=== PATIENT | male | born 1940 ===

== ENCOUNTER 2022-02-13 11:23 | Emergency (ER) | payer OTHER ==
--- OUTSIDE RECORDS SUMMARY | 2022-02-13 11:27 | XMS REPORT | Continuity of Care Document ---
:1940 Author Organization [facility] t Address [address] [place] [address] Care Team Providers Name Role Phone Irasema Yoder DO Primary Care Physician Shane Alvarez Attending Clinician Unavailable Suraj Attending Clinician Unavailable HAJA ORTIZ Attending Clinician Unavailable Negro Easley Attending Clinician Unavailable Kathy Ojeda Attending Clinician Unavailable Mark Lucero Attending Clinician Unavailable Provider, Unknown Attending Clinician Unavailable Adolph Arnold Attending Clinician Unavailable Shane Alvarez Admitting Clinician Unavailable Suraj Admitting Clinician Unavailable HAJA ORTIZ Admitting Clinician Unavailable Irasema Yoder Admitting Clinician Unavailable Physician, No Primary or Family Admitting Clinician UnavailMark Doe Admitting Clinician Unavailable Adolph Arnold Admitting Clinician Unavailable KNOW, DOES_NOT Admitting Clinician Unavailable Payers Payer Name Policy Type Policy Number Effective Date Expiration Date S shawn MEDICARE [place]: [id number] 2006 [employer] 00:00:00 [place] [place] ALONDRA DU[place] [id number] 2013 (PPO) 00:00:00 Problems This patient has no known problems. Allergies, Adverse Reactions, Alerts Allergy Allergy Status Severity Reaction(s) Onset Inactive Treating Comm ents Source Name Type Date Date Clinician No Known DA Active U 2021-0 [facility] 2[facility]14 [place] [facility] 00:00: d 00 [facility] No Known DA Active U 2020- [facility] Allergie 0-15 [place] [facility] 00:00: [place] 00 [facility] No Known DA Active U 2020-1 [facility] Allergie 0-15 [place] s 00:00: [place] 00 [facility] No Known DA Active U 2020-0 [facility] Drug 9-21 [place] Allergie 00:00: d s 00 [facility] milk FA Active MO 2020-0 [facility] 9-21 [place] 00:00: d 00 [facility] No Known DA Active U 2020-0 [facility] Drug 9-21 [place] Allergie 00:00: d s 00 [facility] milk FA Active MO NASAL 2020-0 [facility] CONGESTION 9-21 [place] 00:00: d 00 [facility] No Known DA Active U 2020-0 [facility] 8[facility]17 [place] [facility] No Known DA Active U 2020-0 [facility]ie 8-17 [place] [facility] Social History Social Habit Start Date Stop Date Quantity Comments Source Exposure to Not sure [facility] SARS-CoV-2 (event) Sex Ass[birth year] At [birth year] [facility] 00:00:00 00:00:00 Smoking Status Start Date Stop Date Source Unknown if ever smoked [facility] Medications Ordered Filled Start Stop Current Ordering Indication Dosage Frequency Signature Comments Components Source Medication Medication Date Date Medication? Clinician (SIG) Name Name ezetimibe 2020-07 Yes 10mg QD Take 10 mg Me thodi (ZETIA) 10 0-[address] mg tablet 20:24: daily. Hospit a 06 l metoprolol 2020-07 Yes 25mg Q.5D Take 25 mg M ethodi tartrate 0-[address] (LOPRESSOR) 20:24: (two) Hospi ta 25 mg 06 times a l tablet day. aspirin 2020-07 Yes 81mg QD Take 81 mg Meth nikita (ECOTRIN) 0-[address] 81 MG 20:24: daily. Hospita enteric 06 l coated tablet nitroglycer 2020-[address] 0.4 M ethodi in 0-[address] (NITROSTAT) 20:24: the tongue Hospita 0.4 MG SL 06 every 5 l tablet (five) minutes as needed for chest pain. Vital Signs Vital Name Observation Time Observation Value Comments Source Body height 2021-04-10 20:23:00 175.3 cm [facility] Body weight 2021-04-10 20:23:00 97.523 kg [facility] BMI 2021-04-10 20:23:00 31.75 kg/m2 [facility] Procedures Procedure Date / Time Performed Performing Clinician [facility] roger [id number] 2021-04-18 00:00:00 [facility] [id number] 2021-04-18 00:00:00 [facility] [id number] 2021-04-18 00:00:00 [facility] COVID-19 QUALITATIVE 2021-04-12 17:57:00 Haja Ortiz [facility] RT-PCR TYPE AND SCREEN 2021-04-10 19:46:00 [facility] HEMOGLOBIN A1C 2021-04-10 19:46:00 [facility] URINE CULTURE 2021-04-10 19:26:00 [facility] URINALYSIS SCREEN AND 2021-04-10 19:26:00 [facility] MICROSCOPY, WITH REFLEX TO CULTURE Plan of Care Planned Activity Planned Date Details Comments Source Future Scheduled Test COVID-19 VACCINE (1) [facility] [code = COVID-19 VACCINE (1)] Future Scheduled Test SHINGLES VACCINES (#1) [facility] [code = SHINGLES VACCINES (#1)] Future Scheduled Test 65+ PNEUMOCOCCAL [facility] VACCINE (1 of 1 - PPSV23) [code = 65+ PNEUMOCOCCAL VACCINE (1 of 1 - PPSV23)] Future Scheduled Test INFLUENZA VACCINE [code [facility] = INFLUENZA VACCINE] Encounters Start End Encounter Admission Attending Care Care Encounter Source Date/Time Date/Time Type Type Clinicians Facility Department ID 2021-04-18 Inpatient [facility] XOCHITL [id number] [facility] 17:44:00 [id number] [facility] 2021-04-10 Inpatient BOAZ Villalobos [id number] [facility] 15:30:00 Shane 41 [facility] 2021-04-10 Inpatient BOAZ Villalobos [id number] [facility] 15:30:00 Shane [id number] [facility] 2022-02-10 2022-02-10 Outpatient FOG_Patel_A AOSM AOSM [id number] [place] 00:00:00 00:00:00 Deshaun [id number] [facility] 2022-02-09 2022-02-09 Outpatient FOG_Patel_A AOSM AOSM [id number] [place] 00:00:00 00:00:00 Deshaun [id number] [facility] 2022-02-05 2022-02-06 Outpatient M[place]ISSA [place] [id number] [place] 00:00:00 00:00:[address] 2022-02-02 2022-02-02 Outpatient FOG_Patel_A AOSM AOSM [id number] [place] 00:00:00 00:00:00 Desahun [id number] [facility] 2022-02-02 2022-02-02 Outpatient HAJA ORTIZ [facility] [id number] [place] 00:00:00 00:00:[address] 2022-01-23 2022-01-23 Outpatient FOG_Patel_A AOSM AOSM 545 [id number] [place] 09:06:00 09:06:00 Deshaun [id number] [facility] 2022-01-15 2022-01-15 Outpatient ORTIZJOANNA TIANY [facility] [id number] [place] 00:00:00 00:00:[address] 2022-01-06 2022-01-06 Outpatient FOG_Patel_A AOSM AOSM 545 [id number] [place] 08:36:00 08:36:00 Deshaun [id number] [facility] 2021-08-19 2021-08-19 Outpatient EL Burkland, HCAPM CATH [id number] [facility] 05:43:00 05:43:00 Negro [id number] [facility] 2021-08-19 2021-08-19 Outpatient JAYLAN Easley, HCAPM HCAPM [id number] [facility] 05:43:00 05:43:00 Negro 32 [facility] 2021-07-28 2021-07-28 Outpatient EL Mendozapou HCAPM HCAPM Y11 [id number] [facility] 14:19:00 14:19:00 r, Amir [id number] [facility] 2021-07-28 2021-07-28 Outpatient EL [place] HCAPM HCAPM LA0 [id number] [facility] 14:19:00 14:19:00 r, Amir 96 [facility] 2021-04-18 2021-04-23 Inpatient EM Jazmine, HCAPM INTE [id number] [facility] 17:57:00 14:36:00 Mark 92 [facility] 2021-04-18 2021-04-18 Outpatient Jazmine HCACL LABO [id number] [facility] 23:19:00 23:19:00 Mark [id number] [facility] 2021-04-18 2021-04-18 Outpatient Jazmine HCACL LABO [id number] [facility] 23:19:00 23:19:00 Mark 39 [facility] 2021-04-17 2021-04-17 Documentat Provider, 1.2.840.1 [id number] [facility] 00:00:00 00:00:00 ion Unknown [address]5299.1.[address] 3.430.2.7 Hospit a .3.691932 l .8 2021-04-17 2021-04-17 Haja Henry 1.2.840.1 [id number] [facility] 00:00:00 00:00:[address] [place] 3.430.2.7 Hospit a .3.278847 l .8 2021-04-12 2021-04-12 Haja Jordan 1.2.840.1 [id number] [facility] 12:56:32 13:01:[address] 3.430.2.7 Hospit a .3.764337 l .8 2021-04-10 2021-04-10 Pre-Admiss Haja Ortiz 1.2.840.1 [id number] [facility] 11:56:34 12:56:34 [place] R. 89002.1.[address] Testing 3.430.2.7 Hospit a .3.931890 l .8 2021-04-10 2021-04-10 Documentat Provider, 1.2.840.1 [id number] [facility] 00:00:00 00:00:00 ion Unknown 20468.1.[address] 3.430.2.7 Hospit a .3.008241 l .8 2021-04-10 2021-04-10 Travel 1.2.840.1 1.2.775.274 [id number] [facility] 00:00:00 00:00:[address] 3.430.2.7 0.2.7.3.698 Ho spita .3.483590 084.8 l .8 2021-03-25 2021-03-25 Outpatient BOAZ Villalobos MEDI [id number] - [facility] 00:00:00 23:59:00 Shane [id number] [facility] 2021-03-25 2021-03-25 Outpatient Antonio SALENA LABO [id number] [facility] 17:10:00 17:10:00 Shane 67 [facility] 2021-03-25 2021-03-25 Outpatient ISIDRO AlvarezEWELINA LABO [id number] [facility] 17:10:00 17:10:00 Shane [id number] [facility] 2021-02-20 2021-02-20 Outpatient BOAZ Lui PAIN [id number] [facility] 13:09:00 13:09:00 Adolph [facility] [place] [facility] 2021-02-20 2021-02-20 Outpatient BOAZ Lui PAIN [id number] [facility] 13:09:00 13:09:00 Adolph [id number] [facility] Results Test Description Test Time Test Comments Results Result Comments Source SARS-CoV-2 (COVID-19) RNA [Presence] in Respiratory sp ecimen by 2022-02-02 22:14:37 CYNTHIA with probe detection Test Item Value Reference Range Interpretation Comme nts SARS-CoV-2 (COVID-19) RNA [Presence] in Respiratory specimen by Not detected CYNTHIA with probe detection (test code = 06227-5) Whether patient is employed in a healthcare setting (test code = Un known 28171-8) Whether the patient has symptoms related to condition of interest U nknown (test code = 48435-8) Whether the patient was hospitalized for condition of interest Unkn own (test code = 84836-7) Whether the patient was admitted to intensive care unit (ICU) for U nknown condition of interest (test code = 26458-5) Whether patient resides in a congregate care setting (test code = U nknown 48022-2) status (test code = 59203-4) Unknown Date and time of symptom onset (test code = 05415-6) Unknown COMPREHENSIVE METABOLIC [id number] 14:40:00 Test Item Value Reference Range Interpretation Comments SODIUM (test code = NA) 136 mmol/L 134-147 N POTASSIUM (test code = 4.0 mmol/L 3.4-5.0 N K) CHLORIDE (test code = 103 mmol/L 100-108 N CL) CARBON DIOXIDE (test 28 mmol/L 21-32 N code = CO2) ANION GAP (test code = 5.0 GAP calc 4.0-15.0 N GAP) GLUCOSE (test code = 172 MG/DL 70-110 H GLU) BLOOD UREA NITROGEN 13 MG/DL 7-18 N (test code = BUN) GLOMERULAR FILTRATION >=60 max estimate >60 RATE (test code = GFR) estGFR CREATININE (test code = 0.7 MG/DL 0.8-1.3 L CREAT) TOTAL PROTEIN (test code 7.6 G/DL 6.4-8.2 N = PROT) ALBUMIN (test code = 3.7 G/DL 3.4-5.0 N ALB) GLOBULIN (test code = 3.9 GM/dL GLOB) ALBUMIN/GLOBULIN RATIO 1.0 RATIO 1.2-2.2 L (test code = A/G) CALCIUM (test code = CA) 9.5 MG/DL 8.5-10.1 N BILIRUBIN TOTAL (test 0.90 MG/DL 0.2-1.2 N code = BILT) SGOT/AST (test code = 24 Unit/L 15-37 N AST) SGPT/ALT (test code = 49 Unit/L 12-78 N ALT) ALKALINE PHOSPHATASE 66 Unit/L 50-136 N TOTAL (test code = ALKP) COVID 19 INHOUSE [id number] 14:36:00 Test Item Value Reference Range Interpretation Comments COVID 19 INHOUSE AG NEGATIVE Negative Per manu facturer, (test code = negative result s should [id number]) be treated aspr esumptive and, if inconsi stent with clinical signs andsymptoms or necessary for patient man agement, should betested with an alternative mol ecular assay. Negative resultsdo not preclude SA RS-CoV-2 infection and s hould not be usedas the s ole basis for patient man agement decisions. Nega tive results should be considered in t he context of apatient's r ecent exposures, hist ory, presence of cli nicalsigns and symptoms co nsistent with COVID-19. PROTHROMBIN [id number] 14:29:00 Test Item Value Reference Range Interpretation Comments PT PATIENT (test 12.9 SECONDS 9.3-12.9 N code = PTP) INTERNATIONAL NORMAL 1.13 INR Unit 0.8-1.2 N TARGE T INR BY RATIO (test code = INDICATIO N Indication INR) INR1. Prophylax is of venous thrombos is 2.0 - 3.0 (orthoped ic surgery), Proph ylaxis of venous throm bosis (other than hig h-risk surgery), Treat ment of Deep Vein Thrombosis/Pulm onary Embolism, Preve ntion of systemic emb olism - Tissue heart va lves, Acute Myocardia l Infarction (to prevent systemic emboli sm), Valvular heart disease, Acute Myocardial Infa rction (to prevent sys temic embolism), Valv ular heart disease, Atrial Fibrillation, Bileaflet mecha nical valve in aortic position.2. [facility] hanical prosthetic valv es (high risk), 2. 5 - 3.5 Presence of Lup us Anticoagulant o r Antiphospholipi d Antibodies, Pre vention of systemic emb olism - Acute Myocardia l Infarction (to prevent recurrent infar ct). CBC W/AUTO [id number] 14:18:00 Test Item Value Reference Range Interpretation Comments WHITE BLOOD CELL (test code = 6.6 K/mm3 3.5-11.0 N WBC) RED BLOOD CELL (test code = 5.09 M/mm3 4.70-6.10 N RBC) HEMOGLOBIN (test code = HGB) 15.6 G/DL 12.3-15.9 N HEMATOCRIT (test code = HCT) 46.8 % 35.8-46.7 H MEAN CELL VOLUME (test code = 91.9 Fl 86.3-98.9 N MCV) MEAN CELL HGB (test code = MCH) 30.6 pg 28.9-34.4 N MEAN CELL HGB CONCETRATION 33.3 G/DL 32.1-34.5 N (test code = MCHC) RED CELL DISTRIBUTION WIDTH 13.2 SD 11.5-14.5 N (test code = RDW) PLATELET COUNT (test code = 210 K/mm3 150-450 N PLT) MEAN PLATELET VOLUME (test code 9.90 fL 7.0-9.6 H = MPV) NEUTROPHIL % (test code = NT%) 60.7 % 40-76 N IMMATURE GRANULOCYTE % (test 0.5 % 0.0-5.0 N code = IG%) LYMPHOCYTE % (test code = LY%) 20.7 % 20.5-51.1 N MONOCYTE % (test code = MO%) 10.8 % 1.7-9.3 H EOSINOPHIL % (test code = EO%) 6.4 % 0.0-6.0 H BASOPHIL % (test code = BA%) 0.9 % 0.0-2.0 N NUCLEATED RBC % (test code = 0.0 /100WBC% 0.0-1.0 N NRBC%) NEUTROPHIL # (test code = NT#) 4.0 K/mm3 1.8-7.6 N IMMATURE GRANULOCYTE # (test 0.03 x10 3/uL 0.00-0.03 N code = IG#) LYMPHOCYTE # (test code = LY#) 1.4 K/mm3 0.6-3.0 N MONOCYTE # (test code = MO#) 0.7 K/mm3 0.2-1.5 N EOSINOPHIL # (test code = EO#) 0.4 K/mm3 0.0-0.4 N BASOPHIL # (test code = BA#) 0.1 K/mm3 0.0-0.2 N NUCLEATED RBC # (test code = 0.0 K/mm3 0.00-0.01 N NRBC#) MANUAL DIFF REQUIRED (test code NO DIFF/SCN CRITERIA = MDIFF) CBC W/AUTO [id number] 07:45:00 Test Item Value Reference Range Interpretation Comments WHITE BLOOD CELL 9.9 K/mm3 3.5-11.0 N (test code = WBC) RED BLOOD CELL (test 4.96 M/mm3 4.70-6.10 N code = RBC) HEMOGLOBIN (test code 15.6 G/DL 12.3-15.9 N = HGB) HEMATOCRIT (test code 47.2 % 35.8-46.7 H = HCT) MEAN CELL VOLUME 95.2 Fl 86.3-98.9 N (test code = MCV) MEAN CELL HGB (test 31.5 pg 28.9-34.4 N code = MCH) MEAN CELL HGB 33.1 G/DL 32.1-34.5 N CONCETRATION (test code = MCHC) RED CELL DISTRIBUTION 13.1 SD 11.5-14.5 N WIDTH (test code = RDW) PLATELET COUNT (test 187 K/mm3 150-450 N code = PLT) MEAN PLATELET VOLUME 9.80 fL 7.0-9.6 H (test code = MPV) NEUTROPHIL % (test 81.8 % 40-76 H code = NT%) IMMATURE GRANULOCYTE 0.4 % 0.0-5.0 N % (test code = IG%) LYMPHOCYTE % (test 5.6 % 20.5-51.1 L code = LY%) MONOCYTE % (test code 8.4 % 1.7-9.3 N = MO%) EOSINOPHIL % (test 3.2 % 0.0-6.0 N code = EO%) BASOPHIL % (test code 0.6 % 0.0-2.0 N = BA%) NUCLEATED RBC % (test 0.0 /100WBC% 0.0-1.0 N code = NRBC%) NEUTROPHIL # (test 8.1 K/mm3 1.8-7.6 H code = NT#) IMMATURE GRANULOCYTE 0.04 x10 3/uL 0.00-0.03 H # (test code = IG#) LYMPHOCYTE # (test 0.6 K/mm3 0.6-3.0 N code = LY#) MONOCYTE # (test code 0.8 K/mm3 0.2-1.5 N = MO#) EOSINOPHIL # (test 0.3 K/mm3 0.0-0.4 N code = EO#) BASOPHIL # (test code 0.1 K/mm3 0.0-0.2 N = BA#) NUCLEATED RBC # (test 0.0 K/mm3 0.00-0.01 N code = NRBC#) MANUAL DIFF REQUIRED NO DIFF/SCN CRITERIA SLIDE R ALANIEW (test code = MDIFF) CONSISTA NT WITH AUTO DIFFERENTI AL. BASIC METABOLIC [id number] 06:26:00 Test Item Value Reference Range Interpretation Comments SODIUM (test code = NA) 133 mmol/L 134-147 L POTASSIUM (test code = 3.7 mmol/L 3.4-5.0 N K) CHLORIDE (test code = 100 mmol/L 100-108 N CL) CARBON DIOXIDE (test 27 mmol/L 21-32 N code = CO2) ANION GAP (test code = 6.0 GAP calc 4.0-15.0 N GAP) GLUCOSE (test code = 158 MG/DL 70-110 H GLU) BLOOD UREA NITROGEN 11 MG/DL 7-18 N (test code = BUN) GLOMERULAR FILTRATION >=60 max estimate >60 RATE (test code = GFR) estGFR CREATININE (test code = 0.7 MG/DL 0.8-1.3 L CREAT) CALCIUM (test code = CA) 8.8 MG/DL 8.5-10.1 N BASIC METABOLIC [id number] 06:03:00 Test Item Value Reference Range Interpretation Comments SODIUM (test code = NA) 137 mmol/L 134-147 N POTASSIUM (test code = 3.5 mmol/L 3.4-5.0 N K) CHLORIDE (test code = 101 mmol/L 100-108 N CL) CARBON DIOXIDE (test 28 mmol/L 21-32 N code = CO2) ANION GAP (test code = 8.0 GAP calc 4.0-15.0 N GAP) GLUCOSE (test code = 138 MG/DL 70-110 H GLU) BLOOD UREA NITROGEN 12 MG/DL 7-18 N (test code = BUN) GLOMERULAR FILTRATION >=60 max estimate >60 RATE (test code = GFR) estGFR CREATININE (test code = 0.8 MG/DL 0.8-1.3 N CREAT) CALCIUM (test code = CA) 9.1 MG/DL 8.5-10.1 N CBC W/AUTO [id number] 05:48:00 Test Item Value Reference Range Interpretation Comments WHITE BLOOD CELL (test code = 7.0 K/mm3 3.5-11.0 N WBC) RED BLOOD CELL (test code = 4.70 M/mm3 4.70-6.10 N RBC) HEMOGLOBIN (test code = HGB) 14.8 G/DL 12.3-15.9 N HEMATOCRIT (test code = HCT) 44.8 % 35.8-46.7 N MEAN CELL VOLUME (test code = 95.3 Fl 86.3-98.9 N MCV) MEAN CELL HGB (test code = MCH) 31.5 pg 28.9-34.4 N MEAN CELL HGB CONCETRATION 33.0 G/DL 32.1-34.5 N (test code = MCHC) RED CELL DISTRIBUTION WIDTH 13.2 SD 11.5-14.5 N (test code = RDW) PLATELET COUNT (test code = 201 K/mm3 150-450 N PLT) MEAN PLATELET VOLUME (test code 10.00 fL 7.0-9.6 H = MPV) NEUTROPHIL % (test code = NT%) 57.4 % 40-76 IMMATURE GRANULOCYTE % (test 0.4 % 0.0-5.0 N code = IG%) LYMPHOCYTE % (test code = LY%) 23.4 % 20.5-51.1 N MONOCYTE % (test code = MO%) 12.6 % 1.7-9.3 H EOSINOPHIL % (test code = EO%) 5.5 % 0.0-6.0 N BASOPHIL % (test code = BA%) 0.7 % 0.0-2.0 N NUCLEATED RBC % (test code = 0.0 /100WBC% 0.0-1.0 N NRBC%) NEUTROPHIL # (test code = NT#) 4.0 K/mm3 1.8-7.6 N IMMATURE GRANULOCYTE # (test 0.03 x10 3/uL 0.00-0.03 N code = IG#) LYMPHOCYTE # (test code = LY#) 1.6 K/mm3 0.6-3.0 N MONOCYTE # (test code = MO#) 0.9 K/mm3 0.2-1.5 N EOSINOPHIL # (test code = EO#) 0.4 K/mm3 0.0-0.4 N BASOPHIL # (test code = BA#) 0.1 K/mm3 0.0-0.2 N NUCLEATED RBC # (test code = 0.0 K/mm3 0.00-0.01 N NRBC#) MANUAL DIFF REQUIRED (test code NO DIFF/SCN CRITERIA = MDIFF) BASIC METABOLIC [id number] 04:52:00 Test Item Value Reference Range Interpretation Comments SODIUM (test code = NA) 135 mmol/L 134-147 N POTASSIUM (test code = 3.6 mmol/L 3.4-5.0 N K) CHLORIDE (test code = 102 mmol/L 100-108 N CL) CARBON DIOXIDE (test 31 mmol/L 21-32 N code = CO2) ANION GAP (test code = 2.0 GAP calc 4.0-15.0 L GAP) GLUCOSE (test code = 145 MG/DL 70-110 H GLU) BLOOD UREA NITROGEN 10 MG/DL 7-18 N (test code = BUN) GLOMERULAR FILTRATION >=60 max estimate >60 RATE (test code = GFR) estGFR CREATININE (test code = 0.6 MG/DL 0.8-1.3 L CREAT) CALCIUM (test code = CA) 8.8 MG/DL 8.5-10.1 N CBC W/AUTO [id number] 04:34:00 Test Item Value Reference Range Interpretation Comments WHITE BLOOD CELL (test code = 6.4 K/mm3 3.5-11.0 N WBC) RED BLOOD CELL (test code = 4.97 M/mm3 4.70-6.10 N RBC) HEMOGLOBIN (test code = HGB) 15.6 G/DL 12.3-15.9 N HEMATOCRIT (test code = HCT) 46.8 % 35.8-46.7 H MEAN CELL VOLUME (test code = 94.2 Fl 86.3-98.9 N MCV) MEAN CELL HGB (test code = MCH) 31.4 pg 28.9-34.4 N MEAN CELL HGB CONCETRATION 33.3 G/DL 32.1-34.5 N (test code = MCHC) RED CELL DISTRIBUTION WIDTH 13.0 SD 11.5-14.5 N (test code = RDW) PLATELET COUNT (test code = 184 K/mm3 150-450 N PLT) MEAN PLATELET VOLUME (test code 9.50 fL 7.0-9.6 N = MPV) NEUTROPHIL % (test code = NT%) 64.6 % 40-76 N IMMATURE GRANULOCYTE % (test 0.2 % 0.0-5.0 N code = IG%) LYMPHOCYTE % (test code = LY%) 18.0 % 20.5-51.1 L MONOCYTE % (test code = MO%) 11.9 % 1.7-9.3 H EOSINOPHIL % (test code = EO%) 4.4 % 0.0-6.0 N BASOPHIL % (test code = BA%) 0.9 % 0.0-2.0 N NUCLEATED RBC % (test code = 0.0 /100WBC% 0.0-1.0 N NRBC%) NEUTROPHIL # (test code = NT#) 4.1 K/mm3 1.8-7.6 N IMMATURE GRANULOCYTE # (test 0.01 x10 3/uL 0.00-0.03 N code = IG#) LYMPHOCYTE # (test code = LY#) 1.2 K/mm3 0.6-3.0 N MONOCYTE # (test code = MO#) 0.8 K/mm3 0.2-1.5 N EOSINOPHIL # (test code = EO#) 0.3 K/mm3 0.0-0.4 N BASOPHIL # (test code = BA#) 0.1 K/mm3 0.0-0.2 N NUCLEATED RBC # (test code = 0.0 K/mm3 0.00-0.01 N NRBC#) MANUAL DIFF REQUIRED (test code NO DIFF/SCN CRITERIA = MDIFF) BASIC METABOLIC [id number] 05:02:00 Test Item Value Reference Range Interpretation Comments SODIUM (test code = NA) 137 mmol/L 134-147 N POTASSIUM (test code = 3.9 mmol/L 3.4-5.0 N K) CHLORIDE (test code = 104 mmol/L 100-108 N CL) CARBON DIOXIDE (test 27 mmol/L 21-32 N code = CO2) ANION GAP (test code = 6.0 GAP calc 4.0-15.0 N GAP) GLUCOSE (test code = 151 MG/DL 70-110 H GLU) BLOOD UREA NITROGEN 9 MG/DL 7-18 N (test code = BUN) GLOMERULAR FILTRATION >=60 max estimate >60 RATE (test code = GFR) estGFR CREATININE (test code = 0.7 MG/DL 0.8-1.3 L CREAT) CALCIUM (test code = CA) 9.2 MG/DL 8.5-10.1 N CBC W/AUTO [id number] 04:48:00 Test Item Value Reference Range Interpretation Comments WHITE BLOOD CELL (test code = 8.1 K/mm3 3.5-11.0 N WBC) RED BLOOD CELL (test code = 5.28 M/mm3 4.70-6.10 N RBC) HEMOGLOBIN (test code = HGB) 16.5 G/DL 12.3-15.9 H HEMATOCRIT (test code = HCT) 49.4 % 35.8-46.7 H MEAN CELL VOLUME (test code = 93.6 Fl 86.3-98.9 N MCV) MEAN CELL HGB (test code = MCH) 31.3 pg 28.9-34.4 N MEAN CELL HGB CONCETRATION 33.4 G/DL 32.1-34.5 N (test code = MCHC) RED CELL DISTRIBUTION WIDTH 13.0 SD 11.5-14.5 N (test code = RDW) PLATELET COUNT (test code = 196 K/mm3 150-450 N PLT) MEAN PLATELET VOLUME (test code 9.50 fL 7.0-9.6 N = MPV) NEUTROPHIL % (test code = NT%) 70.9 % 40-76 IMMATURE GRANULOCYTE % (test 0.2 % 0.0-5.0 N code = IG%) LYMPHOCYTE % (test code = LY%) 16.7 % 20.5-51.1 L MONOCYTE % (test code = MO%) 10.1 % 1.7-9.3 H EOSINOPHIL % (test code = EO%) 1.5 % 0.0-6.0 N BASOPHIL % (test code = BA%) 0.6 % 0.0-2.0 N NUCLEATED RBC % (test code = 0.0 /100WBC% 0.0-1.0 N NRBC%) NEUTROPHIL # (test code = NT#) 5.8 K/mm3 1.8-7.6 N IMMATURE GRANULOCYTE # (test 0.02 x10 3/uL 0.00-0.03 N code = IG#) LYMPHOCYTE # (test code = LY#) 1.4 K/mm3 0.6-3.0 N MONOCYTE # (test code = MO#) 0.8 K/mm3 0.2-1.5 N EOSINOPHIL # (test code = EO#) 0.1 K/mm3 0.0-0.4 N BASOPHIL # (test code = BA#) 0.1 K/mm3 0.0-0.2 N NUCLEATED RBC # (test code = 0.0 K/mm3 0.00-0.01 N NRBC#) MANUAL DIFF REQUIRED (test code NO DIFF/SCN CRITERIA = MDIFF) - CT CHEST W/O [id number] 06:40:00 [facility] 1940 Sex: M Name: RAVEN ESCALANTE [facility] : 1940 Age/S: 81 / M [id number] [place] Unit #:[id number] Loc: [place] [address] Phys: Armnida Louis Acct: [id number] Dis Date: Status: ADM INPHONE #: [phone] Exam Date: 04/19/2021 0510 FAX #: Reason: pneumonia vs pulmonary edema EXAMS: CPT: [id number] CT CHEST W/O CONTRAST [id number] HISTORY: Pneumonia versus edema TECHNIQUE: Axial tomograms through the chest were obtained without intravenous contrast. One or more of the following dose reduction techniques were used: Automated exposure control, adjustment of the mA and/or kV according to patient size, and/or utilization of iterative reconstruction technique. FINDINGS: Aortic and coronary calcifications are present. There is no significant mediastinal or hilar adenopathy. The aorta and mediastinal structures show no other significant abnormalities. Trace right pleural effusion is present. Bibasilar atelectasis is present. No pneumothorax. Calcified hilar lymph node is noted. IMPRESSION:1. Mild bibasilar atelectasis. No focal airspace consolidation. at 0640 Reported and signed by: Martin Brennan M.D. CC: Arminda WILLARD; Mark Lucero MD Technologist:RT Jv (R)(CT) CTDI: DLP: Trnscb Date/Time: 04/19/2021 (0640) [id number] Orig Print D/T: S: 04/19/2021 (0643) PAGE 1 Signed [id number] 05:26:00 Test Item Value Reference Range Interpretation Comments GLYCOSYLATED HEMOGLOBIN (HA1C) 6.4 % A1C 0.0-5.7 H (test code = GLYHGB) ESTIMATED AVERAGE GLUCOSE (test 137 MG/DLest code = EAG) BASIC METABOLIC [id number] 05:10:00 Test Item Value Reference Range Interpretation Comments SODIUM (test code = NA) 136 mmol/L 134-147 N POTASSIUM (test code = 3.7 mmol/L 3.4-5.0 N K) CHLORIDE (test code = 103 mmol/L 100-108 N CL) CARBON DIOXIDE (test 28 mmol/L 21-32 N code = CO2) ANION GAP (test code = 5.0 GAP calc 4.0-15.0 N GAP) GLUCOSE (test code = 139 MG/DL 70-110 H GLU) BLOOD UREA NITROGEN 14 MG/DL 7-18 N (test code = BUN) GLOMERULAR FILTRATION >=60 max estimate >60 RATE (test code = GFR) estGFR CREATININE (test code = 0.6 MG/DL 0.8-1.3 L CREAT) CALCIUM (test code = CA) 8.9 MG/DL 8.5-10.1 N LIPID PROFILE (CORONARY RISK)2021-04-19 05:10:00 Test Item Value Reference Range Interpretation Comments TRIGLYCERIDES (test 141 MG/DL 0-150 N code = TRIG) CHOLESTEROL (test 175 MG/DL 133-200 N code = CHOL) CHOLESTEROL/HDL 3.65 RATIO See_Comment RISK ASSOCIA ALEXANDER WITH RATIO (test code = CHOL/HDL RATIOS: RISK CHOLHDL) MALE FEMALE1/2 AVERAGE 3.43 3.27AVERAG E 4.97 4.442X AVERAGE 9.55 7.053X AVERAGE 23.39 11.04 NOTE THAT THE REFERENCE VALUE IS RELATED TO RISK LEVELS ASRECOMMENDED B Y THE [facility] . [Automated mess age] The system which Equine[employer] nerated this result tra nsmitted reference range : 0-. The reference range was not used to interpr et this result as normal/abnormal . HDL CHOLESTEROL 48 MG/DL 40-59 N (test code = HDL) NON-HDL CHOLESTEROL 127 mg/dL <130 (test code = NHDL) LIPOPROTEIN LDL 105 MG/DL 0-129 N <100 OPTIMAL 100 - 129 (test code = LDL) NEAR OPTIM AL/ABOVE [id number] - 15 9 [id number] - 189 HIGH>OR= 190 VE RY HIGHNOTE THAT G UIDELINES ARE PROVIDED BY NATIONAL CHOLESTEROLEDUC ATION PROGRAM ADULT T REATMENT PANEL III LDL/HDL (test code 2.18 Ratio See_Comment N [Automat ed message] The = LDL/HDL) system which [employer] nerated this result tra nsmitted reference range : 1.48-3.22 Avg. The reference range was not used to interpr et this result as normal/abnormal . [id number] 05:10:00 Test Item Value Reference Range Interpretation Comments PHOSPHOROUS (test code = PHOS) 2.6 MG/DL 2.5-4.9 N [id number] 05:10:00 Test Item Value Reference Range Interpretation Comments MAGNESIUM (test code = MAG) 1.9 MG/DL 1.8-2.4 N NT PRO-BRAIN NATRIURETIC [id number] 05:10:00 Test Item Value Reference Range Interpretation Comments NT PRO-BRAIN NATRIURETIC PEPTI 1250 PG/ML 0-100 H (test code = PROBNP) COVID 19 Asymptomatic IH [id number] 05:03:00 Test Item Value Reference Range Interpretation Comments COVID 19 Asymptomatic NEGATIVE Negative Per ma nufacturer, IH AG (test code = negative results should COVNONPUIAG) be treated aspresumptive a nd, if inconsistent wi th clinical signs andsymptoms or necessary for p atient management, josh uld betested with a n alternative mol ecular assay. Negative resultsdo not p reclude SARS-CoV-2 infe ction and should not be usedas the sole basis for patient man agement decisions. Nega tive results should be considered in t he context of apat ient's recent exposure s, history, presen ce of clinicalsigns a nd symptoms consis tent with COVID-19. CBC W/AUTO [id number] 04:52:00 Test Item Value Reference Range Interpretation Comments WHITE BLOOD CELL (test code = 10.6 K/mm3 3.5-11.0 N WBC) RED BLOOD CELL (test code = 4.81 M/mm3 4.70-6.10 N RBC) HEMOGLOBIN (test code = HGB) 15.1 G/DL 12.3-15.9 N HEMATOCRIT (test code = HCT) 44.4 % 35.8-46.7 N MEAN CELL VOLUME (test code = 92.3 Fl 86.3-98.9 N MCV) MEAN CELL HGB (test code = MCH) 31.4 pg 28.9-34.4 N MEAN CELL HGB CONCETRATION 34.0 G/DL 32.1-34.5 N (test code = MCHC) RED CELL DISTRIBUTION WIDTH 12.8 SD 11.5-14.5 N (test code = RDW) PLATELET COUNT (test code = 190 K/mm3 150-450 N PLT) MEAN PLATELET VOLUME (test code 9.40 fL 7.0-9.6 N = MPV) NEUTROPHIL % (test code = NT%) 79.8 % 40-76 H IMMATURE GRANULOCYTE % (test 0.3 % 0.0-5.0 N code = IG%) LYMPHOCYTE % (test code = LY%) 10.2 % 20.5-51.1 L MONOCYTE % (test code = MO%) 8.5 % 1.7-9.3 N EOSINOPHIL % (test code = EO%) 0.8 % 0.0-6.0 N BASOPHIL % (test code = BA%) 0.4 % 0.0-2.0 N NUCLEATED RBC % (test code = 0.0 /100WBC% 0.0-1.0 N NRBC%) NEUTROPHIL # (test code = NT#) 8.5 K/mm3 1.8-7.6 H IMMATURE GRANULOCYTE # (test 0.03 x10 3/uL 0.00-0.03 N code = IG#) LYMPHOCYTE # (test code = LY#) 1.1 K/mm3 0.6-3.0 N MONOCYTE # (test code = MO#) 0.9 K/mm3 0.2-1.5 N EOSINOPHIL # (test code = EO#) 0.1 K/mm3 0.0-0.4 N BASOPHIL # (test code = BA#) 0.0 K/mm3 0.0-0.2 N NUCLEATED RBC # (test code = 0.0 K/mm3 0.00-0.01 N NRBC#) MANUAL DIFF REQUIRED (test code NO DIFF/SCN CRITERIA = MDIFF) BASIC METABOLIC [id number] 18:19:00 Test Item Value Reference Range Interpretation Comments SODIUM (test code = NA) 136 mmol/L 134-147 N POTASSIUM (test code = 4.0 mmol/L 3.4-5.0 N K) CHLORIDE (test code = 100 mmol/L 100-108 N CL) CARBON DIOXIDE (test 30 mmol/L 21-32 N code = CO2) ANION GAP (test code = 6.0 GAP calc 4.0-15.0 N GAP) GLUCOSE (test code = 236 MG/DL 70-110 H GLU) BLOOD UREA NITROGEN 18 MG/DL 7-18 N (test code = BUN) GLOMERULAR FILTRATION >=60 max estimate >60 RATE (test code = GFR) estGFR CREATININE (test code = 0.8 MG/DL 0.8-1.3 N CREAT) CALCIUM (test code = CA) 9.3 MG/DL 8.5-10.1 N Completed by Nursing: [id number] 18:19:00 Test Item Value Reference Range Interpretation Comments MAGNESIUM (test code = MAG) 2.0 MG/DL 1.8-2.4 N Completed by Nursing: [id number] 18:19:00 Test Item Value Reference Range Interpretation Comments TROPONIN-I (test 0.160 NG/ML 0.000-0.045 HH Negative: < /= 0.045 code = TROPI) Positive: >/= 0.046 Correlation wit h serial results, other cardiac markers, and cl inical findings is nec essary to determine the c linical significance of this result. Quantit ative results using d ifferent methodologies s hould not be compared to one another as nume rical results may ines yby method. Completed by Nursing: NO- XR CHEST 1 [id number] 18:16:00 [facility] 1940 Sex: M Name: RAVEN ESCALANTE [facility] : 1940 Age/S: 81 / M [address] [place] Unit #: [id number] Loc: [place] [address] Phys: Mook Chavez Acct: [id number] Dis Date: Status: PRE ER PHONE #: [phone] Exam Date: 04/18/2021 174 FAX #: Reason: chest pain EXAMS: CPT: [id number] XR CHEST 1 V 31701 Fluoro Time: DAP (Gy m2): Air Kerma (mGy): B2 EXAM: - XR CHEST 1 V HISTORY: chest pain COMPARISON: None FINDINGS: Patchy perihilar airspace opacities. No pleural effusion or pneumothorax. The cardiac silhouette is within normal limits. No acute osseous abnormalities. IMPRESSION: Perihilaratelectasis, pulmonary edema and/or pneumonia. at 1816 Reported and signed by: Caio Nunez M.D. CC: Lo WILLARD; Mook Chavez DO PAGE 1 Signed Report Name: RAVEN ESCALANTE [facility] : 1940 Age/S: 81 / M [address] [place] Unit #: [id number] Loc: [place] [address] Phys: Mook Chavez DO Acct: [id number] Dis Date: Status: PRE ER PHONE #: [phone] Exam Date: 04/18/2021 1745 FAX #: Reason: chest pain EXAMS: CPT: [id number] XR CHEST 1 V [id number] Fluoro Time: DAP (Gy m2): Air Kerma (mGy): <Continued> Technologist: Reny Simeon, RT(R) Trnscb Date/Time: 04/18/2021 (1815) [email or web address] Orig Print D/T: S: 04/18/2021 (1820) PAGE 2 Signed ReportCBC W/O [id number] 17:59:00 Test Item Value Reference Range Interpretation Comments WHITE BLOOD CELL (test code = WBC) 12.9 K/mm3 3.5-11.0 H RED BLOOD CELL (test code = RBC) 5.04 M/mm3 4.70-6.10 N HEMOGLOBIN (test code = HGB) 15.8 G/DL 12.3-15.9 N HEMATOCRIT (test code = HCT) 47.6 % 35.8-46.7 H MEAN CELL VOLUME (test code = MCV) 94.4 Fl 86.3-98.9 N MEAN CELL HGB (test code = MCH) 31.3 pg 28.9-34.4 N MEAN CELL HGB CONCETRATION (test 33.2 G/DL 32.1-34.5 N code = MCHC) RED CELL DISTRIBUTION WIDTH (test 13.0 SD 11.5-14.5 N code = RDW) PLATELET COUNT (test code = PLT) 234 K/mm3 150-450 N MEAN PLATELET VOLUME (test code = 9.80 fL 7.0-9.6 H MPV) Urine [id number] 22:36:54 Test Item Value Reference Range Interpretation Comments Urine culture (test SEE COMMENT Bacteriu emmanuel screen code = 7583687) negative. [facility] HospitalType and [id number] 22:27:00 Test Item Value Reference Range Interpretation Comments ABO grouping (test code = 883-9) A Rh type (test code = 64922-7) POS Antibody screen (gel) (test code = NEG 890-4) [facility] [id number] 18:17:00 Test Item Value Reference Range Interpretation Comments PROTHROMBIN TIME 12.8 secs 10.1-12.5 H PATIENT (test code = PTP) INTERNATIONAL NORMAL 1.12 <2.0 RECOMME NDED THERAPEUTIC RATIO (test code = RANGE FOR ORAL INR) ANTICOAGULANTTR EATMENT: CONDITION INRPr ophylaxis of venous throm bosis in 2.0 - 3.0 high- risk medical or surg ical patientsTreatme nt of venous thrombos is 2.0 - 3.0Prevention o f embolism 2.0 - 3.0Prevention o f recurrent embol ism, or 3.0 - 4.5 patie nts with mechanical pros thetic intravascular v cristina IS PATIENT ON ANTICOAGULANTS ? YLIST ANTICOAGULANT/ANTI PLT MEDICATION : AspirinHas Lab been notified if Patient is on Heparin Drip? NOIf Yes, order CBC, OCCULT BLOOD, PT every other day NTHROMBOPLASTIN TIME [id number] 18:17:00 Test Item Value Reference Range Interpretation Comments PTT ACTIVATED (test code = APTT) 29.9 secs 24.9-37.0 N IS PATIENT ON ANTICOAGULANTS ? YLIST ANTICOAGULANT/ANTI PLT MEDICATION : AspirinHas Lab been notified if Patient is on Heparin Drip? NOIf Yes, order CBC, OCCULT BLOOD, PT every other day NCOMPREHENSIVE METABOLIC [id number] 18:00:00 Test Item Value Reference Range Interpretation Comments SODIUM (test code = 140 mmol/L 136-145 N NA) POTASSIUM (test code = 4.3 mmol/L 3.5-5.1 N K) CHLORIDE (test code = 101.0 mmol/L 98-107 N CL) CARBON DIOXIDE (test 32.6 mmol/L 21-32 H code = CO2) GLUCOSE (test code = 128 mg/dL 70-110 H GLU) BLOOD UREA NITROGEN 14 mg/dL 7-18 N (test code = BUN) GLOMERULAR FILTRATION 97.5 >60 Unit o f measure: RATE (test code = GFR) mL/mi n/1.73 [id number] Range:Healthy Adults >90 mL/min/1.73 m2 For Chronic Kidney Disease: Stage II Mild Decrease i n GFR 60-90 Stage III Moderate Decrea se in GFR 30-59 St age IV Severe Decre ase in GFR 15-29 St age V Kidney Failur e <15 CREATININE (test code 0.77 mg/dL 0.55-1.30 N = CREAT) TOTAL PROTEIN (test 6.9 g/dL 6.4-8.2 N code = PROT) ALBUMIN (test code = 3.7 g/dL 3.4-5.0 N ALB) GLOBULIN (test code = 3.2 g/dL 2.2-4.2 N GLOB) ALBUMIN/GLOBULIN RATIO 1.2 0.7-2.0 N (test code = A/G) CALCIUM (test code = 9.2 mg/dL 8.2-10.1 N CA) BILIRUBIN TOTAL (test 0.70 mg/dL 0.2-1.00 N code = BILT) SGOT/AST (test code = 23.0 U/L 15-37 N AST) SGPT/ALT (test code = 39.0 U/L 12-78 N Please note new ALT) normal range. ALKALINE PHOSPHATASE 56 U/L 46-116 N TOTAL (test code = ALKP) CBC W/AUTO [id number] 17:24:00 Test Item Value Reference Range Interpretation Comments WHITE BLOOD CELL (test code = WBC) 6.1 K/mm3 5.7-10.5 N RED BLOOD CELL (test code = RBC) 5.07 M/mm3 4.2-5.4 N HEMOGLOBIN (test code = HGB) 15.9 g/dL 12-16 N HEMATOCRIT (test code = HCT) 46.6 % 37-47 N MEAN CELL VOLUME (test code = MCV) 92 fL 80-98 N MEAN CELL HGB (test code = MCH) 31.4 pg 27-34 N MEAN CELL HGB CONCENTRATION (test 34.1 g/dL 30.8-34.1 N code = MCHC) RED CELL DISTRIBUTION WIDTH (test 12.9 % 11-16 N code = RDW) PLT (test code = PLT) 190 K/mm3 130-400 N MEAN PLATELET VOLUME (test code = 9.8 fL 8.9-12.1 N MPV) NEUTROPHIL % (test code = NT%) 62.2 % 45-70 N LYMPHOCYTE % (test code = LY%) 24.0 % 20-40 N MONOCYTE % (test code = MO%) 11.7 % 3-10 H EOSINOPHIL % (test code = EO%) 1.1 % 1-5 N BASOPHIL % (test code = BA%) 0.7 % 0.0-1.1 N NEUTROPHIL # (test code = NT#) 3.79 K/mm3 2.00-7.50 N LYMPHOCYTE # (test code = LY#) 1.46 K/mm3 1.50-4.00 L MONOCYTE # (test code = MO#) 0.71 K/mm3 0.2-0.8 N EOSINOPHIL # (test code = EO#) 0.07 K/mm3 0.04-0.4 N BASOPHIL # (test code = BA#) 0.04 K/mm3 0.02-0.10 N MANUAL DIFF REQUIRED (test code = NO MANUAL DIFF MDIFF) NUCLEATED RED BLOOD CELL (test 0 % 0-0 N code = NRBC) - XR FLUORO FOR SPINE [id number] 19:47:00 [facility] : 1940 Sex: M Patient Name: RAVEN ESCALANTE Unit No: [id number] EXAMS: CPT CODE: [id number] XR FLUORO FOR SPINE INJ 68453 LUMBAR DISCOGRAM, FACETS AND INTRADISCAL INJECTION REFERRING PHYSICIAN: None PREOPERATIVE DIAGNOSIS: 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 Lumbar spondylosis without radiculopathy or myelopathy 2. Symptomatic degenera tive lumbar discs PROCEDURE PERFORMED: 1. Fluoroscopically guided needle localization of the L4-5 disc with provocative discography and intradiscal injection of local anesthetic and steroid. 2. Fluoroscopically guided needle localization of the bilateral L3-4 facets with arthrograms and diagnostic inje ction of local anesthetic and steroid. FINDINGS: The bilateral L3-4 facet showed mild capsular degeneration and joint hypertrophy. The L4-5 disc shows moderate right-sided loss of disc space height with diffuse annular degeneration. Provocation was negative. Aspiration was negative. Anesthetic response was positive with the patient noting relief of his low back pain. Preinjection VAS 7/10. Postinjection VAS 0/10. Steroid response pending follow-up. ANTIBIOTIC: Cefazolin IV and intradiscal. ESTIMATEDBLOOD LOSS: Minimal ANESTHESIA: TIVA COMPLICATIONS: None DETAILS OF PROCEDURE: After obtaining stable vital signs, informed consent and IV access, with no contraindications to proceeding, the patient received preoperative antibiotics and was taken to the fluoroscopy suite where the patient was placedin a prone position with all extremities padded and appropriate monitors placed. The patient was sterilely prepped and draped over the lumbosacral spine. Under fluoroscopic visualization the selected disc was visualized and the insertion site was marked for a left paravertebral approach. Using standard double needle no-touch technique, a 20 gauge spinal introducer needle was advanced to the level of the facets and a curved 25-gauge needle was then passed through the introducer and advanced into the disc without paresthesias. Isovue 300 contrast 0.2 ml was then injected to produce the discogram. [facility] NAME: RAVEN ESCALANTE [address] [facility] PHYS: Adolph Miller MD [place], [place] [address] : 1940 AGE: 81 SEX: M LOC: [place] PHONE #: [phone] EXAM DATE: 02/20/2021 STATUS: REG SDC FAX #: [phone] RAD #: D/C DT PAGE 1 Signed Report (CONTINUED) Patient Name: RAVEN ESCALANTE Unit No: [id number] EXAMS: CPT CODE: [id number] XR FLUORO FOR SPINE INJ 28397 <Continued> Bupivacaine 0.75% 0.25 mL with lidocaine 4% 0.25 ml, Krcrbxefm687ni/mL 0.2 ml and triamcinolone 30 mg was then injected, provocation was recorded and the needles were removed. The patient's vital signs remained stable. The needles were removed and attention was turned to the facets. Using fluoroscopic visualization, the insertion sites were marked for a paravertebral approach to each joint. Using standard technique, a 25 -gauge needle was inserted into each joint capsule without paresthesias. At all levels, aspiration was negative for clear serous fluid. Isovue-300 contrast 0.2 mL was injected to produce each arthrogram. There were no signs of intravascular or intrathecal uptake. Bupivicaine 0.75% 0.25 mL with Lidocaine 4% 0.25 ml and triamcinolone 16 mg was then injected incrementally into each joint. There were no signs of intravascular or intrathecal uptake. The patient's vital signs remained stable. The needles were removed and the patient was taken to the PACU in good condition. Image: Image 1 Image: Image 2 at 1946 Reported and signed by: Adolph Arnold M.D. CC: Technologist: Nkechi Pedersen(R) Transcribed D/ (1946) [facility] NAME: RAVEN ESCALANTE [address] [facility] PHYS: Adolph Miller MD [place], [place] [address] : 1940 AGE: 81 SEX: M LOC: [place] PHONE #: [phone] EXAM DATE: 02/20/2021 STATUS: [place] [facility] [place] #: [phone] RAD #: D/C DT PAGE 2 Signed Report Patient Name: RAVEN ESCALANTE Unit No: [id number] EXAMS: CPT CODE: [id number] XR FLUORO FOR SPINE INJ 54224 <Continued> Orig Print D/T: S: 02/20/2021 (1950) [facility] NAME: RAVEN ESCALANTE [address] [facility] PHYS: Adolph Miller MD [place], [place] [address] : 1940 AGE: 81 SEX: M LOC: [place] PHONE #: [phone] EXAM DATE: 02/20/2021 STATUS: [place] [facility] [place] #: [phone] RAD #: D/C DT PAGE 3 Signed Report
[2022-02-13 12:01] LABS: Urine Blood Trace-intact (Negative); Urine Glucose Negative (Negative); Urine Protein Negative (Negative); Urine pH 5.5 (5.0-7.0)
[2022-02-13 12:42] LABS: Potassium 4.1 mmol/L (3.5-5.1)
--- NOTE | 2022-02-13 13:18 | EDPHYS ---
Physician Documentation [facility] Name: Levy Uribe Age: 82 yrs Sex: Male : 1940 Arrival Date: 02/13/2022 Time: 11:25 Bed 8 Private MD: ED Physician Tim Mora HPI: 02/13 11:38 This 82 yrs old Male presents to ER via Wheelchair with complaints of Hip Pain. [facility] 13:46 Onset: The symptoms/episode began/occurred gradually. 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 Patient states he did have an episode of constipation but was relieved with taking milk of magnesia. Patient denies fever, shortness of breath, lower extremity swelling. Historical: - Allergies: 11:42 No Known Allergies; ss - PSHx: 11:42 R hip replacement; ss - Immunization history:: Client reports having NOT received the Covid vaccine. - Social history:: Smoking status: Patient denies any tobacco usage or history of. ROS: 13:46 Constitutional: Negative for fever, chills, and weight loss, Cardiovascular: Negative jmm for chest pain, palpitations, and edema, Respiratory: Negative for shortness of breath, cough, wheezing, and pleuritic chest pain. 13:46 Abdomen/GI: Positive for abdominal pain. 13:46 : Positive for urinary symptoms. 13:46 All other systems are negative. Exam: 13:46 Constitutional: This is a well developed, well nourished patient who is awake, alert, jmm and in no acute distress. Head/Face: atraumatic. Eyes: EOMI, no conjunctival erythema appreciated ENT: Moist Mucus Membranes Neck: Trachea midline, Supple Chest/axilla: Normal chest wall appearance and motion. Cardiovascular: Regular rate and rhythm. No edema appreciated Respiratory: Normal respirations, no respiratory distress appreciated 13:46 Skin: General appearance color normal MS/ Extremity: Moves all extremities, no obvious deformities appreciated, no edema noted to the lower extremities Neuro: Awake and alert Psych: Behavior is normal, Mood is normal, Patient is cooperative and pleasant 13:46 Abdomen/GI: Inspection: abdomen appears normal, Bowel sounds: normal, Palpation: soft, mild abdominal tenderness, in the suprapubic area, right lower quadrant and left lower quadrant. Vital Signs: 11:38 BP 135 / 67; Pulse 80; Resp 18; Temp 98.0(O); Pulse Ox 100% on R/A; vg1 11:39 BP 135 / 67; Pulse 90; Resp 17; Pulse Ox 98% on R/A; Weight 95.25 kg; Height 5 ft. 10 ss in. (177.80 cm); 12:35 BP 94 / 49; Pulse 66; Resp 17; Pulse Ox 99% ; Pain 0/10; jh6 13:55 BP 108 / 51; Pulse 61; Resp 16; Temp 97.5(TE); Pulse Ox 100% on R/A; Pain 2/10; bm7 11:39 Body Mass Index 30.13 (95.25 kg, 177.80 cm) ss MDM: 11:38 Patient medically screened. [facility] 13:16 Data reviewed: vital signs, nurses notes. Counseling: I had a detailed discussion with [facility] the patient and/or guardian regarding: the historical points, exam findings, and any diagnostic results supporting the discharge/admit diagnosis, the need for outpatient follow up, to return to the emergency department if symptoms worsen or persist or if there are any questions or concerns that arise at home. 02/13 11:45 Order name: BMP; Complete Time: 12:50 [facility] 02/13 12:01 Order name: Urine Dipstick-Ancillary; Complete Time: 12:02 [facility] 02/13 11:45 Order name: Saline Lock; Complete Time: 12:22 [facility] 02/13 11:45 Order name: Deras; Complete Time: 12:01 [facility] 02/13 11:45 Order name: Urine Dipstick-Ancillary (obtain specimen); Complete Time: 12:01 [facility] Administered Medications: No medications were administered Disposition: 14:14 Attestation: The patient's history, exam findings, diagnostics, and a summary of any [facility] interventions or procedures was reviewed in detail with Chong WILLARD. Disposition Summary: 02/13/22 13:18 Discharge Ordered Location: Home [facility] Condition: Stable [facility] Diagnosis - Urinary Retention [facility] Followup: [facility] - With: Solomon Salas MD - When: 2 - 3 days - Reason: Recheck today's complaints, Continuance of care, Re-evaluation by your physician Discharge Instructions: - Discharge Summary Sheet jmm - Indwelling Urinary Catheter Care, Adult jmm - Acute Urinary Retention, Male gay Forms: - Medication Reconciliation Form jmm - Thank You Letter gay - Antibiotic Education martm - Prescription Opioid Use gay Signatures: Dispatcher [employer] EDChong Iraheta PA PA jmm Smirch, Shelby, RN RN ss Tim Mora MD MD [id number]
--- NOTE | 2022-02-13 13:18 | ER ---
Nurse's Notes [facility] Name: Levy Uribe Age: 82 yrs Sex: Male : 1940 Arrival Date: 02/13/2022 Time: 11:25 Bed 8 Private MD: Diagnosis: Urinary Retention Presentation: 02/13 11:39 Chief complaint: Patient states: Urinary problem that began 3 days ago after having his ss replacement 1 week ago. Coronavirus screen: Client denies travel out of the [place] in the last 14 days. Ebola Screen: Patient denies exposure to infectious person. Patient denies travel to an Ebola-affected area in the 21 days before illness onset. Initial Sepsis Screen: Does the patient meet any 2 criteria? No. Patient's initial sepsis screen is negative. Does the patient have a suspected source of infection? No. Patient's initial sepsis screen is negative. Risk Assessment: Do you want to hurt yourself or someone else? Patient reports no desire to harm self or others. Onset of symptoms was February 10, 2022. 11:39 Method Of Arrival: Wheelchair ss 11:39 Acuity: RAJNI 3 ss Historical: - Allergies: 11:42 No Known Allergies; ss - PSHx: 11:42 R hip replacement; ss - Immunization history:: Client reports having NOT received the Covid vaccine. - Social history:: Smoking status: Patient denies any tobacco usage or history of. Screenin:40 Abuse screen: Denies threats or abuse. Nutritional screening: No deficits noted. vg1 Tuberculosis screening: No symptoms or risk factors identified. Fall Risk No fall in past 12 months (0 pts). No secondary diagnosis (0 pts). IV access (20 points). Ambulatory Aid- Crutches/Cane/Walker (15 pts). Gait- Impaired (20 pts.). Mental Status- Oriented to own ability (0 pts). Total Best Fall Scale indicates High Risk Score (45 or more points). Fall prevention measures have been instituted. Side Rails Up X 2 Placed Close to Nursing Station Family Present and informed to notify staff if the need to leave the bedside As available patient and family educated on Fall Prevention Program and Strategies. Assessment: 11:40 General: Appears in no apparent distress. uncomfortable, Behavior is calm, cooperative. vg1 Pain: Complains of pain in suprapubic area, right lower quadrant and left lower quadrant Pain currently is 3 out of 10 on a pain scale. Neuro: Level of Consciousness is awake, alert, obeys commands, Oriented to person, place, time, situation. Cardiovascular: Patient's skin is warm and dry. Respiratory: Airway is patent Respiratory effort is even, unlabored. GI: Abdomen is round non-distended, Patient currently denies nausea, vomiting. : Reports burning with urination, incontinence. EENT: No signs and/or symptoms were reported regarding the EENT system. Derm: Skin is pink, warm \T\ dry. Musculoskeletal: Swelling present in right leg. 12:41 Reassessment: Patient and/or family updated on plan of care and expected duration. Pain jh6 level reassessed. Patient is alert, oriented x 3, equal unlabored respirations, skin warm/dry/pink. Deras clamped at 100. waited approx 15 min and another 900 removed before Deras was clamped again. Vital Signs: 11:38 BP 135 / 67; Pulse 80; Resp 18; Temp 98.0(O); Pulse Ox 100% on R/A; vg1 11:39 BP 135 / 67; Pulse 90; Resp 17; Pulse Ox 98% on R/A; Weight 95.25 kg; Height 5 ft. 10 ss in. (177.80 cm); 12:35 BP 94 / 49; Pulse 66; Resp 17; Pulse Ox 99% ; Pain 0/10; jh6 13:55 BP 108 / 51; Pulse 61; Resp 16; Temp 97.5(TE); Pulse Ox 100% on R/A; Pain 2/10; bm7 11:39 Body Mass Index 30.13 (95.25 kg, 177.80 cm) ED Course: 11:25 Patient arrived in ED. mr 11:25 Chong Hinojosa PA is PHCP. jmm 11:25 Tim Mora MD is Attending Physician. jmm 11:33 Gris Moise, STEPHANIA is Primary Nurse. vg1 11:40 Patient has correct armband on for positive identification. Placed in gown. Bed in low vg1 position. Call light in reach. Side rails up X2. Adult w/ patient. Pulse ox on. NIBP on. 11:42 Triage completed. ss 11:42 Arm band placed on right wrist. 12:01 Urine collected: Deras catheter specimen, clear, Amount Returned: 1200mL. jh6 12:02 Deras cath inserted, using sterile technique, 16 Fr., by tx, balloon inflated, to jh6 gravity drainage, clamped. urine specimen collected. 12:22 Inserted saline lock: 22 gauge in right antecubital area, using aseptic technique. vg1 ,using aseptic technique. completed by student and instructor Blood collected. 13:17 Solomon Salas MD is Referral Physician. [facility] 13:55 No provider procedures requiring assistance completed. IV discontinued, intact, bm7 bleeding controlled, No redness/swelling at site. Pressure dressing applied. Administered Medications: No medications were administered Medication: 11:40 VIS not applicable for this client. vg1 Outcome: 13:18 Discharge ordered by . [facility] 13:55 Discharged to home via wheelchair. [facility] 13:55 Condition: good 13:55 Discharge instructions given to patient, family, Instructed on discharge instructions, follow up and referral plans. Demonstrated understanding of instructions, follow-up care. 13:58 Patient left the ED. 7 Signatures: Chong Hinojosa PA PA jmm Rivera, Mary mr SiddiquiCollette, RN RN ss Gris Moise, RN RN vg1 Dilma Kennedy, RN RN bm7 Breann Smyth, RN RN jh6
[2022-02-13 14:53] VITALS: BP 108/51; TEMP 97.5; O2SAT 100
== END 2022-02-13 13:58 | disposition home or self-care (01) ==
LOC: ER 11:23
DX: R33.9 Retention of urine, unspecified (principal); Z96.641 Presence of right artificial hip joint
CPT/HCPCS: 36415; 51702; 80048; 81003; 99284

== ENCOUNTER 2022-02-15 11:20 | Observation (INO) | payer OTHER ==
--- OUTSIDE RECORDS SUMMARY | 2022-02-15 11:24 | XMS REPORT | Continuity of Care Document ---
:1940 Author Organization [facility] t Address [address] [place] [address] Care Team Providers Name Role Phone Irasema Yoder DO Primary Care Physician Sahne Alvarez Attending Clinician Unavailable Suraj Attending Clinician Unavailable HAJA ORTIZ Attending Clinician Unavailable Negro Easley Attending Clinician Unavailable Kathy Ojeda Attending Clinician Unavailable Mark Lucero Attending Clinician Unavailable Provider, Unknown Attending Clinician Unavailable Adolph Arnold Attending Clinician Unavailable Shane Alvarez Admitting Clinician Unavailable Suraj Admitting Clinician Unavailable HAJA ORTIZ Admitting Clinician Unavailable YoderKaycee navaRaquelCesar H Admitting Clinician Unavailable Physician, No Primary or Family Admitting Clinician UnavailMark Doe Admitting Clinician Unavailable Adolph Arnold Admitting Clinician Unavailable KNOW, DOES_NOT Admitting Clinician Unavailable Payers Payer Name Policy Type Policy Number Effective Date Expiration Date S ource MEDICARE [place]: [id number] 2006 [employer] 00:00:00 SAHRA [id number] 2013 (PPO) 00:00:00 Problems This patient has no known problems. Allergies, Adverse Reactions, Alerts Allergy Allergy Status Severity Reaction(s) Onset Inactive Treating Comm ents Source Name Type Date Date Clinician No Known DA Active U 2021-0 [facility] 2-14 [place] [facility] 00:[facility]: d 00 [facility] No Known DA Active U 2020- [facility] Allergie 0-15 [place] s 00:00: [place] 00 [facility] No Known DA Active U 2020-1 [facility] Allergie 0-15 [place] s 00:00: [place] 00 [facility] No Known DA Active U 2020-0 [facility] Drug 9-21 [place] Allergie 00:00: d s 00 [facility] milk FA Active MO 2020-0 [facility] 9-21 [place] 00:00: d 00 [facility] No Known DA Active U 2020-0 [facility] Drug 9-21 [place] Allergie 00:00: d s 00 [facility] milk FA Active MO NASAL 2020-0 [facility] CONGESTION 9-21 [place] 00:00: d 00 [facility] No Known DA Active U 2020-0 [facility] 8[facility]17 [place] [facility] No Known DA Active U 2020-0 [facility]ie 8[facility]17 [place] [facility] Social History Social Habit Start Date Stop Date Quantity Comments Source Exposure to Not sure [facility] SARS-CoV-2 (event) Sex Ass[birth year] At [birth year] [facility] 00:00:00 00:00:00 Smoking Status Start Date Stop Date Source Unknown if ever smoked [facility] Medications Ordered Filled Start Stop Current Ordering [...] Source Body height 2021-04-10 20:23:00 175.3 cm [facility] Body weight 2021-04-10 20:23:00 97.523 kg [facility] BMI 2021-04-10 20:23:00 31.75 kg/m2 [facility] Procedures Procedure Date / Time Performed Performing Clinician [facility] roger [id number] 2021-04-18 00:00:00 [facility] [id number] 2021-04-18 00:00:00 [facility] [id number] 2021-04-18 00:00:00 [facility] COVID-19 QUALITATIVE 2021-04-12 17:57:00 Haja Ortiz [facility] RT-PCR TYPE AND SCREEN 2021-04-10 19:46:00 [facility] HEMOGLOBIN A1C 2021-04-10 19:46:00 [facility] URINE CULTURE 2021-04-10 19:26:00 [facility] URINALYSIS SCREEN AND 2021-04-10 19:26:00 [facility] MICROSCOPY, WITH REFLEX TO CULTURE Plan of Care Planned Activity Planned Date Details Comments Source Future Scheduled Test SHINGLES VACCINES (#1) [facility] [code = SHINGLES VACCINES (#1)] Future Scheduled Test 65+ PNEUMOCOCCAL [facility] VACCINE (1 of 1 - PPSV23) [code = 65+ PNEUMOCOCCAL VACCINE (1 of 1 - PPSV23)] Future Scheduled Test INFLUENZA VACCINE [code [facility] = INFLUENZA VACCINE] Future Scheduled Test COVID-19 VACCINE (1) [facility] [code = COVID-19 VACCINE (1)] Encounters Start End Encounter Admission Attending Care Care Encounter Source Date/Time Date/Time Type Type Clinicians Facility Department ID 2021-04-18 Inpatient HCAPM XOCHITL [id number] [facility] 17:44:00 [id number] [facility] 2021-04-10 Inpatient BOAZ Villalobos [id number] [facility] 15:30:00 Shane 41 [facility] 2021-04-10 Inpatient BOAZ Villalobos [id number] [facility] 15:30:00 Shane [id number] [facility] 2022-02-10 2022-02-10 Outpatient FOG_Patel_A AOSM AOSM [id number] [place] 00:00:00 00:00:00 Deshaun [id number] [facility] 2022-02-09 2022-02-09 Outpatient FOG_Patel_A AOSM AOSM 545 [id number] [place] 00:00:00 00:00:00 Deshaun [id number] [facility] 2022-02-05 2022-02-06 Outpatient HAJA ORTIZ [place] [id number] [place] 00:00:00 00:00:[address] 2022-02-02 2022-02-02 Outpatient FOG_Patel_A AOSM AOSM 545 8723-20 [place] 00:00:00 00:00:00 Deshaun [id number] [facility] 2022-02-02 2022-02-02 Outpatient HAJA ORTIZ [facility] [id number] [place] 00:00:00 00:00:[address] 2022-01-23 2022-01-23 Outpatient FOG_Patel_A AOSM AOSM 545 8723-20 [place] 09:06:00 09:06:00 Deshaun [id number] [facility] 2022-01-15 2022-01-15 Outpatient HAJA ORTIZ [facility] [id number] [place] 00:00:00 00:00:[address] 2022-01-06 2022-01-06 Outpatient FOG_Patel_A AOSM AOSM 545 8723-20 [place] 08:36:00 08:36:00 Deshaun [id number] [facility] 2021-08-19 2021-08-19 Outpatient JAYLAN Easley, HCAPM CATH [id number] [facility] 05:43:00 05:43:00 Negro [id number] [facility] 2021-08-19 2021-08-19 Outpatient JAYLAN Easley, HCAPM HCAPM [id number] [facility] 05:43:00 05:43:00 Negro 32 [facility] 2021-07-28 2021-07-28 Outpatient EL Mendozapou HCAPM HCAPM Y11 [id number] [facility] 14:19:00 14:19:00 r, Amir [id number] [facility] 2021-07-28 2021-07-28 Outpatient EL [place] HCAPM HCAPM LA0 [id number] [facility] 14:19:00 14:19:00 r, Amir 96 [facility] 2021-04-18 2021-04-23 Inpatient EM Jazmine, HCAPM INTE [id number] [facility] 17:57:00 14:36:00 Mark 92 [facility] 2021-04-18 2021-04-18 Outpatient Jazmine, HCACL LABO [id number] [facility] 23:19:00 23:19:00 Mark [id number] [facility] 2021-04-18 2021-04-18 Outpatient Jazmine, HCACL LABO [id number] [facility] 23:19:00 23:19:00 Mark 39 [facility] 2021-04-17 2021-04-17 Documentat Provider, 1.2.840.1 [id number] Methodi 00:00:00 00:00:00 ion Unknown [address]19.1.[address] 3.430.2.7 Hospit a .3.567519 l .8 2021-04-17 2021-04-17 Haja Henry 1.2.840.1 [id number] [facility] 00:00:00 00:00:[address] 3.430.2.7 Hospit a .3.678870 l .8 2021-04-12 2021-04-12 Haja Jordan 1.2.840.1 [id number] Methodi 12:56:32 13:01:[address] 3.430.2.7 Hospit a .3.466965 l .8 2021-04-10 2021-04-10 Pre-Admiss Haja Ortiz 1.2.840.1 [id number] Methodi 11:56:34 12:56:34 [place] R. 83206.1.[address] Testing 3.430.2.7 Hospit a .3.921871 l .8 2021-04-10 2021-04-10 Documentat Provider, 1.2.840.1 [id number] Methodi 00:00:00 00:00:00 ion Unknown 86697.1.[address] 3.430.2.7 Hospit a .3.913856 l .8 2021-04-10 2021-04-10 Travel 1.2.840.1 1.2.194.423 7669 [id number] Methodi 00:00:00 00:00:[address] 3.430.2.7 0.2.7.3.698 Ho spita .3.722517 084.8 l .8 2021-03-25 2021-03-25 Outpatient BOAZ Villalobos MEDI [id number] - [facility] 00:00:00 23:59:00 Shane [id number] [facility] 2021-03-25 2021-03-25 Outpatient ISIDRO AlvarezEWELINA LABO [id number] [facility] 17:10:00 17:10:00 Shane 67 [facility] 2021-03-25 2021-03-25 Outpatient ISIDRO AlvarezEWELINA LABO [id number] [facility] 17:10:00 17:10:00 Shane [id number] [facility] 2021-02-20 2021-02-20 Outpatient BOAZ Lui PAIN [id number] [facility] 13:09:00 13:09:00 Adolph [facility] [place] [facility] 2021-02-20 2021-02-20 Outpatient ISIDRO LuiTO PAIN [id number] [facility] 13:09:00 13:09:00 Adolph [id number] [facility] Results Test Description Test Time Test Comments Results Result Comments Source SARS-CoV-2 (COVID-19) RNA [Presence] in Respiratory sp ecimen by 2022-02-02 22:14:37 CYNTHIA with probe detection Test Item Value Reference Range Interpretation Comme nts SARS-CoV-2 (COVID-19) RNA [Presence] in Respiratory specimen by Not detected CYNTHIA with probe detection (test code = 37827-5) Whether patient is employed in a healthcare setting (test code = Un known 35634-0) Whether the patient has symptoms related to condition of interest U nknown (test code = 58659-6) Whether the patient was hospitalized for condition of interest Unkn own (test code = 90934-3) Whether the patient was admitted to intensive care unit (ICU) for U nknown condition of interest (test code = 84252-5) Whether patient resides in a congregate care setting (test code = U nknown 44353-6) status (test code = 86809-1) Unknown Date and time of symptom onset (test code = 58216-2) Unknown COMPREHENSIVE METABOLIC [id number] 14:40:00 Test Item Value Reference Range Interpretation [...] (test code = ALKP) COVID 19 INHOUSE [id number] 14:36:00 Test Item Value Reference Range Interpretation Comments COVID 19 INHOUSE AG NEGATIVE Negative Per manu facturer, (test code = negative result s should [id number]) be treated aspr esumptive and, if inconsi [...] and symptoms co nsistent with COVID-19. PROTHROMBIN [id number] 14:29:00 Test Item Value Reference Range Interpretation [...] Bileaflet mecha nical valve in aortic position.2. Mec hanical prosthetic valv es (high risk), 2. 5 - 3.5 Presence of Lup us Anticoagulant o r Antiphospholipi d Antibodies, Pre vention of systemic emb olism - Acute Myocardia l Infarction (to prevent recurrent infar ct). CBC W/AUTO [id number] 14:18:00 Test Item Value Reference Range Interpretation [...] NO DIFF/SCN CRITERIA = MDIFF) CBC W/AUTO [id number] 07:45:00 Test Item Value Reference Range Interpretation [...] DIFF REQUIRED NO DIFF/SCN CRITERIA SLIDE R EVIEW (test code = MDIFF) CONSISTA NT WITH AUTO DIFFERENTI AL. BASIC METABOLIC [id number] 06:26:00 Test Item Value Reference Range Interpretation [...] CA) 8.8 MG/DL 8.5-10.1 N BASIC METABOLIC [id number] 06:03:00 Test Item Value Reference Range Interpretation [...] CA) 9.1 MG/DL 8.5-10.1 N CBC W/AUTO [id number] 05:48:00 Test Item Value Reference Range Interpretation [...] NO DIFF/SCN CRITERIA = MDIFF) BASIC METABOLIC [id number] 04:52:00 Test Item Value Reference Range Interpretation [...] CA) 8.8 MG/DL 8.5-10.1 N CBC W/AUTO [id number] 04:34:00 Test Item Value Reference Range Interpretation [...] NO DIFF/SCN CRITERIA = MDIFF) BASIC METABOLIC [id number] 05:02:00 Test Item Value Reference Range Interpretation [...] CA) 9.2 MG/DL 8.5-10.1 N CBC W/AUTO [id number] 04:48:00 Test Item Value Reference Range Interpretation [...] CRITERIA = MDIFF) - CT CHEST W/O [id number] 06:40:00 [facility] 1940 Sex: M Name: RAVEN ESCALANTE [facility] : 1940 Age/S: 81 / M [id number] Unit #: [id number] Loc: [place] [address] Phys: Arminda Louis Acct: [id number] Dis Date: Status: ADM INPHONE #: [phone] Exam Date: 04/19/2021 0510 FAX #: Reason: pneumonia vs pulmonary edema EXAMS:CPT: [id number] CT CHEST W/O CONTRAST 25181 HISTORY: Pneumonia versus edema TECHNIQUE: Axial tomograms through the chest were obtained without intravenous contrast. One or more of the following dose reduction techniques were used: Automated exposure control, adjustment of the mA and/or kV according topatient size, and/or utilization of iterative reconstruction technique. FINDINGS: Aortic and coronary calcifications are present. There is no significant mediastinal or hilar adenopathy. The aorta and mediastinal structures show no other significant abnormalities. Trace right pleural effusion is present. Bibasilar atelectasis is present. No pneumothorax. Calcified hilar lymph node is noted. IMPRESSION: 1. Mild bibasilar atelectasis. No focal airspace consolidation. at 0640 Reported and signed by: Martin Brennan M.D. CC: Arminda WILLARD; Mark Lucero MD Technologist:RT Jv (R)(CT) CTDI: DLP: Trnscb Date/Time: 04/19/2021 (0640) [email or web address] Orig Print D/T: S: 04/19/2021 (0643) PAGE 1 Signed Report [id number] 05:26:00 Test Item Value Reference Range Interpretation Comments GLYCOSYLATED HEMOGLOBIN (HA1C) 6.4 % A1C 0.0-5.7 H (test code = GLYHGB) ESTIMATED AVERAGE GLUCOSE (test 137 MG/DLest code = EAG) BASIC METABOLIC [id number] 05:10:00 Test Item Value Reference Range Interpretation [...] . [Automated mess age] The system which [employer] nerated this result tra nsmitted reference range : 0-. The reference range was not used to interpr et this result as normal/abnormal . HDL CHOLESTEROL 48 MG/DL 40-59 N (test code = HDL) NON-HDL CHOLESTEROL 127 mg/dL <130 (test code = NHDL) LIPOPROTEIN LDL 105 MG/DL 0-129 N <100 OPTIMAL 100 - 129 (test code = LDL) NEAR OPTIM AL/ABOVE [id number] - 15 9 [id number] - 189 HIGH>OR= 190 VE RY HIGHNOTE THAT G UIDELINES ARE PROVIDED BY NATIONAL CHOLESTEROLEDUC ATION PROGRAM ADULT T REATMENT PANEL III LDL/HDL (test code 2.18 Ratio See_Comment N [Automat ed message] The = LDL/HDL) system which [employer] nerated this result tra nsmitted reference range : 1.48-3.22 Avg. The reference range was not used to interpr et this result as normal/abnormal . [id number] 05:10:00 Test Item Value Reference Range Interpretation Comments PHOSPHOROUS (test code = PHOS) 2.6 MG/DL 2.5-4.9 N [id number] 05:10:00 Test Item Value Reference Range Interpretation Comments MAGNESIUM (test code = MAG) 1.9 MG/DL 1.8-2.4 N NT PRO-BRAIN NATRIURETIC [id number] 05:10:00 Test Item Value Reference Range Interpretation Comments NT PRO-BRAIN NATRIURETIC PEPTI 1250 PG/ML 0-100 H (test code = PROBNP) COVID 19 Asymptomatic IH [id number] 05:03:00 Test Item Value Reference Range Interpretation [...] symptoms consis tent with COVID-19. CBC W/AUTO [id number] 04:52:00 Test Item Value Reference Range Interpretation [...] NO DIFF/SCN CRITERIA = MDIFF) BASIC METABOLIC [id number] 18:19:00 Test Item Value Reference Range Interpretation [...] 9.3 MG/DL 8.5-10.1 N Completed by Nursing: [id number] 18:19:00 Test Item Value Reference Range Interpretation Comments MAGNESIUM (test code = MAG) 2.0 MG/DL 1.8-2.4 N Completed by Nursing: [id number] 18:19:00 Test Item Value Reference Range Interpretation [...] Completed by Nursing: NO- XR CHEST 1 [id number] 18:16:00 [facility] 1940 Sex: M Name: RAVEN ESCALANTE [facility] : 1940 Age/S: 81 / M [id number] Unit #: [id number] Loc: [place] [address] Phys: Mook Chavez Acct: [id number] Dis Date: Status: PRE ER PHONE #: [phone] Exam Date: 04/18/2021 5224 FAX #: Reason: chest pain EXAMS: CPT: [id number] XR CHEST 1 V 42806 Fluoro Time: DAP (Gy m2): Air Kerma (mGy): B2 EXAM: - XR CHEST 1 V HISTORY: chest pain COMPARISON: None FINDINGS: Patchy perihilar airspace opacities. No pleural effusion or pneumothorax. The cardiac silhouette is within normal limits. No acute osseous abnormalities. IMPRESSION: Perihilar atelectasis, pulmonary edema and/or pneumonia. at 1816 Reported and signed by: Caio Nunez M.D. CC: Lo WILLARD; Mook ROMEROGE 1 Signed Report Name: RAVEN ESCALANTE [facility] : 1940 Age/S: 81 / M [address] Unit #: [id number] Loc: [place] [address] Phys: ScottMook Acct: [id number] Dis Date: Status: PRE ER PHONE #: [phone] Exam Date: 04/18/2021 1748 FAX #: Reason: chest pain EXAMS: CPT: [id number] XR CHEST 1 V 73439 Fluoro Time: DAP (Gy m2): Air Kerma (mGy): <Continued> Technologist: Reny Simeon, RT(R) Trnscb Date/Time: 04/18/2021 (1815) [email or web address] Orig Print D/T: S: 04/18/2021 (1820) PAGE 2 Signed ReportCBC W/O [id number] 17:59:00 Test Item Value Reference Range Interpretation [...] = 9.80 fL 7.0-9.6 H MPV) Urine [id number] 22:36:54 Test Item Value Reference Range Interpretation Comments Urine culture (test SEE COMMENT Bacteriu emmanuel screen code = 0116280) negative. [facility] HospitalType and [id number] 22:27:00 Test Item Value Reference Range Interpretation Comments ABO grouping (test code = 883-9) A Rh type (test code = 61356-6) POS Antibody screen (gel) (test code = NEG 890-4) [facility] [id number] 18:17:00 Test Item Value Reference Range Interpretation [...] BLOOD, PT every other day NTHROMBOPLASTIN TIME [id number] 18:17:00 Test Item Value Reference Range Interpretation Comments PTT ACTIVATED (test code = APTT) 29.9 secs 24.9-37.0 N IS PATIENT ON ANTICOAGULANTS ? YLIST ANTICOAGULANT/ANTI PLT MEDICATION : AspirinHas Lab been notified if Patient is on Heparin Drip? NOIf Yes, order CBC, OCCULT BLOOD, PT every other day NCOMPREHENSIVE METABOLIC [id number] 18:00:00 Test Item Value Reference Range Interpretation [...] RATE (test code = GFR) mL/mi n/1.73 d2Qbwkrmama Range:Healthy Adults >90 mL/min/1.73 m2 For Chronic [...] TOTAL (test code = ALKP) CBC W/AUTO [id number] 17:24:00 Test Item Value Reference Range Interpretation [...] = NRBC) - XR FLUORO FOR SPINE [id number] 19:47:00 [facility] 1940 Sex: M Patient Name: RAVEN ESCALANTE Unit No: [id number] EXAMS: CPT CODE: [id number] XR FLUORO FOR SPINE INJ 03656 LUMBAR DISCOGRAM, FACETS AND INTRADISCAL INJECTION REFERRING [...] was then injected to produce the discogram. [facility] NAME: RAVEN ESCALANTE [address] [facility] PHYS: Adolph Miller MD [place], [place] [address] : 1940 AGE: 81 SEX: M LOC: [place]ALIE PHONE #: [phone] EXAM DATE: 02/20/2021 STATUS: REG SDC FAX #: [phone] RAD #: D/C DT PAGE 1 Signed Report (CONTINUED) Patient Name: RAVEN ESCALANTE Unit No: [id number] EXAMS: CPT CODE: [id number] XR FLUORO FOR SPINE INJ 63610 <Continued> Bupivacaine 0.75% 0.25 mL with lidocaine 4% 0.25 ml, Phchjjnlk788 mg/mL 0.2 ml and triamcinolone 30 mg was then injected, provocation was recorded and the needles were removed. The patient's vital signs remained stable. The needles were removed and attention was turned to the facets. Using fluoroscopic visualization, the insertion sites were marked for a paravertebral approach to each joint. Using standard technique, a 25 -gauge needle was inserted into each jointcapsule without paresthesias. At all levels, aspiration was [...] CC: Technologist: Nkechi Pedersen(R) Transcribed D/ (1946) [facility] [address] [facility] PHYS: Adolph Miller MD [place], [place] [address] : 0 1940 AGE: 81 SEX: M LOC: [place] PHONE #: [phone] EXAM DATE: 02/20/2021 STATUS: REG [facility] FAX #: [phone] RAD #: D/C DT PAGE 2 Signed Report Patient Name: RAVEN ESCALANTE Unit No: [id number] EXAMS: CPT CODE: [id number] XR FLUORO FOR SPINE INJ 57717 <Continued>Orig Print D/T: S: 02/20/2021 (1950) [facility] NAME: RAVEN ESCALANTE [address] [facility] PHYS: Adolph Miller MD [place], [place] [address] : 1940 AGE: 81 SEX: M LOC: [place] PHONE #: [phone] EXAM DATE: 02/20/2021 STATUS: REG SD FAX #: [phone] RAD #: D/C DT PAGE 3 Signed Report
[2022-02-15] MEDS ORDERED: NA CHLORIDE 0.9% 100 ML ONE (13:45)
[2022-02-15] MEDS ORDERED: NA CHLORIDE 0.9% 1,000 ML ONE (13:45)
[2022-02-15] MEDS ORDERED: CEFTRIAXONE 1000 MG/VIAL ONE (13:45)
[2022-02-15 13:46] LABS: Absolute Lymphocytes (CBC) 1.1 K/uL (0.7-4.9); MCV 93.3 fL (80-100); MPV 7.1 fL (7.6-11.3); RBC Red Blood Cell Count 3.97 M/uL (4.33-5.43)
[2022-02-15 13:48] LABS: Protime INR 1.16
[2022-02-15 14:01] LABS: Bilirubin Total 0.6 mg/dL (0.2-1.0)
[2022-02-15 15:00] LABS: Urine Bacteria <20 /HPF (<20); Urine RBC >50 /HPF (None Seen)
--- NOTE | 2022-02-15 16:10 | RAD REPORT ---
EXAM DESCRIPTION: CT - Stone Protocol - 02/15/2022 4:00 pm CLINICAL HISTORY: Flank pain. Hematuria COMPARISON: No comparisons TECHNIQUE: Axial images were obtained without oral or IV contrast. Lack of contrast limits solid org an and vascular assessment. The yzcux-lw-tija spans the entirety of the system partially obscuring uppermost abdomen and lung bases. Coronal reformatted images were obtained and reviewed. All CT scans are performed using dose optimization technique as appropriate and may include automated exposure control or mA/KV adjustment according to patient size. FINDINGS: The lower lung mcintosh are clear. Pacemaker wires are noted. Cholecystectomy clips. Imaged portions of the liver and spleen show no suspicious findings on non-contrast imaging. The panc reas and adrenal glands are normal. No pathologic lymphadenopathy in the abdomen or pelvis. No urinary tract stones or obstructive uropathy. Urinary bladder catheter is in place. High density m aterial is present in the bladder likely blood product. The prostate gland appears enlarged. No bowel obstruction, free air, free fluid or abscess. Sigmoid diverticulosis coli is present without diverticulitis.Nonvisualized appendix. Mild to moderate lumbar degenerative changes. Right hip arthroplasty. Severe osteoarthritis left hip. IMPRESSION: No urinary tract stones or obstructive uropathy. High-density material seen within the urinary bladder likely representing blood clot. Cystoscopy coul d be performed for direct visualization.
--- NOTE | 2022-02-15 17:29 | EDPHYS ---
Physician Documentation [facility] Name: Levy Uribe Age: 82 yrs Sex: Male : 1940 Arrival Date: 02/15/2022 Time: 11:21 Bed 5 Private MD: LAILA Physician Roger Erickson HPI: 02/15 17:17 This 82 yrs old Male presents to ER via Wheelchair with complaints of Blood jv In Catheter. 17:17 The patient or guardian reports decreased range of motion, pain. jv 17:17 that occurred at home, sustained from HIP REPLACEMENT. The complaints affect the jv suprapubic area. Onset: The symptoms/episode began/occurred 3 day(s) ago. The patient presents with a White catheter problem, draining bloody urine. Associated signs and symptoms: Loss of consciousness: the patient experienced no loss of consciousness, Pertinent negatives: abdominal pain, dizziness, dysuria, shortness of breath, weakness. Historical: - Allergies: 12:45 No Known Allergies; kb3 - Home Meds: 12:48 Brilinta 60 mg oral tab 1 tab 2 times per day [Active]; carvedilol 3.125 mg oral tab 1 kb3 tab 2 times per day [Active]; Ecotrin 325 mg Oral TbEC 1 tab once daily [Active]; Entresto 24-26 mg oral tab 1 tab 2 times per day [Active]; gabapentin 100 mg oral cap 1 cap 3 times per day [Active]; atorvastatin 80 mg oral tab 1 tab once daily [Active]; - PMHx: 12:50 Hypertensive disorder; Congestive heart failure; Hypercholesterolemia; Myocardial kb3 infarction; - Immunization history:: Adult Immunizations up to date, Client reports receiving the 2nd dose of the Covid vaccine, Last tetanus immunization: unknown. - Social history:: Smoking status: Patient denies any tobacco usage or history of. Patient/guardian denies using alcohol, street drugs. - Family history:: not pertinent. ROS: 17:24 Constitutional: Negative for fever, chills, and weight loss, Eyes: Negative for injury, jv pain, redness, and discharge, ENT: Negative for injury, pain, and discharge, Neck: Negative for injury, pain, and swelling, Cardiovascular: Negative for chest pain, palpitations, and edema, Respiratory: Negative for shortness of breath, cough, wheezing, and pleuritic chest pain, Abdomen/GI: Negative for abdominal pain, nausea, vomiting, diarrhea, and constipation, Back: Negative for injury and pain, MS/Extremity: Negative for injury and deformity, Skin: Negative for injury, rash, and discoloration, Neuro: Negative for headache, weakness, numbness, tingling, and seizure, Psych: Negative for depression, anxiety, suicide ideation, homicidal ideation, and hallucinations, Allergy/Immunology: Negative for hives, rash, and allergies, Endocrine: Negative for neck swelling, polydipsia, polyuria, polyphagia, and marked weight changes, Hematologic/Lymphatic: Negative for swollen nodes, abnormal bleeding, and unusual bruising. 17:24 : Positive for urinary symptoms, hematuria. Exam: 17:24 Constitutional: This is a well developed, well nourished patient who is awake, alert, jv and in no acute distress. Head/Face: Normocephalic, atraumatic. Eyes: Pupils equal round and reactive to light, extra-ocular motions intact. Lids and lashes normal. Conjunctiva and sclera are non-icteric and not injected. Cornea within normal limits. Periorbital areas with no swelling, redness, or edema. ENT: Nares patent. No nasal discharge, no septal abnormalities noted. Tympanic membranes are normal and external auditory canals are clear. Oropharynx with no redness, swelling, or masses, exudates, or evidence of obstruction, uvula midline. Mucous membranes moist. Neck: Trachea midline, no thyromegaly or masses palpated, and no cervical lymphadenopathy. Supple, full range of motion without nuchal rigidity, or vertebral point tenderness. No Meningismus. Chest/axilla: Normal chest wall appearance and motion. Nontender with no deformity. No lesions are appreciated. Cardiovascular: Regular rate and rhythm with a normal S1 and S2. No gallops, murmurs, or rubs. Normal PMI, no JVD. No pulse deficits. Respiratory: Lungs have equal breath sounds bilaterally, clear to auscultation and percussion. No rales, rhonchi or wheezes noted. No increased work of breathing, no retractions or nasal flaring. Abdomen/GI: Soft, non-tender, with normal bowel sounds. No distension or tympany. No guarding or rebound. No evidence of tenderness throughout. Back: No spinal tenderness. No costovertebral tenderness. Full range of motion. Skin: Warm, dry with normal turgor. Normal color with no rashes, no lesions, and no evidence of cellulitis. MS/ Extremity: Pulses equal, no cyanosis. Neurovascular intact. Full, normal range of motion. Neuro: Awake and alert, GCS 15, oriented to person, place, time, and situation. Cranial nerves II-XII grossly intact. Motor strength 5/5 in all extremities. Sensory grossly intact. Cerebellar exam normal. Normal gait. Psych: Awake, alert, with orientation to person, place and time. Behavior, mood, and affect are within normal limits. 17:24 : CVA tenderness, is absent, Male external genitalia: normal, Bladder: is normal, Rectal exam: is normal, Sexual behavior: the patient is not sexually active, a white is noted, to gravity drainage. 17:56 ECG was reviewed by the Attending Physician. [facility] Vital Signs: 12:41 BP 104 / 53; Pulse 68; Resp 20; Temp 98.4; Pulse Ox 100% ; Weight 95.25 kg; Height 5 kb3 ft. 10 in. (177.80 cm); Pain 0/10; 13:45 BP 110 / 58; Pulse 62; Resp 16; Pulse Ox 100% ; bp 14:00 BP 111 / 53; Pulse 61; Resp 16; Pulse Ox 100% ; bp 15:00 BP 116 / 59; Pulse 58; Resp 15; Pulse Ox 100% ; bp 16:00 BP 134 / 67; Pulse 66; Resp 16; Pulse Ox 100% ; bp 20:49 BP 126 / 62; Pulse 72; Resp 18 S; Pulse Ox 100% on R/A; as6 12:41 Body Mass Index 30.13 (95.25 kg, 177.80 cm) kb3 MDM: 13:16 Patient medically screened. jv 17:55 Differential diagnosis: UTI, urinary retention, White catheter problem, prostatitis, jv urethritis. Data reviewed: vital signs, nurses notes, lab test result(s), EKG, radiologic studies, plain films. Data interpreted: dynamics ax developer: rate is 66 beats/min, rhythm is regular, Pulse oximetry: on room air is 100 %. Test interpretation: by ED physician or midlevel provider: ECG, plain radiologic studies. Counseling: I had a detailed discussion with the patient and/or guardian regarding: the historical points, exam findings, and any diagnostic results supporting the discharge/admit diagnosis, lab results, radiology results, the need for further work-up and treatment in the hospital. 02/15 11:51 Order name: CBC with Diff; Complete Time: 15:06 [facility] 02/15 11:51 Order name: Comprehensive Metabolic Panel; Complete Time: 15:06 [facility] 02/15 11:51 Order name: PT-INR; Complete Time: 15:06 [facility] 02/15 11:51 Order name: Urine Culture [facility] 02/15 14:44 Order name: Urine Microscopic Only; Complete Time: 15:06 [facility] 02/15 15:25 Order name: CT Stone Protocol; Complete Time: 16:31 kj1 02/15 17:22 Order name: Chest Single View XRAY [facility] 02/15 17:22 Order name: SARS RAPID; Complete Time: 18:33 [facility] 02/15 17:22 Order name: Troponin High Sensitivity; Complete Time: 18:33 [facility] 02/15 17:22 Order name: BNP; Complete Time: 18:33 [facility] 02/15 18:35 Order name: Extrem Venous W Compression Familia US la1 02/15 19:45 Order name: [facility] 02/15 11:51 Order name: Urine Dipstick-Ancillary (obtain specimen); Complete Time: 13:44 [facility] 02/15 17:22 Order name: EKG; Complete Time: 17:25 [facility] 02/15 17:22 Order name: EKG - Nurse/Tech; Complete Time: 17:54 jv EC:56 Rate is 62 beats/min. Rhythm is regular. QRS [place] is Normal. VA interval is normal. QRS jv interval is normal. QT interval is normal. No Q waves. T waves are Normal. No ST changes noted. 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 Interpreted by me. Reviewed by me. Administered Medications: 13:44 Drug: NS 0.9% 1000 ml Route: IV; Rate: 125 ml/hr; Site: right antecubital; bp 23:20 Follow up: IV Status: Infusion continued upon admission as6 13:44 Drug: Rocephin (cefTRIAXone) 1 grams Route: IV; Rate: per protocol; Site: right bp antecubital; 23:20 Follow up: Response: No adverse reaction; IV Status: Completed infusion; IV Intake: [id number] 17:15 Drug: Pepcid (famotidine) 20 mg Route: IVP; Site: right antecubital; bp 17:37 Follow up: Response: No adverse reaction bp 17:15 Drug: Lovenox (enoxaparin) 40 mg Route: Sub-Q; Site: right lower abdomen; bp 17:38 Follow up: Response: No adverse reaction bp Disposition Summary: 02/15/22 17:29 Hospitalization Ordered Hospitalization Status: Inpatient Admission jv Provider: Adia Collazo cha Location: Telemetry/MedSurg (Inpatient) jv Condition: Stable jv Problem: new jv Symptoms: have improved jv Bed/Room Type: Standard jv Room Assignment: 224(02/15/22 21:02) mw Diagnosis - Hematuria, unspecified jv - MCFP (current) use of anticoagulants jv - Adverse effect of anticoagulants jv Forms: - Medication Reconciliation Form jv - SBAR form jv Signatures: Dispatcher [employer] EDMS Judith Treadwell RN RN mw Anderson, Corey, MD MD cha Attema, Lee, FNP-C HORSE SHOW MANAGER-Janes1 Grey Rodriguez RN RN Jessika Couch RN RN kb3 Bernabe Whitney RN as6 Corrections: (The following items were deleted from the chart) 12:50 12:45 Allergies: Lasix; kb3 kb3 12:50 12:45 Allergies: Tizanidine; kb3 kb3 12:50 12:45 Allergies: Tylenol; kb3 kb3 12:50 12:45 Allergies: Hydrocodone-Acetaminophen; kb3 kb3 12:50 12:45 Allergies: Tramadol HCl; kb3 kb3 12:50 12:45 Allergies: Doxycycline; kb3 kb3 12:50 12:45 Allergies: Brilinta; kb3 kb3 12:50 12:45 Allergies: carvedilol; kb3 kb3 12:50 12:45 Allergies: Aspirin; kb3 kb3 12:50 12:45 Allergies: Entresto; kb3 kb3 12:50 12:45 Allergies: CoQ-10; kb3 kb3 12:50 12:45 Allergies: GABAPENTIN; kb3 kb3 12:50 12:45 Allergies: atorvastatin; kb3 kb3 12:50 12:45 Allergies: Nitroglycerin; kb3 kb3 12:50 12:45 PSHx: R hip replacement; kb3 kb3 14:44 13:58 Urinalysis ordered. EDMS EDMS 21:02 17:29 jv mw
--- NOTE | 2022-02-15 17:29 | ER ---
Nurse's Notes [facility] Name: Levy Uribe Age: 82 yrs Sex: Male : 1940 Arrival Date: 02/15/2022 Time: 11:21 Bed 5 Private MD: Diagnosis: Hematuria, unspecified;custodial (current) use of anticoagulants;Adverse effect of anticoagulants Presentation: 02/15 12:41 Chief complaint: Patient states: Pt reports blood in urine since last night. Pt kb3 presents with white catheter that was placed in this ER Wednesday due to urinary retention. Coronavirus screen: Vaccine status: Patient reports being unvaccinated. Client denies travel out of the [place] in the last 14 days. At this time, the client does not indicate any symptoms associated with coronavirus-19. Ebola Screen: Patient negative for fever greater than or equal to 101.5 degrees Fahrenheit, and additional compatible Ebola Virus Disease symptoms Patient denies exposure to infectious person. Patient denies travel to an Ebola-affected area in the 21 days before illness onset. No symptoms or risks identified at this time. Initial Sepsis Screen: Does the patient meet any 2 criteria? No. Patient's initial sepsis screen is negative. Does the patient have a suspected source of infection? No. Patient's initial sepsis screen is negative. Risk Assessment: Do you want to hurt yourself or someone else? Patient reports no desire to harm self or others. Onset of symptoms was February 14, 2022 at 21:00. 12:41 Method Of Arrival: Wheelchair kb3 12:41 Acuity: RAJNI 3 kb3 Triage Assessment: 12:51 General: Appears in no apparent distress. comfortable, Behavior is calm, cooperative. kb3 Pain: Denies pain. Historical: - Allergies: 12:45 No Known Allergies; kb3 - Home Meds: 12:48 Brilinta 60 mg oral tab 1 tab 2 times per day [Active]; carvedilol 3.125 mg oral tab 1 kb3 tab 2 times per day [Active]; Ecotrin 325 mg Oral TbEC 1 tab once daily [Active]; Entresto 24-26 mg oral tab 1 tab 2 times per day [Active]; gabapentin 100 mg oral cap 1 cap 3 times per day [Active]; atorvastatin 80 mg oral tab 1 tab once daily [Active]; - PMHx: 12:50 Hypertensive disorder; Congestive heart failure; Hypercholesterolemia; Myocardial kb3 infarction; - Immunization history:: Adult Immunizations up to date, Client reports receiving the 2nd dose of the Covid vaccine, Last tetanus immunization: unknown. - Social history:: Smoking status: Patient denies any tobacco usage or history of. Patient/guardian denies using alcohol, street drugs. - Family history:: not pertinent. Screenin:30 Abuse screen: Denies threats or abuse. Denies injuries from another. Nutritional bp screening: No deficits noted. Tuberculosis screening: No symptoms or risk factors identified. Fall Risk None identified. Assessment: 13:30 General: SEE TRIAGE NOTE. bp 15:00 Reassessment: No changes from previously documented assessment. Patient and/or family bp updated on plan of care and expected duration. Pain level reassessed. 16:00 Reassessment: PT RETURNED FROM CT. bp Vital Signs: 12:41 BP 104 / 53; Pulse 68; Resp 20; Temp 98.4; Pulse Ox 100% ; Weight 95.25 kg; Height 5 kb3 ft. 10 in. (177.80 cm); Pain 0/10; 13:45 BP 110 / 58; Pulse 62; Resp 16; Pulse Ox 100% ; bp 14:00 BP 111 / 53; Pulse 61; Resp 16; Pulse Ox 100% ; bp 15:00 BP 116 / 59; Pulse 58; Resp 15; Pulse Ox 100% ; bp 16:00 BP 134 / 67; Pulse 66; Resp 16; Pulse Ox 100% ; bp 20:49 BP 126 / 62; Pulse 72; Resp 18 S; Pulse Ox 100% on R/A; as6 12:41 Body Mass Index 30.13 (95.25 kg, 177.80 cm) kb3 ED Course: 11:21 Patient arrived in ED. rg4 11:49 Roger Erickson MD is Attending Physician. jv 12:45 Triage completed. kb3 12:51 Arm band placed on left wrist. Patient notified of wait time. kb3 13:30 Patient has correct armband on for positive identification. Bed in low position. Call bp light in reach. Side rails up X2. Adult w/ patient. 13:34 Grey Rodriguez, RN is Primary Nurse. bp 13:34 Initial lab(s) drawn, by me, sent to lab. Inserted saline lock: 20 gauge in right dh3 antecubital area, using aseptic technique. Blood collected. 16:02 CT Stone Protocol In Process Unspecified. EDMS 17:26 Adia Collazo MD is Hospitalizing Provider. jv 18:11 Chest Single View XRAY In Process Unspecified. EDMS 18:27 EKG done, by ED staff, reviewed by Roger Erickson MD. jw7 20:50 No provider procedures requiring assistance completed. Patient admitted, IV remains in as6 place. Administered Medications: 13:44 Drug: NS 0.9% 1000 ml Route: IV; Rate: 125 ml/hr; Site: right antecubital; bp 23:20 Follow up: IV Status: Infusion continued upon admission as6 13:44 Drug: Rocephin (cefTRIAXone) 1 grams Route: IV; Rate: per protocol; Site: right bp antecubital; 23:20 Follow up: Response: No adverse reaction; IV Status: Completed infusion; IV Intake: [id number] 17:15 Drug: Pepcid (famotidine) 20 mg Route: IVP; Site: right antecubital; bp 17:37 Follow up: Response: No adverse reaction bp 17:15 Drug: Lovenox (enoxaparin) 40 mg Route: Sub-Q; Site: right lower abdomen; bp 17:38 Follow up: Response: No adverse reaction bp Medication: 13:30 VIS not applicable for this client. bp Intake: 23:20 IV: 50ml; Total: 50ml. as6 Output: 20:49 Urine: 1000ml (White); Total: 1000ml. as6 Outcome: 17:29 Decision to Hospitalize by Provider. jv 22:56 Condition: stable as6 23:21 Admitted to Med/surg accompanied by tech, family with patient, via wheelchair, room as6 224, with chart. 23:21 Instructed on the need for admit. 23:21 Patient left the ED. as6 Signatures: Dispatcher [employer] EDMS Roger Erickson MD MD cha Garcia, Rubi rg4 Jana Garvey 3 Grey Rodriguez RN RN Bernabe Sanchez RN RN as6 Christine Vallejo jw7 Jessika Schmid, RN RN kb3 Corrections: (The following items were deleted from the chart) 12:50 12:45 Allergies: Lasix; kb3 kb3 12:50 12:45 Allergies: Tizanidine; kb3 kb3 12:50 12:45 Allergies: Tylenol; kb3 kb3 12:50 12:45 Allergies: Hydrocodone-Acetaminophen; kb3 kb3 12:50 12:45 Allergies: Tramadol HCl; kb3 kb3 12:50 12:45 Allergies: Doxycycline; kb3 kb3 12:50 12:45 Allergies: Brilinta; kb3 kb3 12:50 12:45 Allergies: carvedilol; kb3 kb3 12:50 12:45 Allergies: Aspirin; kb3 kb3 12:50 12:45 Allergies: Entresto; kb3 kb3 12:50 12:45 Allergies: CoQ-10; kb3 kb3 12:50 12:45 Allergies: GABAPENTIN; kb3 kb3 12:50 12:45 Allergies: atorvastatin; kb3 kb3 12:50 12:45 Allergies: Nitroglycerin; kb3 kb3 12:50 12:45 PSHx: R hip replacement; kb3 kb3
[2022-02-15] MEDS ORDERED: ENOXAPARIN 40 MG/0.4 ML SQ ONE (17:49)
[2022-02-15] MEDS ORDERED: FAMOTIDINE 20 MG/2 ML VIAL IV ONE (17:49)
[2022-02-15 18:12] LABS: Troponin High Sensitivity 10.5 pg/mL (<58.9)
[2022-02-15 18:24] LABS: SARS-CoV-2 Antigen Rapid Res Negative (Negative)
--- NOTE | 2022-02-15 19:00 | RAD REPORT ---
EXAM DESCRIPTION: RAD - Chest Single View - 02/15/2022 6:10 pm CLINICAL HISTORY: COUGH Chest pain. COMPARISON: CHEST PA AND LAT 2 VIEW dated 10/03/2014; CHEST SINGLE VIEW dated 09/30/2014; CHEST SINGLE VIEW dated 09/29/2014; CHEST SINGLE VIEW dated 08/22/2010 FINDINGS: Portable technique limits examination quality. The lungs are grossly clear. The heart is normal in size. No displaced fractures.Dual lead pacer/defi brillator device is present. IMPRESSION: No acute intrathoracic process suspected.
--- NOTE | 2022-02-15 19:29 | P.HP ---
Certification for Inpatient Patient admitted to: Observation With expected LOS: <2 Midnights Patient will require the following post-hospital care: None Practitioner: I am a practitioner with admitting privileges, knowledge of patient current condition, hospital course, and medical plan of care. Services: Services provided to patient in accordance with Admission requirements found in Title 42 Section 412.3 of the Code of Federal Regulations Patient History Date of Service: 02/15/22 Reason for admission: Hematuria History of Present Illness: 82-year-old male with history of chronic systolic congestive heart failure, CAD with pacemaker/defibrillator, hypertension, hyperlipidemia presented to the emergency department for hematuria. He had a right hip replacement on the fourth of this month after which he developed urinary retention, he had a Deras catheter placed on the which initially returned clear yellow urine, began having hematuria yesterday which is worsened over the course of the last 24 hours, family grew concerned and brought him into the emergency department for evaluation. Patient is on aspirin and Brilinta for his CAD/stents. Patient was evaluated in the emergency department his labs were significant for hemoglobin 12.4 hematocrit 37 platelet count of 306 INR 1.16 urine with greater than 50 red blood cells gross hematuria noted in Deras catheter which has been draining well. ED provider discussed case with urology/cardiology urology believe patient can likely follow-up outpatient cardiology was concerned with abruptly stopping patient's aspirin and Brilinta and recommended observation and initiation of Lovenox 40 mg subcu daily patient was given dose of Lovenox in the ED, ED physician wishes to admit patient under observation. Allergies No Known Drug Allergies Allergy (Unverified 10/14/14 15:12) Unknown Home Medications: Aspirin [Ecotrin 81 MG] 81 mg PO DAILY 09/29/14 Cholecalciferol (Vitamin D3) [Vitamin D3] 10,000 unit PO DAILY 09/29/14 Clopidogrel Bisulfate [Plavix] 75 mg PO DAILY 09/29/14 Multivitamin [Daily Multivitamin] 1 each PO DAILY 09/29/14 Ubidecarenone/Vit E Acet [Co Q-10 100 mg Softgel] 1 each PO DAILY 09/29/14 Aspirin Chewable [Aspirin Chewable*] 81 mg PO DAILY #30 tab.chew 10/03/14 Clopidogrel Bisulfate [Plavix*] 75 mg PO DAILY #30 tablet 10/03/14 Furosemide [Lasix*] 40 mg PO DAILY #30 tab 10/03/14 Hydrocodone 5/APAP 325 [Joseph 5/325*] 1 tab PO Q6H PRN #30 tab 10/03/14 Losartan Potassium [Cozaar*] 50 mg PO DAILY #30 tablet 10/03/14 Metoprolol Tartrate [Lopressor*] 25 mg PO BID #60 tab 10/03/14 Potassium Chloride [K-Dur] 10 meq PO DAILY #30 tab.er.prt 10/03/14 Rosuvastatin Calcium [Crestor] 20 mg PO BEDTIME #30 tablet 10/04/14 - Past Medical/Surgical History Diabetic: No -: CAD -: dyslipidemia -: Chronic systolic congestive heart failure -: multiple stents -: tonsillectomy -: daniela -: knee sx -: appy -: facial nerve sx Psychosocial/ Personal History: Patient lives at home with his - Family History Mother -: Heart disease, Hypertension, Diabetes Father -: Heart disease, Hypertension, Diabetes, Cancer Brother -: Cancer Sister -: Cancer - Social History Smoking Status: Never smoker Alcohol use: Yes CD- Drugs: No Caffeine use: No Place of Residence: Home Review of Systems 10-point ROS is otherwise unremarkable Genitourinary: Hematuria, As per HPI Physical Examination - Physical Exam General: Alert, In no apparent distress, Oriented x3 HEENT: Atraumatic, PERRLA, Mucous membr. moist/pink, EOMI, Sclerae nonicteric Neck: Supple, 2+ carotid pulse no bruit, No LAD, Without JVD or thyroid abnormality Respiratory: Clear to auscultation bilaterally, Normal air movement Cardiovascular: Regular rate/rhythm, Normal S1 S2 Gastrointestinal: Normal bowel sounds, No tenderness Musculoskeletal: No tenderness Integumentary: No rashes, Other (Edema of bilateral lower extremities, greater on the right) Neurological: Normal speech, Normal strength at 5/5 x4 extr, Normal tone, Normal affect Urinary: Deras catheter (Grossly bloody urine) - Studies Laboratory Data (last 24 hrs) 02/15/22 13:34: PT 12.8 H, INR 1.16 02/15/22 13:34: Sodium 136, Potassium 4.0, BUN 13, Creatinine 0.77, Glucose 155 H, Total Bilirubin 0.6, AST 39 H, ALT 70, Alkaline Phosphatase 75 02/15/22 13:34: WBC 8.9, Hgb 12.4 L, Hct 37.0 L, Plt Count 306 Assessment and Plan - Plan Assessment: Urinary retention/hematuria CAD with pacemaker/fibrillator Chronic systolic congestive heart failure Hypertension Hyperlipidemia Plan: Urinary retention/hematuria: Deras catheter was placed in the emergency department on 06/17/2022 which initially returned over 1 L of clear yellow urine, has not developed hematuria. Hold aspirin/Brilinta, give Lovenox 40 mg subcu daily per cardiology. Currently Deras catheter is draining freely had not need to be irrigated thus far, irrigate Deras as needed for obstruction. Repeat CBC in the morning. CAD with pacemaker/fibrillator: Monitor on telemetry, continue medications Chronic systolic congestive heart failure: Home medications continued Hypertension:Home medications continued Hyperlipidemia:Home medications continued DVT PPX: Lovenox Code status: Full Discharge Plan: Home Plan to discharge in: 24 Hours - Advance Directives Does patient have a Living Will: No Does patient have a Durable POA for Healthcare: Yes - Code Status/Comfort Care Code Status Assessed: Yes (Full code) Critical Care: No Time Spent Managing Pts Care (In Minutes): 70
--- NOTE | 2022-02-15 19:43 | RAD REPORT ---
EXAM DESCRIPTION: US - Extrem Venous W Compress Familia - 02/15/2022 7:26 pm CLINICAL HISTORY: SWELLING Bilateral leg edema and swelling. COMPARISON: No comparisons TECHNIQUE: Real-time sonographic interrogation of the left and right lower extremity deep venous sys tems was performed. FINDINGS: Normal compressibility, flow augmentation, phasic flow and spontaneous flow is identified in both the left and right lower extremity deep venous systems. IMPRESSION: No sonographic evidence of left or right lower extremity deep venous thrombosis.
--- NOTE | 2022-02-15 22:57 | P.PN ---
Date of Service: 02/15/22 Spoke to emergency room regarding admission of patient. [place] like patient may need to get transferred because of hematuria and as we do not have Urology Service readily available/applications tester today. ER physician was able to contact Cardiology and Urology and I was notified that they will be seeing the patient tomorrow. Patient was accepted on the basis of consultants being available to see the patient in a.m..
[2022-02-16] MEDS ORDERED: EZETIMIBE 10 MG TAB PO SCH (00:01)
[2022-02-16] MEDS ORDERED: ACETAMINOPHEN 325 MG TABLET PO PRN (00:01)
[2022-02-16] MEDS ORDERED: ONDANSETRON 4 MG/2 ML VIAL IV PRN (00:01)
[2022-02-16] MEDS: SACUBITRIL/VALSARTAN 24/26 MG TAB PO SCH ×2 (00:01→09:12)
[2022-02-16] MEDS ORDERED: GABAPENTIN 100 MG CAP PO PRN (00:01)
[2022-02-16] MEDS ORDERED: ATORVASTATIN 80 MG TAB PO SCH (00:01)
[2022-02-16] MEDS: carvediloL 6.25 MG TAB PO SCH ×2 (00:01→09:12)
[2022-02-16 01:56] VITALS: BMI 30.2
[2022-02-16 02:11] VITALS: O2SAT 100
[2022-02-16 05:30] LABS: Absolute Lymphocytes (CBC) 1.4 K/uL (0.7-4.9); Hematocrit 31.5 % (39.6-49.0); Lymphocytes % 22.1 % (15.3-44.8); MCV 91.5 fL (80-100); MPV 6.8 fL (7.6-11.3); RBC Red Blood Cell Count 3.45 M/uL (4.33-5.43)
[2022-02-16 05:36] LABS: Potassium 3.7 mmol/L (3.5-5.1)
[2022-02-16] MEDS ORDERED: POTASSIUM CL SA 10 MEQ TAB PO ONE (09:00)
[2022-02-16] MEDS ORDERED: ENOXAPARIN 40 MG/0.4 ML SQ SCH (09:00)
[2022-02-16 13:07] LABS: Hematocrit 35.6 % (39.6-49.0)
--- NOTE | 2022-02-16 19:27 | CON ---
Date of Consultation: 02/16/2022 Reason For Consultation: Evaluation of his antiplatelets as the patient is having hematuria. History Of Present Illness: 82-year-old male, history of systolic heart failure, coronary artery dis ease, defibrillator in place, hypertension, dyslipidemia, presented to the emergency room with damien emmanuel. He had right hip replacement . He developed urinary retention after that. He had to have a catheter Deras placed and he is having some bleeding. The last time he had cardiac stent was April 06, 2021, which makes it about 10 and half months. Past Medical History: As outlined above in the HPI. Medications: Refer to reconciliation sheet for detailed list. Allergies: NO KNOWN DRUG ALLERGIES. Family History: No premature coronary artery disease or cancer. Social History: Does not smoke or drink. Does not use any drugs. Review of Systems: All systems reviewed and are negative except mentioned in HPI. Physical Examination: VITAL SIGNS: Reviewed. HEAD AND NECK: Pupils are equal, reactive to light. Intact eye movements. No JVD. No cervical lym phadenopathy. NECK: Supple. Thyroid is not enlarged. LUNGS: Clear to auscultation bilaterally. No rhonchi, rales, or crackles. No accessory muscle use. HEART: Regular rate and rhythm. No extra sounds. ABDOMEN: Soft, nontender. Bowel sounds positive. No organomegaly. No masses or hernia. No rigidi ty or rebound. EXTREMITIES: No edema, clubbing, cyanosis. Intact pulses. SKIN: No rash. NEUROLOGIC: Alert, awake, oriented x3, no focal deficits appreciated. Investigations: Troponin x2 are negative. Hemoglobin is 12.3. Assessment And Recommendations: 1.Coronary artery disease, status post stent placement, April 06, 2021. He is on Brilinta and aspi rin. The patient is having braden hematuria. Go ahead and hold Brilinta and keep him on baby aspirin . We will plan to follow him up as an outpatient. 2.Hematuria. Deras catheter is in place and urine is bloody. We will hold Brilinta as outlined abo ve as patient's last stent was close to 11 months ago. Given the fact that he is having active bleed ing, we will attempt to keep him off Brilinta until his hematuria clears. SR/MODL Voice ID: [id number] Report ID: [id number]
[2022-02-16 21:40] VITALS: BP 128/60; TEMP 98.5
--- NOTE | 2022-02-16 21:53 | P.CNS ---
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 He had a catheter placed on Wednesday with apparently 3 L of clear yellow urine that drained. 2 to 3 days later, he developed gross hematuria and left flank pain, and as a result, he presented to the emergency department for evaluation. He was admitted and started on Lovenox 40 mg subcutaneously, and the antiplatelet agents have been held because of the hematuria. Past medical history as above Past surgical history: Tonsillectomy, cholecystectomy, knee surgery, appendectomy, facial nerve surgery, right hip replacement 02/2022 Social history: He is a never smoker and denies any chemical exposure Family history: He denies urologic malignancy history Examination: Well-appearing, well-developed, well-nourished, no acute distress Alert, awake, oriented x3 No dyspnea or sign of respiratory distress at rest Abdomen soft, nontender, nondistended, no masses Genitalia: Circumcised without lesion, orthotopic meatus patent with 16 [place]amese urethral Deras catheter in place and mixed tea colored/light pink urine with minimal sediment but no clots. Review of the labs revealed normal creatinine less than 1.0, stable hemoglobin around 12, and INR less than 1.5 with normal platelet count Review of imaging: Mild ureteral nephrosis noted, right greater than left, with mild left pelviectasis CT - Stone Protocol - 02/15/2022 4:00 pm CLINICAL HISTORY: Flank pain. Hematuria COMPARISON: No comparisons TECHNIQUE: Axial images were obtained without oral or IV contrast. Lack of contrast limits solid organ and vascular assessment. The [id number] spans the entirety of the system partially obscuring uppermost abdomen and lung bases. Coronal reformatted images were obtained and reviewed. All CT scans are performed using dose optimization technique as appropriate and may include automated exposure control or mA/KV adjustment according to patient size. FINDINGS: The lower lung mcintosh are clear. Pacemaker wires are noted. Cholecystectomy clips. Imaged portions of the liver and spleen show no suspicious findings on non- contrast imaging. The pancreas and adrenal glands are normal. No pathologic ly mphadenopathy in the abdomen or pelvis. No urinary tract stones or obstructive uropathy. Urinary bladder catheter is in place. High density material is present in the bladder likely blood product. The prostate gland appears enlarged. No bowel obstruction, free air, free fluid or abscess. Sigmoid diverticulosis coli is present without diverticulitis.Nonvisualized appendix. Mild to moderate lumbar degenerative changes. Right hip arthroplasty. Severe osteoarthritis left hip. IMPRESSION: No urinary tract stones or obstructive uropathy. High-density material seen within the urinary bladder likely representing blood clot. Cystoscopy could be performed for direct visualization. 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 -Recommend Flomax 0.4 mg daily, and I counseled the patient on the importance of taking the medication at bedtime, separate from his other blood pressure medicines, and on the expectation of first dose orthostasis. I explained that should he have persistent orthostasis, he should stop taking the Flomax and notify me via my office. -Discharged with catheter irrigation teaching and supplies since the 16 [place]amese Deras is of small caliber and subject to obstruction by even the smallest of clots, to keep them out of trouble. -Follow-up nursing visit for voiding trial in approximately 7-10 days, Wednesday/Wednesday/Wednesday of next week -Follow-up catheter culture sent on admission and provide single dose antimicrobial at the time of voiding trial -Follow-up then with me for cystoscopy and [place] within 2-3 weeks later -PSA prior to follow-up for cystoscopy, but only after the catheter has been removed for at least 2 weeks
--- NOTE | 2022-02-16 22:14 | P.DS ---
Admission Date: 02/15/22 Discharge Date: 02/16/22 Disposition: ROUTINE DISCHARGE Discharge Condition: GOOD Reason for Admission: Hematuria Consultations: urology Dr. Salas Cardiology Dr. Whalen Procedures: CT ABD/Pelvis 02/15/2022 FINDINGS: The lower lung mcintosh are clear. Pacemaker wires are noted. Cholecystectomy clips. Imaged portions of the liver and spleen show no suspicious findings on non- contrast imaging. The pancreas and adrenal glands are normal. No pathologic lymphadenopathy in the abdomen or pelvis. No urinary tract stones or obstructive uropathy. Urinary bladder catheter is in place. High density material is present in the bladder likely blood product. The prostate gland appears enlarged. No bowel obstruction, free air, free fluid or abscess. Sigmoid diverticulosis coli is present without diverticulitis.Nonvisualized appendix. Mild to moderate lumbar degenerative changes. Right hip arthroplasty. Severe osteoarthritis left hip. IMPRESSION: No urinary tract stones or obstructive uropathy. High-density material seen within the urinary bladder likely representing blood clot. Cystoscopy could be performed for direct visualization. CXR 02/15/2022 FINDINGS: Portable technique limits examination quality. The lungs are grossly clear. The heart is normal in size. No displaced fractures.Dual lead pacer/defibrillator device is present. IMPRESSION: No acute intrathoracic process suspected. DAVID LE venous doppler 02/15/2022 TECHNIQUE: Real-time sonographic interrogation of the left and right lower extr emity deep venous systems was performed. FINDINGS: Normal compressibility, flow augmentation, phasic flow and spontaneous flow is identified in both the left and right lower extremity deep venous systems. IMPRESSION: No sonographic evidence of left or right lower extremity deep venous thrombosis. Brief History of Present Illness: 82-year-old male with history of chronic systolic congestive heart failure, CAD with pacemaker/defibrillator, hypertension, hyperlipidemia presented to the emergency department for hematuria. He had a right hip replacement on the fourth of this month after which he developed urinary retention, he had a Deras catheter placed on the which initially returned clear yellow urine, began having hematuria yesterday which is worsened over the course of the last 24 hours, family grew concerned and brought him into the emergency department for evaluation. Patient is on aspirin and Brilinta for his CAD/stents. Patient was evaluated in the emergency department his labs were significant for hemoglobin 12.4 hematocrit 37 platelet count of 306 INR 1.16 urine with greater than 50 red blood cells gross hematuria noted in Deras catheter which has been draining well. ED provider discussed case with urology/cardiology urology believe patient can likely follow-up outpatient cardiology was concerned with abruptly stopping patient's aspirin and Brilinta and recommended observation and initiation of Lovenox 40 mg subcu daily patient was given dose of Lovenox in the ED, ED physician wishes to admit patient under observation. Hospital Course: Patient was admitted under observation for hematuria, he continued to pass urine freely through catheter without need for irrigation during hospitalization. Cardiology saw patient recommends holding Brilinta and continuing aspirin for time being until he can follow-up outpatient. Patient was also evaluated by urology who recommends addition of Flomax nightly and outpatient follow-up in his clinic. Dr. Salas provided information for his clinic for family to call and set up an appointment. Nursing staff currently completing catheter irrigation education and providing supplies. Patient to be discharged home tonight per the request. His hemoglobin remained stable throughout his hospitalization stuffing small amounts of braden blood through the catheter. Prescription for Flomax given to family. Vital Signs/Physical Exam: Temp Pulse Resp BP Pulse Ox 98.5 F 74 16 128/60 97 02/16/22 20:00 02/16/22 20:00 02/16/22 20:00 02/16/22 20:00 02/16/22 20:00 General: Alert, In no apparent distress, Oriented x3 HEENT: Atraumatic, PERRLA, EOMI Neck: Supple, JVD not distended Respiratory: Clear to auscultation bilaterally, Normal air movement Cardiovascular: Regular rate/rhythm, Normal S1 S2 Gastrointestinal: Normal bowel sounds, No tenderness Musculoskeletal: No tenderness Integumentary: No rashes Neurological: Normal speech, Normal tone, Normal affect Lymphatics: No axilla or inguinal lymphadenopathy Urinary: Deras catheter Laboratory Data at Discharge: WBC 6.2 K/uL (4.3-10.9) D 02/16/22 05:03 Hgb 12.3 g/dL (13.6-17.9) L 02/16/22 12:52 Hct 35.6 % (39.6-49.0) L 02/16/22 12:52 Plt Count 274 K/uL (152-406) 02/16/22 05:03 PT 12.8 SECONDS (9.5-12.5) H 02/15/22 13:34 INR 1.16 02/15/22 13:34 Sodium 136 mmol/L (136-145) 02/16/22 05:03 Potassium 3.7 mmol/L (3.5-5.1) 02/16/22 05:03 BUN 10 mg/dL (7-18) 02/16/22 05:03 Creatinine 0.63 mg/dL (0.55-1.3) 02/16/22 05:03 Glucose 136 mg/dL (74-106) H 02/16/22 05:03 Total Bilirubin 0.6 mg/dL (0.2-1.0) 02/15/22 13:34 AST 39 U/L (15-37) H 02/15/22 13:34 ALT 70 U/L (12-78) 02/15/22 13:34 Alkaline Phosphatase 75 U/L (45-117) 02/15/22 13:34 Home Medications: Aspirin [Ecotrin 81 MG] 81 mg PO DAILY 09/29/14 Ubidecarenone/Vit E Acet [Co Q-10 100 mg Softgel] 1 each PO DAILY 09/29/14 Furosemide [Lasix*] 40 mg PO DAILY #30 tab 10/03/14 Hydrocodone 5/APAP 325 [Shiloh 5/325*] 1 tab PO Q6H PRN #30 tab 10/03/14 Acetaminophen [Tylenol Extra Strength] 1,000 mg PO TID PRN MDD 3000 02/16/22 Acetaminophen [Tylenol*] 650 mg PO Q6H PRN tab 02/16/22 Atorvastatin Calcium [Lipitor] 80 mg PO DAILY 02/16/22 Docusate Sodium [Colace] 50 mg PO DAILY 02/16/22 Ezetimibe [Zetia*] 10 mg PO DAILY 02/16/22 Gabapentin 100 mg PO BID 02/16/22 Nitroglycerin 0.4 mg SL Q5MX3, Q15MX1, Q30M PRN 02/16/22 Oxycodone HCl 5 mg PO QID 02/16/22 Sacubitril/Valsartan [Entresto 24 mg-26 mg Tablet] 1 each PO BID 02/16/22 Tamsulosin HCl [Flomax] 0.4 mg PO BEDTIME #30 08/15/22 Tizanidine HCl 2 mg PO QID PRN 02/16/22 Tramadol HCl [Ultram] 50 mg PO QID PRN 02/16/22 carvediloL [Carvedilol] 6.25 mg PO BID 02/16/22 New Medications: Tamsulosin HCl [Flomax] 0.4 mg PO BEDTIME #30 Physician Discharge Instructions: Please continue the aspirin, hold your Brilinta until otherwise instructed by cardiology. Flomax has been added to your medications to take nightly. If your Deras catheter becomes obstructed please perform flushing as demonstrated and educated by nursing staff. Please follow-up with urology within the next 1 to 2 weeks as well as cardiology. Diet: AHA Activity: Ad kalia Followup: Irasema Yoder DO, DO [Primary Care Provider] - 1-2 Weeks Jose F Whalen MD [ACTIVE - CAN ADMIT] - 1-2 Weeks Solomon Salas [ACTIVE - CAN ADMIT] - 1-2 Weeks Time spent managing pt's care (in minutes): 35
--- NOTE | 2022-02-17 08:18 | EKG ---
Test Date: 2022-02-15 Test Time: 17:47:39 Urgent Care Physician Assistant: ROXANNE MEASUREMENT RESULTS: Intervals: Rate: 62 WA: 324 QRSD: 82 QT: 412 QTc: 418 [place]: P: WA: 324 QRS: -35 T: 77 INTERPRETIVE STATEMENTS: Atrial-paced rhythm with prolonged AV conduction Left axis deviation Anteroseptal infarct, age undetermined Abnormal ECG Compared to ECG 09/30/2014 05:48:54 Left-axis deviation now present Sinus rhythm no longer present First degree AV block no longer present Myocardial infarct finding still present Electronically Signed On 02-17-22 08:11:44 CDT by Rosendo Aponte
[2022-02-17] MEDS ORDERED: TAMSULOSIN 0.4 MG SR CAP PO SCH (21:49)
== END 2022-02-16 23:20 | disposition home or self-care (01) ==
LOC: ER 11:20 → ERHOLD 18:57 → 2ND 21:12
PROVIDERS: ADMIT Hospitalist; ATTEND Internal Medicine
DX: R31.0 Gross hematuria (principal); R33.9 Retention of urine, unspecified; I25.10 Atherosclerotic heart disease of native coronary artery without angina pectoris; I11.0 Hypertensive heart disease with heart failure; I50.22 Chronic systolic (congestive) heart failure; E78.5 Hyperlipidemia, unspecified; D33.3 Benign neoplasm of cranial nerves; E78.00 Pure hypercholesterolemia, unspecified; I25.2 Old myocardial infarction; Z95.5 Presence of coronary angioplasty implant and graft; Z95.810 Presence of automatic (implantable) cardiac defibrillator; Z79.82 Long term (current) use of aspirin; Z79.899 Other long term (current) drug therapy; Z90.49 Acquired absence of other specified parts of digestive tract; Z20.822 Contact with and (suspected) exposure to COVID-19; Z96.641 Presence of right artificial hip joint; Z82.49 Family history of ischemic heart disease and other diseases of the circulatory system; Z83.3 Family history of diabetes mellitus; Z80.9 Family history of malignant neoplasm, unspecified
CPT/HCPCS: 96365; 93005; 87088; 85025 ×2; 87086; 80048; 36415; 85610; 82947 ×2; 85018; 85014; 81015; 84484; 80053; 83880; 76377; 74176; 71045; 93970; 96375; 96372; 99285; 96366; 87811; J1650; J7030

== ENCOUNTER 2022-09-16 07:25 | Day surgery (SDC) | payer OTHER ==
[2022-09-16 08:20] LABS: MPV 7.9 fL (7.6-11.3)
[2022-09-16 08:30] LABS: Protime INR 1.08
[2022-09-16] MEDS ORDERED: NALOXONE 0.4 MG/ML VIAL ONE (08:47)
[2022-09-16] MEDS ORDERED: MIDAZOLAM HCL 2 MG/2 ML INJ ONE (08:48)
[2022-09-16] MEDS ORDERED: FENTANYL CITR 100 MCG/2 ML ONE (08:48)
[2022-09-16] MEDS ORDERED: Ringers Lactate 1,000 ML IV ONE (08:48)
[2022-09-16] MEDS ORDERED: FLUMAZENIL 0.1 MG/ML (5 mL VIAL) IV ONE (09:03)
[2022-09-16 12:49] VITALS: BMI 32.5
[2022-09-16 13:03] VITALS: BP 102/55; TEMP 97.5; O2SAT 96
--- NOTE | 2022-09-16 14:19 | RAD REPORT ---
EXAM DESCRIPTION: CT - Bone Biopsy Deep - 09/16/2022 11:21 am CLINICAL HISTORY: C43.4, C79.51, R91.1, G89.3 T10 vertebral body lytic lesion COMPARISON: CT chest 08/20/2022 FINDINGS: Preoperative diagnosis: T10 vertebral body lytic lesion Post operative diagnosis: Same Conscious Sedation: 100 mL of fentanyl. Total sedation time: 30 minutes. Patient was continuously monitored throughout the procedure by dedicated nursing staff. Contrast used: NONE Estimated blood loss: less than 5 mL Specimens: Small bone core. Multiple 18 gauge soft tissue samples. 5 mL bone marrow aspirate. The patient was placed prone on the CT table and the left back area was prepped and draped in the usu al sterile fashion. 1% lidocaine was infiltrated into the subcutaneous tissues and to the level of e periosteum for local anesthesia. Under computed tomographic guidance, an 11 gauge bone biopsy needl e introducer was advanced into the lesion. A 12 gauge bone core biopsy needle was passed through the introducer, and a small bone core was obtained. After bypassing the bone, utilizing a surgical mallet , an 18 gauge gauge 20 mm throw core biopsy gun was advanced into the lytic part lesion and 3 cores w ere obtained. 5 mL of bone marrow were aspirated through the introducer needle as well. Postprocedure imaging demonstrated no complications. Samples were given to pathology for analysis. e patient tolerated the procedure without immediate complication and transferred to the recovery room in stable condition. A small lucency seen along the anterior and left lateral vertebral body margin may relate to a small osteophyte fracture, and that was present on the pre biopsy images. IMPRESSION: Technically successful CT-guided biopsy of the T10 vertebral body lesion. All CT scans are performed using dose optimization technique as appropriate and may include automated exposure control or mA/KV adjustment according to patient size.
== END 2022-09-16 12:40 | disposition home or self-care (01) ==
LOC: DS 07:25
PROVIDERS: ATTEND Internal Medicine Hematology & Oncology
DX: C43.4 Malignant melanoma of scalp and neck (principal); C79.51 Secondary malignant neoplasm of bone; R91.1 Solitary pulmonary nodule; G89.3 Neoplasm related pain (acute) (chronic)
CPT/HCPCS: 36415; 88108; 85049; 85610; 88305 ×2; 88311; 85730; 20225; J3010; J7120; J2250; J2310

== ENCOUNTER 2023-06-06 15:31 | Inpatient (IN) | payer OTHER ==
--- OUTSIDE RECORDS SUMMARY | 2023-06-06 16:09 | XMS REPORT | Continuity of Care Document ---
:1940 Author Organization [facility] t Address [address] [place] [address] Care Team Providers Name Role Phone CAMERON ARANGO Primary Care Physician Unavailable Provider, Unknown Attending Clinician Unavailable TONIA CATHERINE Attending Clinician Unavailable Tonia Catherine MD Attending Clinician [phone] Aissatou Lancaster Attending Clinician Unavailable Suraj Attending Clinician Unavailable Bibiana Ortiz Attending Clinician [phone] Negro Easley Attending Clinician Unavailable Kathy Ojeda Attending Clinician Unavailable Mark Lucero Attending Clinician Unavailable Provider, Unknown Attending Clinician Unavailable Shane Alvarez Attending Clinician Unavailable Adolph Arnold Attending Clinician Unavailable Suraj Admitting Clinician Unavailable BIBIANA ORTIZ Admitting Clinician Unavailable Cameron Arango Admitting Clinician Unavailable Physician, No Primary or Family Admitting Clinician Unavaila Mark Laws Admitting Clinician Unavailable Adolph Arnold Admitting Clinician Unavailable KNOW, DOES_NOT Admitting Clinician Unavailable Payers Payer Name Policy Type Policy Number Effective Date Expiration Date Ganga escobar MEDICARE A B [id number] 2006 00:00:00 [employer] [facility] [id number] 2013 00:00:00 [place]ICARE B-[place]: [id number] 2006 [employer] 00:00:00 [employer] [id number] 2013 (PPO) 00:00:00 Problems Condition Condition Condition Status Onset Resolution Last Treating Co mments Source Name Details Category Date Date Treatment Clinician Date Pain in Pain in Problem Active [facility] right hip Right Hip 8-18 Orth ope joint Joint 00:00: dic 00 Sports Medicin e 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 00:00: Ho spita t, right t, right 00 l Chronic Chronic Problem Active [facility] postoperat Postoperat 8-03 Or thope pb pain pb Pain 00:00: dic 00 Sports Medicin e 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 8-25 Orthope hip Hip 00:00: dic 00 Sports Medicin e Lumbosacra Lumbosacra Problem Active A zalea l l 6-16 Orthope spondylosi Spondylosi 00:00: di c s s 00 Sports Medicin e 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 00:00: dic interverte Interverte 00 Sp orts bral disc bral Disc Medi domonique e 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 of Lumbar 00:00: dic region Region 00 Sports Medicin e Allergies, Adverse Reactions, Alerts Allergy Allergy Status Severity Reaction(s) Onset Inactive Treating Comm ents Source Name Type Date Date Clinician No Known DA Active U [facility] 2[facility]14 [place] s 00:00: d 00 [facility] No Known DA Active U 2020- [facility] Allergie 0-15 [facility] s 00:00: [place] 00 [facility] No Known DA Active U 2020- [facility] Allergie 0-15 [facility] s 00:00: [place] 00 [facility] No Known DA Active U 2020- [facility] Drug 9- [place] Allergie 00:00: d s 00 [facility] milk FA Active MO 2020-0 [facility] 9-21 [place] 00:00: d 00 [facility] No Known DA Active U [facility] 9 [place] Allergie 00:00: d s 00 [facility] milk FA Active MO NASAL 2020- [facility] CONGESTION 9- [place] 00:00: d 00 [facility] No Known DA Active U [facility] All[facility]ie 8[facility]17 [place] [facility] 00:[facility]: [facility] 00 dic [facility] No Known DA Active U [facility] Allergie 8[facility]17 [place] [facility] 00:[facility]: Orthope 00 dic Hospita l NO KNOWN Allergy Active [facility] Social History Social Habit Start Date Stop Date Quantity Comments Source Exposure to Not sure Jehovah'S Witness SARS-CoV-2 (event) Hospit al Sexual orientation [facility] History of Social 2022-11-18 2022-11-[address] [facility] function 00:00:00 00:00:00 [facility] Tobacco use and 2022-11-18 2022-11-[address] [facility] exposure 00:00:00 00:00:00 tobacco non-user [facility] Alcohol intake 2022-11-18 2022-11-[address] [facility] 00:00:00 00:00:00 non-drinker [facility] (finding) Sex Assigned At [address] [facility] 00:00:00 00:00:00 [facility] Smoking Status Start Date Stop Date Source Never smoked tobacco [facility] Unknown if ever smoked [facility] Medications Ordered Filled Start Stop Current Ordering Indication Dosage Frequency Signature Comments Components Source Medication Medication Date Date Medication? Clinician (SIG) Name Name aspirin 81 Yes 81mg QD Take 1 [facility] 5-17 tablet (81 [facility] tablet 13:45: mg total) Medica l 30 by mouth Center in the morning. ezetimibe 2023-0 Yes 10mg QD Take [address] (ZETIA) 10 5-13 tablet (10 [facility] mg tablet 00:00: mg total) Med ical 00 by mouth Center in the morning. pregabalin 2023-0 Yes 25mg QD Take 1 [facility] (LYRICA) 25 4-27 capsule [facility] MG capsule 00:00: (25 mg Medic al 00 total) by Center mouth nightly. Max Daily Amount: 25 mg atorvastati 3-0 Yes 80mg QD Take [address] [facility] (LIPITOR) 4-27 tablet (80 [facility] 80 MG 00:00: mg total) Medical tablet 00 by mouth Center in the morning. carvediloL 3-0 Yes 3.125mg Q.5D Take [address] (COREG) 4-20 tablet [facility] 3.125 MG 00:00: (3.125 mg Medi alva tablet 00 total) by Center mouth in the morning and 1 tablet (3.125 mg total) before bedtime. Entresto 2022-0 Yes 1{tbl} Q.5D Take 1 [facility] 24-26 mg 4-04 tablet by [facility] tablet 00:00: mouth in Medical 00 the Center morning and 1 tablet before bedtime. amoxicillin 3-0 Yes 2000mg QD Take [address] (AMOXIL) 4-03 capsules [facility] 500 MG 00:00: (2,000 mg Medica l capsule 00 total) by Center mouth in the morning. ondansetron 3-0 Yes 4mg Take [address] (ZOFRAN-ODT 3-28 tablet (4 Lobo es ) 4 MG 00:00: mg total) Medica l disintegrat [address] tablet rosuvastati 2022-0 Yes 40mg QD Take [address] [facility] (CRESTOR) 2-25 tablet (40 [facility] 40 MG 00:00: mg total) Medical tablet 00 by mouth Center in the morning. ezetimibe 2022-0 Yes 10mg QD Take 10 mg Me [facility] (ZETIA) 10 8-[address] mg tablet 13:59: daily. Hospit a 34 l aspirin 2021-0 Yes 81mg QD Take 81 mg Meth nikita (ECOTRIN) 8-[address] 81 MG 13:59: daily. Hospita enteric 34 l coated tablet nitroglycer Yes .4mg Place 0.4 M ethodi in 8-[address] (NITROSTAT) 13:59: the tongue Hospita 0.4 MG SL 34 every 5 l tablet (five) minutes as needed for chest pain. COQ10, Yes Take by Methodi LIPOSOMAL 8-[address] UBIQUINOL, 13:59: Hospita ORAL 34 l acetaminoph 0 Yes 500mg Q6H Take 500 M ethodi en 8-[address] (TYLENOL) 13:59: mouth Hospita 500 MG 34 every 6 l tablet (six) hours as needed for mild pain. doxycycline Yes Method i (VIBRAMYCIN 8-03 st ) 100 MG 00:00: Hospita capsule 00 l Entresto 0 Yes Q.5D 2 (two) Method i 24-26 mg 6-[address] tablet per 00:00: day. Hospita tablet 00 l carvediloL 0 Yes 6.25mg Q.5D Take 6.25 [facility] (COREG) 6-[address] 6.25 MG 00:00: mouth 2 Hospita tablet 00 (two) l times a day with meals. Brilinta 90 0 Yes 90mg Q.5D Take 90 mg [facility] mg tablet 6-[address] 00:00: every 12 Hospita 00 (twelve) l hours. ticagrelor 0 Yes 90mg Q.5D Take 1 [facility] (Brilinta) 6-19 tablet (90 [facility] 90 mg Tab 00:00: mg total) Med ical tablet 00 by mouth Center in the morning and 1 tablet (90 mg total) before bedtime. gabapentin 0 Yes 100mg Q.5D Take 100 [facility] (NEURONTIN) 6-[address] 100 mg 00:00: mouth 2 Hospita capsule 00 (two) l times a day. atorvastati 0 Yes 80mg QD Take 80 mg [facility]i n (LIPITOR) 5-[address] 80 MG 00:00: nightly. Hospita tablet 00 l ezetimibe 2020-07 Yes 10mg QD Take 10 [...] (five) minutes as needed for chest pain. tamsulosin tamsulosin No tamsulosin [facility] 0.4 mg 0.4 mg 0.4 mg Orthope capsule capsule capsule dic TAKE 1 TAKE 1 TAKE 1 Sports CAPSULE BY CAPSULE BY CAPSULE BY Medicin MOUTH AT MOUTH AT MOUTH AT e BEDTIME BEDTIME BEDTIME tizanidine tizanidine No tizanidine [facility] 2 mg tablet 2 mg tablet 2 mg O rthope TAKE 1 TAKE 1 tablet dic TABLET BY TABLET BY TAKE 1 Spo rts MOUTH EVERY MOUTH EVERY TABLET BY Medicin 6 HOURS 6 HOURS MOUTH e NEEDED FOR NEEDED FOR EVERY 6 MUSCLE MUSCLE HOURS SPASMS SPASMS NEEDED FOR MUSCLE SPASMS tramadol 50 tramadol 50 No tramadol [facility] mg tablet mg tablet 50 mg Orth ope TAKE 1 TAKE 1 tablet dic TABLET BY TABLET BY TAKE 1 Spo rts MOUTH EVERY MOUTH EVERY TABLET BY Medicin 6 HOURS FOR 6 HOURS FOR MOUTH e 7 DAYS 7 DAYS EVERY 6 NEEDED NEEDED HOURS FOR 7 DAYS NEEDED valacyclovi valacyclovi No valacyclov [facility] r 1 gram r 1 gram ir 1 gram Or thope tablet TAKE tablet TAKE tablet dic 1 TABLET BY 1 TABLET BY TAKE 1 Sports MOUTH THREE MOUTH THREE TABLET BY Medicin TIMES DAILY TIMES DAILY MOUTH e THREE TIMES DAILY acetaminoph acetaminoph No acetaminop [facility] en 300 en 300 hen 300 [facility]ope mg-codeine mg-codeine mg-codeine dic 30 mg 30 mg 30 mg Sports tablet TAKE tablet TAKE tablet Medicin 1 TABLET BY 1 TABLET BY TAKE 1 e MOUTH EVERY MOUTH EVERY TABLET BY 6 HOURS FOR 6 HOURS FOR MOUTH 10 DAYS 10 DAYS EVERY 6 NEEDED NEEDED HOURS FOR 10 DAYS NEEDED acetaminoph acetaminoph No acetaminop [facility] en 500 mg en 500 mg hen 500 mg [facility] tablet TAKE tablet TAKE tablet dic 2 TABLETS 2 TABLETS TAKE 2 Spo rts BY MOUTH BY MOUTH TABLETS BY Woodrow choicin EVERY 8 EVERY 8 MOUTH e HOURS HOURS EVERY 8 HOURS amoxicillin amoxicillin No amoxicilli [facility] 500 mg 500 mg n 500 mg [facility] capsule capsule capsule dic Take 4 Take 4 Take 4 Sports capsules by capsules by capsules Medicin mouth 30 mouth 30 by mouth e minutes-1 minutes-1 30 hour before hour before minutes-1 dental dental hour cleaning/pr cleaning/pr before ocedure ocedure dental cleaning/p rocedure amoxicillin amoxicillin No amoxicilli [facility] 500 mg 500 mg n 500 mg [facility] tablet TAKE tablet TAKE tablet dic 1 TABLET BY 1 TABLET BY TAKE 1 Sports MOUTH THREE MOUTH THREE TABLET BY Medicin TIMES DAILY TIMES DAILY MOUTH e UNTIL ALL UNTIL ALL THREE TAKEN FOR TAKEN FOR TIMES DENTAL PAIN DENTAL PAIN DAILY UNTIL ALL TAKEN FOR DENTAL PAIN atorvastati atorvastati No atorvastat [facility] n 80 mg n 80 mg in 80 mg Ortho pe tablet TAKE tablet TAKE tablet dic 1 TABLET BY 1 TABLET BY TAKE 1 Sports MOUTH EVERY MOUTH EVERY TABLET BY Medicin DAY DAY MOUTH e EVERY DAY Faby Low Faby Low No Faby Low [facility] Dose Dose Dose [facility] Aspirin 81 Aspirin 81 Aspirin 81 dic mg mg mg Sports tablet,kevyn tablet,kevyn tablet,del Medicin yed release yed release ayed e release Besivance Besivance No Besivance [facility] 0.6 % eye 0.6 % eye 0.6 % eye Orthope drops,suspe drops,suspe drops,susp dic nsion nsion ension Sports INSTILL 1 INSTILL 1 INSTILL 1 Medicin DROP INTO DROP INTO DROP INTO e LEFT EYE LEFT EYE LEFT EYE TWICE DAILY TWICE DAILY TWICE DAILY Brilinta 90 Brilinta 90 No Brilinta [facility] mg tablet mg tablet 90 mg Orth ope TAKE 1 TAKE 1 tablet dic TABLET BY TABLET BY TAKE 1 Spo rts MOUTH TWICE MOUTH TWICE TABLET BY Medicin DAILY DAILY MOUTH e TWICE DAILY carvedilol carvedilol No carvedilol [facility] 3.125 mg 3.125 mg 3.125 mg Ort hope tablet TAKE tablet TAKE tablet dic 1 TABLET BY 1 TABLET BY TAKE 1 Sports MOUTH EVERY MOUTH EVERY TABLET BY Medicin 12 HOURS 12 HOURS MOUTH e EVERY 12 HOURS carvedilol carvedilol No carvedilol [facility] 6.25 mg 6.25 mg 6.25 mg Orthop e tablet TAKE tablet TAKE tablet dic 1 TABLET BY 1 TABLET BY TAKE 1 Sports MOUTH TWICE MOUTH TWICE TABLET BY Medicin DAILY WITH DAILY WITH MOUTH e FOOD FOOD TWICE DAILY WITH FOOD doxycycline doxycycline No doxycyclin [facility] hyclate 100 hyclate 100 e hyclate Orth[facility] mg capsule mg capsule 100 [address] ic TAKE 1 TAKE 1 capsule Sports CAPSULE BY CAPSULE BY TAKE 1 M edicin MOUTH TWICE MOUTH TWICE CAPSULE BY e DAILY FOR 7 DAILY FOR 7 MOUTH DAYS DAYS TWICE DAILY FOR 7 DAYS Durezol Durezol No Durezol [facility] 0.05 % eye 0.05 % eye 0.05 % eye Orthope drops drops drops dic INSTILL 1 INSTILL 1 INSTILL 1 Sports DROP INTO DROP INTO DROP INTO Medicin LEFT EYE 4 LEFT EYE 4 LEFT EYE 4 e TIMES DAILY TIMES DAILY TIMES DAILY Entresto 24 Entresto 24 No Entresto [facility] mg-26 mg mg-26 mg 24 mg-26 Ort hope tablet TAKE tablet TAKE mg tablet dic 1 TABLET BY 1 TABLET BY TAKE 1 Sports MOUTH TWICE MOUTH TWICE TABLET BY Medicin DAILY DAILY MOUTH e TWICE DAILY ezetimibe ezetimibe No ezetimibe [facility] 10 mg 10 mg 10 mg [facility] tablet TAKE tablet TAKE tablet dic 1 TABLET BY 1 TABLET BY TAKE 1 Sports MOUTH ONCE MOUTH ONCE TABLET BY Medicin DAILY DAILY MOUTH ONCE e DAILY furosemide furosemide No furosemide [facility] 20 mg 20 mg 20 mg [facility] tablet TAKE tablet TAKE tablet dic 1 TABLET BY 1 TABLET BY TAKE 1 Sports MOUTH ONCE MOUTH ONCE TABLET BY Medicin DAILY DAILY MOUTH ONCE e DAILY gabapentin gabapentin No gabapentin [facility] 100 mg 100 mg 100 mg [facility] capsule capsule capsule dic TAKE 1 TAKE 1 TAKE 1 Sports CAPSULE BY CAPSULE BY CAPSULE BY Medicin MOUTH TWICE MOUTH TWICE MOUTH e DAILY DAILY TWICE DAILY gabapentin gabapentin No gabapentin Ob[place] 600 mg 600 mg 600 mg [facility] tablet TAKE tablet TAKE tablet dic 1 TABLET BY 1 TABLET BY TAKE 1 Sports MOUTH TWICE MOUTH TWICE TABLET BY Medicin DAILY DAILY MOUTH e TWICE DAILY hydrocodone hydrocodone No hydrocodon [facility] 10 10 e 10 Orth[facility] mg-acetamin mg-acetamin mg-acetami dic ophen 325 ophen 325 nophen 325 Sports mg tablet mg tablet mg tablet Medicin TAKE 1 TAKE 1 TAKE 1 e TABLET BY TABLET BY TABLET BY MOUTH THREE MOUTH THREE MOUTH TIMES DAILY TIMES DAILY THREE NEEDED NEEDED TIMES FOR PAIN FOR PAIN DAILY NEEDED FOR PAIN ID NOW ID NOW No ID NOW [facility] COVID-19 COVID-19 COVID-19 Ort hope Test Kit Test Kit Test Kit dic TEST TEST TEST Sports DIRECTED DIRECTED DIRECTED Med icin e Ilevro 0.3 Ilevro 0.3 No Ilevro 0.3 [facility] % eye % eye % eye [facility] drops,suspe drops,suspe drops,susp dic nsion nsion ension Sports INSTILL 1 INSTILL 1 INSTILL 1 Medicin DROP INTO DROP INTO DROP INTO e LEFT EYE AT LEFT EYE AT LEFT EYE BEDTIME BEDTIME AT BEDTIME ipratropium ipratropium No ipratropiu [facility] bromide 42 bromide 42 m bromide Orthope mcg (0.06 mcg (0.06 42 mcg dic %) nasal %) nasal (0.06 %) Spo rts spray USE 1 spray USE 1 nasal Medicin SPRAY(S) IN SPRAY(S) IN spray USE e EACH EACH 1 SPRAY(S) NOSTRIL NOSTRIL IN EACH TWICE DAILY TWICE DAILY NOSTRIL TWICE DAILY lisinopril lisinopril No lisinopril [facility] 10 mg 10 mg 10 mg [facility] tablet tablet tablet dic Sports Medicin e lisinopril lisinopril No lisinopril [facility] 5 mg tablet 5 mg tablet 5 mg O rthope TAKE 1 TAKE 1 tablet dic TABLET BY TABLET BY TAKE 1 Spo rts MOUTH TWICE MOUTH TWICE TABLET BY Medicin DAILY DAILY MOUTH e TWICE DAILY metoprolol metoprolol No metoprolol [facility] tartrate 25 tartrate 25 tartrate [facility] mg tablet mg tablet 25 mg dic TAKE 1 TAKE 1 tablet Sports TABLET BY TABLET BY TAKE 1 Med icin MOUTH TWICE MOUTH TWICE TABLET BY e DAILY DAILY MOUTH TWICE DAILY minocycline minocycline No minocyclin [facility] 100 mg 100 mg e 100 mg [facility] capsule capsule capsule dic TAKE 1 TAKE 1 TAKE 1 Sports CAPSULE BY CAPSULE BY CAPSULE BY Medicin MOUTH TWICE MOUTH TWICE MOUTH e DAILY DAILY TWICE DAILY montelukast montelukast No montelukas [facility] 10 mg 10 mg t 10 mg [facility] tablet TAKE tablet TAKE tablet dic 1 TABLET BY 1 TABLET BY TAKE 1 Sports MOUTH ONCE MOUTH ONCE TABLET BY Medicin DAILY DAILY MOUTH ONCE e DAILY nitroglycer nitroglycer No nitroglyce [facility] in 0.4 mg in 0.4 mg rin 0.4 mg [facility] sublingual sublingual sublingual dic tablet tablet tablet Sports PLACE [address] 1 Medici n TABLET TABLET TABLET e UNDER THE UNDER THE UNDER THE TONGUE ONCE TONGUE ONCE TONGUE AT FIRST AT FIRST ONCE AT SIGN OF SIGN OF FIRST SIGN ATTACK MAY ATTACK MAY OF ATTACK REPEAT IN 5 REPEAT IN 5 MAY REPEAT MINUTES UP MINUTES UP IN 5 TO 3 TO 3 MINUTES UP TABLETS (IF TABLETS (IF TO 3 NO RELIEF NO RELIEF TABLETS SEEK SEEK (IF NO MEDICAL MEDICAL RELIEF HELP) HELP) SEEK MEDICAL HELP) omeprazole omeprazole No omeprazole [facility] 40 mg 40 mg 40 mg [facility] capsule,del capsule,del capsule,de dic ayed ayed layed Sports release release release Medici n TAKE 1 TAKE 1 TAKE 1 e CAPSULE BY CAPSULE BY CAPSULE BY MOUTH ONCE MOUTH ONCE MOUTH ONCE DAILY DAILY DAILY oxycodone 5 oxycodone 5 No oxycodone [facility] mg tablet mg tablet 5 mg Ortho pe TAKE 1 TAKE 1 tablet dic TABLET BY TABLET BY TAKE 1 Spo rts MOUTH EVERY MOUTH EVERY TABLET BY Medicin 6 TO 8 6 TO 8 MOUTH e HOURS HOURS EVERY 6 TO NEEDED FOR NEEDED FOR 8 HOURS SEVERE PAIN SEVERE PAIN NEEDED FOR SEVERE PAIN Restasis Restasis No Restasis Aza cj 0.05 % eye 0.05 % eye 0.05 % eye Orthope drops in a drops in a drops in a dic dropperette dropperette dropperett Sports INSTILL 1 INSTILL 1 e INSTILL Medicin DROP INTO DROP INTO 1 DROP e EACH EYE EACH EYE INTO EACH TWICE DAILY TWICE DAILY EYE TWICE DAILY tamsulosin tamsulosin No tamsulosin [facility] 0.4 mg 0.4 mg 0.4 mg [facility] capsule capsule capsule dic TAKE 1 TAKE 1 TAKE 1 Sports CAPSULE BY CAPSULE BY CAPSULE BY Medicin MOUTH AT MOUTH AT MOUTH AT e BEDTIME BEDTIME BEDTIME tizanidine tizanidine No tizanidine [facility] 2 mg tablet 2 mg tablet 2 mg O rthope TAKE 1 TAKE 1 tablet dic TABLET BY TABLET BY TAKE 1 Spo rts MOUTH EVERY MOUTH EVERY TABLET BY Medicin 6 HOURS 6 HOURS MOUTH e NEEDED FOR NEEDED FOR EVERY 6 MUSCLE MUSCLE HOURS SPASMS SPASMS NEEDED FOR MUSCLE SPASMS tramadol 50 tramadol 50 No tramadol [facility] mg tablet mg tablet 50 mg Orth ope TAKE 1 TAKE 1 tablet dic TABLET BY TABLET BY TAKE 1 Spo rts MOUTH EVERY MOUTH EVERY TABLET BY Medicin 6 HOURS FOR 6 HOURS FOR MOUTH e 7 DAYS 7 DAYS EVERY 6 NEEDED NEEDED HOURS FOR 7 DAYS NEEDED valacyclovi valacyclovi No valacyclov [facility] r 1 gram r 1 gram ir 1 gram Or thope tablet TAKE tablet TAKE tablet dic 1 TABLET BY 1 TABLET BY TAKE 1 Sports MOUTH THREE MOUTH THREE TABLET BY Medicin TIMES DAILY TIMES DAILY MOUTH e THREE TIMES DAILY acetaminoph acetaminoph No acetaminop [facility] en 300 en 300 hen 300 [facility] mg-codeine mg-codeine mg-codeine dic 30 mg 30 mg 30 mg Sports tablet TAKE tablet TAKE tablet Medicin 1 TABLET BY 1 TABLET BY TAKE 1 e MOUTH EVERY MOUTH EVERY TABLET BY 6 HOURS FOR 6 HOURS FOR MOUTH 10 DAYS 10 DAYS EVERY 6 NEEDED NEEDED HOURS FOR 10 DAYS NEEDED acetaminoph acetaminoph No acetaminop [facility] en 500 mg en 500 mg hen 500 mg [facility] tablet TAKE tablet TAKE tablet dic 2 TABLETS 2 TABLETS TAKE 2 Spo rts BY MOUTH BY MOUTH TABLETS BY M edicin EVERY 8 EVERY 8 MOUTH e HOURS HOURS EVERY 8 HOURS atorvastati atorvastati No atorvastat [facility] n 80 mg n 80 mg in 80 mg Ortho pe tablet TAKE tablet TAKE tablet dic 1 TABLET BY 1 TABLET BY TAKE 1 Sports MOUTH EVERY MOUTH EVERY TABLET BY Medicin DAY DAY MOUTH e EVERY DAY Faby Low Faby Low No Faby Low [facility] Dose Dose Dose [facility] Aspirin 81 Aspirin 81 Aspirin 81 dic mg mg mg Sports tablet,kevyn tablet,kevyn tablet,del Medicin yed release yed release ayed e release Besivance Besivance No Besivance [facility] 0.6 % eye 0.6 % eye 0.6 % eye [facility] drops,suspe drops,suspe drops,susp dic nsion nsion ension Sports INSTILL 1 INSTILL 1 INSTILL 1 Medicin DROP INTO DROP INTO DROP INTO e LEFT EYE LEFT EYE LEFT EYE TWICE DAILY TWICE DAILY TWICE DAILY Brilinta 90 Brilinta 90 No Brilinta [facility] mg tablet mg tablet 90 mg Orth ope TAKE 1 TAKE 1 tablet dic TABLET BY TABLET BY TAKE 1 Spo rts MOUTH TWICE MOUTH TWICE TABLET BY Medicin DAILY DAILY MOUTH e TWICE DAILY carvedilol carvedilol No carvedilol [facility] 3.125 mg 3.125 mg 3.125 mg Ort hope tablet TAKE tablet TAKE tablet dic 1 TABLET BY 1 TABLET BY TAKE 1 Sports MOUTH EVERY MOUTH EVERY TABLET BY Medicin 12 HOURS 12 HOURS MOUTH e EVERY 12 HOURS carvedilol carvedilol No carvedilol [facility] 6.25 mg 6.25 mg 6.25 mg Orthop e tablet TAKE tablet TAKE tablet dic 1 TABLET BY 1 TABLET BY TAKE 1 Sports MOUTH TWICE MOUTH TWICE TABLET BY Medicin DAILY WITH DAILY WITH MOUTH e FOOD FOOD TWICE DAILY WITH FOOD doxycycline doxycycline No doxycyclin [facility] hyclate 100 hyclate 100 e hyclate [facility] mg capsule mg capsule 100 mg d ic TAKE 1 TAKE 1 capsule Sports CAPSULE BY CAPSULE BY TAKE 1 M edicin MOUTH TWICE MOUTH TWICE CAPSULE BY e DAILY FOR 7 DAILY FOR 7 MOUTH DAYS DAYS TWICE DAILY FOR 7 DAYS Durezol Durezol No Durezol [facility] 0.05 % eye 0.05 % eye 0.05 % eye [facility] drops drops drops dic INSTILL 1 INSTILL 1 INSTILL 1 Sports DROP INTO DROP INTO DROP INTO Medicin LEFT EYE 4 LEFT EYE 4 LEFT EYE 4 e TIMES DAILY TIMES DAILY TIMES DAILY Entresto 24 Entresto 24 No Entresto [facility] mg-26 mg mg-26 mg 24 mg-26 Ort hope tablet TAKE tablet TAKE mg tablet dic 1 TABLET BY 1 TABLET BY TAKE 1 Sports MOUTH TWICE MOUTH TWICE TABLET BY Medicin DAILY DAILY MOUTH e TWICE DAILY ezetimibe ezetimibe No ezetimibe [facility] 10 mg 10 mg 10 mg [facility] tablet TAKE tablet TAKE tablet dic 1 TABLET BY 1 TABLET BY TAKE 1 Sports MOUTH ONCE MOUTH ONCE TABLET BY Medicin DAILY DAILY MOUTH ONCE e DAILY furosemide furosemide No furosemide [facility] 20 mg 20 mg 20 mg [facility] tablet TAKE tablet TAKE tablet dic 1 TABLET BY 1 TABLET BY TAKE 1 Sports MOUTH ONCE MOUTH ONCE TABLET BY Medicin DAILY DAILY MOUTH ONCE e DAILY gabapentin gabapentin No gabapentin [facility] 100 mg 100 mg 100 mg [facility] capsule capsule capsule dic TAKE 1 TAKE 1 TAKE 1 Sports CAPSULE BY CAPSULE BY CAPSULE BY Medicin MOUTH TWICE MOUTH TWICE MOUTH e DAILY DAILY TWICE DAILY gabapentin gabapentin No gabapentin [facility] 600 mg 600 mg 600 mg [facility] tablet TAKE tablet TAKE tablet dic 1 TABLET BY 1 TABLET BY TAKE 1 Sports MOUTH TWICE MOUTH TWICE TABLET BY Medicin DAILY DAILY MOUTH e TWICE DAILY hydrocodone hydrocodone No hydrocodon [facility] 10 10 e 10 [facility] mg-acetamin mg-acetamin mg-acetami dic ophen 325 ophen 325 nophen 325 Sports mg tablet mg tablet mg tablet Medicin TAKE 1 TAKE 1 TAKE 1 e TABLET BY TABLET BY TABLET BY MOUTH THREE MOUTH THREE MOUTH TIMES DAILY TIMES DAILY THREE NEEDED NEEDED TIMES FOR PAIN FOR PAIN DAILY NEEDED FOR PAIN ID NOW ID NOW No ID NOW [facility] COVID-19 COVID-19 COVID-19 Ort hope Test Kit Test Kit Test Kit dic TEST TEST TEST Sports DIRECTED DIRECTED DIRECTED Med icin e Ilevro 0.3 Ilevro 0.3 No Ilevro 0.3 [facility] % eye % eye % eye [facility] drops,suspe drops,suspe drops,susp dic nsion nsion ension Sports INSTILL 1 INSTILL 1 INSTILL 1 Medicin DROP INTO DROP INTO DROP INTO e LEFT EYE AT LEFT EYE AT LEFT EYE BEDTIME BEDTIME AT BEDTIME ipratropium ipratropium No ipratropiu [facility] bromide 42 bromide 42 m bromide [facility] mcg (0.06 mcg (0.06 42 mcg dic %) nasal %) nasal (0.06 %) Spo rts spray USE 1 spray USE 1 nasal Medicin SPRAY(S) IN SPRAY(S) IN spray USE e EACH EACH 1 SPRAY(S) NOSTRIL NOSTRIL IN EACH TWICE DAILY TWICE DAILY NOSTRIL TWICE DAILY lisinopril lisinopril No lisinopril [facility] 10 mg 10 mg 10 mg [facility] tablet tablet tablet dic Sports Medicin e lisinopril lisinopril No lisinopril [facility] 5 mg tablet 5 mg tablet 5 mg O rthope TAKE 1 TAKE 1 tablet dic TABLET BY TABLET BY TAKE 1 Spo rts MOUTH TWICE MOUTH TWICE TABLET BY Medicin DAILY DAILY MOUTH e TWICE DAILY metoprolol metoprolol No metoprolol [facility] tartrate 25 tartrate 25 tartrate [facility] mg tablet mg tablet 25 mg dic TAKE 1 TAKE 1 tablet Sports TABLET BY TABLET BY TAKE 1 Med icin MOUTH TWICE MOUTH TWICE TABLET BY e DAILY DAILY MOUTH TWICE DAILY minocycline minocycline No minocyclin [facility] 100 mg 100 mg e 100 mg [facility] capsule capsule capsule dic TAKE 1 TAKE 1 TAKE 1 Sports CAPSULE BY CAPSULE BY CAPSULE BY Medicin MOUTH TWICE MOUTH TWICE MOUTH e DAILY DAILY TWICE DAILY montelukast montelukast No montelukas [facility] 10 mg 10 mg t 10 mg [facility] tablet TAKE tablet TAKE tablet dic 1 TABLET BY 1 TABLET BY TAKE 1 Sports MOUTH ONCE MOUTH ONCE TABLET BY Medicin DAILY DAILY MOUTH ONCE e DAILY nitroglycer nitroglycer No nitroglyce [facility] in 0.4 mg in 0.4 mg rin 0.4 mg [facility] sublingual sublingual sublingual dic tablet tablet tablet Sports PLACE [address] 1 Medici n TABLET TABLET TABLET e UNDER THE UNDER THE UNDER THE TONGUE ONCE TONGUE ONCE TONGUE AT FIRST AT FIRST ONCE AT SIGN OF SIGN OF FIRST SIGN ATTACK MAY ATTACK MAY OF ATTACK REPEAT IN 5 REPEAT IN 5 MAY REPEAT MINUTES UP MINUTES UP IN 5 TO 3 TO 3 MINUTES UP TABLETS (IF TABLETS (IF TO 3 NO RELIEF NO RELIEF TABLETS SEEK SEEK (IF NO MEDICAL MEDICAL RELIEF HELP) HELP) SEEK MEDICAL HELP) omeprazole omeprazole No omeprazole [facility] 40 mg 40 mg 40 mg [facility] capsule,del capsule,del capsule,de dic ayed ayed layed Sports release release release Medici n TAKE 1 TAKE 1 TAKE 1 e CAPSULE BY CAPSULE BY CAPSULE BY MOUTH ONCE MOUTH ONCE MOUTH ONCE DAILY DAILY DAILY oxycodone 5 oxycodone 5 No oxycodone Bonita mg tablet mg tablet 5 mg Ortho pe TAKE 1 TAKE 1 tablet dic TABLET BY TABLET BY TAKE 1 Spo rts MOUTH EVERY MOUTH EVERY TABLET BY Medicin 6 TO 8 6 TO 8 MOUTH e HOURS HOURS EVERY 6 TO NEEDED FOR NEEDED FOR 8 HOURS SEVERE PAIN SEVERE PAIN NEEDED FOR SEVERE PAIN Restasis Restasis No Restasis Aza cj 0.05 % eye 0.05 % eye 0.05 % eye Orthope drops in a drops in a drops in a dic dropperette dropperette dropperett Sports INSTILL 1 INSTILL 1 e INSTILL Medicin DROP INTO DROP INTO 1 DROP e EACH EYE EACH EYE INTO EACH TWICE DAILY TWICE DAILY EYE TWICE DAILY Vital Signs Vital Name Observation Time Observation Value Comments Source Systolic blood 2022-11-18 16:00:00 128 mm[Hg] [facility] Diastolic blood 2022-11-18 16:00:00 105 mm[Hg] [facility] Heart rate 2022-11-18 16:00:00 75 /min [facility] Respiratory rate 2022-11-18 16:00:00 16 /min [facility] Oxygen saturation in 2022-11-18 16:00:00 99 /min [facility] Arterial blood by Medical Ce nter Pulse oximetry Body height 2021-04-10 20:23:00 175.3 cm [facility] Body weight 2021-04-10 20:23:00 97.523 kg [facility] BMI 2021-04-10 20:23:00 31.75 kg/m2 [facility] Procedures Procedure Date / Time Performing Clinician Source Performed MR THORACIC SPINE WITH & 2022-11-18 15:50:00 Danilo Trujillo [facility] WITHOUT IV CONTRAST [facility] CHEST 2 VIEWS 2022-11-18 13:34:00 Nkechi Callaway [facility] Tiffanie Chandler ARRYTHMIA IMPLANT REPORT 2022-11-18 00:00:00 Provider, Antonio Pa [facility] - SCAN Scanning Center ICD CHECK WITH 2022-11-18 00:00:00 Aissatou Lancaster [facility] REPROGRAMMING Center XR, hip + pelvis, 2022-04-07 00:00:00 Bonita Ort hopedic unilateral, 2 or 3 view Sports M edicine XR, hip + pelvis, 2022-02-19 00:00:00 Bonita Ort hopedic unilateral, 2 or 3 view Sports M edicine Total Hip Arthroplasty 2022-02-05 00:00:00 Phyllis henriquez [facility] [id number] 2021-04-18 00:00:00 [facility] [id number] 2021-04-18 00:00:00 [facility] [id number] 2021-04-18 00:00:00 [facility] COVID-19 QUALITATIVE 2021-04-12 17:57:00 Bibiana Ortiz [facility] RT-PCR TYPE AND SCREEN 2021-04-10 19:46:00 Cynthia Mcconnell [facility] HEMOGLOBIN A1C 2021-04-10 19:46:00 [facility] URINE CULTURE 2021-04-10 19:26:00 Cynthia Mcconnell [facility] URINALYSIS SCREEN AND 2021-04-10 19:26:00 Cynthia Mcconnell [facility] MICROSCOPY, WITH REFLEX TO CULTURE Plan of Care Planned Activity Planned Date Details Comments Source Future Scheduled 2023-11-[address] [facility] Test 00:00:00 Counseling and Medical Cente r Screening (12+) [code = Tobacco Cessation Counseling and Screening (12+)] Future Scheduled 2023-04-28 COVID-19 VACCINE (#1) [facility] Test 15:13:27 [code = COVID-19 VACCINE (#1)] Future Scheduled 2023-04-28 SHINGLES VACCINES (1 Met [facility] Test 15:13:27 of 2) [code = SHINGLES VACCINES (1 of 2)] Future Scheduled 2023-04-28 65+ PNEUMOCOCCAL Methodi [facility] Test 15:13:27 VACCINE (1 - PCV) [code = 65+ PNEUMOCOCCAL VACCINE (1 - PCV)] Future Scheduled 2023-04-28 INFLUENZA VACCINE (#1) M [facility] Test 15:13:27 [code = INFLUENZA VACCINE (#1)] Future Scheduled 2023-03-05 Influenza Vaccine (#1) [facility] 00:00:00 [code = Influenza Medical Ce nter Vaccine (#1)] Future Scheduled 2022-07-[address] [facility] Test 00:00:00 (12+) [code = Medical Center DEPRESSION SCREENING (12+)] Future Scheduled 2022-07-05 FALLS RISK SCREENING [facility] Test 00:00:00 [code = FALLS RISK Medical C enter SCREENING] Future Scheduled 2007-12-[address] [facility] Test 00:00:00 WELLNESS (YEAR 2 or Medical Center FIRST YEAR if no IPPE) [code = MEDICARE ANNUAL WELLNESS (YEAR 2 or FIRST YEAR if no IPPE)] Future Scheduled 1961 DTAP/TDAP/TD VACCINES [facility] Test 00:00:00 (1 - Tdap) [code = Medical C enter DTAP/TDAP/TD VACCINES (1 - Tdap)] Future Scheduled 1961 SHINGLES VACCINES ([address] [facility] Test 00:00:00 of 2) [code = SHINGLES Medic al Center VACCINES (1 of 2)] Future Scheduled 1948-01-02 PNEUMOCOCCAL 65+ YRS [facility] Test 00:00:00 (1 - PCV) [code = Medical Ce nter PNEUMOCOCCAL 65+ YRS (1 - PCV)] Future Scheduled 1947 COVID-19 VACCINE (#1) [facility] Test 00:00:00 [code = COVID-[address] VACCINE (#1)] Future Scheduled COVID-19 VACCINE (1) Met [facility] Test [code = COVID-19 VACCINE (1)] Future Scheduled SHINGLES VACCINES (#1) M [facility] Test [code = SHINGLES VACCINES (#1)] Future Scheduled 65+ PNEUMOCOCCAL [facility] Test VACCINE (1 of 1 - PPSV23) [code = 65+ PNEUMOCOCCAL VACCINE (1 of 1 - PPSV23)] Future Scheduled INFLUENZA VACCINE Method ist Hospital Test [code = INFLUENZA VACCINE] Encounters Start End Encounter Admission Attending Care Care Encounter Source Date/Time Date/Time Type Type Clinicians Facility Department ID 2023-02-15 2023-02-15 Documentat Provider, 1.2.840.1 [id number] Methodi 00:00:00 00:00:00 ion Unknown 66254.1.[address] 3.430.2.7 Hospit a .3.150725 l .8 2022-11-18 2022-11-18 Outpatient [facility] [id number] [facility]H 10:54:40 23:59:00 TONIA TRUJILLO 2022-11-18 2022-11-18 [facility] [id number] 10:54:40 23:59:00 Encounter Herve Trujillo [facility] 2022-11-18 2022-11-[address] [facility] [id number] 00:00:00 00:00:00 Only [facility] 2022-11-05 2022-11-[address] [facility] [id number] 00:00:00 00:00:00 Orders Lobo Trujillo [facility] 2022-08-09 2022-08-09 Documentat Provider, 1.2.840.1 [id number] 2 [id number] Method 00:00:00 00:00:00 ion Unknown 44492.1.[address] 3.430.2.7 Hospit a .3.015898 l .8 2022-04-07 2022-04-07 Outpatient FOG_Patel_A AOSM AOSM 545 8723-20 [place] 00:00:00 00:00:00 Deshaun [id number] Orthop e dic Sports Medicin e 2022-04-07 2022-04-07 Bibiana R AOSM [place] - Ortho 4 [place] 00:00:00 00:00:00 MD Angel: Val Chaney [address] FOG_Ofc dic [facility] e [id number] , Ph. [phone] 2022-02-19 2022-02-19 Outpatient FOG_Patel_A AOSM AOSM 545 8723-20 [place] 00:00:00 00:00:00 Deshaun [id number] Orthop e dic Sports Medicin e 2022-02-19 2022-02-19 Outpatient Bibiana Ortiz AOSM AOSM b73 [id number] 00:00:00 00:00:00 R [id number] 2022-02-19 2022-02-19 Bibiana R AOSM [place] - Ortho [id number] [place] 00:00:00 00:00:00 MD Angel: Val Chaney [address] FOG_Ofc dic [facility] e [phone] , Ph. [phone] 2022-02-17 2022-02-17 Outpatient FOG_Patel_A AOSM AOSM 545 8723-20 [place] 00:00:00 00:00:00 Deshaun [id number] Orthop e dic Sports Medicin e 2022-02-10 2022-02-10 Outpatient FOG_Patel_A AOSM AOSM 545 8723-20 [place] 00:00:00 00:00:00 Deshaun [id number] Orthop e dic Sports Medicin e 2022-02-09 2022-02-09 Outpatient FOG_Patel_A AOSM AOSM 545 8723-20 [place] 00:00:00 00:00:00 Deshaun [id number] Orthop e dic Sports Medicin e 2022-02-05 2022-02-06 Outpatient BIBIANA ORTIZ [facility] 433 [id number] [place] 00:00:00 00:00:[address] 2022-02-02 2022-02-02 Outpatient FOG_Patel_A AOSM AOSM 545 8723-20 [place] 00:00:00 00:00:00 Deshaun [id number] Orthop e dic Sports Medicin e 2022-02-02 2022-02-02 Outpatient BIBIANA ORTIZ [facility] 222 [id number] [place] 00:00:00 00:00:[address] 2022-01-23 2022-01-23 Outpatient FOG_Patel_A AOSM AOSM 545 8723-20 [place] 09:06:00 09:06:00 Deshaun [id number] Orthop e dic Sports Medicin e 2022-01-15 2022-01-15 Outpatient BIBIANA ORTIZ [facility] 324 [id number] [place] 00:00:00 00:00:[address] 2022-01-06 2022-01-06 Outpatient FOG_Patel_A AOSM AOSM 545 8723-20 [place] 08:36:00 08:36:00 Deshaun [id number] Orthop e dic Sports Medicin e 2021-08-19 2021-08-19 Outpatient JAYLAN Easley, [facility] CATH [id number] [facility] 05:43:00 05:43:00 Negro 32 [facility] 2021-07-28 2021-07-28 Outpatient JAYLAN Donaldsonrachellegeovany [facility] LA0 [id number] [facility] 14:19:00 14:19:00 Kathy hannah 96 [facility] 2021-04-18 2021-04-23 Inpatient EM Jazmine [facility] XOCHITL [id number] [facility] 17:44:00 14:36:00 Mark 92 [facility] 2021-04-18 2021-04-18 Outpatient SALENA Lucero LABO [id number] [facility] 23:19:00 23:19:00 Mark 39 [facility] 2021-04-17 2021-04-17 Documentat Provider, 1.2.840.1 [id number] 2 [id number] Methodi 00:00:00 00:00:00 ion Unknown 41608.1.[address] 3.430.2.7 Hospit a .3.458846 l .8 2021-04-17 2021-04-17 [facility] Bibiana Ortiz 1.2.840.1 [id number] Methodi 00:00:00 00:00:[address] 3.430.2.7 Hospit a .3.592927 l .8 2021-04-12 2021-04-12 [facility] Bibiana Ortiz 1.2.840.1 [id number] Methodi 12:56:32 13:01:[address] 3.430.2.7 Hospit a .3.140731 l .8 2021-04-10 2021-04-10 Pre-Admiss Bibiana Ortiz 1.2.840.1 [id number] Methodi 11:56:34 12:56:34 ion R. 24571.1.[address] Testing 3.430.2.7 Hospit a .3.383920 l .8 2021-04-10 2021-04-10 Documentat Provider, 1.2.840.1 [id number] 2 [id number] Methodi 00:00:00 00:00:00 ion Unknown 20532.1.[address] 3.430.2.7 Hospit a .3.587973 l .8 2021-04-10 2021-04-10 Travel 1.2.840.1 1.2.209.681 2947 [id number] Methodi 00:00:00 00:00:[address] 3.430.2.7 0.2.7.3.698 Ho spita .3.943318 084.8 l .8 2021-03-25 2021-03-25 Inpatient BOAZ Villalobos MEDI [id number] [facility] 00:00:00 23:59:00 Shane [facility] 2021-03-25 2021-03-25 Outpatient SALENA Alvarez LABO [id number] [facility] 17:10:00 17:10:00 Shane 67 [facility] 2021-02-20 2021-02-20 Outpatient BOAZ Lui PAIN [id number] [facility] 13:09:00 13:09:00 Adolph 28 [facility] Results Test Test Test Comments Results Result Source Description Time Comments ARRYTHMIA 2022-12- Ordered by an ROCIO [facility] IMPLANT REPORT 09 unspecified provider. [facility] SCAN 15:09:13 [facility] MR, SPINE, 2022-11- Unlisted Reason for THORACIC, WITH 20 Exam - Click Yes 16:53:00 and Enter Reason CHI Below->No [facility]ORIS RAVENYANAN CHATMAN : 1940 Sex: M FI NAL REPORT MR, SPINE, THORACIC, WITH \T\ WITHOUT CONTRAST INDICATION: Unlisted Reason for Exam, malignant melanoma, solitary pulmonary nodules, neoplasm related pain TECHNIQUE: Multiplanar, multisequence MR imaging of the thoracic spine was performed without intravenous contrast. COMPARISON: None. FINDINGS: Alignment of the thoracic spine is within normal limits. Vertebral body height is maintained.Enhancing lesions are seen in the left superior T4 vertebral body and within the T10 vertebral body. The T10 lesion demonstrates heterogeneity with areas of subtle T1 hyperintensity.A T1 hyperintense lesion in the T8 vertebral body is favored to represent a hemangioma. Moderate spondylosis and facet arthropathy are present within the spine.Mild bilateral neural foraminal stenosis at T10-T11 Marrow signal intensity is within normal limits for age.Thoracic cord is normal in signal intensityNo acute findings within the paraspinal soft tissues. 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 However, given history of malignant melanoma, follow-up is recommended. Further evaluation with nuclear medicine bone scan can also be considered.2.No spinal cord compression or abnormal enhancement. Signed: Gary Cabrales Verified Date/Time: 11/21/2022 16:53:37 thoracic 2022-11- FINAL REPORT PATIENT ROCIO St spine without & 20 ID: [id number] MR, Lobo es with IV 16:53:00 SPINE, THORACIC, WITH Med ical contrast \T\ WITHOUT CONTRAST Cent er INDICATION: Unlisted Reason for Exam, malignant melanoma, solitary pulmonary nodules, neoplasm related pain TECHNIQUE: Multiplanar, multisequence MR imaging of the thoracic spine was performed without intravenous contrast. COMPARISON: None. FINDINGS: Alignment of the thoracic spine is within normal limits. Vertebral body height is maintained.Enhancing lesions are seen in the left superior T4 vertebral body and within the T10 vertebral body. The T10 lesion demonstrates heterogeneity with areas of subtle T1 hyperintensity.A T1 hyperintense lesion in the T8 vertebral body is favored to represent a hemangioma. Moderate spondylosis and facet arthropathy are present within the spine.Mild bilateral neural foraminal stenosis at T10-T11 Marrow signal intensity is within normal limits for age.Thoracic cord is normal in signal intensityNo acute findings within the paraspinal soft tissues. 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 However, given history of malignant melanoma, follow-up is recommended. Further evaluation with nuclear medicine bone scan can also be considered.2.No spinal cord compression or abnormal enhancement. Signed: Gary Cabrales Verified Date/Time: 11/21/2022 16:53:37 , CHEST, 2 2022-11- Reason for VIEWS 17 exam:->pacemaker 14:08:00 clearanceShould CHI this be performed [facility] at the bedside?->No CENTERName: RAVEN ESCALANTE : 1940 Sex: M FI NAL REPORT CLINICAL HISTORY: pacemaker clearance TECHNIQUE: 2 views of the chest COMPARISON: None IMPRESSION: There is a dual lead pacemaker with intact leads. There is no abandoned hardware. There are no infiltrates or effusions. The cardiomediastinal silhouette is within normal limits for size. Signed: Simone Henderson Verified Date/Time: 11/18/2022 14:08:15 chest 2 2022-11- FINAL REPORT PATIENT [facility] views 17 ID: [id number] CLINICAL Lobo es 14:08:00 HISTORY: pacemaker Medica l clearance TECHNIQUE: Cent er 2 views of the chest COMPARISON: None IMPRESSION: There is a dual lead pacemaker with intact leads. There is no abandoned hardware. There are no infiltrates or effusions. The cardiomediastinal silhouette is within normal limits for size. Signed: Simone Henderson Verified Date/Time: 11/18/2022 14:08:15 -CoV-2 (COVID-19) RNA [Presence] in Respiratory sp ecimen by 2022-02-02 22:14:37 CYNTHIA with probe detection Test Item Value Reference Range Interpretation Comme nts SARS-CoV-2 (COVID-19) RNA [Presence] in Respiratory specimen by Not detected CYNTHIA with probe detection (test code = 48572-0) Whether patient is employed in a healthcare setting (test code = Un known 28118-4) Whether the patient has symptoms related to condition of interest U nknown (test code = 11019-7) Whether the patient was hospitalized for condition of interest Unkn own (test code = 61933-8) Whether the patient was admitted to intensive care unit (ICU) for U nknown condition of interest (test code = 66459-3) Whether patient resides in a congregate care setting (test code = U nknown 82528-1) status (test code = 20072-1) Unknown Date and time of symptom onset (test code = 74347-4) Unknown [facility] [id number] 14:40:00 Test Item Value Reference Range Interpretation [...] (test code = ALKP) COVID 19 INHOUSE [id number] 14:36:00 Test Item Value Reference Range Interpretation Comments COVID 19 INHOUSE AG NEGATIVE Negative Per manu facturer, (test code = negative result s should [id number]) be treated aspr esumptive and, if inconsi [...] and symptoms co nsistent with COVID-19. PROTHROMBIN [id number] 14:29:00 Test Item Value Reference Range Interpretation [...] (to prevent recurrent infar ct). CBC W/AUTO [id number] 14:18:00 Test Item Value Reference Range Interpretation [...] NO DIFF/SCN CRITERIA = MDIFF) CBC W/AUTO [id number] 07:45:00 Test Item Value Reference Range Interpretation [...] DIFF REQUIRED NO DIFF/SCN CRITERIA SLIDE R TRE (test code = MDIFF) CONSISTA NT WITH AUTO DIFFERENTI AL. BASIC METABOLIC [id number] 06:26:00 Test Item Value Reference Range Interpretation [...] CA) 8.8 MG/DL 8.5-10.1 N BASIC METABOLIC [id number] 06:03:00 Test Item Value Reference Range Interpretation [...] CA) 9.1 MG/DL 8.5-10.1 N CBC W/AUTO [id number] 05:48:00 Test Item Value Reference Range Interpretation [...] NO DIFF/SCN CRITERIA = MDIFF) BASIC METABOLIC [id number] 04:52:00 Test Item Value Reference Range Interpretation [...] CA) 8.8 MG/DL 8.5-10.1 N CBC W/AUTO [id number] 04:34:00 Test Item Value Reference Range Interpretation [...] NO DIFF/SCN CRITERIA = MDIFF) BASIC METABOLIC [id number] 05:02:00 Test Item Value Reference Range Interpretation [...] CA) 9.2 MG/DL 8.5-10.1 N CBC W/AUTO [id number] 04:48:00 Test Item Value Reference Range Interpretation [...] CRITERIA = MDIFF) - CT CHEST W/O [id number] 06:40:00 [facility] 1940 Sex: M Name: RAVEN ESCALANTE [facility] : 1940 Age/S: 81 / M [address] Unit #:[id number] Loc: [place] [address] Phys: Arminda Louis Acct: [id number] Dis Date: Status: ADM INPHONE #: [phone] Exam Date: 04/19/2021 0510 FAX #: Reason: pneumonia vs pulmonary edema EXAMS: CPT: [id number] CT CHEST W/O CONTRAST 41333 HISTORY: Pneumonia versus edema TECHNIQUE: Axial tomograms [...] M.D. CC: Arminda WILLARD; Mark Lucero MD Technologist:Yakelin Miller RT (R)(CT) CTDI: DLP: Trnscb Date/Time: 04/19/2021 (639) Yamilet.[email or web address] Orig Print D/T: S: 04/19/2021 (0626) PAGE 1 Signed Report [id number] 05:26:00 Test Item Value Reference Range Interpretation Comments GLYCOSYLATED HEMOGLOBIN (HA1C) 6.4 % A1C 0.0-5.7 H (test code = GLYHGB) ESTIMATED AVERAGE GLUCOSE (test 137 MG/DLest code = EAG) BASIC METABOLIC [id number] 05:10:00 Test Item Value Reference Range Interpretation [...] RATIOS: RISK CHOLHDL) MALE FEMALE1/2 AVERAGE 3.43 3.27AVERA GE 4.97 4.442X AVERAGE 9.55 7.053X AVERAGE 23.39 11.04 NOTE THAT THE REFERENCE VALUE IS RELATED TO RISK LEVELS ASRECOMMENDED B Y THE [facility]ATIONAL [facility], L[facility]G, [facility]OD [facility] . [Automated mess age] The system which Jule Game nerated this result tra nsmitted reference range : 0-. The reference range was not used to interpr et this result as normal/abnormal . HDL CHOLESTEROL 48 MG/DL 40-59 N (test code = HDL) NON-HDL CHOLESTEROL 127 mg/dL <130 (test code = NHDL) LIPOPROTEIN LDL 105 MG/DL 0-129 N <100 OPTIMAL 100 - 129 (test code = LDL) NEAR OPTIM AL/ABOVE [id number] - 15 9 STNBUMRBSR610 - 189 HIGH>OR= 190 VE RY HIGHNOTE THAT G UIDELINES ARE PROVIDED BY NATIONAL CHOLESTEROLEDUC ATION PROGRAM ADULT T REATMENT PANEL III LDL/HDL (test code 2.18 Ratio See_Comment N [Automat ed message] The = LDL/HDL) system which [employer]ule Game nerated this result tra nsmitted reference range : 1.48-3.22 Avg. The reference range was not used to interpr et this result as normal/abnormal . [id number] 05:10:00 Test Item Value Reference Range Interpretation Comments PHOSPHOROUS (test code = PHOS) 2.6 MG/DL 2.5-4.9 N [id number] 05:10:00 Test Item Value Reference Range Interpretation Comments MAGNESIUM (test code = MAG) 1.9 MG/DL 1.8-2.4 N NT PRO-BRAIN NATRIURETIC [id number] 05:10:00 Test Item Value Reference Range Interpretation Comments NT PRO-BRAIN NATRIURETIC PEPTI 1250 PG/ML 0-100 H (test code = PROBNP) COVID 19 Asymptomatic IH [id number] 05:03:00 Test Item Value Reference Range Interpretation Comments COVID 19 Asymptomatic NEGATIVE Negative Per linda del rosarior, IH AG (test code = negative results [...] symptoms consis tent with COVID-19. CBC W/AUTO [id number] 04:52:00 Test Item Value Reference Range Interpretation [...] NO DIFF/SCN CRITERIA = MDIFF) BASIC METABOLIC [id number] 18:19:00 Test Item Value Reference Range Interpretation [...] 9.3 MG/DL 8.5-10.1 N Completed by Nursing: [id number] 18:19:00 Test Item Value Reference Range Interpretation Comments MAGNESIUM (test code = MAG) 2.0 MG/DL 1.8-2.4 N Completed by Nursing: [id number] 18:19:00 Test Item Value Reference Range Interpretation [...] Completed by Nursing: NO- XR CHEST 1 [id number] 18:16:00 [facility] 1940 Sex: M Name: RAVEN ESCALANTE LURDES [facility] : 1940 Age/S: 81 / M [address] Unit #: [id number] Loc: [place] [address] Phys: Mook Chavez DO Acct: [id number] Dis Date: Status: PRE ER PHONE #: [phone] Exam Date: 04/18/2021 4448 FAX #: Reason: chest pain EXAMS: CPT: [id number] XR CHEST 1 V 87001 Fluoro Time: DAP (Gy m2): Air Kerma (mGy): B2 EXAM: - XR CHEST 1 V HISTORY: chest painCOMPARISON: None FINDINGS: Patchy perihilar airspace opacities. No pleural effusion or pneumothorax.The cardiac silhouette is within normal limits. No acute osseous abnormalities. IMPRESSION: Perihilar atelectasis, pulmonary edema and/or pneumonia. at 1816 Reported and signed by: Caio Nunez M.D. CC: Lo WILLARD; Mook Chavez DO PAGE 1 Signed Report Name: RAVEN ESCALANTE [facility] [place] : 1940 Age/S: 81 / M [address] Unit #: [id number] Loc: [place] [address] Phys: Mook Chavez Acct: [id number] Dis Date: Status: PRE ER PHONE #: [phone] Exam Date: 04/18/2021 174 FAX #: Reason: chest pain EXAMS:CPT: [id number] XR CHEST 1 V 82647 Fluoro Time: DAP (Gy m2): Air Kerma (mGy): <Continued> Technologist: Reny Simeon RT(R) Trnscb Date/Time: 04/18/2021 (1815) [id number] Orig Print D/T: S: 04/18/2021 (1819) PAGE 2 Signed ReportCBC W/O [id number] 17:59:00 Test Item Value Reference Range Interpretation [...] = 9.80 fL 7.0-9.6 H MPV) Urine [id number] 22:36:54 Test Item Value Reference Range Interpretation Comments Urine culture (test SEE COMMENT Bacteriu emmanuel screen code = 1139964) negative. [facility] and [id number] 22:27:00 Test Item Value Reference Range Interpretation Comments ABO grouping (test code = 883-9) A Rh type (test code = 59270-0) POS Antibody screen (gel) (test code = NEG 890-4) [facility] HospitalTHROMBOPLASTIN TIME [id number] 18:17:00 Test Item Value Reference Range Interpretation Comments PTT ACTIVATED (test code = APTT) 29.9 secs 24.9-37.0 N IS PATIENT ON ANTICOAGULANTS ? YLIST ANTICOAGULANT/ANTI PLT MEDICATION : AspirinHas Lab been notified if Patient is on Heparin Drip? NOIf Yes, order CBC, OCCULT BLOOD, PT every other day NPROTHROMBIN [id number] 18:17:00 Test Item Value Reference Range Interpretation [...] BLOOD, PT every other day NCOMPREHENSIVE METABOLIC [id number] 18:00:00 Test Item Value Reference Range Interpretation [...] RATE (test code = GFR) mL/mi n/1.73 g0Jqoltvysr Range:Healthy Adults >90 mL/min/1.73 m2 For Chronic [...] TOTAL (test code = ALKP) CBC W/AUTO [id number] 17:24:00 Test Item Value Reference Range Interpretation [...] = NRBC) - XR FLUORO FOR SPINE [id number] 19:47:00 [facility] : 1940 Sex: M Patient Name: RAVEN ESCALANTE Unit No: [id number] EXAMS: CPT CODE: [id number] XR FLUORO FOR SPINE INJ 13880 LUMBAR DISCOGRAM, FACETS AND INTRADISCAL INJECTION REFERRING [...] pending follow-up. ANTIBIOTIC: Cefazolin IV and intradiscal. ESTIMATED BLOOD LOSS: Minimal ANESTHESIA: TIVA COMPLICATIONS: None DETAILS [...] was then injected to produce the discogram. [facility] NAME: RAVEN ESCALANTE [address] [facility] PHYS: Adolph Miller MD [place], [place] [address] : 1940 AGE: 81 SEX: M LOC: [place] PHONE #: [phone] EXAM DATE: 02/20/2021 STATUS: REG [facility] FAX #: [phone] RAD #: D/C DT PAGE 1 Signed Report (CONTINUED) Patient Name: RAVEN ESCALANTE Unit No: [id number] EXAMS: CPT CODE: [id number] XR FLUORO FOR SPINE INJ [id number] (Continued) Bupivacaine 0.75% 0.25 mL with lidocaine 4% 0.25 ml, Ogdzapgmk889 mg/mL0.2 ml and triamcinolone 30 mg was then [...] and the patient was taken to the PACUin good condition. Image: Image 1 Image: Image 2 at 1946 Reported and signed by: Adolph Arnold M.D. CC: Technologist: Nkechi Pedersen(R) Transcribed D/ (1946) [facility] NAME:RAVEN ESCALANTE [address] [place] [address] PHYS: Adolph Miller MD [place], [place] [address] : 1940 AGE: 81 SEX: M LOC: [place] PHONE #: [phone] EXAM DATE: 02/20/2021 STATUS: REG [facility] [place] FAX #: [phone] RAD #: D/C DT PAGE 2 Signed Report Patient Name: RAVEN ESCALANTE Unit No: [id number] EXAMS: CPT CODE: [id number] XR FLUORO FOR SPINE INJ 45286 (Continued) Orig Print D/T: S: 02/20/2021 (1950) [facility] NAME: RAVEN ESCALANTE [address] [facility] PHYS: Adolph Miller MD [place], [place] [address] : 1940 AGE: 81 SEX: M LOC: [place] PHONE #: [phone] EXAM DATE: 02/20/2021 STATUS: REG [facility] FAX #: [phone] RAD #: D/CDT PAGE 3 Signed Report Notes Date/Time Note Provider Source 2021-08-19 09:37:00 [id number]:37:00 [facility] ([facility])EP Procedure Note - BriefREPORT#:[id number] REPORT STATUS: SignedDATE:08/19/21 TIME:936 PATIENT: RAVEN ESCALANTE UNIT #: [id number]# : [id number] ROOM/BED:: 42 AGE: 81 SEX: M ATTEND: Negro Easley AUTHOR: Negro Easley MD * ALL edits or amendments must be made on the electronic/computer document * See AddendumProcedure ProcedureProcedure performed : ICD insertionPerformed by:Negro Easley MDAssistant(s): nonePost-procedure diagnosis:Ischemic CardiomyopathyEstimated blood loss in ml's: 10mlSpecimen removed/altered: noneFindings:Dual Chamber ICD Implantation Procedure NoteElectrophysiologist: Negro Easley MD Referring Physician: Dr. Ojeda Date of Procedure: 08/19/21Procedure Start Time: 729Procedure End Time: 829 Patient Name: Raven Agustin Date of : 44 Facility: [facility] 12 Lead Rhythm and QRS Duration: 90msIndication: Primary PreventionIf Secondary Prevention Event Type and Date: N/AIf Secondary Prevention Was There Hemodynamic Instability: N/AType of CM: IschemicDuration of CM: >90daysLVEF within the last 12 months: 30%Prior LA Date: Aprilatient is Currently on Maximum Tolerated GDMT: YesIf not contraindication: N/AIf Dual Chamber Pacing Indication: SSS Implant Indication: Sick Sinus Syndrome (I49.5)Ischemic Cardiomyopathy (I25.5) Procedure Performed:Implantation of a dual chamber ICD (87776-K9) Procedure was performed utilizing moderate sedation with split doses of IV Versed and fentanyl administered by a nurse trained in conscious sedation under the direct supervision of the performing physician. TOTAL INTRA SERVICE TIME: 60minutes.Throughout the procedure, the patient was monitored by radiolog y nurse. The patient's vital signs were stable throughout procedure, including cardiac rhythman d oxygen saturation. Neurological checks were also performed during the procedure. Complications: NoneSpecimens Removed: NoneGrafts or Implants: NoneEstimated blood loss: MinimalBlood Administered: NoneCondition: Stable Procedure Details: The patient was brought to the electrophysiology suite in the fasting state and was prepped and draped in the usual sterile fashion. A Time Out was held and the following information was confirmed/verified: Patient NamePatient Date of BirthMedical Record NumberProcedure TypeLateralityPertinent Medical ComorbiditiesAllergiesRecent Laboratory ValuesRecent Imaging Results [facility] DEVICE IMPLANTED Conscious sedation was obtained with intravenous Midazolam and Fentanyl and 2% Xylocaine was used as a local anesthetic. By the use of modified Seldinger technique and under direct ultrasound guidance of needle tip, two venipunctures were obtained in the axillary vein with a micropuncture needle and two 0.035 J-wire s were introduced. Ultrasound images were stored locally on the ultrasound device. An incision wa s made in the left pectoral area inferior to the clavicle. Using acombination of sharp and blunt dissection with electrocautery the incision was carried down to the level of the pectoralis fascia and a pocket was created above the pectoralis muscle. The previous J wires were the n harvested and two peel-away vascular sheaths wer e then placed. A ventricular defibrillator electrode was placed in the apex of the right ventricle, adequate pacing and sensing was confirmed, the sheath was peeled away, and the lead was sewn into position with 2-0 silk pop-of f suture. A right atrial lead was placed in the right atrial appendage, adequate pacing was confirmed, the sheath was peeled away, and the lead was sewn into position with 2-0 silk pop-of f suture. Copious amounts of antibiotic solution were then used to irrigate the pocket. The generator was then connected to the leads, adequate connections of both leads to the generator were confirmed. Appropriate sensing, pacing impedance, shock impedance and pacing thresholds were tested andverified through the device. Adequate hemostasis and lead placement were verified once again and then the pocket was closed with two layers of continuous 2.0 Vicryl sutures and 4.0 monocryl at the surface with dermabond at skin level. The patient tolerated the procedure well. A sterile pressure dressing was applied. The patient s arm was immobilized and the patient was transferred from the lab in stable condition. CXR and EKG nowMinocycline 100mg PO bid x 5dTylenol #3 PRNFollow-up in 2 weeks for site checkPost-op intructions provided Negro Easley, [facility] CITYardiac Electrophysiology at 0947 Addendum 1: 08/19/21 0956 by Negro Easley MD MEDTRONI C DEVICE IMPLANTED - NOT [facility], ENTERED BY MISTAKE at 0956 RPT #: [id number] OF REPORT PNProcedure [id number]:37:00L.[id number] l able for patient ibcoVIWDMGBTQBDNPU4945-82-21Y86:48:08 2021-08-19 06:42:00 [id number]:[id number] [address] PATIENT NAME: RAVEN ESCALANTE ADMIT DATE: 08/19/21ACCOUN T NO: [id number] ROOM NO: AGE: 81 REPORT TYPE: eELECTROCARDIOGRAM SEX: M ADMITTING PHYSICIAN: ATTENDING PHYSICIAN: Negro Easley MD Order:[id number] Reason : AICD Test Date/Time Stamp:WedAug 19 2021 06:42:24Blood Pressure : / mmHGVent. Rate : 064 BPM Atrial Rate : 064 BPM P-R Int : 266 ms QRS Dur : 086 ms QT Int : 414 ms P-R-T Axes : -05 -46 095 degrees QTc Int : 427 ms Sinus rhythm with 1st degree AV blockLeft axis deviationAnteroseptal infarct , age undeterminedAbnormal ECGNo previou s ECGs availableConfirmed by Emelina Lee ([id number]) on 08/30/2021 9:05:53 AM Referred By: Zachariah Easley Confirmed by:Emelina Lee at 0905 PATIENT NAME: RAVEN ESCALANTE .[id number] AVAvailable for patient [id number]:06:16 2021-07-30 12:55:00 [id number]:55:00THIS REPORT H [facility]LY [facility] BEEN APPENDED [phone] [facility] [address] [place] [address] PATIENT NAME: RAVEN ESCALANTE ADMIT DATE: 07/28/21ACCOUNT NO: [id number] ROOM NO: AGE: 81 REPORT TYPE: eECHOCARDIOGRAM REPORT SEX: M ADMITTING PHYSICIAN: ATTENDING PHYSICIAN: Kathy Ojeda MD *[facility]*[address] [place] [address]Kxqgr Transthoracic Echocardiogram Patient: Raven EscalanteStudy Date: 07/28/2021 BP: [id number] 1940 Age: 81 Height: 70 i n / 177.8 cmAccession#: [id number] Gender: M Weight: 214.5 lb / 97.5 kgBMI/BSA: 30.8 kg/m 2 / 2.15 m 2 *Ordering Physician: * Kathy OjedaInterpreting Physician: * Kathy Ojeda*Chief Of Pediatric Urology: * Hollie Valderrama - Indications: ST Elevation . - Study data: Transthoracic echocardiogram. Procedure: Transthoracicechocardiography was performed. Image quality was adequate. Intravenouscontrast (Optison) was administered. Complete 2D, complet e spectralDoppler, and color Doppler. Location: Echo laboratory. Patientstatus: Outpatient. Stud y status: Routine. - Findings Left ventricle: The cavity size is normal. Wall thickness is normal.Systolic function is severely reduced. Th e estimated ejection fractionis 25-29%. Regional wall motion abnormalities: Akinesis of the apica l PATIENT NAME: RAVEN ESCALANTE AND anterior myocardium identified. Doppler parameters are consistentwith abnormal left ventricular relaxation (grade 1 diastolicdysfunction).Right ventricle: The cavit y size is normal. Systolic function isnormal.Left atrium: The atrium is normal in size.Right atrium: The atrium is normal in size.Aorta: Aortic root: The aortic root is normal in size.Aortic valve: The valve is structurally normal. The valve istrileaflet. There is no evidence of stenosis. There is mild tomoderate regurgitation.Mitral valve: The valve is structurally normal. There is mild tomoderate regurgitation.Tricuspid valve: The valve is structurally normal. There is mildregurgitation.Pulmonic valve: The valve is structurally normal. There is noregurgitation.Pericardium: There is no pericardial effusion.Pulmonary arteries:The main pulmonary artery is normal-sized.Systemic veins:Inferior vena cava: The vessel is normal i n size. - Measurements Left ventricle Value 04/21/2021 Ref LUH, LAX 5.6 cm 4.9 4.2 - 5.8 ESD, LAX 4.8 cm 4.4 2.5 - 4.0 ESD/bsa, 2.2 cm/m 2 1.9 1.3 - 2.1 LAX FS, LAX 14 % 10 25 - 43 PW, ED 0.8 cm 1.0 0.6 - 1.0 IVS/PW, ED 0.87 1 --------- EF 29 % 21 52 - 72 IVRT 123 ms 151 --------- E/e', avg, 17 8 <=14 TDI LVOT Value 04/21/2021 Ref Diam, S 2.20 cm 2.13 --------- Area 3.8 cm 2 3.6 --------- Peak barber, S 1.09 m/sec 1.27 --------- Mean barber, S 0.8 m/se c 1.02 --------- VTI, S 22.0 cm 21.5 --------- Pea k grad, 5 mm Hg 6 --------- S Mean grad, 3 mm Hg 4 --------- S SV 83 ml 77 --------- SV/bsa 39 ml/m 2 32 --------- Ventricular septum Value 04/21/2021 Ref IVS, ED 0.7 cm 1.0 0.6 - 1.0 PATIENT NAME: RAVEN ESCALANTE Right ventricle Value 04/21/2021 Re f Pressure, S 35 mm Hg 21 --------- Left atrium Value 04/21/2021 Ref Vol/bsa, 24 ml/m 2 18 12 - 37 ES, 1-p A4C Vol/bsa, 25 ml/m 2 21 16 - 34 ES, A/L AP dim, ES 3.8 cm 3.1 3.0 - 4.0 MM LA/Ao sabrina t 1.04 0.9 --------- ratio, MM Aortic valve Value 04/21/2021 Ref Leaflet 1.88 cm 1.69 --------- sep, MM Peak v, S 1.36 m/sec 1.38 --------- Mean v, S 0.8 m/sec 0.9 --------- VTI, S 23.9 cm 20.6 --------- Mean grad, 3.1 mm Hg 3.7 --------- S Peak grad, 7.4 mm Hg 7.6 --------- S LVOT/AV, 0.92 1.04 --------- VTI ratio KARLEE, VTI 3.49 cm 2 3.74 --------- LVOT/AV, 0.8 0.92 --------- Vpeak ratio KARLEE, Vmax 3.04 cm 2 3.28 --------- AR peak v 3.52 m/sec 4.04 --------- AR decel 160 cm/s 2 193 --------- AR decel 2204 ms 2088 --------- time AR PHT 639 ms 606 --------- AR peak 50 mm H g 65 --------- grad Mitral valve Value 04/21/2021 Ref Peak E 0.61 m/sec 0.34 --------- Peak A 1.02 m/sec 0.97 --------- Decel time 224 ms 146 --------- PHT 67 ms 46 --------- Peak E/A 0.6 0.35 --------- ratio MVA, PHT 3.3 cm 2 4.8 --------- Tricuspid valve Value 04/21/2021 Ref T R peak v 2.49 m/sec 2.02 <=2.8 Peak RV-RA 25 mm Hg 16 --------- grad, S Aortic root Value Ref Root diam, 3.66 cm 3.50 --------- PATIENT NAME: RAVEN ESCALANTE ED MM Pulmonary artery Value 04/21/2021 Ref Pressure, S 30.0 mm Hg 15.9 --------- Systemic veins Value 04/21/2021 Ref Estimated 10 mm Hg 5 --------- CVP Pulmonary veins Value 04/21/2021 Ref A rev 148 ms 128 --------- duration - Conclusions Summary: 1. Left ventricle: The cavity size is normal. Wall thickness is normal. Systolic function is severely reduced. The estimated ejection fractio n is 25-29%. Akinesis of the apical AND anterior myocardium identified Doppler parameters are consistent with abnormal left ventricular relaxation (grade 1 diastolic dysfunction).2. Right ventricle: The RV pressure during systole by Doppler is 35 mm Hg.3. Aortic valve: There is mild to moderate regurgitation. The regurgitatio n pressure half-time is 639 ms.4. Mitral valve: There is mild to moderate regurgitation. Prepare d and electronically signed by Kathy Ojeda07/30/2021 12:55 at 1255 SECTION 2 ADDENDUM 1: 07/30/21 1353 [facility] *[address] [address]Lshft Transthoracic Echocardiogram (Report amended [id number]:00:26) Patient: Raven EscalanteStudy Date: 07/28/2021 BP: Location: [facility] PATIENT NAME: RAVEN ESCALANTE URN: [id number] : 1940 Age: 81 Height: 70 in / 177.8 cmAccession#: [id number] Gender: M Weight: 214.5 lb / 97. 5 kgBMI/BSA: 30.8 kg/m 2 / 2.15 m 2 *Ordering Physician: Kathy BirdInterpreting Physician: Cammy BirdChief Of Pediatric Urology: * Hollie Valderrama - Indications: ST Elevation . - Study data: Transthoracic echocardiogram. Procedure: Transthoracicechocardiography was performed. Image quality was adequate. Intravenouscontrast (Optison) was administered. Complete 2D, complet e spectralDoppler, and color Doppler. Location: Echo laboratory. Patientstatus: Outpatient. Stud y status: Routine. - Findings Left ventricle: The cavity size is normal. Wall thickness is normal.Systolic function is severely reduced. Th e estimated ejection fractionis 30-34%. Regional wall motion abnormalities: Akinesis of the apicalAND anterior myocardium identified. Dopple r parameters are consistentwith abnormal left ventricular relaxation (grade 1 diastolicdysfunction).Right ventricle: The cavit y size is normal. Systolic function isnormal.Left atrium: The atrium is normal in size.Right atrium: The atrium is normal in size.Aorta: Aortic root: The aortic root is normal in size.Aortic valve: The valve is structurally normal. The valve istrileaflet. There is no evidence of stenosis. There is mild tomoderate regurgitation.Mitral valve: The valve is structurally normal. There is mild tomoderate regurgitation.Tricuspid valve: The valve is structurally normal. There is mildregurgitation.Pulmonic valve: The valve is structurally normal. There is noregurgitation.Pericardium: There is no pericardial effusion.Pulmonary arteries:The main pulmonary artery is normal-sized.Systemic veins:Inferior vena cava: The vessel is normal i n size. - Measurements PATIENT NAME : RAVEN ESCALANTE Left ventricle Value 04/21/2021 Ref LUH, LAX 5.6 cm 4.9 4.2 - 5.8 ESD, LAX 4.8 cm 4.4 2.5 - 4.0 ESD/bsa, 2.2 cm/m 2 1.9 1.3 - 2.1 LAX FS, LAX 14 % 10 25 - 43 PW, ED 0.8 cm 1.0 0.6 - 1.0 IVS/PW, ED 0.87 1 --------- EF 29 % 21 52 - 72 IVRT 123 ms 151 --------- E/e', avg, 17 8 <=14 TDI LVOT Value 04/21/2021 Ref Diam, S 2.20 cm 2.13 --------- Area 3.8 cm 2 3.6 --------- Peak barber, S 1.09 m/sec 1.27 --------- Mean barber, S 0.8 m/sec 1.02 --------- VTI, S 22.0 cm 21.5 --------- Pea k grad, 5 mm Hg 6 --------- S Mean grad, 3 mm Hg 4 --------- S SV 83 ml 77 --------- SV/bsa 39 ml/m 2 32 --------- Ventricular septum Value 04/21/2021 Ref IVS, ED 0.7 cm 1.0 0.6 - 1.0 Righ t ventricle Value 04/21/2021 Ref Pressure, S 35 m m Hg 21 --------- Left atrium Value 04/21/2021 Ref Vol/bsa, 24 ml/m 2 18 12 - 37 ES, 1-p A4C Vol/bsa, 25 ml/m 2 21 16 - 34 ES, A/L AP dim, ES 3.8 cm 3.1 3.0 - 4.0 MM LA/Ao root 1.04 0.9 --------- ratio, MM Aortic valve Value Ref Leaflet 1.88 cm 1.69 --------- sep, MM Peak v, S 1.36 m/sec 1.38 --------- Mean v, S 0.8 m/sec 0.9 --------- VTI, S 23.9 cm 20.6 -------- - Mean grad, 3.1 mm Hg 3.7 --------- S Peak grad, 7.4 mm Hg 7.6 --------- S LVOT/AV, 0.92 1.04 --------- PATIENT NAME: RAVEN ESCALANTE LURDES VTI ratio KARLEE, VTI 3.49 cm 2 3.74 --------- LVOT/AV, 0.8 0.92 --------- Vpeak ratio KARLEE, Vmax 3.04 cm 2 3.28 --------- A R peak v 3.52 m/sec 4.04 --------- AR decel 160 cm/s 2 193 --------- AR decel 2204 ms 2088 --------- time AR PHT 639 ms 606 --------- AR peak 50 mm Hg 65 --------- grad Mitral valve Value 04/21/2021 Ref Peak E 0.61 m/sec 0.34 --------- Peak A 1.02 m/sec 0.97 --------- Decel time 224 ms 146 --------- PHT 67 ms 46 -------- - Peak E/A 0.6 0.35 --------- ratio MVA, PHT 3.3 c m 2 4.8 --------- Tricuspid valve Value 04/21/2021 Ref TR peak v 2.49 m/sec 2.02 <=2.8 Peak RV-RA 25 mm Hg 16 --------- grad, S Aortic root Value 04/21/2021 Ref Root diam, 3.66 cm 3.50 --------- ED MM Pulmonary artery Value 04/21/2021 Ref Pressure, S 30.0 mm Hg 15.9 --------- Systemic veins Value 04/21/2021 Ref Estimated 10 mm Hg 5 --------- CVP Pulmonary veins Value 04/21/2021 Ref A rev 148 ms 128 --------- duration - Conclusions Summary: 1. Left ventricle: The cavity size is normal. Wall thickness is normal. Systolic function is severely reduced. The estimated ejection fractio n is 30-34%. Akinesis of the apical AND anterior myocardium identified Doppler parameters are consistent with abnormal left ventricular relaxation (grade 1 diastolic dysfunction).2. Right ventricle: The RV pressure during systole by Doppler is 35 mm Hg. PATIENT NAME: RAVEN ESCALANTE 3. Aortic valve: There is mild to moderate regurgitation. The regurgitation pressure half-time is 639 ms.4. Mitral valve: There is mild to moderate regurgitation. Kathy Velazquez07/30/2021 13:00 at 1353 PATIENT NAME: RAVEN ESCALANTE :57: 0 0L.[id number] for patient [id number]:55:54 2021-04-23 19:35:00 [id number]:35:00 [facility] ([facility])Wound Care Progress NoteREPORT#:[id number] REPORT STATUS: SignedDATE:04/23/21 TIME:1934 PATIENT: RAVEN ESCALANTE UNIT #: [id number]# : [id number] [address] AGE: 81 SEX: M ATTEND: Mark Lucero [facility] AUTHOR: Alex Chatman MD * ALL edits or amendments must be made on the electronic/computer document * SubjectiveChief Complaint:Wound checkHPI:no acute events.Patient reports:Yes: able to communicate, bowel movement , feeling better. No: drainage from wound. Objective GeneralVS:Last Documented: Result Date Time Pulse Ox 92 04/23 1200 B/P 136/77 04/23 120 0 B/P Mean 100 04/23 1200 Pulse 107 04/23 1200 Resp 27 04/23 1200 O2 Delivery Room air 04/23 1100 Temp 98.6 04/23 1100 PATIENT WEIGHT: Weight (lb): Weight (oz): Weight (kg): 111.100 Medications:Active Meds + DC'd Last 24 HrsFurosemide (LASIX) 20 MG DAILY PO (DCD) Lisinopril (ZESTRIL) 5 MG DAILY PO (DCD) Mupirocin (BACTROBAN) 1 APPLIC Q24H TOPICAL (DCD ) Albumin Human (OPTISON) 3 ML ONCE PRN IV (DCD) Atorvastatin Calcium (LIPITOR) 40 MG BEDTIME PO (DCD) Aspirin (ASPIRIN CHEWABLE) 81 MG DAILY PO (DCD) Heparin Sodium (Porcine) (HEPARIN SODIUM) 5,000 UNIT Q12HR SUBQ (DCD) Ticagrelor (BRILINTA ) 90 MG Q12HR PO (DCD) Acetaminophen/Codeine Phosphate (TYLENOL W CODEINE NO.3) 1 TAB Q6H PRN PRN PO (DCD) Acetaminophen (TYLENOL) 650 MG Q4H PRN PRN PO (DCD) Docusate Sodium (COLACE) 100 MG BID PRN PRN PO (DCD) Hydralazine HCl (APRESOLINE ) 10 MG Q4H PRN PRN IV (DCD) Ondansetron HCl (ZOFRAN) 4 MG Q6H PRN PRN IV (DCD) Carvedilol (COREG) 3.125 MG Q12HR PO (DCD) Mupirocin (BACTROBAN NASAL-ADULT ICU/ALISON MRSA PATIENTS) 1 APPLIC BID NASAL (DC) Nutrition assessment:The data set between the solid lines has been imported from the dietitian's assessment. Any exceptions have been noted under Provider comments. _ BMI Calculated: 36.2Nutrition related diagnosis: Nutrition diagnosis details: Nutrition problem: Nutrition etiology: Nutrition signs and symptoms: Nutritio n prescription: Dietitian name: Assessment completed: _ Provider comments on imported dietitian assessment: Physical ExamGeneral appearance: chronically ill appearingRespiratory : no distressAbdomen: non-tenderExtremities: no edema Wound AssessmentWound Assessment 1: Type/cause: trauma Wound location: upper back (right) Tissue layers: limited to skin breakdown Site condition: no drainage, no ecchymosis, no erythema Diagnosis, Assessment PlanProblem List/ A P: 1. Open back wound ok from wound care standpoint for discharge cleanse with saline apply muporicin ointment leave open to air conduct this once daily 2. STEMI (ST elevation myocardial infarction) 3. Obesity 4. Prediabetes at 1937 RPT #: [id number] OF REPORT PNProcedure [id number]:35:00L.[id number] herve able for patient [id number]:37:56 2021-04-23 12:21:00 [id number]:21:[id number] [facility] ([facility]ENTERHospitalist Progress NoteREPORT#:[id number] REPORT STATUS: SignedDATE:04/23/21 TIME:1221 PATIENT: RAVEN ESCALANTE UNIT #: [id number]# : [id number] [address] AGE: 81 SEX: M ATTEND: Mark Lucero [facility] AUTHOR: Derick Calzada MD * ALL edits or amendments must be made on the electronic/computer document * SubjectiveChief Complaint:Chest pain STEMIno more CP Review of SystemsRespiratory:Denies: SOB. GI:Denies: nausea, vomiting. Objective GeneralVS/I O:Vital Signs:noted Physical ExamGeneral appearance: alert, awakeCardiovascular: normal capillary refill, regular rate rhythmRespiratory: clear to auscultation, no distressAbdomen: non-tender, normal bowel sounds, soft, no distentionExtremities: moves all, normal capillary refill, normal range of motion, no edemaNeuro/BUSINESS LAW TEACHER: alert, oriented X 3 Free Text Ob j NotesFree Text Obj Notes:Physical examinationPatient is a pleasant person lying on the bed does not appear to be in distressHEENT pupils equal round reactive light and accommodating normocephalic/atraumatic skull normal oral mucosaHas left facial droop due to prior history of acoustic neuromaNeck supple no JVDChest clear bilateral entry no wheeze or cracklesCVS S1-S2 no murmur rubs or gallopAbdome n soft nontender bowel sounds positiveRight groin cath site appears clean no pulsatile mass no bruising no bleedingExtremities no pedal edema pulses palpableCNS alert oriented x3 moving all 4 extremities Diagnosis, Assessment PlanHospital course to date:Acute Anterior STEMI s/p angioplasty and left LAD stent Hx of CAD s/p PCI with 4 stentsPresented with chest pain with radiation to neck and LUE which has now resolved - Consult Cardiology - Had been on ASA only sinc e Aug 2020. Now started on ASA + Brilinta - Echo i n AM - PRN meds for pain as needed - Resume Metoprolol - Order lipid panel, BNP and HgbA1c Leukocytosis Reactive vs infectious, no clinical signs of infection. Chest xray inconclusive.Afebrile - Repeat CBC in AM - Order CT chest to evaluate pneumonia vs pulmonary vinicio a Hypertension Stable- Started on Coreg. Hold home dose Metoprolol Hyperlipidemia - Started on Statin - Hold off on Zetia Arthritis Chronic - Prn tylenol for pain - Pt to reschedule hip surgery with his outpatient Ortho team when stable VTE ppx - Heparin Full code Dispo - likel y home, pending clinical progression Time spent is 60 mins 10/16STEMI status post PCI with NICHELLE to LADContinue post cath management as per cardiologyDual antiplatelet therapy with aspirin and BrilintaPatient's aspirin was on hold becaus e of some anticipated surgery but now will continu e with dual antiplatelet therapy.High intensity statinFollow-up with the echoMonitor on telemetryContinue beta-darlene Leukocytosis appear to be reactive CT chest reviewed does not appear to have pneumonia. Stop antibiotics. HypertensionContinue with patient's beta-darlene DyslipidemiaContinue with statin Hemoglobin A1c 6.4 will be considered prediabetes. Follow-up with PCP as outpatient lifestyle modification OsteoarthritisAs needed pain medication DVT prophylaxisPatient is full codeIf remains stable can be downgraded to telemetry 04/20STEMI status post PCI with NICHELLE to LADContinue post cath management as per cardiologyDual antiplatelet therapy with aspirin and BrilintaPatient's aspirin was on hold because of some anticipated surgery but now will continue with dual antiplatelet therapy.High intensity statinFollow-up with the echoMonitor on telemetryContinue beta-darlene Leukocytosis appear to be reactive CT chest reviewed does not appear to have pneumonia. Stop antibiotics. HypertensionContinue with patient's beta-darlene DyslipidemiaContinue with statin Hemoglobin A1c 6.4 will be considered prediabetes. Follow-up with PCP as outpatient lifestyle modification OsteoarthritisAs needed pain medication DVT prophylaxisPatient is full code 04/22STEMI statu s post PCI with NICHELLE to LADContinue post cath management as per cardiologyDual antiplatelet therapy with aspirin and BrilintaPatient's aspirin was on hold because of some anticipated surgery but now will continue with dual antiplatelet therapy.High intensity statinFollow-up with the echoMonitor on telemetryContinue beta-darlene Leukocytosis appear to be reactive CT chest reviewed does not appear to have pneumonia. Stop antibiotics. HypertensionContinue with patient's beta-darlene DyslipidemiaContinue with statin Hemoglobin A1c 6.4 will be considered prediabetes. Follow-up with PCP as outpatient lifestyle modification OsteoarthritisAs needed pain medication DVT prophylaxisPatient is full code This is a late progress note for April 22. Patient was not discharged becauseLifeVest was not fitted at 1222 RPT #: [id number] OF REPORT PRProgress [id number]:21:00L.[id number] herve able for patient [id number]:23:12 2021-04-22 18:34:00 [id number]:34:00 [facility] ([facility])Wound Care Progress NoteREPORT#:[id number] REPORT STATUS: SignedDATE:04/22/21 TIME:183 PATIENT: RAVEN ESCALANTE UNIT #: [id number]# : [id number] ROOM/BED: [id number]: 42 AGE: 81 SEX: M ATTEND: Mark Lucero AUTHOR: Alex Chatman MD * ALL edits or amendments must be made on the electronic/computer document * SubjectiveChief Complaint:Wound checkHPI:I offered to apply the muporicin but pt declined and said that he feels better and elects to allow his wound heal over time without any ointmentsPatient reports:Yes: able to communicate, bowel movement, feeling better, pain controlled. Objective GeneralVS:Las t Documented: Result Date Time Pulse Ox 97 04/22 1701 B/P 123/58 04/22 1701 B/P Mean 82 04/22 1701 Pulse 83 04/22 1701 Resp 24 04/22 1701 Temp 97.9 04/22 1600 O2 Delivery Room air 04/21 1600 PATIENT WEIGHT: Weight (lb): Weight (oz): Weight (kg): 111.100 Medications:Active Meds + DC'd Las t 24 HrsFurosemide (LASIX) 20 MG DAILY PO Lisinopril (ZESTRIL) 5 MG DAILY PO Mupirocin (BACTROBAN) 1 APPLIC Q24H TOPICAL Albumin Human (OPTISON) 3 ML ONCE PRN IV Atorvastatin Calcium (LIPITOR) 40 MG BEDTIME PO Aspirin (ASPIRIN CHEWABLE) 81 MG DAILY PO Heparin Sodium (Porcine ) (HEPARIN SODIUM) 5,000 UNIT Q12HR SUBQ Ticagrelo r (BRILINTA) 90 MG Q12HR PO Acetaminophen/Codeine Phosphate (TYLENOL W CODEINE NO.3) 1 TAB Q6H PRN PRN PO Acetaminophen (TYLENOL) 650 MG Q4H PRN MD N PO Docusate Sodium (COLACE) 100 MG BID PRN PRN P O Hydralazine HCl (APRESOLINE) 10 MG Q4H PRN PRN I V Ondansetron HCl (ZOFRAN) 4 MG Q6H PRN PRN IV Carvedilol (COREG) 3.125 MG Q12HR PO Mupirocin (BACTROBAN NASAL-ADULT ICU/ALISON MRSA PATIENTS) 1 APPLIC BID NASAL Nutrition assessment:The data set between the solid lines has been imported from the dietitian's assessment. Any exceptions have been noted under Provider comments. _ BMI Calculated: 36.2Nutrition related diagnosis: Nutrition diagnosis details: Nutrition problem: Nutrition etiology: Nutrition signs and symptoms: Nutritio n prescription: Dietitian name: Assessment completed: _ Provider comments on imported dietitian assessment: Physical ExamGeneral appearance: chronically ill appearingRespiratory : no distressAbdomen: non-tenderExtremities: no edema Wound AssessmentWound Assessment 1: Type/cause: trauma Wound location: upper back (right) Tissue layers: limited to skin breakdown Site condition: no drainage, no ecchymosis, no erythema Diagnosis, Assessment PlanProblem List/ A P: 1. Open back wound already improving. cleanse with saline apply muporicin ointment leave open to air conduct this once daily 2. STEMI (ST elevation myocardial infarction) 3. Obesity 4. Prediabetes at 1837 RPT #: [id number] OF REPORT PNProcedure [id number]:34:00L.[id number] l able for patient [id number]:37:53 2021-04-21 14:32:00 [id number]:32:00 [facility] ([facility])Hospitalist Progress NoteREPORT#:[id number] REPORT STATUS: SignedDATE:04/21/21 TIME:1432 PATIENT: RAVEN ESCALANTE UNIT #: [id number]# : [id number] ROOM/BED: [place] [id number]: 42 AGE: 81 SEX: M ATTEND: Mark Lucero [facility] AUTHOR: Mark Lucero MD * ALL edits or amendments must be made on the electronic/computer document * SubjectiveChief Complaint:Chest pain STEMIComments:Retrospective note for April 20 as patient was supposed to b e discharged but was pending echocardiogram. Patient lying on the bed denies any active complaint. Had some intermittent V. tach episodes. Objective GeneralVS/I O:Vital Signs: Date Time Temp Pulse Resp B/P B/P Pulse O2 O2 Flow FiO2 Mean Ox Delivery Rate 04/21 1200 36.3 84 18 150/93 112 96 Room air 04/21 1200 84 25 150/93 114 96 04/21 1130 85 18 147/86 112 97 04/21 1101 85 17 136/70 97 96 04/21 1030 86 20 104/74 85 95 04/21 1001 87 36 135/63 90 94 04/21 0930 92 10 118/64 86 95 04/21 0919 93 17 147/82 109 95 04/21 0830 94 17 150/79 105 100 04/21 080 0 89 17 129/85 102 98 04/21 0736 36.4 82 20 126/65 85 95 Room air 04/21 0730 82 20 126/65 89 95 04/21 0702 76 11 97 04/21 0700 76 14 141/73 101 97 04/21 0645 77 5 97 04/21 0630 80 27 137/85 10 7 97 04/21 0615 78 14 96 04/21 0600 77 15 139/65 9 4 94 04/21 0545 76 14 95 04/21 0530 77 16 165/78 112 95 04/21 0515 99 29 91 04/21 0500 81 27 160/75 108 98 04/21 0445 85 13 98 04/21 0430 75 16 130/62 89 97 04/21 0415 78 11 98 04/21 0400 36.3 04/21 0400 74 13 134/63 90 97 04/21 0345 71 12 95 04/21 0330 72 12 137/66 95 97 04/21 0315 7 2 17 96 04/21 0300 74 17 138/65 94 96 04/21 0245 81 20 99 04/21 0230 76 17 137/60 87 99 04/21 021 5 75 15 97 04/21 0200 73 16 124/60 86 97 04/21 014 5 73 15 94 04/21 0130 78 20 125/62 88 96 04/21 011 5 74 15 96 04/21 0100 75 14 111/55 77 98 04/21 0045 76 14 98 04/21 0032 79 20 98 04/21 0030 81 36 125/60 87 98 04/21 0015 75 16 98 04/21 0000 36.2 04/21 0000 75 15 118/59 83 96 04/20 2345 76 17 97 04/20 2330 75 15 118/63 85 96 04/20 2315 7 7 13 96 04/20 2301 92 20 132/72 96 95 04/20 2300 9 5 40 95 04/20 2245 83 15 95 04/20 2230 82 17 98/5 0 70 95 04/20 2215 81 10 93 04/20 2200 80 8 117/5 8 84 94 04/20 2145 84 20 95 04/20 2130 97 24 142/6 8 97 96 04/206 98 20 146/80 107 96 04/205 97 24 97 04/20 2100 91 22 179/84 120 96 04/205 90 11 96 04/20 2030 87 19 133/76 97 96 04/20 2027 85 25 97 04/20 2015 84 13 97 04/20 2000 36.5 04/20 2000 82 9 139/71 99 97 04/20 194 5 99 17 97 04/20 1930 93 12 129/68 89 98 04/20 191 5 81 19 98 04/20 1900 84 18 139/67 96 99 04/20 183 0 80 10 130/61 88 97 04/20 1800 81 21 138/69 95 97 04/20 1730 81 17 163/77 110 98 04/20 1706 82 19 152/79 109 97 04/20 1630 79 16 116/67 87 96 04/04 7 1600 80 11 130/77 99 96 04/20 1536 79 20 137/73 100 96 04/20 1531 87 22 151/112 123 95 04/20 1500 36.4 Room air 04/20 1500 84 17 164/92 122 9 9 24 hour I O ending at 0700: 04/21 0700 04/20 1900 Intake Total 500 Output Total 750 Balance -750 500 Intake, Oral 500 Number 1 Bowel Movements Output, Urine 750 PATIENT WEIGHT: Weight (lb): Weight (oz): Weight (kg): 111.100 Medications:Active Meds + DC'd Last 24 HrsFurosemide (LASIX) 20 MG DAILY PO Lisinopril (ZESTRIL) 5 MG DAILY PO Mupirocin (BACTROBAN) 1 APPLIC Q24H TOPICAL Mupirocin (BACTROBAN) 1 APPLIC BID TOPICAL (CAN) Albumin Human (OPTISON) 3 ML ONCE PRN IV Atorvastatin Calcium (LIPITOR) 40 MG BEDTIME PO Aspirin (ASPIRIN CHEWABLE) 81 M G DAILY PO Heparin Sodium (Porcine) (HEPARIN SODIUM) 5,000 UNIT Q12HR SUBQ Ticagrelor (BRILINTA) 90 MG Q12HR PO Albumin Human (OPTISON ) 3 ML ONCE PRN IV (DC) Acetaminophen/Codeine Phosphate (TYLENOL W CODEINE NO.3) 1 TAB Q6H PRN PRN PO Acetaminophen (TYLENOL) 650 MG Q4H PRN PRN PO Docusate Sodium (COLACE) 100 MG BID PRN PRN PO Hydralazine HCl (APRESOLINE) 10 MG Q4H MD N PRN IV Ondansetron HCl (ZOFRAN) 4 MG Q6H PRN PRN IV Carvedilol (COREG) 3.125 MG Q12HR PO Mupiroci n (BACTROBAN NASAL-ADULT ICU/ALISON MRSA PATIENTS) 1 APPLIC BID NASAL ResultsFindings/Data:Laboratory Tests 04/21 410 Chemistry Sodium (134 - 147 mmol/L) 135 Potassium (3.4 - 5.0 mmol/L) 3.6 Chloride (100 - 108 mmol/L) 102 Carbon Dioxide (21 - 32 mmol/L) 31 Anion Gap (4.0 - 15.0 GAP calc) 2.0 L BUN (7 - 18 MG/DL) 10 Creatinine (0.8 - 1.3 MG/DL) 0.6 L Glomerular Filtr Rate (>60 estGFR) >=60 max estimate Glucose (70 - 110 MG/DL) 145 H Calcium (8.5 - 10.1 MG/DL) 8.8 Laboratory Tests 04/21 410 Hematology WBC (3.5 - 11.0 K/mm3) 6.4 RBC (4.70 - 6.10 M/mm3) 4.97 Hgb (12.3 - 15.9 G/DL) 15.6 Hct (35.8 - 46.7 %) 46.8 H MCV (86.3 - 98.9 Fl) 94.2 MCH (28.9 - 34.4 pg) 31.4 MCHC (32.1 - 34.5 G/DL) 33.3 RDW (11.5 - 14.5 SD) 13.0 Plt Count (150 - 450 K/mm3) 184 MPV (7.0 - 9.6 fL) 9.50 Neut % (Auto) (40 - 76 %) 64.6 Lymph % (Auto) (20.5 - 51.1 %) 18.0 L [place] % (Auto) (1.7 - 9.3 %) 11.9 H Eos % (Auto) (0.0 - 6.0 %) 4.4 Baso % (Auto) (0.0 - 2. 0 %) 0.9 Neut # (Auto) (1.8 - 7.6 K/mm3) 4.1 Lymph # (Auto) (0.6 - 3.0 K/mm3) 1.2 [place] # (Auto) (0. 2 - 1.5 K/mm3) 0.8 Eos # (Auto) (0.0 - 0.4 K/mm3) 0.3 Baso # (Auto) (0.0 - 0.2 K/mm3) 0.1 Abs Immat Gran (auto) (0.00 - 0.03 x10 3/uL) 0.01 Ad d Manual Diff (CRITERIA DIFF/SCN) NO Immature Gran % (0.0 - 5.0 %) 0.2 Nucleated RBC % (0.0 - 1.0 /100WBC%) 0.0 Results: labs reviewed, current me d profile rev'd Free Text Obj NotesFree Text Obj Notes:Physical examinationPatient is a pleasant person lying on the bed does not appear to be in distressHEENT pupils equal round reactive light and accommodating normocephalic/atraumatic skull normal oral mucosaHas left facial droop due to prior history of acoustic neuromaNeck supple no JVDChest clear bilateral entry no wheeze or cracklesCVS S1-S2 no murmur rubs or gallopAbdome n soft nontender bowel sounds positiveRight groin cath site appears clean no pulsatile mass no bruising no bleedingExtremities no pedal edema pulses palpableCNS alert oriented x3 moving all 4 extremities Diagnosis, Assessment PlanHospital course to date:Acute Anterior STEMI s/p angioplasty and left LAD stent Hx of CAD s/p PCI with 4 stentsPresented with chest pain with radiation to neck and LUE which has now resolved - Consult Cardiology - Had been on ASA only sinc e Aug 2020. Now started on ASA + Brilinta - Echo i n AM - PRN meds for pain as needed - Resume Metoprolol - Order lipid panel, BNP and HgbA1c Leukocytosis Reactive vs infectious, no clinical signs of infection. Chest xray inconclusive.Afebrile - Repeat CBC in AM - Order CT chest to evaluate pneumonia vs pulmonary vinicio a Hypertension Stable- Started on Coreg. Hold home dose Metoprolol Hyperlipidemia - Started on Statin - Hold off on Zetia Arthritis Chronic - Prn tylenol for pain - Pt to reschedule hip surgery with his outpatient Ortho team when stable VTE ppx - Heparin Full code Dispo - likel y home, pending clinical progression Time spent is 60 mins 10TEMI status post PCI with NICHELLE to LADContinue post cath management as per cardiologyDual antiplatelet therapy with aspirin and BrilintaPatient's aspirin was on hold becaus e of some anticipated surgery but now will continu e with dual antiplatelet therapy.High intensity statinFollow-up with the echoMonitor on telemetryContinue beta-darlene Leukocytosis appear to be reactive CT chest reviewed does not appear to have pneumonia. Stop antibiotics. HypertensionContinue with patient's beta-dalrene DyslipidemiaContinue with statin Hemoglobin A1c 6.4 will be considered prediabetes. Follow-up with PCP as outpatient lifestyle modification OsteoarthritisAs needed pain medication DVT prophylaxisPatient is full codeIf remains stable can be downgraded to telemetry 04/20STEMI status post PCI with NICHELLE to LADContinue post cath management as per cardiologyDual antiplatelet therapy with aspirin and BrilintaPatient's aspirin was on hold because of some anticipated surgery but now will continue with dual antiplatelet therapy.High intensity statinFollow-up with the echoMonitor on telemetryContinue beta-darlene Leukocytosis appear to be reactive CT chest reviewed does not appear to have pneumonia. Stop antibiotics. HypertensionContinue with patient's beta-darlene DyslipidemiaContinue with statin Hemoglobin A1c 6.4 will be considered prediabetes. Follow-up with PCP as outpatient lifestyle modification OsteoarthritisAs needed pain medication DVT prophylaxisPatient is full code Consultants: cardiology, critical/pill maker at 1434 [facility] #: [id number] OF REPORT PRProgress [id number]:32:00L.[id number] l able for patient ktoyAUROQHKLMSWNVO9760-51-31D08:34:28 2021-04-21 11:50:00 [id number] [facility] [id number] [place] [address] PATIENT NAME: RAVEN ESCALANTE ADMIT DATE: 04/18/21ACCOUN T NO: [id number] ROOM NO: [place] [address] MEDICAL RECOR D NO: [id number] AGE: 81 REPORT TYPE: eECHOCARDIOGRAM REPORT SEX: M ADMITTING PHYSICIAN: Mark Lucero MD ATTENDING PHYSICIAN: Mark Lucero MD *[facility]*[address] [place] [phone] Transthoracic Echocardiogram Patient: Raven EscalanteStudy Date: 04/21/2021 BP: 126 / 65 [id number] 1940 Age: 81 Height: 69 in / 175.3 cmAccession#: [id number] Gender: M Weight: 244 lb / 110.9 kgBMI/BSA: 36.1 kg/m 2 / 2.37 m 2 *Ordering Physician: * Mark Lucero *Interpreting Physician: * Chris Waite MD*Chief Of Pediatric Urology: * Hollie Valderrama - Indications: STEMI. - Study data: Transthoracic echocardiogram. Procedure: Transthoracicechocardiography was performed. Image quality was adequate. Intravenouscontrast (Optison) was administered. Complete 2D, complet e spectralDoppler, and color Doppler. Location: Bedside. Patient status:Inpatient. Patient room number: ICU07. Study status: Stat. - Findings Left ventricle: The cavity size is normal. Wall thickness is normal.Systolic function is severely reduced. Th e estimated ejection fractionis 20-24%. Regional wall motion abnormalities: Akinesis of theanteroseptal myocardium. Hypokinesis of the anterolateral myocardium.Akinesis of the apical myocardium. Hypokinesis of the inferolateral PATIENT NAME: RAVEN ESCALANTE myocardium.Right ventricle: The cavity size is normal.Left atrium: The atrium is normal in size.Right atrium: The atrium is perla l in size.Aorta: Aortic root: The aortic root is normal in size.Aortic valve: The valve is structurally normal. The valve istrileaflet. There is no evidence of stenosis. There is mild tomoderate regurgitation.Mitral valve: The valve is structurally normal. There is mildregurgitation.Tricuspid valve: The valve is structurally normal. There is trivialregurgitation.Pulmonic valve: The valve i s structurally normal. There is noregurgitation.Pericardium: There is no pericardial effusion.Pulmonary arteries:The main pulmonary artery is normal-sized.Systemic veins:Inferior vena cava: The vessel is normal i n size. - Measurements Left ventricle Value Ref LUH, LAX 4.9 cm 4.2 - 5.8 ESD, LAX 4.4 cm 2.5 - 4.0 ESD/bsa, LAX 1.9 cm/m 2 1.3 - 2.1 FS, LAX 10 % 25 - 43 PW, ED 1.0 cm 0. 6 - 1.0 IVS/PW, ED 1 --------- EF 21 % 52 - 72 IVR T 151 ms --------- E/e', avg, TDI 8 <=14 LVOT Valu e Ref Diam, S 2.13 cm --------- Area 3.6 cm 2 --------- Peak barber, S 1.27 m/sec --------- Mean barber, S 1.02 m/sec --------- VTI, S 21.5 cm --------- Peak grad, S 6 mm Hg --------- Mean grad, S 4 mm Hg --------- SV 77 ml --------- SV/bsa 32 ml/m 2 --------- Ventricular septum Value Ref IVS, ED 1.0 cm 0.6 - 1.0 Right ventricle Value Ref Pressure, S 21 mm Hg --------- Left atrium Value Ref Vol/bsa, ES, 1- p A4C 18 ml/m 2 12 - 37 Vol/bsa, ES, A/L 21 ml/m 2 16 - 34 PATIENT NAME: RAVEN ESCALANTE AP dim, ES MM 3.1 cm 3.0 - 4.0 LA/Ao root ratio, MM 0.9 --------- Aortic valve Value Ref Leaflet sep, MM 1.69 cm -------- - Peak v, S 1.38 m/sec --------- Mean v, S 0.9 m/sec --------- VTI, S 20.6 cm --------- Mean grad, S 3.7 mm Hg --------- Peak grad, S 7.6 mm Hg --------- LVOT/AV, VTI ratio 1.04 --------- KARLEE, VTI 3.74 cm 2 --------- LVOT/AV, Vpeak rati o 0.92 --------- KARLEE, Vmax 3.28 cm 2 --------- AR peak v 4.04 m/sec --------- AR decel 193 cm/s 2 --------- AR decel time 2088 ms --------- AR PHT 606 ms --------- AR peak grad 65 mm Hg --------- Mitral valve Value Ref Peak E 0.34 m/sec --------- Peak A 0.97 m/sec --------- Decel time 146 ms --------- PHT 46 ms --------- Peak E/A ratio 0.35 --------- MVA, PHT 4.8 cm 2 --------- Tricuspid valve Value Ref TR peak v 2.02 m/sec <=2.8 Peak RV-RA grad, S 16 mm Hg --------- Aortic root Value Ref Root diam, ED MM 3.50 cm --------- Pulmonary artery Value Ref Pressure, S 15.9 mm Hg --------- Systemic veins Value Ref Estimated CVP 5 mm Hg --------- Pulmonary veins Value Ref A rev duration 128 ms --------- - Conclusions Summary: 1. Left ventricle: The cavity size is normal. Wall thickness is normal. Systolic function is severely reduced. The estimated ejection fractio n is 20-24%. Akinesis of the anteroseptal myocardium. Hypokinesis of the anterolateral myocardium. Akinesis of the apical myocardium. Hypokinesis of the inferolateral myocardium. PATIENT NAME: RAVEN ESCALANTE 2. Right ventricle: The RV pressure during systole by Doppler is 21 mm Hg.3. Aortic valve: There is mild to moderate regurgitation. The regurgitation pressure half-time is 606 ms.4 . Mitral valve: There is mild regurgitation. Prepared and electronically signed by Chris Waite MD04/21/2021 11:50 at 1150 PATIENT NAME: SANDEEP ESCALANTE :50: 0 0L.[id number] for patient rxbqQDWGJSACAKTJHB8500-09-44P74:51:07 2021-04-21 11:21:00 [id number]:21:00 [facility] ([facility])Wound Care Consultation NoteREPORT#:[id number] REPORT STATUS : SignedDATE:04/21/21 TIME:1121 PATIENT: RAVEN ESCALANTE UNIT #: [id number]# : [id number] ROOM/BED: [id number]: 42 AGE: 81 SEX: M ATTEND: Mark Lucero [facility] AUTHOR: Alex Chatman MD * ALL edits or amendments must be made on the electronic/computer document * History of Presen t IllnessRequesting Clinician: Matthew Hobson for consult:Wound checkHPI:Mr. Raven Escalante is a 81 man w/ recent chest pain which was worked up to beSTEMI. Consulted for wound after AED pads History Past HistoryPast medical history: coronary artery diseasePast surgical history: cardiac stentsPast social history: retiredMedications:Home Medications: Medication Dose/Rte/Freq Days Qty Entered Last Max Daily Dose Reviewed GABAPENTIN (NEURONTIN) 300 MG PO BEDTIME 02/20/21 Strength: 300 MG CAP 1438 MULTIVITAMIN 5 TABS PO DAILY 02/20/21 (MULTIPLE VITAMIN) 1439 Strength: 1 TAB TAB UBIDECARENONE (CO Q-10) 100 MG PO DAILY 02/20/21 Strength: 100 MG CAP 1439 [ULTRAGEST] 2 TABS PO BEDTIME 03/25/21 Strength: 1551 ACETAMINOPHEN (TYLENOL) 1,000 MG PO 03/25/21 Strength: 500 MG TAB Q6H MD N PRN PAIN 1552 EZETIMIBE (ZETIA) 10 MG PO DAILY 02/20/21 Strength: 10 MG TAB 1437 TICAGRELOR (BRILINTA) 90 MG PO Q12HR 60 04/20/21 Strength: 90 MG TAB 1335 ATORVASTATIN (LIPITOR) 80 MG PO DAILY 30 04/20/21 Strength: 80 MG TAB 1335 CARVEDILOL (COREG) 3.125 MG PO Q12HR 60 04/20/21 Strength: 3.125 MG TAB 1335 ASPIRIN EC (ECOTRIN ) 81 MG PO BEDTIME 30 04/20/21 Strength: 81 MG TAB.EC 1335 Current Hospital Medications:Blood Formation,Coagulation Sig/Jo-Ann Start time Last Medication Dose Route Stop Time Status Admin Heparin Sodium 5,000 UNIT Q12HR 04/19 09 AC 04/21 (Porcine) SUBQ 05/03 (HEPARIN SODIUM) Ticagrelor 90 MG Q12HR 04/19 09 AC 04/21 (BRILINTA) PO 05/19 Cardiovascular Drugs Sig/Jo-Ann Start time Last Medication Dose Route Stop Time Status Admin Lisinopril 5 MG DAILY 04/21 1315 AC 04/21 (ZESTRIL) PO 05/21 1314 1321 Atorvastatin Calcium 40 MG BEDTIME 04/19 2100 AC 04/21 (LIPITOR) PO 05/18 Hydralazine HCl 10 MG Q4H PRN PRN 04/18 2145 AC (APRESOLINE) IV 05/18 2144 Carvedilol 3.125 MG Q12HR 04/18 2100 AC 04/21 (COREG) PO 05/18 Central Nervous System Agents Sig/Jo-Ann Start time Last Medication Dose Route Stop Time Status Admin Aspirin 81 MG DAILY 04/19 0900 AC 04/21 (ASPIRIN CHEWABLE) PO 05/19 0859 0804 Acetaminophen/ 1 TA B Q6H PRN PRN 04/18 2200 AC 04/21 Codeine Phosphat e PO 04/28 2159 2320 (TYLENOL W CODEINE NO.3) Acetaminophen 650 MG Q4H PRN PRN 04/18 214 AC 04/21 (TYLENOL) PO 05/18 2144 2124 Diagnostic Agents Sig/Jo-Ann Start time Last Medication Dose Route Stop Time Status Admin Albumin Human 3 ML ONCE PRN 04/20 1230 AC (OPTISON) IV Albumin Deann n 3 ML ONCE PRN 04/19 0030 DC 04/21 (OPTISON) IV 04/22 2359 0955 Electrolytic, Caloric, And Katelyn Sig/Jo-Ann Start time Last Medication Dose Route Stop Time Status Admin Furosemide 20 MG DAILY 04/21 1315 AC 04/21 (LASIX) PO 05/21 1314 1321 Gastrointestinal Drugs Sig/Jo-Ann Start time Last Medication Dose Route Stop Time Status Admin Docusate Sodium 100 MG BID PRN PRN 04/18 2145 AC (COLACE) PO 05/18 2144 Ondansetron HCl 4 MG Q6H PRN PRN 04/18 2145 AC (ZOFRAN) IV 05/18 2144 Ski n And Mucous Membrane Agent Sig/Jo-Ann Start time Las t Medication Dose Route Stop Time Status Admin Mupirocin 1 APPLIC Q24H 04/21 1130 AC 04/21 (BACTROBAN) TOPICAL 05/05 1129 1206 Mupirocin 1 APPLIC BID 04/21 0900 CAN (BACTROBAN) TOPICAL 05/05 0859 Mupirocin 1 APPLIC BID 04/18 2000 AC 04/21 (BACTROBAN NASAL- NASAL 04/23 0901 1711 ADULT ICU/ALISON MRSA PATIENTS) Allergies:Coded Allergies:No Known Allergies (04/18/21) Review o f SystemsConstitutional:Reports: other (anxiety). All systems rev neg: except as marked ObjectiveVS/I O:Last Documented: Result Date Kun e Pulse Ox 94 04/21 1001 B/P 135/63 04/21 1001 B/P Mean 90 04/21 1001 Pulse 87 04/21 1001 Resp 36 04/21 1001 O2 Delivery Room air 04/21 0736 Temp 97.5 04/21 0736 24 hour I O ending at 0700: 04/04 8 0700 04/20 1900 Intake Total 500 Output Total 750 Balance -750 500 Intake, Oral 500 Number 1 Bowel Movements Output, Urine 750 General appearance: obeseNeck: thick circumferenceCardiovascular: no rubRespiratory: no distressAbdomen: soft, non-tenderExtremities: no cyanosisMusculoskeletal: sensations intactPsychiatry: normal affect Wound AssessmentWound Assessment 1: Type/cause: trauma Wound location: upper back (right) Tissue layers : limited to skin breakdown Site condition: no drainage, no ecchymosis, no erythema Diagnosis, Assessment PlanProblem List/A P: 1. Open back wound A P cleanse with saline apply muporicin ointment cover with mepilex change dressing once daily 2. STEMI (ST elevation myocardial infarction) 3. Obesity 4. Prediabetes at 0017 RPT #: [id number] OF REPORT QFEvclwinsfday3736-41-39Y26:21:00L.[id number]- [id number] 055AVAvailable for patient [id number]:18:01 2021-04-20 14:19:00 [id number]:19:00 [facility] ([facility]ulmon[facility] Progress NoteREPORT#:[id number] REPORT STATUS: SignedDATE:04/20/21 TIME:1419 PATIENT: RAVEN ESCALANTE UNIT #: [id number]# : [id number] ROOM/BED: [place] [id number]: 42 AGE: 81 SEX: M ATTEND: Mark Lucero [facility] AUTHOR: Bart Bryan MD * ALL edits or amendments must be made on the electronic/computer document * SubjectiveChief Complaint:no chest pain on room air Objective GeneralVS/I O:Last Documented: Result Date Time O2 Delivery Room air 04/20 1100 Temp 36.6 04/20 1100 Pulse Ox 97 04/20 930 B/P 117/62 04/20 093 0 B/P Mean 85 04/20 930 Pulse 84 04/20 930 Resp 13 04/20 930 24 hour I O ending at 0700: 04/20 0700 04/19 1900 Intake Total 600 Output Total 1200 1200 Balance -1200 -600 Intake, Oral 600 Number 1 Bowel Movements Number Voids 6 Output, Urine 1200 1200 PATIENT WEIGHT: Weight (lb): Weight (oz): Weight (kg): 111.100 Medications:Active Meds + DC'd Last 24 HrsAlbumi n Human (OPTISON) 3 ML ONCE PRN IV Atorvastatin Calcium (LIPITOR) 40 MG BEDTIME PO Aspirin (ASPIRIN CHEWABLE) 81 MG DAILY PO Heparin Sodium (Porcine) (HEPARIN SODIUM) 5,000 UNIT Q12HR SUBQ Ticagrelor (BRILINTA) 90 MG Q12HR PO Albumin Human (OPTISON) 3 ML ONCE PRN IV Acetaminophen/Codeine Phosphate (TYLENOL W CODEINE NO.3) 1 TAB Q6H PRN PRN PO Acetaminophen (TYLENOL) 650 MG Q4H PRN PRN PO Docusate Sodium (COLACE) 100 MG BID PRN PRN PO Hydralazine HCl (APRESOLINE) 10 MG Q4H PRN PRN IV Ondansetron HC l (ZOFRAN) 4 MG Q6H PRN PRN IV Carvedilol (COREG) 3.125 MG Q12HR PO Mupirocin (BACTROBAN NASAL-ADULT ICU/ALISON MRSA PATIENTS) 1 APPLIC BI D NASAL Physical ExamGeneral appearance: alert, awakeENT: ENT: normal nose, normal sinusNeck: full range of motion, non-tenderRespiratory/chest: decreased breath soundsAbdomen: soft, non-tender, normal bowel soundsNeuro/BUSINESS LAW TEACHER: cranial nerve deficit, alert, oriented X 3Lymphatics: no lymphadenopathy ResultsFindings/Data:Laboratory Tests 04/20/21 0430:[Embedded Image Not Available]Laboratory Tests 04/20 430 Chemistry Sodium (134 - 147 mmol/L) 137 Potassium (3.4 - 5.0 mmol/L) 3.9 Chloride (100 - 108 mmol/L) 104 Carbon Dioxide (21 - 32 mmol/L) 27 Anion Gap (4.0 - 15.0 GAP calc) 6.0 BUN (7 - 18 MG/DL) 9 Creatinine (0.8 - 1.3 MG/DL) 0.7 L Glomerular Filtr Rate (>60 estGFR) >=60 max estimate Glucose (70 - 110 MG/DL) 151 H Calcium (8.5 - 10.1 MG/DL) 9.2 Laboratory Tests 04/20 0430 Hematology WBC (3.5 - 11.0 K/mm3) 8.1 RBC (4.70 - 6.10 M/mm3) 5.28 Hgb (12.3 - 15.9 G/DL) 16.5 H Hct (35.8 - 46.7 %) 49.4 H MCV (86.3 - 98.9 Fl) 93.6 MCH (28.9 - 34. 4 pg) 31.3 MCHC (32.1 - 34.5 G/DL) 33.4 RDW (11.5 - 14.5 SD) 13.0 Plt Count (150 - 450 K/mm3) 196 MP V (7.0 - 9.6 fL) 9.50 Neut % (Auto) (40 - 76 %) 70.9 Lymph % (Auto) (20.5 - 51.1 %) 16.7 L [place] % (Auto) (1.7 - 9.3 %) 10.1 H Eos % (Auto) (0.0 - 6.0 %) 1.5 Baso % (Auto) (0.0 - 2.0 %) 0.6 Neut # (Auto) (1.8 - 7.6 K/mm3) 5.8 Lymph # (Auto) (0.6 - 3.0 K/mm3) 1.4 [place] # (Auto) (0.2 - 1.5 K/mm3) 0.8 Eos # (Auto) (0.0 - 0.4 K/mm3) 0.1 Baso # (Auto) (0.0 - 0.2 K/mm3) 0.1 Abs Immat Gran (auto) (0.00 - 0.03 x10 3/uL) 0.02 Add Manual Diff (CRITERIA DIFF/SCN) NO Immature Gran % (0.0 - 5.0 %) 0.2 Nucleated RBC % (0.0 - 1.0 /100WBC% ) 0.0 Diagnosis, Assessment PlanFree Text A P:1. S T elevation myocardial infarction2. Cardiomyopathy likely ischemic Seen and examined at bedside Tel e status Currently to be continued on Brilinta and aspirinCardiology follow-upPatient is high risk for any surgery in the near future for recommend against his hip surgerySupportive treatmentContinue statins and blood pressure managementFollow-up electrolytesConsultants: cardiology, critical/pill maker at 1420 RP T #: [id number] OF REPORT PRProgress [id number]:19:00L.[id number] herve able for patient [id number] 2021-04-20 12:55:00 [id number]:55:00 [facility] ([facility]ENTERCardiology Progress NoteREPORT#:[id number] REPORT STATUS: SignedDATE:04/20/21 TIME:1255 PATIENT: RAVEN ESCALANTE UNIT #: [id number]#: [id number] [address] AGE: 81 SEX: M ATTEND: Mark Lucero [facility] AUTHOR: Perez Arthur MD * ALL edits or amendments must be made on the electronic/computer document * SubjectiveChief Complaint:Feels well and family at bedside. All grateful for care provided. He denies chest pain Objective GeneralVS/I O:24 ruthie r I O ending at 0700: 04/20 0700 04/19 1900 Intake Total 600 Output Total 1200 1200 Balance -1200 -600 Intake, Oral 600 Number 1 Bowel Movements Number Voids 6 Output, Urine 1200 1200 Vital Signs: Date Time Temp Pulse Resp B/P B/P Pulse O 2 O2 Flow FiO2 Mean Ox Delivery Rate 04/20 1100 36.6 Room air 04/20 930 84 13 117/62 85 97 04/20 09 77 17 134/72 97 98 04/20 0830 75 8 100/52 72 95 10/17 0800 76 12 95/51 68 96 17 0730 76 12 92/55 69 95 17 0701 77 19 97/54 72 97 17 0700 35.7 Room air 04/20 0452 81 14 04/20 0447 81 13 129/69 92 95 17 0445 80 8 96 04/20 0427 80 20 96 04/20 0415 83 11 95 04/20 0401 75 13 96/54 72 94 17 0400 36.3 17 040 0 79 14 94 17 0345 73 13 96 17 0330 74 11 143/70 100 98 17 0315 75 11 95 17 0300 75 17 137/64 92 96 17 0245 84 25 96 17 0230 7 7 12 133/64 92 96 17 0215 75 13 96 04/20 0201 7 9 29 111/53 77 95 04/20 0200 77 16 96 04/20 0145 7 8 11 96 04/20 0130 74 14 134/68 95 96 17 0115 7 7 13 92 04/20 0107 76 12 96 17 0100 77 12 127/6 4 89 96 17 0045 77 12 95 04/20 0030 78 11 129/65 91 95 04/20 0015 85 14 97 04/20 0000 36.2 04/20 0000 79 17 130/65 92 97 04/19 2345 79 16 9 6 04/19 2330 98 14 140/65 94 97 04/19 2315 79 13 9 6 04/19 2301 79 15 100/53 74 97 04/19 2300 79 17 96 04/19 2247 80 15 95 04/19 2245 84 20 97 04/19 2231 86 24 146/70 101 97 04/19 2230 90 25 98 04/19 2215 76 12 97 04/19 2200 77 15 122/59 85 9 5 04/19 2145 81 17 95 04/19 2130 80 20 118/57 79 95 04/19 2115 99 29 96 04/19 2107 82 18 118/58 8 3 97 04/19 2101 84 20 149/100 112 96 04/19 2100 79 18 96 04/195 83 17 97 04/19 2030 82 15 130/6 6 93 99 04/19 2015 84 18 98 04/19 2000 36.4 04/19 2000 90 50 132/97 110 93 04/19 1945 81 17 98 04/19 1930 82 14 123/60 85 97 04/19 1915 81 13 9 8 04/19 1900 84 0 126/64 88 98 04/19 1830 80 19 124/57 82 97 04/19 1800 79 19 119/58 83 96 10 6 1730 85 18 115/65 85 97 04/19 1700 74 17 121/61 85 96 04/19 1630 77 16 128/60 87 97 04/19 1600 8 1 26 121/57 81 97 04/19 1530 72 14 113/62 82 95 04/19 1500 36.4 Room air 04/19 1500 76 19 113/62 83 96 04/19 1430 80 18 146/77 103 96 04/19 1400 74 19 111/63 82 94 04/19 1330 87 2 117/64 85 96 PATIENT WEIGHT: Weight (lb): Weight (oz): Weight (kg): 111.100 Medications:Active Meds + DC'd Las t 24 HrsAlbumin Human (OPTISON) 3 ML ONCE PRN IV Atorvastatin Calcium (LIPITOR) 40 MG BEDTIME PO Aspirin (ASPIRIN CHEWABLE) 81 MG DAILY PO Hepari n Sodium (Porcine) (HEPARIN SODIUM) 5,000 UNIT Q12HR SUBQ Ticagrelor (BRILINTA) 90 MG Q12HR PO Albumin Human (OPTISON) 3 ML ONCE PRN IV Acetaminophen/Codeine Phosphate (TYLENOL W CODEINE NO.3) 1 TAB Q6H PRN PRN PO Acetaminophen (TYLENOL) 650 MG Q4H PRN PRN PO Docusate Sodium (COLACE) 100 MG BID PRN PRN PO Hydralazine HCl (APRESOLINE) 10 MG Q4H PRN PRN IV Ondansetron HC l (ZOFRAN) 4 MG Q6H PRN PRN IV Carvedilol (COREG) 3.125 MG Q12HR PO Mupirocin (BACTROBAN NASAL-ADULT ICU/ALISON MRSA PATIENTS) 1 APPLIC BI D NASAL Physical ExamGeneral appearance: alert, awake, no acute distressCardiovascular: CV assessment: regular rate and rhythmRespiratory: clear to auscultation ResultsFindings/Data:Laboratory Tests 04/20 043 0 Chemistry Sodium (134 - 147 mmol/L) 137 Potassiu m (3.4 - 5.0 mmol/L) 3.9 Chloride (100 - 108 mmol/L) 104 Carbon Dioxide (21 - 32 mmol/L) 27 Anion Gap (4.0 - 15.0 GAP calc) 6.0 BUN (7 - 18 MG/DL) 9 Creatinine (0.8 - 1.3 MG/DL) 0.7 L Glomerular Filtr Rate (>60 estGFR) >=60 max estimate Glucose (70 - 110 MG/DL) 151 H Calcium (8.5 - 10.1 MG/DL) 9.2 Laboratory Tests 04/20 0430 Hematology WBC (3.5 - 11.0 K/mm3) 8.1 RBC (4.70 - 6.10 M/mm3) 5.28 Hgb (12.3 - 15.9 G/DL) 16.5 H Hct (35.8 - 46.7 %) 49.4 H MCV (86.3 - 98.9 Fl) 93.6 MCH (28.9 - 34.4 pg) 31.3 MCHC (32.1 - 34.5 G/DL) 33.4 RDW (11.5 - 14.5 SD) 13. 0 Plt Count (150 - 450 K/mm3) 196 MPV (7.0 - 9.6 fL) 9.50 Neut % (Auto) (40 - 76 %) 70.9 Lymph % (Auto) (20.5 - 51.1 %) 16.7 L [place] % (Auto) (1. 7 - 9.3 %) 10.1 H Eos % (Auto) (0.0 - 6.0 %) 1.5 Baso % (Auto) (0.0 - 2.0 %) 0.6 Neut # (Auto) (1.8 - 7.6 K/mm3) 5.8 Lymph # (Auto) (0.6 - 3.0 K/mm3) 1.4 [place] # (Auto) (0.2 - 1.5 K/mm3) 0.8 Eos # (Auto) (0.0 - 0.4 K/mm3) 0.1 Baso # (Auto) (0.0 - 0.2 K/mm3) 0.1 Abs Immat Gran (auto) (0.0 0 - 0.03 x10 3/uL) 0.02 Add Manual Diff (CRITERIA DIFF/SCN) NO Immature Gran % (0.0 - 5.0 %) 0.2 Nucleated RBC % (0.0 - 1.0 /100WBC%) 0.0 Diagnosis, Assessment PlanHospital course to date:Anterior STEMI with late presentationCompletely occluded ostial LAD at proximal edge of old stent --> PCI and placed ne w 3*24 NICHELLE and also did PTCA of dLAD --> LU-3 flow achieved Of note he had been off his antiplatelets for 2-3 weeks because he is trying to get hip surgery that kept getting postponed. I advised him that he should never get off aspirin in future even if he needs surgery as most surgeries can still be done with low dose aspiri n on board. Started Brilinta. No hip surgery allowed for at least one year. Echo ordered and Dr Ojeda usually reads my echoes in this hospital. at 1302 RPT #: [id number] OF REPORT PRProgress [id number]:55:00L.[id number] herve able for patient [id number]:19 2021-04-19 15:11:00 [id number]:11:00 [facility] ([facility])Pulmonary Consultation NoteREPORT#:[id number] REPORT STATUS : SignedDATE:04/19/21 TIME:1511 PATIENT: RAVEN ESCALANTE UNIT #: [id number]# : [id number] [id number]: [address] AGE: 81 SEX: M ATTEND: Mark Lucero [facility] AUTHOR: Bart Bryan MD * ALL edits or amendments must be made on the electronic/computer document * History of Presen t Illness Free Text HPI NotesFree Text HPI Notes:[age] yo M with PMH of HTN, HLD, CAD s/p LA and multiple stents with history of facial palsy and Arthritis presented with left sided achy chest pain with radiation to neck and LUE Patient states he was getting an Echocardiogram as part of pre-op testing for Right hip surgery on Wednesday when symptoms started. He went home to rest but symptoms only worsened so called EMS. P t was found to have STEMI on arrival so sent emergently to cathode maker. Pt had angioplasty and stent placed in LADAdmitted to ICU after heart cath and states he feels so much better. Currently only reports right hip pain and vitals stable. Patient was taking ASA and Off plavix when he started having his symptoms History - Adult longitudinalPast medical history:Reports: Arthritis, Coronary artery disease, Hypertension , Dyslipidemia. Additional medical history:left acoustic neuroma removalPast surgical history:Reports: Appendectomy, Cholecystectomy, Knee procedure, PCI. Alcohol use: Denies EtOH useDrug use: Denies recreational drugsSmoking status: Smoking status for patients 13 years old or older: Never SmokerAllergies:Coded Allergies:No Known Allergies (04/18/21) Review o f SystemsAll systems rev neg: except as marked Objective Physical ExamVitals:Last Documented: Result Date Time O2 Delivery Room air 04/19 1100 Temp 36.4 04/19 1100 Pulse Ox 96 04/19 0930 B/P 123/59 04/19 0930 B/P Mean 84 04/19 0930 Pulse 7 3 04/19 0930 Resp 20 04/19 0930 General appearance : alert, awakeENT: ENT: normal nose, normal sinusNeck: full range of motion, non-tenderRespiratory/chest: decreased breath soundsAbdomen: soft, non-tender, normal bowel soundsNeuro/BUSINESS LAW TEACHER: cranial nerve deficit, alert, oriented X 3Lymphatics: no lymphadenopathy ResultsFindings/Data:Laboratory Tests 04/19/21 0436:[Embedded Image Not Available] 04/18/21 1749:[Embedded Image Not Available]Laboratory Tests 04/196 0436 0436 Chemistr y Sodium (134 - 147 mmol/L) 136 Potassium (3.4 - 5.0 mmol/L) 3.7 Chloride (100 - 108 mmol/L) 103 Carbon Dioxide (21 - 32 mmol/L) 28 Anion Gap (4. 0 - 15.0 GAP calc) 5.0 BUN (7 - 18 MG/DL) 14 Creatinine (0.8 - 1.3 MG/DL) 0.6 L Glomerular Filtr Rate (>60 estGFR) >=60 max estimate Glucos e (70 - 110 MG/DL) 139 H Hemoglobin A1c (0.0 - 5.7 % A1C) 6.4 H Estim Average Glucose (MG/DLest) 13 7 Calcium (8.5 - 10.1 MG/DL) 8.9 Phosphorus (2.5 - 4.9 MG/DL) 2.6 Magnesium (1.8 - 2.4 MG/DL) 1.9 NT-Pro-B Natriuret Pep (0 - 100 PG/ML) 1250 H Triglycerides (0 - 150 MG/DL) 141 Cholesterol (133 - 200 MG/DL) 175 LDL Cholesterol Measurd ( 0 - 129 MG/DL) 105 Non-HDL Cholesterol (<130 mg/dL ) 127 HDL Cholesterol (40 - 59 MG/DL) 48 LDL/HDL Ratio (1.48 - 3.22 Avg Ratio) 2.18 Cholesterol/HDL Ratio (0 RATIO) 3.65 04/18 1749 Chemistry Sodium (134 - 147 mmol/L) 136 Potassiu m (3.4 - 5.0 mmol/L) 4.0 Chloride (100 - 108 mmol/L) 100 Carbon Dioxide (21 - 32 mmol/L) 30 Anion Gap (4.0 - 15.0 GAP calc) 6.0 BUN (7 - 18 MG/DL) 18 Creatinine (0.8 - 1.3 MG/DL) 0.8 Glomerular Filtr Rate (>60 estGFR) >=60 max estimate Glucose (70 - 110 MG/DL) 236 H Calcium (8.5 - 10.1 MG/DL) 9.3 Magnesium (1.8 - 2.4 MG/DL) 2.0 Troponin I (0.000 - 0.045 NG/ML) 0.16 0 *H Laboratory Tests 04/19 04/18 5576 1749 Hematology WBC (3.5 - 11.0 K/mm3) 10.6 12.9 H RB C (4.70 - 6.10 M/mm3) 4.81 5.04 Hgb (12.3 - 15.9 G/DL) 15.1 15.8 Hct (35.8 - 46.7 %) 44.4 47.6 H MCV (86.3 - 98.9 Fl) 92.3 94.4 MCH (28.9 - 34.4 pg) 31.4 31.3 MCHC (32.1 - 34.5 G/DL) 34.0 33.2 RDW (11.5 - 14.5 SD) 12.8 13.0 Plt Count (150 - 450 K/mm3) 190 234 MPV (7.0 - 9.6 fL) 9.40 9.80 H Neut % (Auto) (40 - 76 %) 79.8 H Lymph % (Auto ) (20.5 - 51.1 %) 10.2 L [place] % (Auto) (1.7 - 9.3 %) 8.5 Eos % (Auto) (0.0 - 6.0 %) 0.8 Baso % (Auto) (0.0 - 2.0 %) 0.4 Neut # (Auto) (1.8 - 7.6 K/mm3) 8.5 H Lymph # (Auto) (0.6 - 3.0 K/mm3 ) 1.1 [place] # (Auto) (0.2 - 1.5 K/mm3) 0.9 Eos # (Auto) (0.0 - 0.4 K/mm3) 0.1 Baso # (Auto) (0.0 - 0.2 K/mm3) 0.0 Abs Immat Gran (auto) (0.00 - 0.0 3 x10 3/uL) 0.03 Add Manual Diff (CRITERIA DIFF/SCN) NO Immature Gran % (0.0 - 5.0 %) 0.3 Nucleated RBC % (0.0 - 1.0 /100WBC%) 0.0 Laboratory Tests 04/19 0430 Serology SARS-CoV-2 Ag (Rapid) (Negative) NEGATIVE Radiology Data:Recent Impressions:RADIOLOGY - XR CHEST 1 V 04/18 6583 Report Impression - Status: SIGNED Entered: 04/18/2021 1820 IMPRESSION:Perihilar atelectasis, pulmonary edema and/or pneumonia.Impression By: Bari Nunez M.D.CAT SCAN - CT CHEST W/O CONTRAST 04/19 0506 Report Impression - Status: SIGNED Entered: 04/19/2021 0643 IMPRESSION: 1. Mild bibasilar atelectasis. No focal airspace consolidation.Impression By: [email or web address] - Martin Brennan M.D. Diagnosis, Assessment Plan Free Text DxA P NotesFree Text DxA P Notes:1. ST elevation myocardial infarction2. Cardiomyopathy likely ischemic Seen and examined at bedsidePatient to be followed up post cathOkay t o downgrade from pulmonary standpointCurrently to be continued on Brilinta and aspirinCardiology follow-upPatient refused echocardiography for today since the onset of symptoms yesterdaystarted after echocardiographyPatient i s high risk for any surgery in the near future for recommend against his hip surgerySupportive treatmentContinue statins and blood pressure managementFollow-up electrolytes at 1518 RP T #: [id number] OF REPORT [id number]:11:00L.[id number] 147AVAvailable for patient [id number]:18 2021-04-19 12:08:00 [id number]:00 [facility] ([facility]ENTERHospitalist Progress NoteREPORT#:[id number] REPORT STATUS: SignedDATE:04/19/21 TIME:1208 PATIENT: RAVEN ESCALANTE UNIT #: [id number]# : [id number] ROOM/BED: [place] [address]YNP63-2EPJ: 42 AGE: 81 SEX: M ATTEND: Mark Lucero [facility] AUTHOR: Mark Lucero MD * ALL edits o r amendments must be made on the electronic/computer document * SubjectiveChief Complaint:Chest pain STEMIComments:Patient lying on the bed feels better denies any complaint of chest pain. Objective GeneralVS/I O:Vital Signs: Date Time Temp Pulse Resp B/P B/P Pulse O2 O2 Flow FiO2 Mean Ox Delivery Rate 04/19 1100 36.4 Room air 04/19 930 73 20 123/59 84 96 04/19 090 0 71 17 127/64 90 95 04/19 0830 71 17 137/65 94 96 10/16 0801 73 15 123/63 86 96 10/16 0731 69 15 113/57 81 96 10/16 0710 73 26 119/57 79 96 10/16 0700 36.1 Room air 10/16 0532 72 21 111/61 81 96 10/16 0440 71 15 97 10/16 0430 68 18 105/57 77 9 7 10/16 0423 67 19 94/53 70 97 10/16 0415 66 15 9 5 10/16 0400 37.1 66 22 89/50 63 96 Room air 10/16 0400 66 22 89/50 65 96 10/16 0345 73 20 98 10/16 0341 71 44 96 10/16 0330 65 13 123/61 86 94 10/16 0315 65 14 93 10/16 0300 63 13 131/71 94 9 7 10/16 0251 66 27 139/77 100 97 10/16 0245 62 14 96 10/16 0230 63 11 139/65 91 96 10/16 0215 63 1 0 96 /16 0200 65 17 125/60 87 97 10/16 0145 66 18 97 10/16 0130 67 9 125/63 89 97 10/16 0115 65 14 96 10/16 0100 64 16 116/65 85 95 10/16 0045 65 14 95 10/16 0030 64 12 114/60 82 96 10/16 001 5 64 10 95 10/16 0001 65 14 98 10/16 0000 37.1 65 11 121/63 82 98 Room air /16 0000 65 11 121/63 86 98 /15 2345 65 10 95 /15 2330 65 10 112/56 78 95 10/15 2317 66 14 96 10/15 2315 66 9 95 10/15 2301 66 11 114/58 80 95 10/15 2300 65 1 2 96 10/15 2245 66 21 97 10/15 2230 68 16 133/72 9 8 98 10/15 2225 67 9 96 10/15 2220 67 10 96 10/15 2215 68 10 98 10/15 2205 67 11 96 10/15 2200 68 9 113/60 81 97 10/15 2150 66 9 96 10/15 2135 67 13 97 10/15 2130 66 19 113/62 83 97 10/15 2124 6 7 16 122/63 86 98 10/15 2120 72 20 98 10/15 2105 7 3 25 98 04/18 2050 78 16 95 04/18 2046 70 16 106/57 77 96 04/18 2035 69 18 97 04/18 2030 71 2 3 119/63 86 96 04/18 2020 70 14 96 04/18 2015 70 1 6 120/65 87 96 04/18 2008 69 19 125/60 86 98 04/18 2005 73 15 98 04/18 2000 37.1 69 19 125/60 81 98 Room air 04/189 95 04/18 1749 36.7 73 18 168/86 113 Room air 24 hour I O ending at 0700: 04/19 0700 04/18 1900 Intake Total 1000.00 Outpu t Total 1120 Balance -120 Intake, IV 1000.00 Number Voids 6 Output, Urine 1120 Patient 111.1 kg Weight Weight Bed scale Measurement Method PATIENT WEIGHT: Weight (lb): Weight (oz): Weight (kg): 111.100 Medications:Active Meds + DC'd Las t 24 HrsAtorvastatin Calcium (LIPITOR) 40 MG BEDTIME PO (UNV) Aspirin (ASPIRIN CHEWABLE) 81 MG DAILY PO Heparin Sodium (Porcine) (HEPARIN SODIUM) 5,000 UNIT Q12HR SUBQ Ticagrelor (BRILINTA) 90 MG Q12HR PO Albumin Human (OPTISON ) 3 ML ONCE PRN IV Acetaminophen/Codeine Phosphat e (TYLENOL W CODEINE NO.3) 1 TAB Q6H PRN PRN PO Acetaminophen (TYLENOL) 650 MG Q4H PRN PRN PO Docusate Sodium (COLACE) 100 MG BID PRN PRN PO Hydralazine HCl (APRESOLINE) 10 MG Q4H PRN PRN I V Ondansetron HCl (ZOFRAN) 4 MG Q6H PRN PRN IV Atorvastatin Calcium (LIPITOR) 10 MG BEDTIME PO (DCr) Carvedilol (COREG) 3.125 MG Q12HR PO Mupirocin (BACTROBAN NASAL-ADULT ICU/ALISON MRSA PATIENTS) 1 APPLIC BID NASAL Iopamidol (ISOVUE-300) 0 .STK-MED ONE .ROUTE (DC) Ticagrelor (BRILINTA) 0 .STK-MED ONE .ROUTE (DC) Midazolam HCl (VERSED) 0 .STK-MED ONE .ROUTE (DC ) Sodium Chloride (0.9% Sodium Chloride) 250 ML .Q1H IV (DC) Bivalirudin (ANGIOMAX) 0 .STK-MED ONE .ROUTE (DC) Nitroglycerin/Dextrose (NITROGLYCERIN 100 MCG/ML DRIP) 250 ML .STK-MED ONE IV (DC) Sodium Chloride (0.9% Sodium Chloride) 50 ML .STK-MED ONE IV (DC) Heparin Sodium (Porcine) (HEPARIN 1,000 UNITS/NS 500 ML) 2,000 ML .STK-MED ONE IV (DC) Iopamidol (ISOVUE-300) 0 .STK-MED ONE .ROUTE (DC) Lidocain e HCl (lidocaine HCL) 0 .STK-MED ONE .ROUTE (DC) ResultsFindings/Data:Laboratory Tests 04/19 04/04 6 04/19 0436 0436 0436 Chemistry Sodium (134 - 14 7 mmol/L) 136 Potassium (3.4 - 5.0 mmol/L) 3.7 Chloride (100 - 108 mmol/L) 103 Carbon Dioxide (21 - 32 mmol/L) 28 Anion Gap (4.0 - 15.0 GAP calc) 5.0 BUN (7 - 18 MG/DL) 14 Creatinine (0.8 - 1.3 MG/DL) 0.6 L Glomerular Filtr Rate (>60 estGFR) >=60 max estimate Glucose (70 - 110 MG/DL) 139 H Hemoglobin A1c (0.0 - 5.7 % A1C) 6. 4 H Estim Average Glucose (MG/DLest) 137 Calcium (8.5 - 10.1 MG/DL) 8.9 Phosphorus (2.5 - 4.9 MG/DL) 2.6 Magnesium (1.8 - 2.4 MG/DL) 1.9 NT-Pro-B Natriuret Pep (0 - 100 PG/ML) 1250 H Triglycerides (0 - 150 MG/DL) 141 Cholesterol (133 - 200 MG/DL) 175 LDL Cholesterol Measurd (0 - 129 MG/DL) 105 Non-HDL Cholesterol (<130 mg/dL) 127 HDL Cholesterol (40 - 59 MG/DL) 48 LDL/HDL Ratio (1.48 - 3.22 Avg Ratio) 2.18 Cholesterol/HDL Ratio (0 RATIO) 3.65 04/18 1433 Chemistry Sodium (134 - 147 mmol/L) 136 Potassiu m (3.4 - 5.0 mmol/L) 4.0 Chloride (100 - 108 mmol/L) 100 Carbon Dioxide (21 - 32 mmol/L) 30 Anion Gap (4.0 - 15.0 GAP calc) 6.0 BUN (7 - 18 MG/DL) 18 Creatinine (0.8 - 1.3 MG/DL) 0.8 Glomerular Filtr Rate (>60 estGFR) >=60 max estimate Glucose (70 - 110 MG/DL) 236 H Calcium (8.5 - 10.1 MG/DL) 9.3 Magnesium (1.8 - 2.4 MG/DL) 2.0 Troponin I (0.000 - 0.045 NG/ML) 0.16 0 *H Laboratory Tests 04/19 04/18 0436 1749 Hematology WBC (3.5 - 11.0 K/mm3) 10.6 12.9 H RB C (4.70 - 6.10 M/mm3) 4.81 5.04 Hgb (12.3 - 15.9 G/DL) 15.1 15.8 Hct (35.8 - 46.7 %) 44.4 47.6 H MCV (86.3 - 98.9 Fl) 92.3 94.4 MCH (28.9 - 34.4 pg) 31.4 31.3 MCHC (32.1 - 34.5 G/DL) 34.0 33.2 RDW (11.5 - 14.5 SD) 12.8 13.0 Plt Count (150 - 450 K/mm3) 190 234 MPV (7.0 - 9.6 fL) 9.40 9.80 H Neut % (Auto) (40 - 76 %) 79.8 H Lymph % (Auto) (20.5 - 51.1 %) 10.2 L [place] % (Auto) (1.7 - 9.3 %) 8.5 Eos % (Auto) (0.0 - 6.0 %) 0.8 Baso % (Auto) (0.0 - 2.0 %) 0.4 Neut # (Auto) (1.8 - 7. 6 K/mm3) 8.5 H Lymph # (Auto) (0.6 - 3.0 K/mm3) 1.1 [place] # (Auto) (0.2 - 1.5 K/mm3) 0.9 Eos # (Auto) (0.0 - 0.4 K/mm3) 0.1 Baso # (Auto) (0.0 - 0.2 K/mm3) 0.0 Abs Immat Gran (auto) (0.00 - 0.0 3 x10 3/uL) 0.03 Add Manual Diff (CRITERIA DIFF/SCN) NO Immature Gran % (0.0 - 5.0 %) 0.3 Nucleated RBC % (0.0 - 1.0 /100WBC%) 0.0 Laboratory Tests 04/19 0430 Serology SARS-CoV-2 Ag (Rapid) (Negative) NEGATIVE Radiology data:Recent Impressions:RADIOLOGY - XR CHEST 1 V 04/18 1744 Report Impression - Status: SIGNED Entered: 04/18/2021 1820 IMPRESSION:Perihilar atelectasis, pulmonary edema and/or pneumonia.Impression By: [email or web address] - Caio Nunez M.D.CAT SCAN - CT CHEST W/O CONTRAST 04/19 0505 Report Impression - Status: SIGNED Entered: 04/19/2021 0643 IMPRESSION: 1. Mild bibasilar atelectasis. No focal airspace consolidation.Impression By: [email or web address] - Martin Brennan M.D. Results: labs reviewed, x-ray personally reviewed, current med profile rev'd Free Text Obj NotesFree Text Obj Notes:Physical examinationPatient is a pleasant person lying on the bed does not appear to be in distressHEENT pupils equal round reactive light and accommodating normocephalic/atraumatic skull normal oral mucosaHas left facial droop due to prior history of acoustic neuromaNeck supple no JVDChest clear bilateral entry no wheeze or cracklesCVS S1-S2 no murmur rubs or gallopAbdome n soft nontender bowel sounds positiveRight groin cath site appears clean no pulsatile mass no bruising no bleedingExtremities no pedal edema pulses palpableCNS alert oriented x3 moving all 4 extremities no focal deficit identifiedPsych examination normal mood no suicidal homicidal ideation Diagnosis, Assessment PlanHospital course to date:Acute Anterior STEMI s/p angioplasty and left LAD stent Hx of CAD s/p PCI with 4 stentsPresented with chest pain with radiation to neck and LUE which has now resolved - Consult Cardiology - Had been on ASA only sinc e Aug 2020. Now started on ASA + Brilinta - Echo i n AM - PRN meds for pain as needed - Resume Metoprolol - Order lipid panel, BNP and HgbA1c Leukocytosis Reactive vs infectious, no clinical signs of infection. Chest xray inconclusive.Afebrile - Repeat CBC in AM - Order CT chest to evaluate pneumonia vs pulmonary vinicio a Hypertension Stable- Started on Coreg. Hold home dose Metoprolol Hyperlipidemia - Started on Statin - Hold off on Zetia Arthritis Chronic - Prn tylenol for pain - Pt to reschedule hip surgery with his outpatient Ortho team when stable VTE ppx - Heparin Full code Dispo - likel y home, pending clinical progression Time spent is 60 mins 10TEMI status post PCI with NICHELLE to LADContinue post cath management as per cardiologyDual antiplatelet therapy with aspirin and BrilintaPatient's aspirin was on hold becaus e of some anticipated surgery but now will continu e with dual antiplatelet therapy.High intensity statinFollow-up with the echoMonitor on telemetryContinue beta-darlene Leukocytosis appear to be reactive CT chest reviewed does not appear to have pneumonia. Stop antibiotics. HypertensionContinue with patient's beta-darlene DyslipidemiaContinue with statin Hemoglobin A1c 6.4 will be considered prediabetes. Follow-up with PCP as outpatient lifestyle modification OsteoarthritisAs needed pain medication DVT prophylaxisPatient is full codeIf remains stable can be downgraded to telemetry Consultants: cardiology, critical/pill maker at 1223 RPT #: [id number] OF REPORT PRProgress [id number]:08:00L.[id number] l able for patient [id number]:23:23 2021-04-18 21:42:00 [id number]:42:[id number] [facility] ([facility])History Physical - AdultREPORT#:[id number] REPORT STATUS: SignedDATE:04/18/21 TIME:2141 PATIENT: RAVEN ESCALANTE UNIT #: [id number]# : [id number] ROOM/BED: ULE70-1OSZ: 42 AGE: 81 SEX: M ATTEND: Mark Lucero [facility] AUTHOR: Arminda Louis * ALL edits or amendments must be made on the electronic/computer document * Arminda Louis 04/18/212141:History of Present Illness HPIChie f complaint:chest pain HPI:81 yo M with PMH of HTN , HLD, CAD s/p LA and 4 stents and Arthritis presented with left sided achy chest pain with radiation to neck and LUE which began earlier today. Pt states he was getting an Echocardiogra m as part of pre-op testing for Right hip surgery on Wednesday when symptoms started. He went home to rest but symptoms only worsened so called EMS . Pt was found to have STEMI on arrival so sent emergently to cathode maker. Pt had angioplasty and stent placed in LAD. Labs done on presentation showed mild leukocytosis, hyperglycemia and elevated troponin. Chest xray showed perihilar atelectasis and pulmonary edema and/or pneumonia . Pt seen on admission in ICU after heart cath and states he feels so much better. Currently only reports right hip pain and vitals stable. Of note, reports he had been on Aspirin only as he was taken off Plavix in Aug 2020. HistoryPast medical history:Reports: Arthritis, Coronary artery disease, Hypertension, Dyslipidemia. Additional medical history:left acoustic neuroma removal Past surgical history:Reports: Appendectomy, Cholecystectomy, Knee procedure, PCI. Alcohol use: Denies EtOH useDrug use: Denie s recreational drugsSmoking status: Smoking status for patients 13 years old or older: Never Smoker Medication/Allergy-Vaccine HxAllergies:Coded Allergies:No Known Allergies (04/18/21) Pt reports no significant: family history Review of SystemsConstitutional:Denies: chills, fatigue, fever, generalized weakness. Skin:Denies: contusion, diaphoresis, ecchymosis. Allergy/Immun:Denies: itching, rhinorrhea, sneezing. Eyes:Denies: visual loss/blurred, itching, eye pain. ENT:Denies: nasal congestion, sore throat, voice change. Respiratory:Denies: YOUNG (dyspnea on exertion), pleurisy, wheezing. Cardiovascular:Reports: chest pain (now resolved). Denies: orthopnea, palpitations. GI:Denies: abdominal pain, nausea, vomiting. :Denies: dysuria, flank pain, frequency, hematuria. Musculoskeletal: Joint pain: Reports: right lower. Neuro:Denies: dizziness, lightheaded, numbness. Psych:Denies: anxiety, confusion, stress. Physical ExamVS/I OVital Signs: Date Time Temp Pulse Resp B/P B/P Pulse O 2 O2 Flow FiO2 Mean Ox Delivery Rate 04/18 2124 67 16 122/63 86 98 04/18 2046 70 16 106/57 77 96 04/18 2030 71 23 119/63 86 96 04/18 2015 70 16 120/65 87 96 04/18 2008 69 19 125/60 86 98 04/18 1849 95 04/18 1749 36.7 73 18 168/86 113 Room air PATIENT WEIGHT: Weight (lb): Weight (oz): Weight (kg): 111.100 General appearance: alert, awake, oriented, no acute distressHead/Eyes: atraumatic, normocephalic, normal conjunctiva/scleraENT: moist mucosal membranesNeck: no masses or swelling, supple/no meningismusCardiovascular: regular rate rhythm, normal heart soundsRespiratory: clear to auscultation, no distress, no tendernessAbdomen/GI: active bowel sounds, soft, non-tenderExtremities: moves all, no edema-all extremities, clean right groin dressingMusculoskeletal: no muscle spasm, right hip painNeuro/BUSINESS LAW TEACHER: alert, oriented X 3Skin: dry, normal color, normal turgorPsychiatry: normal affect, normal judgment/insight, normal mood ResultsFindings/Data:Laboratory Tests: 04/18 174 9 Chemistry Sodium (134 - 147 mmol/L) 136 Potassium (3.4 - 5.0 mmol/L) 4.0 Chloride (100 - 108 mmol/L) 100 Carbon Dioxide (21 - 32 mmol/L) 30 Anion Gap (4.0 - 15.0 GAP calc) 6.0 BUN (7 - 18 MG/DL) 18 Creatinine (0.8 - 1.3 MG/DL) 0.8 Glomerular Filtr Rate (>60 estGFR) >=60 max estimate Glucose (70 - 110 MG/DL) 236 H Calcium (8.5 - 10.1 MG/DL) 9.3 Magnesium (1.8 - 2.4 MG/DL) 2.0 Troponin I (0.000 - 0.045 NG/ML) 0.160 *H Hematology WBC (3.5 - 11.0 K/mm3) 12.9 H RBC (4.70 - 6.10 M/mm3) 5.04 Hgb (12.3 - 15.9 G/DL) 15.8 Hct (35.8 - 46.7 %) 47.6 H MCV (86.3 - 98.9 Fl) 94.4 MCH (28.9 - 34.4 pg) 31.3 MCHC (32.1 - 34.5 G/DL) 33.2 RDW (11.5 - 14.5 SD) 13. 0 Plt Count (150 - 450 K/mm3) 234 MPV (7.0 - 9.6 fL) 9.80 H Radiology data:Recent Impressions:RADIOLOGY - XR CHEST 1 V 04/18 4274 Report Impression - Status: SIGNED Entered: 04/18/2021 1820 IMPRESSION:Perihilar atelectasis, pulmonary edema and/or pneumonia.Impression By: Bari - Caio Nunez M.D. Diagnosis, Assessment Plan Code Status/Resusc. DiscussionCode status: full code Free Text DxA P NotesFree Text DxA P Notes: Assessment/Plan Acute Anterior STEMI s/p angioplasty and left LAD stent Hx of CAD s/p PCI with 4 stentsPresented with chest pain with radiation to neck and LUE which has now resolved - Consult Cardiology - Had been on ASA only sinc e Aug 2020. Now started on ASA + Brilinta - Echo i n AM - PRN meds for pain as needed - Resume Metoprolol - Order lipid panel, BNP and HgbA1c Leukocytosis Reactive vs infectious, no clinical signs of infection. Chest xray inconclusive.Afebrile - Repeat CBC in AM - Order CT chest to evaluate pneumonia vs pulmonary vinicio a Hypertension Stable- Started on Coreg. Hold home dose Metoprolol Hyperlipidemia - Started on Statin - Hold off on Zetia Arthritis Chronic - Prn tylenol for pain - Pt to reschedule hip surgery with his outpatient Ortho team when stable VTE ppx - Heparin Full code Dispo - likel y home, pending clinical progression Time spent is 60 mins Wu Neewll 04/19/21 1659:Attestation s Physician AttestationAgree w/findings plan: Appreciate note from NPAgree with the history an d physical findingsLab works notedImaging noted as wellFindings were discussed with the IRINA and Staff Electronically Signed by Arminda Louis 04/19/21 at 0054 at 1659 RPT #: [id number] OF REPORT HPHistory and physical [id number]:42:00L.[id number] AVAvailable for patient [id number]:55:12 2021-04-18 19:39:00 [id number] [facility] [id number] [place] [address] PATIENT NAME: RAVEN ESCALANTE ADMIT DATE: 04/18/21ACCOUN T NO: [id number] ROOM NO: L.ICU07 AGE: 81 REPORT TYPE: CARDIAC CATHETERIZATION REPORT SEX: M ADMITTING PHYSICIAN: Mark Lucero MD ATTENDING PHYSICIAN: Mark Lucero MD PROCEDURE DATE: 04/18/2021 TITLE OF THE PROCEDURE:1. Cardiac catheterization.2. Angioplasty and stenting of the LAD. INDICATION: Anterior STEMI. DESCRIPTION OF PROCEDURE: After informed consent, the patien t was emergentlytaken from the ER to the cathode maker. Sedation was provided with IV Versed andlocal anesthesia was administered to the right groin area. The right femoralartery was accessed with a 6-Iraqi sheath. A 6-Iraqi diagnostic cathetersystem was used to selectively cannulate the left main and RCA and the followingfindings were obtained:1. The left main is patent.2. The LAD is completely occluded at the site of the proximal edge of aprevious stent.3. The circumflex is patent and has a patent OM.4. The RCA is patent with 50% diffuse plaquing and patent posterolateral, butcompletely occluded PD A branch, which after we did the angioplasty of th e LADnoticed that it fills retrogradely from the LAD system. INTERVENTION: We decided to proceed with intervention on the LAD, which is theculpri t vessel in his STEMI. We used a 6-Iraqi XB 4.0 guide to cannulate theleft main. We then used a ChoICE PT extra support wire and successfully crossedthe occlusion and parked the wire in the distal LAD. We then predilated the oldstent, which started at the ostium and went all the way to the mid LAD past hisdiagonal branch. The initial predilatation was done using a 2.5 x 15 balloon. LU 3 flow was restored in the proxima l and mid LAD, but then we noted thatthere is another occlusion in the distal LAD. A PTCA of the distal LAD was doneusing a 2.0 x 15 balloon and LU-3 flow was restored to the entire LAD. Afterthat, we went back to the proximal LAD area and inserted a 3.0 x 24 Synergydrug-eluting sten t and we positioned it with the proximal edge 1 mm into theleft main artery and the distal edge ending inside the previous stent before thediagonal branch. Further post-dilation was done using a 3.0 noncompliantballoon. Excellent angiographic results were obtained within the stentedsegment with 0% residual stenosis and LU-3 flow. The remainder of the oldstent, whic h was not stented was satisfactory with the PTCA that we did and wedecided not to stent it so no t we can preserve his large diagonal branch, whichitself had a 70% proximal stenosis. Of significance also is that there isextensive retrograde filling of the PDA branch from the LA D system. PATIENT NAME: RAVEN ESCALANTE COMMENTS: Angiomax was used during the case. Angio-Seal was used at the end ofthe case. 180 mL of contrast was used for the entire case. The patienttolerated the procedure very well and was chest pain free at the end of the caseand was appreciative of the care provided. Dictated By: Perez Arthur MD WT: CATH:LKAILASH/ILDA/NTSDD: 04/18/2021 19:39:05DT: 04/18/2021 20:03:49Conf#: [id number]/DID#: [id number] Authenticated by Perez Arthur MD On 10/02/2021 10:34:17 AM at 1034 PATIENT NAME: RAVEN ESCALANTE cyvc1942Q75:03:00L.[id number] a ble for patient [id number]:34:50 2021-04-18 17:54:00 [id number]:54:00 [facility] ([facility] PROVID[facility] REPORTREPORT#:[id number] REPORT STATUS: SignedDATE:04/18/21 TIME:1754 PATIENT: RAVEN ESCALANTE UNIT #: [id number]# : [id number] ROOM/BED: ZAM12-2LVK: 42 AGE: 81 SEX: M PCP PHYS: DOES_NOT KNOWSERVICE DT : 04/18/21 AUTHOR: Mook Chavez DO * ALL edits or amendments must be made on the electronic/computer document * HPI-Chest Pain 40 and Over GeneralConfirmed Patient YesInitial Greet Date/Time 04/18/21 8498 PresentationChief Complaint Shortness of breathHx Obtained From Patient, EMSSudden in Onset? YesOnset Occurred Today (around 1-130pm)Symptom Duration Since onsetProgression since Onset Gradually improvingContext of Onset At restLocation Shoulder LQuality HeavinessRadiationArm L. )( Migration/Movement NoneSeverity: Onset ModerateSeverity: Current MildAssociated withDenies: Cough, non-productive, Cough, productive, Cough, with hemoptysis, Diaphoresis, Dizziness, Fatigue, Fever, Lightheaded, Nausea, Near-syncope, Numbness/Tingling, Palpitations, Recent viral symptoms, Syncope, Vomiting, Weakness, Wheezing. Exacerbated by NothingRelieved by Nothing Free Text HPI NotesFree Text HPI NotesThe patient states that he was in [place] having [place] echo performed in his heart when he developed shortness of breath and heaviness sensation down his left arm . EKG was performed the patient was noted to have a STEMI. Patient wastransported here via EMS. Code STEMI called in route. Patient received 324 mg o f aspirin, 2 doses of nitroglycerin, 2.5 mg of metoprolol via EMS prior to arrival. Patient reports improved symptoms after nitro. Denies chest pain at this time. Reports history of LA with 4 stents. Risk-Chest Pain 40 and Over Risk Stratification)( Coronary Artery Disease Risk factors reviewed)( Thoracic Aortic Dissection Risk factors reviewed)( Pulmonary Embolism Risk factors reviewed)( AMI-Aspirin Aspirin Last 24 Hrs 324 mg, By EMS Review of Systems ROS StatementsComplete sys rev neg except as marked. Focused Review of SystemsConstitutionalDenies: Chills, Fever, Lethargy. RespiratoryReports: Shortness of breath. Denies: Cough, non-productive, Cough, productive. CardiovascularDenies: Dyspnea on exertion, Edema , Syncope. GIDenies: Abdominal pain, Diarrhea, Nausea, Vomiting. MusculoskeletalReports: Extremity pain. Denies: Back pain. SkinDenies: Diaphoresis, Rash. NeurologicDenies: Change LOC, Dizziness, Focal weakness, Headache, Numbness, Slurred speech. Past Medical History - AdultStated Complaint STEMIAllergiesCoded Allergies:No Known Allergies (04/18/21) Home MedicationsReported MedicationsMETOPROLOL TARTRATE (LOPRESSOR) 25 MG PO BID ASPIRIN EC (ECOTRIN) 81 MG PO BEDTIME GABAPENTIN (NEURONTIN ) 300 MG PO BEDTIME MULTIVITAMIN (MULTIPLE VITAMIN ) 5 TABS PO DAILY UBIDECARENONE (CO Q-10) 100 MG P O DAILY [ULTRAGEST] 2 TABS PO BEDTIME ACETAMINOPHE N (TYLENOL) 1,000 MG PO Q6H PRN PRN PAIN EZETIMIBE (ZETIA) 10 MG PO DAILY Physical Exam Vital SignsVital SignsFirst Documented: Result Date Time B/P 168/86 04/18 1749 B/P Mean 113 04/18 1749 O2 Delivery Room air 04/18 1749 Temp 98.1 04/18 1749 Pulse 73 04/18 1749 Resp 18 04/18 1749 Pulse Ox 95 04/18 1849 Last Documented: Result Date Time Pulse Ox 95 04/18 1849 B/P 168/86 04/18 1749 B/P Mean 113 04/18 1749 O2 Delivery Room air 04/18 1749 Temp 98.1 04/18 Pulse 73 04/18 1749 Resp 18 04/18 1749 Review of Vital Signs Reviewed Focused PEGeneral/Const General/Const Awake, AlertEyes Eyes PERRLMS Neck Neck Supple, Full range of motion, No swelling, Non-tender, No masses, No JVDResp/Chest Respiratory/Chest Breath sounds NL, Breath sound s = bilat, No respiratory distress, No rales, No rhonchi, No wheezing, No chest tendernessCardiovascular Cardiovascular Heart rate NL, Regular rhythm, Heart sounds NL, No murmurs, Peripheral circulation NL, Pulses = bilaterally, No gross BP differentialAbdomen/GI Abdomen/GI Soft, Non-tender, No guarding, No reboundMS Back Back Inspection NL, Non-tender, N o CVA tendernessMS Lower Extrem Lower Ext/Pelvis/M S Inspection NL, No swelling, Non-tender, No erythema, No deformity, Neurologic intact, Vascular intact, No edemaSkin Skin Color NL, Warm, Dry, Turgor NLNeurologic Neurologic Oriented X3, Speech NL, No motor deficits, No sensory deficits Additional PEMS Head Head Atraumatic, NormocephalicMS Upper Extrem Upper Extremity/MS Atraumatic, Inspection NL Interpretation Diagnostics Lab Results InterpretationResultsLaboratory Tests 04/18/211748:[Embedded Image Not Available]Laboratory Tests: 04/18 1749 Chemistry Sodium (134 - 147 mmol/L) 136 Potassium (3.4 - 5.0 mmol/L) 4.0 Chloride (100 - 108 mmol/L) 100 Carbon Dioxide (21 - 32 mmol/L) 30 Anion Gap (4.0 - 15.0 GAP calc) 6.0 BUN (7 - 18 MG/DL) 18 Creatinine (0.8 - 1.3 MG/DL) 0.8 Glomerular Filtr Rate (>60 estGFR) >=60 max estimate Glucose (70 - 110 MG/DL) 236 H Calcium (8.5 - 10.1 MG/DL) 9.3 Magnesium (1.8 - 2.4 MG/DL) 2.0 Troponin I (0.00 0 - 0.045 NG/ML) 0.160 *H Hematology WBC (3.5 - 11.0 K/mm3) 12.9 H RBC (4.70 - 6.10 M/mm3) 5.04 Hgb (12.3 - 15.9 G/DL) 15.8 Hct (35.8 - 46.7 %) 47.6 H MCV (86.3 - 98.9 Fl) 94.4 MCH (28.9 - 34. 4 pg) 31.3 MCHC (32.1 - 34.5 G/DL) 33.2 RDW (11.5 - 14.5 SD) 13.0 Plt Count (150 - 450 K/mm3) 234 MPV (7.0 - 9.6 fL) 9.80 H Recent Impressions:RADIOLOGY - XR CHEST 1 V 04/18 1744 Report Impression - Status: SIGNED Entered: 04/18/2021 1820 IMPRESSION:Perihilar atelectasis, pulmonary edema and/or pneumonia.Impression By: SkylerVBAstrid Nunez M.D. Point of Care TestingPulse Oximetry Pulse Ox % 95 On: Room air Interpretation Interpreted by me ECG #1 InterpretationText/Dict NoteNormal sinus rhythmRate 74Left axisST segmen t elevation in leads aVR, V1 through V5ST segment depression in leads II, 3, aVFNonspecific T wave changesFirst-degree AV blockDate 04/18/21Time 1743Interpreted by and reviewed by me Re-Evaluation MDM Free Text MDM NotesFree Text MDM NotesCath Lab team present at bedside upon patient's arrival. ED CourseMedication(s) OrderedMedication(s) Ordered:Blood Formation,Coagulation Sig/Jo-Ann Start time Last Medication Dose Route Stop Time Status Admin Ticagrelor 0 .STK-MED ONE 04/18 184 DC .ROUTE Bivalirudin 0 .STK-MED ONE 04/18 1756 DC .ROUTE Heparin Sodium 2,000 ML .STK-MED ONE 04/18 1750 DC (Porcine) IV Cardiovascular Drugs Sig/Jo-Ann Start time Last Medication Dose Route Stop Time Status Admin Nitroglycerin/ 250 ML .STK-MED ONE 04/18 1756 DC Dextrose IV Lidocaine HCl 0 .STK-MED ONE 10/15 1750 DC .ROUTE Central Nervou s System Agents Sig/Jo-Ann Start time Last Medicatio n Dose Route Stop Time Status Admin Midazolam HCl 0 .STK-MED ONE 04/18 181 DC .ROUTE Diagnostic Agents Sig/Jo-Ann Start time Last Medication Dose Route Stop Time Status Admin Iopamidol 0 .STK-MED ONE 04/18 175 DC .ROUTE Electrolytic, Caloric, And Katelyn Sig/Jo-Ann Start time Last Medication Dose Route Stop Time Status Admin Sodium Chloride 250 ML .Q1H 04/18 1800 DC IV 04/18 185 Sodium Chloride 50 ML .STK-MED ONE 04/18 175 DC IV Skin And Mucous Membrane Agent Sig/Jo-Ann Start time Last Medication Dose Route Stop Time Status Admin Mupirocin 1 APPLIC BID 04/18 2000 AC 04/19 NASAL 04/23 0901 0814 ConsultationConsultation 1 Referral/Consult Name Perez Arthur MD Client Liaison Called Cardiology Requested Call Time 1752 Requested Call Date 04/18/21 Call Returned Call returned Call Returned Time 1753 Call Returned Date 04/18/21 Client Liaison will take to cath labConsultation 2 Referral/Consult Name; Bart Bryan MD Consultan t Called Professor Of Physics Requested Call Time 1755 Requested Call Date 04/18/21 Call Returned Call returned Call Returned Time 1755 Call Returned Date 04/18/21 Client Liaison Will see patient Patien t Discharge Departure Vital Signs/ConditionVital SignsFirst Documented: Result Date Time B/P 168/86 04/18 1749 B/P Mean 113 04/18 1749 O2 Delivery Room air 04/18 1749 Temp 98.1 04/18 174 9 Pulse 73 04/18 174 Resp 18 04/18 1749 Pulse Ox 95 04/18 1849 Last Documented: Result Date Time Pulse Ox 95 04/18 184 B/P 168/86 04/18 1749 B/ P Mean 113 04/18 174 O2 Delivery Room air 04/18 1749 Temp 98.1 04/18 174 Pulse 73 04/18 174 Resp 18 04/18 1749 All vital signs available at the time of this entry have been reviewed. Clinical ImpressionClinical ImpressionPrimary Impression: STEMI (ST elevation myocardial infarction) Disposition DecisionAdmit Admit Physician Name Mark Lucero MD Admit Physician Hospitalist Request Time 1754 Request Date 04/18/21 )( Admission Accepts Yes )( Accepted Time 1754 )( Accepted Date 04/18/21 Call Information will see patient, agrees with eval, agrees with plan Discharge/Care PlanCounseled Regarding Diagnosis, Need for admission Critical CareTime Spent (minutes): 35Services Performed Patient management by me, Time spent at bedside, Reviewing test results, Reviewing imaging, Discussing patient care, Documentation in record , Time with fam/surrogate at 1243 RPT #: [id number] OF REPORTEDEmergency department cgsaxl8610-06-16C68:54:00L.[id number] a ilable for patient [id number]:44:04 2021-03-25 15:27:00 [id number] [place] [id number] PATIENT NAME: RAVEN ESCALANTE ADMIT DATE: ACCOUNT NO: [id number] ROOM NO: AGE: 81 REPORT TYPE: ELECTROCARDIOGRA M SEX: M ADMITTING PHYSICIAN:Shane Alvarez MD ATTENDING PHYSICIAN:Shane Alvarez MD Order:[id number] Reason : PRE OP CLEARANC E HX HTN Test Date/Time Stamp:WedMar 25 2021 15:27:23Blood Pressure : / mmHGVent. Rate : 054 BPM Atrial Rate : 054 BPM P-R Int : 280 ms QRS Dur : 078 ms QT Int : 404 ms P-R-T Axes : 03 3 -52 088 degrees QTc Int : 383 ms Sinus bradycardia with 1st degree AV blockLeft axis deviationSeptal infarct , age undeterminedAbnormal ECGNo previous ECGs availableConfirmed by NAHUM TYLER MD ([id number]) on 03/27/2021 11:46:43 AM Referred By: Shane Alvarez Confirmed by:NAHUM TYLER MD Electronicall y Signed by Nahum Tyler MD on 03/27/21 at 1146 PATIENT NAME: RAVEN ESCALANTE .[id number] AVAvailable for patient [id number]:47:03
[2023-06-06 16:23] LABS: Absolute Lymphocytes (CBC) 0.7 K/uL (0.7-4.9); Hematocrit 43.6 % (39.6-49.0); Lymphocytes % 5.9 % (15.3-44.8); MCV 93.9 fL (80-100); MPV 8.3 fL (7.6-11.3); Platelets 186 thou/uL (152-406); RBC Red Blood Cell Count 4.65 M/uL (4.33-5.43)
[2023-06-06 16:30] LABS: Protime INR 1.15
[2023-06-06 16:42] LABS: Magnesium 2.3 mg/dL (1.6-2.4); Potassium 4.3 mEq/L (3.5-5.1)
[2023-06-06 16:45] LABS: Troponin High Sensitivity 148.9 pg/mL (<58.9)
[2023-06-06 16:51] LABS: SARS-CoV-2 Antigen Rapid Res Negative (Negative)
[2023-06-06] MEDS ORDERED: NA CHLORIDE 0.9% 1,000 ML ONE (16:56)
--- NOTE | 2023-06-06 16:57 | RAD REPORT ---
EXAM DESCRIPTION: Pedro Single View06/06/2023 4:36 pm CLINICAL HISTORY: Chest pain COMPARISON: 2021 FINDINGS: Urjz-om-dsqcaogw bilateral pulmonary opacities. Heart is mildly to moderately enlarged. Pacemaker leads in place IMPRESSION: Mild to moderate CHF
[2023-06-06 17:03] LABS: Specific Gravity > 1.030 (1.005-1.030); Urine Bacteria None Seen /HPF (<20); Urine Bilirubin NEGATIVE (Negative); Urine Blood Negative (Negative); Urine Clarity Clear (Clear); Urine Color Yellow (Yellow); Urine Glucose 2+ (Negative); Urine Mucus 2+ /HPF (None Seen); Urine Protein 1+ (Negative); Urine Urobilinogen Normal (Normal); Urine pH 5.5 (5.0-7.0)
[2023-06-06 17:28] LABS: Blood Morphology Comment NOT SEEN (NOT SEEN); Platelet Estimate ADEQ; White Blood Cell Scan OK (OK)
[2023-06-06] MEDS ORDERED: FUROSEMIDE 40 MG/4 ML VIAL ONE (17:51)
--- NOTE | 2023-06-06 17:53 | EDPHYS ---
Physician Documentation [facility] Name: Levy Uribe Age: 83 yrs Sex: Male : 1940 Arrival Date: 06/06/2023 Time: 15:31 Bed 16 Private MD: ED Physician Roger Erickson HPI: 06/06 17:40 This 83 yrs old Male presents to ER via EMS with complaints of Fall Injury. jv 17:40 Details of fall: The patient fell from an upright position, while standing. Onset: The jv symptoms/episode began/occurred just prior to arrival. Associated injuries: The patient sustained no obvious injury. Severity of symptoms: At their worst the symptoms were mild. The patient has experienced similar episodes in the past, a few times. 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 - Social history:: Smoking status: Patient denies any tobacco usage or history of. ROS: 17:44 Constitutional: Negative for fever, chills, and weight loss, Eyes: Negative for injury, jv pain, redness, and discharge, ENT: Negative for injury, pain, and discharge, Neck: Negative for injury, pain, and swelling, Abdomen/GI: Negative for abdominal pain, nausea, vomiting, diarrhea, and constipation, Back: Negative for injury and pain, : Negative for injury, bleeding, discharge, and swelling, MS/Extremity: Negative for injury and deformity, Skin: Negative for injury, rash, and discoloration, Neuro: Negative for headache, weakness, numbness, tingling, and seizure, Psych: Negative for depression, anxiety, suicide ideation, homicidal ideation, and hallucinations, Allergy/Immunology: Negative for hives, rash, and allergies, Endocrine: Negative for neck swelling, polydipsia, polyuria, polyphagia, and marked weight changes, Hematologic/Lymphatic: Negative for swollen nodes, abnormal bleeding, and unusual bruising, 17:44 Cardiovascular: Positive for chest pain, of the chest, defib fired 2 times, 17:44 Respiratory: Positive for shortness of breath, at rest. Exam: 17:44 Constitutional: This is a well developed, well nourished patient who is awake, alert, jv and in no acute distress. Head/Face: Normocephalic, atraumatic. Eyes: Pupils equal round and reactive to light, extra-ocular motions intact. Lids and lashes normal. Conjunctiva and sclera are non-icteric and not injected. Cornea within normal limits. Periorbital areas with no swelling, redness, or edema. ENT: Nares patent. No nasal discharge, no septal abnormalities noted. Tympanic membranes are normal and external auditory canals are clear. Oropharynx with no redness, swelling, or masses, exudates, or evidence of obstruction, uvula midline. Mucous membranes moist. Neck: Trachea midline, no thyromegaly or masses palpated, and no cervical lymphadenopathy. Supple, full range of motion without nuchal rigidity, or vertebral point tenderness. No Meningismus. Chest/axilla: Normal chest wall appearance and motion. Nontender with no deformity. No lesions are appreciated. Abdomen/GI: Soft, non-tender, with normal bowel sounds. No distension or tympany. No guarding or rebound. No evidence of tenderness throughout. Back: No spinal tenderness. No costovertebral tenderness. Full range of motion. Male : Normal genitalia with no discharge or lesions. Skin: Warm, dry with normal turgor. Normal color with no rashes, no lesions, and no evidence of cellulitis. MS/ Extremity: Pulses equal, no cyanosis. Neurovascular intact. Full, normal range of motion. Neuro: Awake and alert, GCS 15, oriented to person, place, time, and situation. Cranial nerves II-XII grossly intact. Motor strength 5/5 in all extremities. Sensory grossly intact. Cerebellar exam normal. Normal gait. Psych: Awake, alert, with orientation to person, place and time. Behavior, mood, and affect are within normal limits. 17:44 Cardiovascular: Rate: normal, Rhythm: regular, Pulses: Pulses are 4+ in bilateral radial, brachial, femoral, popliteal, posterior tibial and and dorsalis pedis arteries.. Heart sounds: normal, Edema: is not appreciated, JVD: is noted bilaterally, to 2 cm, 17:44 ECG was reviewed by the Attending Physician. Vital Signs: 15:39 BP 135 / 71; Pulse 84; Resp 16 S; Temp 98.6(O); Pulse Ox 100% on R/A; Weight 97.52 kg kc6 (R); Height 5 ft. 10 in. (R); 16:30 BP 139 / 89; Pulse 86; Resp 28 S; Pulse Ox 94% ; kc6 17:30 BP 142 / 76; Pulse 75; Resp 22 S; Pulse Ox 92% ; kc6 18:30 BP 132 / 76; Pulse 74; Resp 17 S; Pulse Ox 91% on 3 lpm NC; kc6 19:00 BP 103 / 63; Pulse 68; Resp 16; Pulse Ox 94% ; nw1 19:30 BP 118 / 63; Pulse 67; Resp 16; Pulse Ox 94% ; nw1 20:00 BP 135 / 81; Pulse 73; Resp 15; Pulse Ox 96% ; nw1 20:15 BP 111 / 68; Pulse 67; Resp 15; Pulse Ox 95% on R/A; nw1 15:39 Body Mass Index 30.85 (97.52 kg, 177.8 cm) [facility] MDM: 16:24 Patient medically screened. jv 17:48 Differential diagnosis: Anemia CHF exacerbation, Chronic Obstructive Pulmonary Disease jv abnormal EKG, coronary artery disease chest wall pain, costochondritis, gastritis, hiatal hernia, peptic ulcer disease, stable angina, unstable angina, pulmonary edema, Pulmonary Embolism reactive airway disease. Antibiotic administration: Not indicated. HEART Score: History: Moderately Suspicious (1), ECG: Non specific repolarization disturbance / LBTB / PM (1), Age: > or = 65 years (2), Risk Factors: > or = 3 Risk factors for atherosclerotic disease (2), [Hypercholesterolemia] [Hypertension] [+ Family HX] [Obesity] Troponin: > 1 and < 3 x normal limit (1), Total Score = 7. Differential diagnosis: abrasion, closed head injury, contusion, fracture, laceration, multiple trauma, sprain, strain. The patient was not given aspirin in the Emergency Department. Patient reports taking aspirin within the past 24 hours. The patient was given aspirin in the Emergency Department. Immunization status: Pneumococcal vaccine:. Data reviewed: vital signs, nurses notes, EMS record, lab test result(s), EKG, radiologic studies, plain films. Consideration of Admission/Observation Patient was admitted/placed on observation. Escalation of care including admission/observation considered. I considered the following discharge prescriptions or medication management in the emergency department Medications were administered in the Emergency Department. See SEP. 17:57 Historians other than the Patient: Family Member: and daughter. Care significantly jv affected by the following chronic conditions: Hypertension, Congestive Heart Failure, Obesity, cad, pm/defib. Counseling: I had a detailed discussion with the patient and/or guardian regarding the historical points, exam findings, and any diagnostic results supporting the discharge/admit diagnosis, lab results, radiology results, the need for further work-up and treatment in the hospital. ED course: no blood thinner except aspirin. 06/06 15:57 Order name: Basic Metabolic Panel; Complete Time: 17:29 [facility] 06/06 15:57 Order name: CBC with Diff; Complete Time: 17:29 [facility] 06/06 15:57 Order name: Magnesium; Complete Time: 17:29 [facility] 06/06 15:57 Order name: NT PRO-BNP; Complete Time: 17:29 [facility] 06/06 15:57 Order name: PT-INR; Complete Time: 17:29 [facility] 06/06 15:57 Order name: Troponin HS; Complete Time: 17:29 [facility] 06/06 16:26 Order name: Lipase; Complete Time: 17:29 [facility] 06/06 16:26 Order name: Urinalysis w/ reflexes; Complete Time: 17:29 [facility] 06/06 16:26 Order name: SARS RAPID; Complete Time: 17:29 [facility] 06/06 16:26 Order name: Flu; Complete Time: 17:29 [facility] 06/06 17:28 Order name: CBC Smear Scan; Complete Time: 17:29 [facility] 06/06 18:27 Order name: CBC with Automated Diff [facility] 06/06 18:27 Order name: CBC with Automated Diff [facility] 06/06 18:27 Order name: Comprehensive Metabolic Panel [facility] 06/06 18:27 Order name: Comprehensive Metabolic Panel [facility] 06/06 18:27 Order name: Lipid Profile [facility] 06/06 18:27 Order name: Lipid Profile [facility] 06/06 18:27 Order name: Magnesium [facility] 06/06 18:27 Order name: Magnesium [facility] 06/06 18:27 Order name: NT PRO-BNP [facility] 06/06 18:27 Order name: NT PRO-BNP [facility] 06/06 18:27 Order name: Phosphorus [facility] 06/06 18:27 Order name: Phosphorus [facility] 06/06 18:27 Order name: Troponin High Sensitivity [facility] 06/06 18:27 Order name: Troponin High Sensitivity [facility] 06/06 18:27 Order name: Troponin High Sensitivity [facility] 06/06 15:57 Order name: XRAY Chest (1 view); Complete Time: 17:29 [facility] / 18:27 Order name: Echo with Doppler [facility] 06/06 18:27 Order name: Echo with Doppler [facility] 06/06 15:57 Order name: EKG; Complete Time: 15:58 [facility] 06/06 18:27 Order name: CONS Physician Consult [facility] 06/06 18:27 Order name: Physical Therapy Consult [facility] 06/06 15:57 Order name: Cardiac monitoring; Complete Time: 16:06 [facility] 06/06 15:57 Order name: EKG - Nurse/Tech; Complete Time: 16:06 [facility] 06/06 15:57 Order name: IV Saline Lock; Complete Time: 16:06 [facility] 06/06 15:57 Order name: Labs collected and sent; Complete Time: 16:06 [facility] 06/06 15:57 Order name: O2 Per Protocol; Complete Time: 16:06 [facility] 06/06 15:57 Order name: O2 Sat Monitoring; Complete Time: 16:06 [facility] 06/06 17:40 Order name: IV Saline Lock - Large Bore; Complete Time: 17:46 jv EC:44 Rate is 74 beats/min. Rhythm is regular. QRS [place] is Normal. ND interval is normal. QRS jv interval is normal. QT interval is normal. No Q waves. T waves are Normal. No ST changes noted. Clinical impression: NSR w/ Non-specific ST/T Changes, Abnormal EKG without significant change, and No evidence of ischemia. Interpreted by me. Reviewed by me. Administered Medications: 17:31 Discontinued: ns 0.9% 1000 ml IV at 75 ml/hr continuous jv 16:57 Drug: NS 0.9% IV 1000 ml IV at 75 ml/hr continuous Route: IV; Rate: 75 ml/hr; Site: [facility] left antecubital; 17:32 Follow up: Response: No adverse reaction; IV Status: Order to discontinue infusion [facility] 17:46 Drug: Furosemide IVP 40 mg IVP once; give over 2 minutes Route: IVP; Site: left [facility] antecubital; 18:15 Follow up: Response: No adverse reaction [facility] 18:06 Drug: amiodarone IVPB 150 mg 100 ml IVPB once over 10 mins; (mix in D5W) Volume: 100 kc6 ml; Route: IVPB; Infused Over: 10 mins; Site: left antecubital; 18:16 Follow up: Response: No adverse reaction; IV Status: Completed infusion; IV Intake: kc6 100ml 18:33 Drug: amiodarone IVPB 900 mg, D5W IV 500 ml IVPB at 1 mg/min continuous; for 6 hrs, kc6 then change to 0.5 mg/min Route: IVPB; Rate: 1 mg/min; Site: left antecubital; 19:00 Follow up: Response: No adverse reaction; IV Status: Infusion continued upon admission kc6 18:33 Drug: Aspirin PO Chewable Tablet 81 mg PO once Route: PO; kc6 19:00 Follow up: Response: No adverse reaction kc6 18:33 Drug: Coreg PO 3.125 mg PO once; administer with food Route: PO; kc6 19:00 Follow up: Response: No adverse reaction kc6 18:33 Drug: Magnesium Sulfate IVPB 1 grams IVPB once over 1 hrs Route: IVPB; Infused Over: 1 kc6 hrs; Site: right antecubital; Disposition Summary: 06/06/23 17:52 Hospitalization Ordered Notes: Hospitalization Status: Inpatient Admission jv Provider: Adia Collazo cha Condition: Fair jv Problem: new jv Symptoms: have improved jv Bed/Room Type: Standard jv Location: Intensive Care Unit(06/06/23 19:57) cg Room Assignment: 2-(06/06/23 19:57) cg Diagnosis - Dyspnea jv - Presence of cardiac pacemaker - Defibrillator/discharge x 2 jv - Combined systolic (congestive) and diastolic (congestive) heart failure jv - Chest pain, unspecified jv - Obesity, unspecified jv Forms: - Medication Reconciliation Form jv - SBAR form jv - Leadership Thank You Letter jv Signatures: Dispatcher [employer] Roger Cunningham MD MD cha Garcia, Cindy, RN RN Breann Torres FNP FNP [id number] Campbell, Kaitlyn, RN RN kc6 Corrections: (The following items were deleted from the chart) 19:57 17:52 Telemetry/MedSurg (Inpatient) jv cg 19:57 17:52 jv cg
--- NOTE | 2023-06-06 17:53 | ER ---
Nurse's Notes [facility] Name: Levy Uribe Age: 83 yrs Sex: Male : 1940 Arrival Date: 06/06/2023 Time: 15:31 Bed 16 Private MD: Diagnosis: Dyspnea;Presence of cardiac pacemaker-Defibrillator/discharge x 2;Combined systolic (congestive) and diastolic (congestive) heart failure;Chest pain, unspecified;Obesity, unspecified Presentation: 06/06 15:39 Chief complaint: EMS states: pt fell while reaching for his cane. pt attempted to crawl kc6 to his cane and became short of breath and was shocked twice by his defibrillator. pt reports back pain and sob upon arrival. Coronavirus screen: At this time, the client does not indicate any symptoms associated with coronavirus-19. Ebola Screen: No symptoms or risks identified at this time. Initial Sepsis Screen: Does the patient meet any 2 criteria? No. Patient's initial sepsis screen is negative. Does the patient have a suspected source of infection? No. Patient's initial sepsis screen is negative. Risk Assessment: Do you want to hurt yourself or someone else? Patient reports no desire to harm self or others. Onset of symptoms was June 06, 2023. 15:39 Method Of Arrival: EMS: [place] [id number] 15:39 Acuity: RAJNI 3 kc6 Triage Assessment: 19:30 General: Appears in no apparent distress. comfortable, Behavior is calm, cooperative, nw1 appropriate for age. Pain: Denies pain. Cardiovascular: Reports syncope, Heart tones present Capillary refill < 3 seconds Pulses are all present. Rhythm is HB with multifocal PVC's. 19:30 Respiratory: No deficits noted. GI: No deficits noted. No signs and/or symptoms were nw1 reported involving the gastrointestinal system. Derm: No deficits noted. No signs and/or symptoms reported regarding the dermatologic system. Musculoskeletal: Reports weakness in right leg and left leg. 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 - Social history:: Smoking status: Patient denies any tobacco usage or history of. Screenin:39 [facility] ED Fall Risk Assessment (Adult) History of falling in the last 3 months, kc6 including since admission Yes- single mechanical fall (1 pt) Confusion or Disorientation No (0 pts) Intoxicated or Sedated No (0 pts) Impaired Gait Yes (1 pt) Mobility Assist Device Used Yes (1 pt) Altered Elimination No (0 pt) Score/Fall Risk Level 3 or more points = High Risk. Abuse screen: Denies threats or abuse. Denies injuries from another. Nutritional screening: No deficits noted. Tuberculosis screening: No symptoms or risk factors identified. Assessment: 15:39 Reassessment: please see triage assessment. kc6 16:39 Reassessment: Patient appears in no apparent distress at this time. No changes from [facility] previously documented assessment. Patient and/or family updated on plan of care and expected duration. Pain level reassessed. Patient is alert, oriented x 3, equal unlabored respirations, skin warm/dry/pink. 17:39 Reassessment: Patient appears in no apparent distress at this time. No changes from [facility] previously documented assessment. Patient and/or family updated on plan of care and expected duration. Pain level reassessed. Patient is alert, oriented x 3, equal unlabored respirations, skin warm/dry/pink. pt appears to be 85% on RA. pt denies chest pain, reports SOB. pt placed on 3L via NC SPO2 is now 95%. 18:39 Reassessment: Patient appears in no apparent distress at this time. No changes from [facility] previously documented assessment. Patient and/or family updated on plan of care and expected duration. Pain level reassessed. Patient is alert, oriented x 3, equal unlabored respirations, skin warm/dry/pink. 19:30 Reassessment: Report received from cyndi CAT. Assumed care and introductions made. Pt nw1 states he is here due to a fall he had today, Denies hitting head and denies LOC. Pt noted in bed with amiodorone drip going at 33.3ml/hr concentration 360mg/200ml. Pending 900mg/500ml bag. Pt denies pain at this time but endorses hunger. Notified patient of NPO status. New IV in place, by this nurse, Call light at bedside. Willl continue to monitor. Vital Signs: 15:39 BP 135 / 71; Pulse 84; Resp 16 S; Temp 98.6(O); Pulse Ox 100% on R/A; Weight 97.52 kg kc6 (R); Height 5 ft. 10 in. (R); 16:30 BP 139 / 89; Pulse 86; Resp 28 S; Pulse Ox 94% ; kc6 17:30 BP 142 / 76; Pulse 75; Resp 22 S; Pulse Ox 92% ; kc6 18:30 BP 132 / 76; Pulse 74; Resp 17 S; Pulse Ox 91% on 3 lpm NC; kc6 19:00 BP 103 / 63; Pulse 68; Resp 16; Pulse Ox 94% ; nw1 19:30 BP 118 / 63; Pulse 67; Resp 16; Pulse Ox 94% ; nw1 20:00 BP 135 / 81; Pulse 73; Resp 15; Pulse Ox 96% ; nw1 20:15 BP 111 / 68; Pulse 67; Resp 15; Pulse Ox 95% on R/A; nw1 15:39 Body Mass Index 30.85 (97.52 kg, 177.8 cm) [facility] ED Course: 15:37 Patient arrived in ED. kc6 15:39 Patient has correct armband on for positive identification. Bed in low position. Call [facility] light in reach. Side rails up X2. Client placed on continuous cardiac and pulse oximetry monitoring. NIBP monitoring applied. color television console monitor on. 15:39 Patient maintains SpO2 saturation greater than 95% on room air. 6 15:41 Triage completed. kc6 15:41 Aparna Farley RN is Primary Nurse. kc6 15:41 Arm band placed on. 6 15:41 Maintain EMS IV. Dressing intact. Good blood return noted. Site clean \T\ dry. Gauge \T\ walter 6 site: 20G LAC. 16:24 Roger Erickson MD is Attending Physician. [facility] 16:38 XRAY Chest (1 view) In Process Unspecified. EDMS 17:50 Adia Collazo MD is Hospitalizing Provider. [facility] 18:32 Inserted saline lock: 18 gauge in right antecubital area, using aseptic technique. kc6 19:00 Report given to STEPHANIA Mott. kc6 21:01 Inserted saline lock: 20 gauge in right wrist, using aseptic technique. nw1 21:02 Provided Education on: POC. Door closed. Noise minimized. Warm blanket given. nw1 21:02 No provider procedures requiring assistance completed. nw1 22:01 Patient admitted, IV remains in place. nw1 Administered Medications: 17:31 Discontinued: ns 0.9% 1000 ml IV at 75 ml/hr continuous jv 16:57 Drug: NS 0.9% IV 1000 ml IV at 75 ml/hr continuous Route: IV; Rate: 75 ml/hr; Site: kc6 left antecubital; 17:32 Follow up: Response: No adverse reaction; IV Status: Order to discontinue infusion kc6 17:46 Drug: Furosemide IVP 40 mg IVP once; give over 2 minutes Route: IVP; Site: left kc6 antecubital; 18:15 Follow up: Response: No adverse reaction kc6 18:06 Drug: amiodarone IVPB 150 mg 100 ml IVPB once over 10 mins; (mix in D5W) Volume: 100 kc6 ml; Route: IVPB; Infused Over: 10 mins; Site: left antecubital; 18:16 Follow up: Response: No adverse reaction; IV Status: Completed infusion; IV Intake: kc6 100ml 18:33 Drug: amiodarone IVPB 900 mg, D5W IV 500 ml IVPB at 1 mg/min continuous; for 6 hrs, kc6 then change to 0.5 mg/min Route: IVPB; Rate: 1 mg/min; Site: left antecubital; 19:00 Follow up: Response: No adverse reaction; IV Status: Infusion continued upon admission kc6 18:33 Drug: Aspirin PO Chewable Tablet 81 mg PO once Route: PO; kc6 19:00 Follow up: Response: No adverse reaction kc6 18:33 Drug: Coreg PO 3.125 mg PO once; administer with food Route: PO; kc6 19:00 Follow up: Response: No adverse reaction kc6 18:33 Drug: Magnesium Sulfate IVPB 1 grams IVPB once over 1 hrs Route: IVPB; Infused Over: 1 kc6 hrs; Site: right antecubital; Medication: 21:02 VIS not applicable for this client. nw1 Intake: 18:16 IV: 100ml; Total: 100ml. kc6 Outcome: 17:52 Decision to Hospitalize by Provider. jv 21:59 Admitted to ICU room 2, Report called to KENNETH DOHERTY RN ICU 2 RN nw1 21:59 Condition: stable 21:59 Instructed on the need for admit, 22:53 Patient left the ED. nw1 Signatures: Dispatcher [employer] EDRoger Eastman MD MD cha Campbell, Kaitlyn RN RN kc6 Tiera Putnam RN RN nw1 Corrections: (The following items were deleted from the chart) 20:56 19:30 BP 202 / 155; Pulse 80bpm; Resp 16bpm; Pulse Ox 97%; nw1 nw1 20:56 19:00 BP 187 / 175; Pulse 80bpm; Resp 16bpm; Pulse Ox 97%; nw1 nw1 22:02 20:58 Reassessment: Report received from cyndi CAT. Assumed care and introductions nw1 made. Pt states he is here due to a fall he had today, Denies hitting head and denies LOC. Pt noted in bed with amiodorone drip going at 33.3ml/hr concentration 360mg/200ml. Pending 900mg/500ml bag. Pt denies pain at this time but endorses hunger. Notified patient of NPO status. New IV in place, by this nurse, Call light at bedside. Willl continue to monitor. nw1
[2023-06-06] MEDS ORDERED: D5W 100 ML IV ONE (18:08)
[2023-06-06] MEDS ORDERED: AMIODARONE IN DEXTROSE,ISO-OSM 360 MG/200 ML BAG IV ONE ×2 (18:08→23:20)
[2023-06-06] MEDS ORDERED: AMIODARONE HCL 150 MG/3 ML INJ IV ONE (18:08)
[2023-06-06] MEDS ORDERED: ACETAMINOPHEN 500 MG TAB PO PRN (18:19)
--- NOTE | 2023-06-06 18:19 | P.HP ---
Certification for Inpatient Patient admitted to: Inpatient With expected LOS: >2 Midnights Patient will require the following post-hospital care: None Practitioner: I am a practitioner with admitting privileges, knowledge of patient current condition, hospital course, and medical plan of care. Services: Services provided to patient in accordance with Admission requirements found in Title 42 Section 412.3 of the Code of Federal Regulations Patient History Date of Service: 06/06/23 Reason for admission: Defibrillator shock patient x 3; V. tach History of Present Illness: Patient is an 83-year-old gentleman who came to the hospital with lightheadedness. Patient been cardioverted on 3 different occasions by his defibrillator. Patient was brought into the emergency room. Nurses contacted [employer] [facility] [employer] and there were told that patient's defibrillator shocked him out of ventricular tachycardia. Cardiology was notified and decision was made to admit patient to the ICU on amiodarone drip. Otherwise, patient with prior medical history for coronary artery disease with stent placement. Patient also with cardiomyopathy. Patient will be admitted to the hospital in the intensive care unit and will continue with the amiodarone drip and monitor patient for any arrhythmias. Patient's troponins are anticipated to be elevated because of the cardioversion. Patient will be admitted for inpatient hospitalization in the critical care unit. Cardiology will be consulted as well. Allergies No Known Drug Allergies Allergy (Verified 02/16/22 12:20) Unknown Home Medications: Aspirin [Ecotrin 81 MG] 81 mg PO DAILY 09/29/14 Ubidecarenone/Vit E Acet [Co Q-10 100 mg Softgel] 1 each PO DAILY 09/29/14 Acetaminophen [Tylenol*] 650 mg PO Q6H PRN tab 02/16/22 Ezetimibe [Zetia*] 10 mg PO DAILY 02/16/22 Gabapentin 100 mg PO BID PRN 02/16/22 Sacubitril/Valsartan [Entresto 24 mg-26 mg Tablet] 1 each PO BID 02/16/22 carvediloL [Carvedilol] 3.125 mg PO BID 02/16/22 Nitroglycerin [Nitrostat] 0.4 mg SL Q5MX3, Q15MX1, Q30M PRN 09/16/22 - Past Medical/Surgical History Diabetic: No -: CAD -: dyslipidemia -: Chronic systolic congestive heart failure -: multiple stents -: tonsillectomy -: Cholecystectomy -: Knee surgery -: Appendectomy -: facial nerve sx Psychosocial/ Personal History: Patient lives at home with his - Family History Mother Medical History: Heart disease, Hypertension, Diabetes Father Medical History: Heart disease, Hypertension, Diabetes, Cancer Brother Medical History: Cancer Sister Medical History: Cancer - Social History Smoking Status: Former smoker Alcohol use: No CD- Drugs: No Caffeine use: No Review of Systems 10-point ROS is otherwise unremarkable Physical Examination - Vital Signs Temperature: 98 F (Vitals reviewed) - Physical Exam General: Alert, In no apparent distress, Oriented x3, Obese HEENT: Atraumatic, Normocephalic, PERRLA, Mucous membr. moist/pink Neck: Supple, 2+ carotid pulse no bruit, JVD not distended Respiratory: Clear to auscultation bilaterally, Normal air movement Cardiovascular: Regular rate/rhythm, Normal S1 S2, Systolic murmur Gastrointestinal: Normal bowel sounds, Hypoactive, Soft and benign, Non- distended, No masses, No rebound, No guarding Musculoskeletal: No clubbing, No swelling Integumentary: No rashes Neurological: Normal strength at 5/5 x4 extr, Normal tone, Sensation intact, Cranial nerves 3-12 intact - Studies Laboratory Data (last 24 hrs) 06/06/23 06/06/23 06/06/23 16:10 16:10 16:10 WBC 11.30 H Hgb 14.9 Hct 43.6 Plt Count 186 PT 12.6 H INR 1.15 Sodium Potassium BUN Creatinine Glucose Magnesium Lipase 23 06/06/23 16:10 WBC Hgb Hct Plt Count PT INR Sodium 137 Potassium 4.3 BUN 22 H Creatinine 0.96 Glucose 246 H Magnesium 2.3 Lipase Microbiology Data (last 24 hrs): 06/06/23 16:30 Nasopharnyx Influenza Type A Antigen Screen - Final 06/06/23 16:30 Nasopharnyx Influenza Type B Antigen Screen - Final Assessment & Plan - Problems (Diagnosis) (1) Sustained ventricular tachycardia Current Visit: Yes Status: Acute (2) Implantable cardioverter-defibrillator discharge Current Visit: Yes Status: Acute (3) DM type 2 (diabetes mellitus, type 2) Current Visit: Yes Status: Acute (4) Hyperlipidemia Current Visit: Yes Status: Acute (5) NSTEMI (non-ST elevated myocardial infarction) Onset Date: 10/01/14 Current Visit: No Status: Acute (6) Prerenal azotemia Current Visit: Yes Status: Acute (7) Elevated troponin Current Visit: Yes Status: Acute - Plan 1. Ventricular tachyarrhythmia status post discharge from defibrillator; continue on amiodarone drip. Cardiology consultation and echocardiogram in the morning. Continue monitoring hemodynamics closely overnight. Patient will continue with the amiodarone drip for at least 24 hours. Then will switch over to oral amiodarone if patient is clinically doing well then we should be able to discharge patient home. Will need to watch patient closely overnight in the intensive care unit. 2. Congestive heart failure/cardiomyopathy; continue with gentle diuresing 3. History of COPD continue with nebs, steroids, antibiotics 4. Prerenal azotemia; monitor volume status closely 5. GI and DVT prophylaxis Discharge Plan: Home Plan to discharge in: Greater than 2 days - Advance Directives Does patient have a Living Will: Yes Does patient have a Durable POA for Healthcare: Yes - Code Status/Comfort Care Code Status Assessed: Yes Code Status: Full Code Critical Care: Yes Time Spent Managing PTS Care (In Minutes): 50
[2023-06-06] MEDS ORDERED: MAGNESIUM SULFATE 1 gm IVPB 1 GM/100 ML BAG IV ONE (18:27)
[2023-06-06] MEDS ORDERED: ASPIRIN 81 MG CHEWABLE TABLET ONE (18:27)
[2023-06-06] MEDS ORDERED: carvediloL 6.25 MG TAB ONE (18:27)
[2023-06-06] MEDS ORDERED: AMIODARONE HCL 900 MG in Dextrose 5%-Water 482 ML IV SCH (19:00)
[2023-06-06] MEDS ORDERED: FUROSEMIDE 40 MG TABLET PO SCH (21:00)
[2023-06-06] MEDS: METOPROLOL TAR 25 MG TAB PO SCH (23:08)
[2023-06-07 05:14] VITALS: BMI 30.8
[2023-06-07 05:15] LABS: Absolute Lymphocytes (CBC) 1.3 K/uL (0.7-4.9); Hematocrit 47.8 % (39.6-49.0); Lymphocytes % 7.1 % (15.3-44.8); MCV 94.1 fL (80-100); MPV 8.4 fL (7.6-11.3); Platelets 176 thou/uL (152-406); RBC Red Blood Cell Count 5.08 M/uL (4.33-5.43)
[2023-06-07 07:43] LABS: Potassium 3.7 mEq/L (3.5-5.1)
[2023-06-07 07:44] LABS: Albumin 3.1 g/dL (3.4-5.0); Bilirubin Total 0.8 mg/dL (0.2-1.0); Magnesium 2.4 mg/dL (1.6-2.4); Phosphorus 2.8 mg/dL (2.5-4.9); Protein, Total 6.7 g/dL (6.4-8.2)
[2023-06-07] MEDS: FUROSEMIDE 40 MG/4 ML VIAL IV SCH ×2 (08:34→16:48)
[2023-06-07] MEDS: METOPROLOL TAR 25 MG TAB PO SCH ×2 (08:35→21:26)
[2023-06-07] MEDS ORDERED: FUROSEMIDE 40 MG/4 ML VIAL ONE ×2 (08:48→17:02)
[2023-06-07] MEDS ORDERED: METOPROLOL TAR 25 MG TAB ONE ×2 (08:48→21:35)
[2023-06-07] MEDS: HEPARIN/D5W 25,000 UNIT/500 ML BAG IV SCH (09:47)
[2023-06-07] MEDS: ASPIRIN 81 MG CHEWABLE TABLET PO SCH (09:52)
[2023-06-07] MEDS ORDERED: AMIODARONE IN DEXTROSE,ISO-OSM 0 MG/0 ML BAG IV ONE (10:15)
[2023-06-07] MEDS ORDERED: HEPARIN 5000 UNIT/ML 1 ML VIAL IV ONE (10:15)
[2023-06-07] MEDS ORDERED: HEPARIN 5000 UNIT/ML 1 ML VIAL ONE (10:15)
[2023-06-07] MEDS ORDERED: AMIODARONE HCL 900 MG in Dextrose 5%-Water 482 ML IV SCH (10:30)
[2023-06-07] MEDS ORDERED: BENZONATATE 100 MG CAP PO PRN (10:58)
[2023-06-07] MEDS ORDERED: GLUCAGON 1 MG/VIAL IM PRN (10:59)
[2023-06-07] MEDS ORDERED: D50W 25 GM/50 ML SYRINGE IV PRN (10:59)
[2023-06-07] MEDS ORDERED: D10W 125 ML IV PRN (11:11)
[2023-06-07] MEDS: INSULIN REGULAR (HUMAN) 100 UNIT/ML SQ SCH ×3 (11:27→21:26)
[2023-06-07] MEDS ORDERED: BENZONATATE 100 MG CAP PO ONE (11:41)
--- NOTE | 2023-06-07 12:11 | P.PN ---
Subjective Date of Service: 06/07/23 Chief Complaint: Defibrillator shock patient x 3; V. tach Subjective: Improving, New changes Pt is resting comfortably in bed. He denies any chest pain or SOB. No recent shock from his defribilator since admission. Pt is currently getting iv amiodarone and heparin drip. Waiting for Cardiology to see him. He also reports dry cough. No other complaints. Review of Systems 10-point ROS is otherwise unremarkable Physical Examination - Vital Signs Temperature: 99.4 F Blood Pressure: 109/76 Pulse: 71 Respirations: 14 Pulse Ox (%): 98 - Physical Exam General: In no apparent distress, Oriented x3 HEENT: Normocephalic, PERRLA, Mucous membr. moist/pink Neck: Supple, 2+ carotid pulse no bruit, No LAD Respiratory: Clear to auscultation bilaterally, Normal air movement Cardiovascular: No edema, Normal pulses, Normal S1 S2 Capillary refill: <2 Seconds Gastrointestinal: Normal bowel sounds, Hypoactive, No ascites, No tenderness Musculoskeletal: No clubbing, No swelling, No warmth Integumentary: No rashes, No breakdown, No erythema Neurological: Normal strength at 5/5 x4 extr, Cranial nerves 3-12 intact, Normal affect - Studies Laboratory Data (last 24 hrs) 06/06/23 06/06/23 06/06/23 16:10 16:10 16:10 WBC 11.30 H Hgb 14.9 Hct 43.6 Plt Count 186 PT 12.6 H INR 1.15 Sodium Potassium BUN Creatinine Glucose Magnesium Lipase 23 06/06/23 16:10 WBC Hgb Hct Plt Count PT INR Sodium 137 Potassium 4.3 BUN 22 H Creatinine 0.96 Glucose 246 H Magnesium 2.3 Lipase Microbiology Data (last 24 hrs): 06/06/23 16:30 Nasopharnyx Influenza Type A Antigen Screen - Final 06/06/23 16:30 Nasopharnyx Influenza Type B Antigen Screen - Final Assessment And Plan - Plan Ventricular tachyarrhythmia status post discharge from defibrillator: Pt reports that it shocked him at home after he exerted himself. Will continue Iv amiodarone and follow up Echo. Consulted cardiology. NSTEMI: troponin is 148 -> 33898. Will continue heparin drip. Consulted Cardiology. Pt denies any chest pain. Will trend troponin Q6h. Continue BB and aspirin. Will check lipid level. Congestive heart failure/cardiomyopathy: Will metoprolol, lasix , strict I/O, low salt diet, and daily weight. History of COPD: Will continue duonebs, steroids, and antibiotics. Prerenal azotemia: Will avoid nephrotoxins and monitor renal function. GI ppx: protonix DVT prophylaxis: heparin Discharge Plan: Home Discharge Plan: Home Plan to discharge in: 24 Hours - Code Status/Comfort Care Code Status Assessed: Yes Code Status: Full Code Critical Care: Yes Time Spent Managing PTS Care (In Minutes): 40 (minutes)
[2023-06-07] MEDS ORDERED: FUROSEMIDE 20 MG/ 2ML VIAL ONE (16:58)
[2023-06-07] MEDS ORDERED: INSULIN REGULAR (HUMAN) 100 UNIT/ML ONE (21:36)
--- NOTE | 2023-06-07 21:36 | P.CNS ---
Date of Consult: 06/07/23 Mr. Uribe is an 83yo pt with a history of resection acoustic neuroma, hypertension, CAD with multiple stent placements, CHF, cardiomyopathy with pacemaker/defibrillator. Patient History Patient is an 83-year-old gentleman who came to the hospital with lightheadedness. Patient been cardioverted on 3 different occasions by his defibrillator. Nurses contacted [facility] and there were told that patient's defibrillator shocked him out of ventricular tachycardia. Patient will be admitted to the hospital in the intensive care unit and will continue with the amiodarone drip and monitor patient for any arrhythmias. Patient's troponins are anticipated to be elevated because of the cardioversion. Patient admitted for inpatient hospitalization in the critical care unit. Allergies No Known Drug Allergies Allergy (Verified 02/16/22 12:20) Unknown Home Medications: Aspirin [Ecotrin 81 MG] 81 mg PO DAILY 09/29/14 Ubidecarenone/Vit E Acet [Co Q-10 100 mg Softgel] 1 each PO DAILY 09/29/14 Acetaminophen [Tylenol*] 650 mg PO Q6H PRN tab 02/16/22 Ezetimibe [Zetia*] 10 mg PO DAILY 02/16/22 Gabapentin 100 mg PO BID PRN 02/16/22 Sacubitril/Valsartan [Entresto 24 mg-26 mg Tablet] 1 each PO BID 02/16/22 carvediloL [Carvedilol] 3.125 mg PO BID 02/16/22 Nitroglycerin [Nitrostat] 0.4 mg SL Q5MX3, Q15MX1, Q30M PRN 09/16/22 - Past Medical/Surgical History Diabetic: No -: CAD -: dyslipidemia -: Chronic systolic congestive heart failure -: multiple stents -: tonsillectomy -: Cholecystectomy -: Knee surgery -: Appendectomy -: facial nerve sx Psychosocial/ Personal History: Patient lives at home with his - Family History Mother Medical History: Heart disease, Hypertension, Diabetes Father Medical History: Heart disease, Hypertension, Diabetes, Cancer Brother Medical History: Cancer Sister Medical History: Cancer - Social History Smoking Status: Former smoker Alcohol use: No CD- Drugs: No Caffeine use: No Review of Systems 10-point ROS is otherwise unremarkable Physical Examination - Vital Signs Temperature: 98 F (Vitals reviewed) - Physical Exam General: Alert, In no apparent distress, Oriented x3, Obese and flushed HEENT: Atraumatic, Normocephalic, PERRLA, Mucous membr. 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 - Studies Laboratory Data (last 24 hrs) 06/06/23 06/06/23 06/06/23 16:10 16:10 16:10 WBC 11.30 H Hgb 14.9 Hct 43.6 Plt Count 186 PT 12.6 H INR 1.15 Sodium Potassium BUN Creatinine Glucose Magnesium Lipase 23 06/06/23 16:10 WBC Hgb Hct Plt Count PT INR Sodium 137 Potassium 4.3 BUN 22 H Creatinine 0.96 Glucose 246 H Magnesium 2.3 Lipase Microbiology Data (last 24 hrs): 06/06/23 16:30 Nasopharnyx Influenza Type A Antigen Screen - Final 06/06/23 16:30 Nasopharnyx Influenza Type B Antigen Screen - Final Assessment & Plan - Problems (Diagnosis) (1) Sustained ventricular tachycardia Current Visit: Yes Status: Acute (2) Implantable cardioverter-defibrillator discharge Current Visit: Yes Status: Acute (3) DM type 2 (diabetes mellitus, type 2) Current Visit: Yes Status: Acute (4) Hyperlipidemia Current Visit: Yes Status: Acute (5) NSTEMI (non-ST elevated myocardial infarction) Onset Date: 10/01/14 Current Visit: No Status: Acute (6) Prerenal azotemia Current Visit: Yes Status: Acute (7) Elevated troponin Current Visit: Yes Status: Acute - Plan 1. Ventricular tachyarrhythmia status post discharge from defibrillator; continue on amiodarone drip. Patient will continue with the amiodarone drip for at least 24 hours. Pt has remained in NSR today at rate in the 60's. Will switch to amiodarone 200mg po BID. Continue heparin drip until post ECHO and trending troponin levels. Troponin trending down at this time. Continue aspirin 81mg po daily. May need assessment per cardiac cath as troponins quite high. 2. Congestive heart failure/cardiomyopathy; continue with gentle diuresing 3. History of COPD continue with nebs, steroids, antibiotics 4. Prerenal azotemia; monitor volume status closely 5. GI and DVT prophylaxis Discharge Plan: Home Plan to discharge in: Greater than 2 days - Advance Directives Does patient have a Living Will: Yes Does patient have a Durable POA for Healthcare: Yes - Code Status/Comfort Care Code Status Assessed: Yes Code Status: Full Code Critical Care: Yes
[2023-06-08 04:46] LABS: Hematocrit 45.6 % (39.6-49.0); Lymphocytes % 7.6 % (15.3-44.8); MCV 93.4 fL (80-100); MPV 8.4 fL (7.6-11.3); Platelets 147 thou/uL (152-406); RBC Red Blood Cell Count 4.88 M/uL (4.33-5.43)
[2023-06-08 04:58] LABS: Potassium 3.6 mEq/L (3.5-5.1)
[2023-06-08] MEDS: HEPARIN/D5W 25,000 UNIT/500 ML BAG IV SCH (08:01)
[2023-06-08] MEDS: INSULIN REGULAR (HUMAN) 100 UNIT/ML SQ SCH ×4 (08:36→20:58)
[2023-06-08] MEDS ORDERED: INSULIN REGULAR (HUMAN) 100 UNIT/ML ONE ×3 (08:48→21:12)
[2023-06-08] MEDS ORDERED: POTASSIUM CL SA 10 MEQ TAB PO ONE ×2 (09:00→09:21)
[2023-06-08] MEDS: ASPIRIN 81 MG CHEWABLE TABLET PO SCH (09:00)
[2023-06-08] MEDS: METOPROLOL TAR 25 MG TAB PO SCH ×2 (09:08→20:58)
[2023-06-08] MEDS: FUROSEMIDE 40 MG/4 ML VIAL IV SCH ×2 (09:10→17:21)
[2023-06-08] MEDS ORDERED: ASPIRIN EC 81 MG TAB PO ONE (09:21)
[2023-06-08] MEDS ORDERED: FUROSEMIDE 40 MG/4 ML VIAL ONE ×2 (09:22→17:35)
[2023-06-08] MEDS ORDERED: METOPROLOL TAR 25 MG TAB ONE (09:22)
--- NOTE | 2023-06-08 10:25 | P.PN ---
Subjective Date of Service: 06/08/23 Chief Complaint: Defibrillator shock patient x 3; V. tach Pt is resting comfortably in bed. He denies any chest pain or SOB. Heart rate has improved with amiodarone drip. Will switch to amiodarone 300mg po BID. Will continue heparin drip until we get the Echo report. cardiology is following. No complaints. Review of Systems 10-point ROS is otherwise unremarkable Physical Examination - Vital Signs Temperature: 97.9 F Blood Pressure: 106/56 Pulse: 98 Respirations: 13 Pulse Ox (%): 96 - Physical Exam General: In no apparent distress, Oriented x3, Cooperative HEENT: Atraumatic, Normocephalic Neck: Supple, 2+ carotid pulse no bruit, No Thyromegaly Respiratory: Clear to auscultation bilaterally, Normal air movement Cardiovascular: No edema, Normal pulses, Normal S1 S2 Capillary refill: <2 Seconds Gastrointestinal: Normal bowel sounds, Soft and benign, Non-distended Musculoskeletal: No clubbing, No swelling Integumentary: No rashes, No breakdown Neurological: Normal gait, Normal speech Lymphatics: No axilla or inguinal lymphadenopathy Assessment And Plan - Plan Ventricular tachyarrhythmia status post discharge from defibrillator: Pt reports that it shocked him at home after he exerted himself at home. Heart rate is controlled. Will continue amiodarone 300mg po BID and follow up Echo. Consulted cardiology. NSTEMI: troponin is 148 -> 19997. Will continue heparin drip. Consulted Cardiology. Pt denies any chest pain. Will trend troponin Q6h. Continue BB and aspirin. lipid level is within normal limit Congestive heart failure/cardiomyopathy: Will metoprolol, lasix , strict I/O, low salt diet, and daily weight. History of COPD: Will continue duonebs, steroids, and antibiotics. Prerenal azotemia: Will avoid nephrotoxins and monitor renal function. GI ppx: protonix DVT prophylaxis: heparin Discharge Plan: Home. Will dc to telemetry bed once cleared by Cardiology
--- NOTE | 2023-06-08 13:15 | ECHO ---
HEIGHT: 5 ft 10 in WEIGHT: 215 lb 0 oz DATE OF STUDY: 06/07/[address]: Adia Collazo MD 2-DIMENSIONAL: YES M.MODE: YES DOPPLER: YES COLOR FLOW: YES TDS: PORTABLE: YES DEFINITY: BUBBLE STUDY: DIAGNOSIS: VENTRICULAR TACHYCARDIA CARDIAC HISTORY: CATHERIZATION: YES SURGERY: NO PROSTHETIC VALVE: NO PACEMAKER: YES MEASUREMENTS (cm) DIASTOLIC (NORMALS) SYSTOLIC (NORMALS) IVSd 1.3 (0.6-1.2) LA Diam 3.3 (1.9-4.0) LVEF 40% LVIDd 4.4 (3.5-5.7) LVIDs 3.5 (2.0-3.5) %FS 19% LVPWd 1.2 (0.6-1.2) Ao Diam 2.7 (2.0-3.7) 2 DIMENSIONAL ASSESSMENT: RIGHT ATRIUM: NORMAL LEFT ATRIUM: NORMAL RIGHT VENTRICLE: PACEMAKER WIRE LEFT VENTRICLE: DEPRESSED EJECTION FRACTION TRICUSPID VALVE: MILD TRICUSPID REGURGITATION MITRAL VALVE: MILD MITRAL REGURGITATION PULMONIC VALVE: NORMAL AORTIC VALVE: MILD AORTIC INSUFFICIENCY PERICARDIAL EFFUSION: NONE AORTIC ROOT: NORMAL LEFT VENTRICULAR WALL MOTION: APICAL SEVERE HYPOKINESIS DOPPLER/COLOR FLOW: SEE BELOW COMMENTS: 1. POOR WINDOWS 2. MILDLY DEPRESSED LEFT VENTRICULAR EJECTION FRACTION 35-40% 3. APICAL HYPOKINESIS 4. MILD MITRAL REGURGITATION, TRICUSPID REGURGITATION, AORTIC INSUFFIENCY TECHNOLOGIST: LIANA CALLAWAY
--- NOTE | 2023-06-08 13:35 | EKG ---
Test Date: 2023-06-06 Test Time: 16:15:10 Stone Layer: ALINE MEASUREMENT RESULTS: Intervals: Rate: 74 WV: 232 QRSD: 86 QT: 366 QTc: 406 [place]: P: 13 WV: 232 QRS: -22 T: 93 INTERPRETIVE STATEMENTS: Sinus rhythm with 1st degree AV block Septal infarct, age undetermined Abnormal ECG Compared to ECG 02/15/2022 17:47:39 First degree AV block now present Atrial-paced complex(es) or rhythm no longer present Ventricular-paced complex(es) or rhythm no longer present Left-axis deviation no longer present Myocardial infarct finding still present Electronically Signed On 06-08-23 13:28:22 [employer]ING FITTER by Jose F Whalen
[2023-06-08] MEDS ORDERED: AMIODARONE HCL 200 MG TAB PO ONE (13:44)
[2023-06-08] MEDS: AMIODARONE HCL 200 MG TAB PO SCH (20:58)
[2023-06-08] MEDS ORDERED: AMIODARONE HCL 200 MG TAB ONE (21:11)
[2023-06-09] MEDS: HEPARIN/D5W 25,000 UNIT/500 ML BAG IV SCH ×2 (01:11→22:12)
[2023-06-09 04:55] LABS: Absolute Lymphocytes (CBC) 0.8 K/uL (0.7-4.9); Hematocrit 44.5 % (39.6-49.0); Lymphocytes % 7.3 % (15.3-44.8); MPV 8.6 fL (7.6-11.3); Platelets 157 thou/uL (152-406); RBC Red Blood Cell Count 4.78 M/uL (4.33-5.43)
[2023-06-09 05:01] LABS: Potassium 3.7 mEq/L (3.5-5.1)
[2023-06-09 05:04] LABS: Magnesium 2.5 mg/dL (1.6-2.4)
[2023-06-09] MEDS: FUROSEMIDE 40 MG/4 ML VIAL IV SCH ×2 (08:17→16:38)
[2023-06-09] MEDS: METOPROLOL TAR 25 MG TAB PO SCH ×2 (08:18→20:27)
[2023-06-09] MEDS: INSULIN REGULAR (HUMAN) 100 UNIT/ML SQ SCH ×4 (08:18→20:44)
[2023-06-09] MEDS: ASPIRIN 81 MG CHEWABLE TABLET PO SCH (08:19)
[2023-06-09] MEDS: AMIODARONE HCL 200 MG TAB PO SCH ×2 (08:19→20:27)
[2023-06-09] MEDS ORDERED: ASPIRIN 81 MG CHEWABLE TABLET ONE (08:24)
[2023-06-09] MEDS ORDERED: AMIODARONE HCL 200 MG TAB ONE ×2 (08:24→20:24)
[2023-06-09] MEDS ORDERED: INSULIN REGULAR (HUMAN) 100 UNIT/ML ONE (08:25)
[2023-06-09] MEDS ORDERED: POTASSIUM CL SA 10 MEQ TAB PO ONE ×2 (08:25→09:00)
[2023-06-09] MEDS ORDERED: METOPROLOL TAR 25 MG TAB ONE (08:26)
[2023-06-09] MEDS ORDERED: FUROSEMIDE 40 MG/4 ML VIAL ONE ×2 (08:26→16:50)
--- NOTE | 2023-06-09 10:35 | P.PN ---
Subjective Date of Service: 06/09/23 Chief Complaint: Defibrillator shock patient x 3; V. tach Pt is resting comfortably in bed. He denies any chest pain or SOB. Heart rate is stable in the low 60s. Off amiodarone drip. Will switch to amiodarone 200mg po BID. Will continue heparin drip until we get the Echo report. cardiology is following. No complaints. Review of Systems 10-point ROS is otherwise unremarkable Physical Examination - Vital Signs Temperature: 97.2 F Blood Pressure: 114/74 Pulse: 63 Respirations: 14 Pulse Ox (%): 93 - Physical Exam General: In no apparent distress, Oriented x3, Cooperative HEENT: Atraumatic, Normocephalic, PERRLA Neck: Supple, 2+ carotid pulse no bruit Respiratory: Clear to auscultation bilaterally, Normal air movement Cardiovascular: No edema, Normal pulses, Normal S1 S2 Capillary refill: <2 Seconds Gastrointestinal: Normal bowel sounds, Hypoactive Musculoskeletal: No clubbing, No swelling, No erythema Integumentary: No rashes, No breakdown Neurological: Normal gait, Normal strength at 5/5 x4 extr, Sensation intact Lymphatics: No axilla or inguinal lymphadenopathy Assessment And Plan - Plan Ventricular tachyarrhythmia status post discharge from defibrillator: Pt reports that it shocked him at home after he exerted himself at home. Heart rate is controlled. Will continue amiodarone 200mg po BID and follow up Echo. Consulted cardiology. NSTEMI: troponin is 148 -> 26737-> [id number]. Will continue heparin drip. Consulted Cardiology. Pt denies any chest pain. Will trend troponin Q6h. Continue BB and aspirin. lipid level is within normal limit Systolic Congestive heart failure/cardiomyopathy: Will metoprolol, lasix , strict I/O, low salt diet, and daily weight.Echo shows EF 35 - 40% Hyponatremia: Na is 133. Will monitor sodium level. History of COPD: Will continue duonebs, steroids, and antibiotics. Prerenal azotemia: Will avoid nephrotoxins and monitor renal function. GI ppx: protonix DVT prophylaxis: heparin Discharge Plan: Home. Will dc to telemetry bed once cleared by Cardiology
--- NOTE | 2023-06-09 12:46 | P.PN ---
Subjective Date of Service: 06/09/23 Chief Complaint: Defibrillator shock patient x 3; V. tach Subjective: No new changes, Doing well, Other (on oral amiodarone at this time, no c/o chest pain or sob, echo complete) Review of Systems 10-point ROS is otherwise unremarkable Respiratory: As per HPI Cardiovascular: As per HPI Physical Examination - Vital Signs Temperature: 97.3 F Blood Pressure: 120/86 Pulse: 60 Respirations: 14 Pulse Ox (%): 94 - Physical Exam General: Alert, In no apparent distress, Oriented x3 HEENT: Atraumatic, Normocephalic, Other (left facial paralysis post acoustic neuroma removal) Neck: Supple, 2+ carotid pulse no bruit, JVD not distended Respiratory: Clear to auscultation bilaterally, Normal air movement Cardiovascular: No edema, Normal pulses, Regular rate/rhythm, Other (EF about 40%) Capillary refill: <2 Seconds Gastrointestinal: Normal bowel sounds, Soft and benign Musculoskeletal: No clubbing, No swelling Integumentary: No rashes, No breakdown Neurological: Normal speech, Normal tone Lymphatics: No axilla or inguinal lymphadenopathy External genitalia: Deferred Rectal: Deferred Assessment And Plan - Current Problems (Diagnosis) (1) Implantable cardioverter-defibrillator discharge Current Visit: Yes Status: Acute Plan: Trended troponins high but decreasing Pt denies CP/SOB, ECHO with reduced EF (about 40%) Continue heparin drip until rate control and possible cath (2) NSTEMI (non-ST elevated myocardial infarction) Onset Date: 10/01/14 Current Visit: No Status: Acute Plan: ASA, heparin, statin, and amiodarone 200mg po BID, decision on cardiac cath this admission pending Discussed NM stress test with patient, pt states he had a terrible experience last time and prefers to go [facility]. Will take to [facility] Discharge Plan: Home Plan to discharge in: 24 Hours
[2023-06-09] MEDS ORDERED: ATORVASTATIN 20 MG TAB ONE (20:23)
[2023-06-09] MEDS: EZETIMIBE 10 MG TAB PO SCH (20:26)
[2023-06-09] MEDS: ATORVASTATIN 20 MG TAB PO SCH (20:26)
[2023-06-09] MEDS: SACUBITRIL/VALSARTAN 24/26 MG TAB PO SCH (20:26)
[2023-06-09] MEDS: GABAPENTIN 100 MG CAP PO SCH (20:40)
[2023-06-10 05:15] LABS: Absolute Lymphocytes (CBC) 0.8 K/uL (0.7-4.9); Lymphocytes % 8.3 % (15.3-44.8); MCV 93.3 fL (80-100); Platelets 178 thou/uL (152-406); RBC Red Blood Cell Count 4.82 M/uL (4.33-5.43)
[2023-06-10 05:22] LABS: Potassium 3.8 mEq/L (3.5-5.1)
[2023-06-10] MEDS ORDERED: POTASSIUM CL SA 10 MEQ TAB PO ONE ×2 (08:00→08:15)
[2023-06-10] MEDS: INSULIN REGULAR (HUMAN) 100 UNIT/ML SQ SCH ×4 (08:11→21:00)
[2023-06-10] MEDS: ASPIRIN 81 MG CHEWABLE TABLET PO SCH (08:12)
[2023-06-10] MEDS: AMIODARONE HCL 200 MG TAB PO SCH ×2 (08:12→21:31)
[2023-06-10] MEDS: FUROSEMIDE 40 MG/4 ML VIAL IV SCH ×2 (08:12→16:38)
[2023-06-10] MEDS: SACUBITRIL/VALSARTAN 24/26 MG TAB PO SCH ×2 (08:12→21:32)
[2023-06-10] MEDS: METOPROLOL TAR 25 MG TAB PO SCH ×2 (08:13→21:32)
[2023-06-10] MEDS ORDERED: INSULIN REGULAR (HUMAN) 100 UNIT/ML ONE ×2 (08:14→11:53)
[2023-06-10] MEDS ORDERED: ASPIRIN 81 MG CHEWABLE TABLET ONE (08:15)
[2023-06-10] MEDS ORDERED: AMIODARONE HCL 200 MG TAB ONE (08:16)
[2023-06-10] MEDS ORDERED: FUROSEMIDE 40 MG/4 ML VIAL ONE ×2 (08:16→16:20)
[2023-06-10] MEDS: GABAPENTIN 100 MG CAP PO SCH ×2 (09:00→21:33)
--- NOTE | 2023-06-10 10:11 | P.PN ---
Subjective Date of Service: 06/10/23 Chief Complaint: Defibrillator shock patient x 3; V. tach Pt is resting comfortably in bed. He denies any chest pain or SOB. Heart rate is stable in the low 60s. Off amiodarone drip. Will continue amiodarone 200mg po BID. Will continue heparin drip for now. Pt wants to talk to Sourcer about the implications of cardiac catherization. No complaints. Review of Systems 10-point ROS is otherwise unremarkable General: Unremarkable Eyes: Unremarkable ENT: Unremarkable Respiratory: Unremarkable Cardiovascular: Unremarkable Gastrointestinal: Unremarkable Genitourinary: Unremarkable Musculoskeletal: Unremarkable Integumentary: Unremarkable Neurological: Unremarkable Lymphatics: Unremarkable Physical Examination - Vital Signs Temperature: 97.1 F Blood Pressure: 103/61 Pulse: 65 Respirations: 15 Pulse Ox (%): 94 - Physical Exam General: Alert, In no apparent distress, Oriented x3, Cooperative HEENT: Atraumatic, Normocephalic, PERRLA Neck: Supple, 2+ carotid pulse no bruit Respiratory: Clear to auscultation bilaterally, Normal air movement Cardiovascular: No edema, Normal pulses, Normal S1 S2 Capillary refill: <2 Seconds Gastrointestinal: Normal bowel sounds, Soft and benign, Non-distended Musculoskeletal: No clubbing, No swelling Integumentary: No rashes, No breakdown Neurological: Normal gait, Normal speech, Normal strength at 5/5 x4 extr Lymphatics: No axilla or inguinal lymphadenopathy Assessment And Plan - Plan Ventricular tachyarrhythmia status post discharge from defibrillator: Pt reports that it shocked him at home after he exerted himself at home. Heart rate is controlled. Will continue amiodarone 200mg po BID and follow up Echo. Consulted cardiology. NSTEMI: troponin is 148 -> 28026-> 73755. Will continue heparin drip. Consulted Cardiology. Pt denies any chest pain. Will trend troponin Q6h. Continue BB and aspirin. lipid level is within normal limit. Pt wants to talk to the customer support professional about the Cardiac catherization before consenting. Systolic Congestive heart failure/cardiomyopathy: Will metoprolol, lasix , strict I/O, low salt diet, and daily weight.Echo shows EF 35 - 40% Hyponatremia: Na is 133. Will monitor sodium level. History of COPD: Will continue duonebs, steroids, and antibiotics. Prerenal azotemia: Will avoid nephrotoxins and monitor renal function. GI ppx: protonix DVT prophylaxis: heparin Discharge Plan: Home. Will dc to telemetry bed once cleared by Cardiology
--- NOTE | 2023-06-10 13:28 | P.PN ---
Subjective Date of Service: 06/10/23 Chief Complaint: Defibrillator shock patient x 3; V. tach Subjective: No new changes, Tolerating diet (wants to get this admission behind him, did not want NM stress yesterday. Discussed cath on Wednesday.) Review of Systems 10-point ROS is otherwise unremarkable Cardiovascular: As per HPI (feeling better. States he did not have a heart attack and fall, but fell because his legs gave out. Then on trying to get up, he overtaxed himself and his defibrillator went off and knocked pt to the ground. 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) Neck: Supple, 2+ carotid pulse no bruit Respiratory: Clear to auscultation bilaterally Cardiovascular: No edema, Normal pulses, Regular rate/rhythm, Other (on po amiodarone 200mg po BID) Capillary refill: <2 Seconds Gastrointestinal: Normal bowel sounds, Soft and benign Musculoskeletal: No clubbing, Other (chronic lower extremity pain, recent steroid injection prior to admission) Integumentary: Other (several areas of ecchymosis from IV sites) Neurological: Normal speech, Normal tone Lymphatics: No axilla or inguinal lymphadenopathy External genitalia: Deferred Rectal: Deferred Assessment And Plan - Current Problems (Diagnosis) (1) Implantable cardioverter-defibrillator discharge Current Visit: Yes Status: Acute Plan: Trended troponins high but decreasing Pt denies CP/SOB, ECHO with reduced EF (about 40%) Continue heparin drip, amiodarone 200mg po BID, NPO post MN, will take to labelling machine operator tomorrow morning. (2) NSTEMI (non-ST elevated myocardial infarction) Onset Date: 10/01/14 Current Visit: No Status: Acute Plan: ASA, heparin, statin, and amiodarone 200mg po BID, decision on cardiac cath this admission pending Discussed NM stress test with patient, pt states he had a terrible experience last time and prefers to go to labelling machine operator. Will take to labelling machine operator
[2023-06-10] MEDS: HEPARIN/D5W 25,000 UNIT/500 ML BAG IV SCH (18:50)
[2023-06-10] MEDS: ATORVASTATIN 20 MG TAB PO SCH (21:32)
[2023-06-10] MEDS: EZETIMIBE 10 MG TAB PO SCH (21:33)
[2023-06-11 02:52] LABS: Absolute Lymphocytes (CBC) 0.9 K/uL (0.7-4.9); Hematocrit 47.5 % (39.6-49.0); Lymphocytes % 8.1 % (15.3-44.8); MCV 93.2 fL (80-100); Platelets 195 thou/uL (152-406)
[2023-06-11 03:02] LABS: Potassium 3.9 mEq/L (3.5-5.1)
[2023-06-11] MEDS: INSULIN REGULAR (HUMAN) 100 UNIT/ML SQ SCH ×4 (07:30→21:00)
--- NOTE | 2023-06-11 08:14 | P.PN ---
Subjective Date of Service: 06/11/23 Chief Complaint: Defibrillator shock patient x 3; V. tach Subjective: No new changes, NPO Review of Systems 10-point ROS is otherwise unremarkable Physical Examination - Vital Signs Temperature: 97.6 F Blood Pressure: 112/53 Pulse: 63 Respirations: 18 Pulse Ox (%): 94 - Physical Exam General: Alert, Oriented x3 HEENT: Atraumatic, Normocephalic, PERRLA Neck: Supple, 2+ carotid pulse no bruit, JVD not distended Respiratory: Clear to auscultation bilaterally Cardiovascular: No edema, Normal pulses, Regular rate/rhythm Capillary refill: <2 Seconds Gastrointestinal: Normal bowel sounds Musculoskeletal: No clubbing Integumentary: No rashes Neurological: Normal speech, Normal tone Lymphatics: No axilla or inguinal lymphadenopathy External genitalia: Deferred Rectal: Deferred Assessment And Plan - Current Problems (Diagnosis) (1) Implantable cardioverter-defibrillator discharge Current Visit: Yes Status: Acute Plan: Trended troponins high but decreasing Pt denies CP/SOB, ECHO with reduced EF (about 40%) Continue heparin drip, amiodarone 200mg po BID, NPO post MN, will take to vp lab tomorrow morning. 06/11/23 Will cath today (2) NSTEMI (non-ST elevated myocardial infarction) Onset Date: 10/01/14 Current Visit: No Status: Acute Plan: ASA, heparin, statin, and amiodarone 200mg po BID, decision on cardiac cath this admission pending Discussed NM stress test with patient, pt states he had a terrible experience last time and prefers to go to vp lab. Will take to vp lab
[2023-06-11] MEDS ORDERED: INSULIN GLARGINE 100 UNIT/ML SQ SCH (09:00)
[2023-06-11] MEDS: ASPIRIN 81 MG CHEWABLE TABLET PO SCH (09:29)
[2023-06-11] MEDS: AMIODARONE HCL 200 MG TAB PO SCH ×2 (09:30→21:21)
[2023-06-11] MEDS: METOPROLOL TAR 25 MG TAB PO SCH ×2 (09:31→21:00)
[2023-06-11] MEDS: FUROSEMIDE 40 MG/4 ML VIAL IV SCH ×2 (09:31→17:00)
[2023-06-11] MEDS: GABAPENTIN 100 MG CAP PO SCH ×2 (09:32→21:21)
[2023-06-11] MEDS: SACUBITRIL/VALSARTAN 24/26 MG TAB PO SCH ×2 (09:50→21:00)
--- NOTE | 2023-06-11 10:01 | P.PN ---
Subjective Date of Service: 06/11/23 Chief Complaint: Defibrillator shock patient x 3; V. tach Pt is resting comfortably in bed. He denies any chest pain or SOB. Heart rate is stable in the low 60s. Off amiodarone drip. Will continue amiodarone 200mg po BID. Will continue heparin drip for NSTEMI. Cardiology will do cardiac cath today. No complaints. Review of Systems 10-point ROS is otherwise unremarkable General: Unremarkable Eyes: Unremarkable ENT: Unremarkable Respiratory: Unremarkable Cardiovascular: Unremarkable Gastrointestinal: Unremarkable Genitourinary: Unremarkable Musculoskeletal: Unremarkable Integumentary: Unremarkable Neurological: Unremarkable Lymphatics: Unremarkable Physical Examination - Vital Signs Temperature: 97.6 F Blood Pressure: 128/67 Pulse: 86 Respirations: 18 Pulse Ox (%): 94 - Physical Exam General: Alert, In no apparent distress, Oriented x3, Cooperative, Obese HEENT: Atraumatic, Normocephalic, PERRLA Neck: Supple, 2+ carotid pulse no bruit Respiratory: Clear to auscultation bilaterally, Normal air movement Cardiovascular: No edema, Normal pulses, Regular rate/rhythm, Normal S1 S2 Capillary refill: <2 Seconds Gastrointestinal: Normal bowel sounds, Soft and benign, Non-distended Musculoskeletal: No clubbing, No swelling Integumentary: No rashes, No breakdown Neurological: Normal gait, Normal speech, Normal strength at 5/5 x4 extr Lymphatics: No axilla or inguinal lymphadenopathy Assessment And Plan - Plan Ventricular tachyarrhythmia status post discharge from defibrillator: Pt reports that it shocked him at home after he exerted himself at home. Heart rate is controlled. Will continue amiodarone 200mg po BID and follow up Echo. Consulted cardiology. NSTEMI: troponin is 148 -> 28947-> 82367. Will continue heparin drip. Consulted Cardiology. Pt denies any chest pain. Will trend troponin Q6h. Continue BB and aspirin. lipid level is within normal limit. The automotive glass installer will do Cardiac catherization today. Systolic Congestive heart failure/cardiomyopathy: Will metoprolol, lasix , strict I/O, low salt diet, and daily weight.Echo shows EF 35 - 40% Hyponatremia: Na is 132. Will monitor sodium level. History of COPD: Will continue duonebs, steroids, and antibiotics. Prerenal azotemia: Will avoid nephrotoxins and monitor renal function. DM II: Continue accuchek. SSI , lantus 12u daily and ADA diet. Pt is NPO for cardiac cath. GI ppx: protonix DVT prophylaxis: heparin Discharge Plan: Home. Will dc to telemetry bed once cleared by Cardiology
[2023-06-11] MEDS ORDERED: NA CHLORIDE 0.9% 500 ML ONE (14:25)
[2023-06-11] MEDS ORDERED: HEPA 1000U/500MLS 2,000 UNIT/1,000 ML BAG IV ONE (14:56)
[2023-06-11] MEDS ORDERED: VERAPAMIL HCL 10 MG/4 ML VIAL IV ONE (14:57)
[2023-06-11] MEDS ORDERED: MIDAZOLAM HCL 2 MG/2 ML INJ ONE (14:57)
[2023-06-11] MEDS ORDERED: LIDOCAINE 1% 20 ML MDV ONE (14:57)
[2023-06-11] MEDS ORDERED: FENTANYL CITR 100 MCG/2 ML ONE (14:57)
[2023-06-11] MEDS ORDERED: ASPIRIN 325 MG TAB ONE (14:58)
[2023-06-11] MEDS ORDERED: HEPARIN 5000 UNIT/ML 1 ML VIAL ONE (14:58)
[2023-06-11] MEDS ORDERED: CLOPIDOGREL 75 MG TABLET ONE (14:58)
[2023-06-11] MEDS ORDERED: ATROPINE SULF 1 MG/10 ML SYR IV ONE (14:58)
[2023-06-11] MEDS ORDERED: TICAGRELOR 90 MG TABLET PO ONE (14:58)
[2023-06-11] MEDS ORDERED: HEPARIN 10,000 UNIT/10 ML VIAL IV ONE (14:59)
[2023-06-11] MEDS ORDERED: NA CHLORIDE 0.9% 500 ML IV PRN (18:45)
[2023-06-11] MEDS: ATORVASTATIN 20 MG TAB PO SCH (21:21)
[2023-06-11] MEDS: EZETIMIBE 10 MG TAB PO SCH (21:21)
--- NOTE | 2023-06-11 23:04 | OP ---
Date of Procedure: 06/11/2023 Surgeon: MARY ELLEN ROMERO Procedures Performed: 1.Selective coronary angiogram. 2.Left heart catheterization. Indication: [id number] myocardial infarction and V-tach. Access: Right radial artery, 6-Albanian, closed with TR band. Complications: None. Bleeding: Less than 20 mL. Total Sedation Time: 45 minutes. Description Of Procedure: After risks, benefits, alternatives were explained, the patient agreed to procedure, signed informed consent. The patient was brought to the cardiac catheterization laborator y, prepped and draped in usual sterile fashion, and accessed right radial artery. Using pediatric mi cropuncture kit, placed a 6-Albanian Slender sheath and took 5-Albanian [place] 4.0 catheter into the aorti c root and engaged left main, took standard views and then in the RCA, took standard views and the ca theter was pushed over the wire into the LV, measured the LVEDP. Pullback did not record any gradien t, then removed the catheter and the sheath, placed TR band with good hemostasis. Findings: 1.Left main: Large and normal. 2.LAD: RESAWYER ostially. There was a long stent totally occluded. 3.Left circumflex: Moderate size and normal. 4.RCA: Very large and dominant, and supplies part of the anterior wall. Has proximal 30%, mid 40%, and distal 30% stenosis. 5.Normal LVEDP at 10 mmHg. 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 2.Moderate coronary artery disease elsewhere. Recommendation: Medical management. SR/MODL Voice ID: [id number] Report ID: [id number]
[2023-06-12 06:50] LABS: Hematocrit 50.1 % (39.6-49.0); Lymphocytes % 10.4 % (15.3-44.8); MCV 93.2 fL (80-100); MPV 8.3 fL (7.6-11.3); Platelets 227 thou/uL (152-406); RBC Red Blood Cell Count 5.38 M/uL (4.33-5.43)
[2023-06-12 07:04] LABS: Potassium 3.8 mEq/L (3.5-5.1)
[2023-06-12] MEDS ORDERED: INSULIN GLARGINE 100 UNIT/ML SQ SCH (09:00)
[2023-06-12] MEDS: METOPROLOL TAR 25 MG TAB PO SCH ×2 (09:00→21:17)
--- NOTE | 2023-06-12 09:04 | P.PN ---
Subjective Date of Service: 06/12/23 Chief Complaint: Defibrillator shock patient x 3; V. tach Pt is resting comfortably in bed. He denies any chest pain or SOB. Heart rate is stable in the low 60s. Off amiodarone drip. Will continue amiodarone 200mg po BID. Cardiology did cardiac cath on 06/11/23 which was negative for coronary artery disease. His wants rehab placement. No complaints. Review of Systems 10-point ROS is otherwise unremarkable General: Unremarkable Eyes: Unremarkable ENT: Unremarkable Respiratory: Unremarkable Cardiovascular: Unremarkable Gastrointestinal: Unremarkable Genitourinary: Unremarkable Musculoskeletal: Unremarkable Neurological: Unremarkable Lymphatics: Unremarkable Physical Examination - Vital Signs Temperature: 97.4 F Blood Pressure: 103/55 Pulse: 65 Respirations: 19 Pulse Ox (%): 97 - Physical Exam General: Alert, In no apparent distress, Oriented x3, Obese HEENT: Atraumatic, Normocephalic, PERRLA Neck: Supple, 2+ carotid pulse no bruit Respiratory: Clear to auscultation bilaterally, Normal air movement Cardiovascular: No edema, Normal pulses, Regular rate/rhythm, Normal S1 S2 Capillary refill: <2 Seconds Gastrointestinal: Normal bowel sounds, Soft and benign, Non-distended Musculoskeletal: No clubbing, No swelling Integumentary: No rashes, No breakdown Neurological: Normal gait, Normal speech, Normal strength at 5/5 x4 extr, Sensation intact Lymphatics: No axilla or inguinal lymphadenopathy Assessment And Plan - Plan Ventricular tachyarrhythmia status post discharge from defibrillator: Pt reports that it shocked him at home after he exerted himself at home. Heart rate is controlled. Will continue amiodarone 200mg po BID. Echo shows EF 35 - 40%. Consulted cardiology. NSTEMI: troponin is 148 -> 48595-> 76892. Off heparin drip. Pt denies any chest pain. Cardiology did cardiac cath which did not show any coronary artery disease. Continue BB and aspirin. lipid level is within normal limit. Systolic Congestive heart failure/cardiomyopathy: Will metoprolol, lasix , strict I/O, low salt diet, and daily weight.Echo shows EF 35 - 40% Hyponatremia: Na is 132. Will monitor sodium level. History of COPD: Will continue duonebs, steroids, and antibiotics. Prerenal azotemia: Will avoid nephrotoxins and monitor renal function. DM II: Continue accuchek. SSI , lantus 12u daily and ADA diet. Pt is NPO for cardiac cath. Deconditioning: Will continue PT. GI ppx: protonix DVT prophylaxis: heparin Discharge Plan: Home. Will dc to rehab once cleared by Cardiology
[2023-06-12] MEDS: FUROSEMIDE 40 MG/4 ML VIAL IV SCH ×2 (10:35→16:52)
[2023-06-12] MEDS: INSULIN REGULAR (HUMAN) 100 UNIT/ML SQ SCH ×4 (10:37→21:00)
[2023-06-12] MEDS: AMIODARONE HCL 200 MG TAB PO SCH ×2 (10:38→21:00)
[2023-06-12] MEDS: GABAPENTIN 100 MG CAP PO SCH ×2 (10:38→21:18)
[2023-06-12] MEDS: SACUBITRIL/VALSARTAN 24/26 MG TAB PO SCH ×2 (10:39→21:18)
[2023-06-12] MEDS: ASPIRIN 81 MG CHEWABLE TABLET PO SCH (10:39)
[2023-06-12 14:59] LABS: SARS-CoV-2 Antigen Rapid Res Negative (Negative)
[2023-06-12] MEDS: EZETIMIBE 10 MG TAB PO SCH (21:18)
[2023-06-12] MEDS: ATORVASTATIN 20 MG TAB PO SCH (21:18)
[2023-06-13 08:25] VITALS: O2SAT 98
[2023-06-13 08:58] LABS: Absolute Lymphocytes (CBC) 1.3 K/uL (0.7-4.9); Hematocrit 52.4 % (39.6-49.0); MPV 8.3 fL (7.6-11.3); Platelets 222 thou/uL (152-406); RBC Red Blood Cell Count 5.64 M/uL (4.33-5.43)
[2023-06-13] MEDS ORDERED: INSULIN GLARGINE 100 UNIT/ML SQ SCH (09:00)
[2023-06-13] MEDS: INSULIN REGULAR (HUMAN) 100 UNIT/ML SQ SCH ×2 (09:41→12:05)
[2023-06-13] MEDS: SACUBITRIL/VALSARTAN 24/26 MG TAB PO SCH (09:41)
[2023-06-13] MEDS: AMIODARONE HCL 200 MG TAB PO SCH (09:42)
[2023-06-13] MEDS: FUROSEMIDE 40 MG/4 ML VIAL IV SCH (09:42)
[2023-06-13] MEDS: ASPIRIN 81 MG CHEWABLE TABLET PO SCH (09:42)
[2023-06-13] MEDS: METOPROLOL TAR 25 MG TAB PO SCH (09:42)
[2023-06-13] MEDS: GABAPENTIN 100 MG CAP PO SCH (09:43)
[2023-06-13 10:01] LABS: Potassium 4.2 mEq/L (3.5-5.1)
--- NOTE | 2023-06-13 10:06 | P.PN ---
Subjective Date of Service: 06/13/23 Chief Complaint: Defibrillator shock patient x 3; V. tach Pt is resting comfortably in bed. He denies any chest pain or SOB. Heart rate is stable in the low 60s. Off amiodarone drip. Will continue amiodarone 200mg po BID. Cardiology did cardiac cath on 06/11/23 which was negative for coronary artery disease. Pt is waiting for inpatient rehab placement. No complaints. Review of Systems 10-point ROS is otherwise unremarkable General: Unremarkable Eyes: Unremarkable ENT: Unremarkable Respiratory: Unremarkable Cardiovascular: Unremarkable Gastrointestinal: Unremarkable Genitourinary: Unremarkable Musculoskeletal: Unremarkable Integumentary: Unremarkable Neurological: Unremarkable Lymphatics: Unremarkable Physical Examination - Vital Signs Temperature: 97.5 F Blood Pressure: 110/59 Pulse: 62 Respirations: 16 Pulse Ox (%): 90 - Physical Exam General: Alert, In no apparent distress, Oriented x3, Cooperative HEENT: Atraumatic, Normocephalic, PERRLA Neck: Supple, 2+ carotid pulse no bruit Respiratory: Clear to auscultation bilaterally, Normal air movement Cardiovascular: No edema, Normal pulses Capillary refill: <2 Seconds Gastrointestinal: Normal bowel sounds, Soft and benign, Non-distended Musculoskeletal: No clubbing, No swelling Integumentary: No rashes, No breakdown Neurological: Normal gait, Normal speech, Normal strength at 5/5 x4 extr, Normal tone Lymphatics: No axilla or inguinal lymphadenopathy Assessment And Plan - Plan Ventricular tachyarrhythmia status post discharge from defibrillator: Pt reports that it shocked him at home after he exerted himself at home. Heart rate is controlled. Will continue amiodarone 200mg po BID. Echo shows EF 35 - 40%. Consulted cardiology. NSTEMI: troponin is 148 -> 38389-> 47427. Off heparin drip. Pt denies any chest pain. Cardiology did cardiac cath which did not show any coronary artery disease. Continue BB and aspirin. lipid level is within normal limit. Systolic Congestive heart failure/cardiomyopathy: Will metoprolol, lasix , strict I/O, low salt diet, and daily weight.Echo shows EF 35 - 40% Hyponatremia: Na is 131. Will monitor sodium level. History of COPD: Will continue duonebs, steroids, and antibiotics. Prerenal azotemia: Will avoid nephrotoxins and monitor renal function. DM II: Continue accuchek. SSI , lantus 15u daily and ADA diet. Will follow up A1c. Deconditioning: Will continue PT. GI ppx: protonix DVT prophylaxis: heparin Discharge Plan: Home. Will dc to inpatient rehab
[2023-06-13 12:05] VITALS: BP 111/55; TEMP 98.5
--- NOTE | 2023-06-13 14:53 | P.DS ---
Admission Date: 06/06/23 Discharge Date: 06/13/23 Disposition: TRANSFER TO INPATIENT REHAB Discharge Condition: GOOD Reason for Admission: Defibrillator shock patient x 3; V. tach Brief History of Present Illness: Patient is an 83-year-old gentleman who came to the hospital with lightheadedness. Patient been cardioverted on 3 different occasions by his defibrillator. Patient was brought into the emergency room. Nurses contacted [employer] and there were told that patient's defibrillator shocked him out of ventricular tachycardia. Cardiology was notified and decision was made to admit patient to the ICU on amiodarone drip. Otherwise, patient with prior medical history for coronary artery disease with stent placement. Patient also with cardiomyopathy. Patient will be admitted to the hospital in the intensive care unit and will continue with the amiodarone drip and monitor patient for any arrhythmias. Patient's troponins are anticipated to be elevated because of the cardioversion. Patient will be admitted for inpatient hospitalization in the critical care unit. Cardiology will be consulted as well. Hospital Course: Patient is an 83-year-old gentleman with past medical history of CAD, HLD, CHF, facial nerve palsy and tonsillectomy who presented with lightheadedness. His defibrillator shocked him 3 times. He presented inthe Er with ventricular tachycaria. We gave him amiodarone drip and later switched to po amiodarone. Cardiology did Cardiac cath for NSTEMI but it showed no evidence of CAD. Pt was later transferred to inpatient rehab for deconditioning. Vital Signs/Physical Exam: Temp Pulse Resp BP Pulse Ox 98.5 F 60 14 111/55 L 96 06/13/23 12:00 06/13/23 12:00 06/13/23 12:00 06/13/23 12:00 06/13/23 12:00 Laboratory Data at Discharge: WBC 10.30 thou/uL (4.3-10.9) 06/13/23 08:45 Hgb 18.1 g/dL (13.6-17.9) H 06/13/23 08:45 Hct 52.4 % (39.6-49.0) H 06/13/23 08:45 Plt Count 222 thou/uL (152-406) 06/13/23 08:45 PT 12.6 SECONDS (9.5-12.5) H 06/06/23 16:10 INR 1.15 06/06/23 16:10 APTT 60.7 SECONDS (24.3-36.9) H 06/11/23 02:14 Sodium 131 mEq/L (136-145) L 06/13/23 08:45 Potassium 4.2 mEq/L (3.5-5.1) 06/13/23 08:45 BUN 29 mg/dL (7-18) H 06/13/23 08:45 Creatinine 1.02 mg/dL (0.70-1.30) 06/13/23 08:45 Glucose 161 mg/dL (74-106) H 06/13/23 08:45 Phosphorus 3.0 mg/dL (2.5-4.9) 06/09/23 04:23 Magnesium 2.5 mg/dL (1.6-2.4) H 06/09/23 04:23 Total Bilirubin 0.8 mg/dL (0.2-1.0) 06/07/23 07:10 AST 65 U/L (15-37) H 06/07/23 07:10 ALT 38 U/L (16-61) 06/07/23 07:10 Alkaline Phosphatase 48 U/L (45-117) 06/07/23 07:10 Triglycerides 129 mg/dL (<150) 06/07/23 07:10 Cholesterol 121 mg/dL (<200) 06/07/23 07:10 HDL Cholesterol 62 mg/dL (40-60) H 06/07/23 07:10 Cholesterol/HDL Ratio 1.95 06/07/23 07:10 Lipase 23 U/L (13-75) 06/06/23 16:10 Home Medications: Aspirin [Ecotrin 81 MG] 81 mg PO DAILY 09/29/14 Acetaminophen [Tylenol*] 650 mg PO Q6H PRN tab 02/16/22 Ezetimibe [Zetia*] 10 mg PO DAILY 02/16/22 Sacubitril/Valsartan [Entresto 24 mg-26 mg Tablet] 1 each PO BID 02/16/22 carvediloL [Carvedilol] 3.125 mg PO BID 02/16/22 Atorvastatin Calcium [Lipitor*] 20 mg PO DAILY 06/07/23 Gabapentin [Neurontin*] 100 mg PO BID 06/07/23 Followup: Irasema Yoder DO, DO [Primary Care Provider] - 1-2 Weeks
== END 2023-06-13 13:11 | DRG 281 ==
LOC: ER 15:31 → ERHOLD 18:47 → 3RD-ICU 21:46 → 2ND 06-10 17:57
PROVIDERS: ADMIT Hospitalist; ATTEND Hospitalist
PROC: 4A023N7 Measurement of Cardiac Sampling and Pressure, Left Heart, Percutaneous Approach (ICD-10-PCS; principal; 2023-06-11)
PROC: B2111ZZ Fluoroscopy of Multiple Coronary Arteries using Low Osmolar Contrast (ICD-10-PCS; 2023-06-11)
DX: I47.20 Ventricular tachycardia, unspecified (principal); I21.4 Non-ST elevation (NSTEMI) myocardial infarction; E87.1 Hypo-osmolality and hyponatremia; I42.9 Cardiomyopathy, unspecified; I50.22 Chronic systolic (congestive) heart failure; I11.0 Hypertensive heart disease with heart failure; E11.9 Type 2 diabetes mellitus without complications; E78.00 Pure hypercholesterolemia, unspecified; J44.9 Chronic obstructive pulmonary disease, unspecified; I25.2 Old myocardial infarction; R79.89 Other specified abnormal findings of blood chemistry; Z95.5 Presence of coronary angioplasty implant and graft; Z79.82 Long term (current) use of aspirin; Z90.49 Acquired absence of other specified parts of digestive tract; Z11.52 Encounter for screening for COVID-19; Z79.02 Long term (current) use of antithrombotics/antiplatelets; Z95.810 Presence of automatic (implantable) cardiac defibrillator; Z79.899 Other long term (current) drug therapy; Z87.891 Personal history of nicotine dependence
CPT/HCPCS: 36415; 71045; 76937; 80048; 80053; 80061; 81001; 82947; 83036; 83690; 83735; 83880; 84100; 84443; 84484; 85025; 85610; 85730; 87804; 87811; 93005; 93306; 93458; 97110; 97116; 97161; 97530; 99152; 99153; 99214; 99285; C1893; J0282; J0461; J1644; J1815; J1940; J2001; J2250; J3010; J3475; J7030; J7040; J7060; Q9966

== ENCOUNTER 2024-01-03 03:04 | Inpatient (IN) | payer OTHER ==
--- OUTSIDE RECORDS SUMMARY | 2024-01-03 03:10 | XMS REPORT | Clinical Summary ---
Author Name Unknown Organization [facility] Address [address] [place] [address] Care Team Providers Care Chemist Intern Name Role Phone Mike Forte MD, Jr., MD, Omar Troy Primary Care Provider + [phone] Social History Tobacco Use Types Packs/Day Years Used Date Smoking Tobacco: Never Assessed Sex and Gender Information Value Date Recorded Sex Assigned at Not on file Gender Identity Not on file Sexual Orientation Not on file Plan of Treatment Health Maintenance Due Date Last Done Comments COVID-19 Vaccine ( season) 2023 Influenza Vaccine 03/05/2024 Care Teams Chemist Intern Relationship Specialty Start Date End Date Mike Forte MD PCP - External Referring 01/09/16 Omar Bruce Jr., MD [address] [place] [id number] [email or web address] PCP - General Head and Neck Surgery 01/13/16
[2024-01-03] MEDS ORDERED: VANCOMYCIN 1 GM/VIAL ONE (03:22)
[2024-01-03] MEDS ORDERED: NA CHLORIDE 0.9% 100 ML ONE (03:23)
[2024-01-03] MEDS ORDERED: NA CHLORIDE 0.9% 250 ML ONE (03:23)
[2024-01-03] MEDS ORDERED: ONDANSETRON 4 MG/2 ML VIAL ONE (03:23)
[2024-01-03] MEDS ORDERED: NA CHLORIDE 0.9% 1,000 ML ONE (03:23)
[2024-01-03] MEDS ORDERED: PIPERACIL/TAZO 3.375 GM VIAL IV ONE (03:24)
[2024-01-03 04:24] LABS: Absolute Lymphocytes (CBC) 0.4 K/uL (0.7-4.9); Absolute Monocytes 0.9 K/uL (0.1-1.3); Absolute Neutrophil 2.4 K/uL (1.8-8.0); Basophils % 0.5 % (0-1.3); Eosinophils % 0.2 % (0-4.4); Hematocrit 39.6 % (39.6-49.0); Hemoglobin 13.5 g/dL (13.6-17.9); Lymphocytes % 9.8 % (15.3-44.8); MCH 31.7 pg (27.0-35.0); MCHC 34.2 g/dL (32.0-36.0); MCV 92.5 fL (80-100); MPV 7.8 fL (7.6-11.3); Monocytes % 23.6 % (3.3-12.3); Neutrophils % 65.9 % (41.7-73.7); Nucleated Red Blood Cells % 0.1 % (0-0); Platelets 177 thou/uL (152-406); RBC Red Blood Cell Count 4.28 M/uL (4.33-5.43); Red Cell Distribution Width 16.4 % (12.1-15.2)
[2024-01-03 04:25] LABS: PT Prothrombin Time 14.4 SECONDS (9.4-12.5); PTT, Activated Partial Thromb 29.9 SECONDS (24.3-36.9); Protime INR 1.32
[2024-01-03 04:48] LABS: Albumin 2.7 g/dL (3.4-5.0); Albumin/Globulin Ratio 0.8 (1.1-1.8); Anion Gap 9.9 mEq/L (5.0-15.0); Bilirubin Total 0.8 mg/dL (0.2-1.0); Globulin 3.3 g/dL (2.3-3.5); Thyroid Stimulating Hormone 1.72 uIU/mL (0.358-3.740); Troponin High Sensitivity 17.7 pg/mL (<58.9)
[2024-01-03 05:03] LABS: Potassium 3.9 mEq/L (3.5-5.1)
[2024-01-03 05:46] LABS: Specific Gravity > 1.030 (1.005-1.030); Sqamous Epithelial <5 /HPF (None Seen); Urine Bacteria None Seen /HPF (<20); Urine Bilirubin NEGATIVE (Negative); Urine Blood Negative (Negative); Urine Clarity Turbid (Clear); Urine Color Yellow (Yellow); Urine Culture Reflex Order NOT NEEDED; Urine Glucose NEGATIVE (Negative); Urine Ketones 2+ (Negative); Urine Microscopic Reflex YN ORDER UMIC; Urine Mucus 3+ /HPF (None Seen); Urine Nitrite NEGATIVE (Negative); Urine Protein 1+ (Negative); Urine RBC <5 /HPF (None Seen); Urine Urobilinogen Normal (Normal); Urine WBC <5 /HPF (<5); Urine pH 5.5 (5.0-7.0)
--- NOTE | 2024-01-03 06:59 | RAD REPORT ---
EXAM DESCRIPTION: CTChest Abd Pelvis Wo Con - 01/03/2024 6:26 am CLINICAL HISTORY: DIZZY COMPARISON: Thorax W/ Con dated 12/06/2023; Thorax W/ Con dated 09/13/2023; Thorax W/ Con dated 023; Thorax W/ Con dated 03/09/2023; Head Brain Wo Cont dated 01/03/2024; Bone Imaging Whole Body dated TECHNIQUE: CT of the chest, abdomen, and pelvis was performed. All CT scans are performed using dose optimization technique as appropriate and may include automated exposure control or mA/KV adjustment according to patient size. FINDINGS: Thorax: Chest Wall: No abnormal mass left upper chest wall pacemaker. Lungs: No acute abnormality. Pleura: No effusions or pneumothorax. [place]/Mediastinum: No lymphadenopathy. Aorta/Pulmonary Arteries: Ascending thoracic aortic aneurysm measuring 4 cm. Heart: Multi-vessel coronary artery disease. Mild cardiomegaly. Abdomen/Pelvis: Liver: No acute abnormality or suspicious lesions. Biliary: Cholecystectomy Stomach: No significant focal abnormality. Duodenum: No significant focal abnormality. Pancreas: No significant abnormality. Spleen: No significant abnormality. Adrenal: No suspicious lesions. Kidney/ureter: No hydronephrosis. No renal calculi. Retroperitoneum: No retroperitoneal adenopathy. Vascular: Atherosclerosis. No aneurysm. Bowel: Diffuse small bowel fluid. Liquid stool contents in the ascending transverse colon.. Peritoneum: No ascites or free air. Bladder: Grossly unremarkable. Reproductive: Prostatomegaly. Bones: Right hip arthroplasty . Multilevel degenerative changes are present in the spine. Sclerosis a long T10 is similar in likely reflecting metastatic disease. Other: n/a IMPRESSION: 1. Fluid-filled small bowel and proximal colon likely reflecting an enteritis. No bowel obstruction. 2. No acute findings in the chest.
--- NOTE | 2024-01-03 07:11 | ER ---
Nurse's Notes [facility] Name: Levy Uribe Age: 84 yrs Sex: Male : 1940 Arrival Date: 01/03/2024 Time: 03:04 Bed 4 Private MD: Diagnosis: Muscle weakness (generalized);Acute generalized weakness, acute encephalopathy, Acute hypoactive delirium Presentation: 01/02 03:11 Chief complaint: EMS states: patient reported not feeling well, general weakness, and tm6 not eating x2 days. also reported to EMS that patient seemed AMS. Coronavirus screen: Vaccine status: Patient reports being unvaccinated. Ebola Screen: Patient negative for fever greater than or equal to 101.5 degrees Fahrenheit, and additional compatible Ebola Virus Disease symptoms Patient denies exposure to infectious person. Patient denies travel to an Ebola-affected area in the 21 days before illness onset. No symptoms or risks identified at this time. Initial Sepsis Screen: Does the patient meet any 2 criteria? No. Patient's initial sepsis screen is negative. Does the patient have a suspected source of infection? No. Patient's initial sepsis screen is negative. Risk Assessment: Do you want to hurt yourself or someone else? Patient reports no desire to harm self or others. Onset of symptoms was January 01, 2024. 03:11 Method Of Arrival: EMS: [facility] tm6 03:11 Acuity: RAJNI 3 tm6 Triage Assessment: 03:11 General: Appears in no apparent distress. Behavior is calm, cooperative. Pain: Denies tm6 pain. EENT: No signs and/or symptoms were reported regarding the EENT system. Neuro: Level of Consciousness is awake, alert, obeys commands, Oriented to person, place, time, situation. Cardiovascular: Patient's skin is warm and dry. Respiratory: Airway is patent Respiratory effort is even, unlabored, Respiratory pattern is regular, symmetrical. GI: Abdomen is flat, non-distended, Reports anorexia, nausea. : No signs and/or symptoms were reported regarding the genitourinary system. Derm: No signs and/or symptoms reported regarding the dermatologic system. Musculoskeletal: Reports general weakness. Historical: - Allergies: 03:09 No Known Allergies; tm6 - PMHx: 03:09 Congestive heart failure; Hypercholesterolemia; Hypertensive disorder; Myocardial tm6 infarction; cancer; - PSHx: 03:10 pacemaker; tm6 - Immunization history:: Client reports having NOT received the Covid vaccine. - Infectious Disease History:: Denies. - Social history:: Smoking status: Patient denies any tobacco usage or history of. Patient/guardian denies using alcohol. - Family history:: not pertinent. Screenin:15 [place] [facility] Fall Risk Assessment (Adult) History of falling in the last 3 months, tm6 including since admission No falls in past 3 months (0 pts) Confusion or Disorientation No (0 pts) Intoxicated or Sedated No (0 pts) Impaired Gait No (0 pts) Mobility Assist Device Used No (0 pt) Altered Elimination No (0 pt) Score/Fall Risk Level 0 - 2 = Low Risk Oriented to surroundings, Maintained a safe environment, Educated pt \T\ family on fall prevention, incl call for assistance when getting out of bed. Abuse screen: Denies threats or abuse. Denies injuries from another. Nutritional screening: No deficits noted. Tuberculosis screening: No symptoms or risk factors identified. Assessment: 03:15 Reassessment: see triage assessment. tm6 04:27 Reassessment: Patient appears in no apparent distress at this time. Patient and/or tm6 family updated on plan of care and expected duration. Pain level reassessed. Patient is alert, oriented x 3, equal unlabored respirations, skin warm/dry/pink. 05:45 General: Appears in no apparent distress. comfortable, Behavior is calm, cooperative, bm8 appropriate for age. Pain: Pain:. 05:48 Neuro: No deficits noted. Level of Consciousness is awake, alert, obeys commands, bm8 Oriented to person, place, time, situation, Appropriate for age Reports weakness reports generalized weakness, but Wants to know when he will be going home today. Cardiovascular: Heart tones S1 S2 present Capillary refill < 3 seconds Patient's skin is warm and dry. Rhythm is atrial pacer. Respiratory: Airway is patent Respiratory effort is even, unlabored, Respiratory pattern is regular, symmetrical. GI: No signs and/or symptoms were reported involving the gastrointestinal system. : No signs and/or symptoms were reported regarding the genitourinary system. Musculoskeletal: Reports soreness in hip after a fall three days ago. 08:00 Reassessment: Patient appears in no apparent distress at this time. Patient and/or ph family updated on plan of care and expected duration. Pain level reassessed. Patient is alert, oriented x 3, equal unlabored respirations, skin warm/dry/pink. Vital Signs: 03:11 BP 129 / 59; Pulse 79; Resp 19; Temp 98.9(O); Pulse Ox 98% on 2 lpm NC; Weight 86.18 kg tm6 (M); Height 5 ft. 10 in. (R); Pain 0/10; 04:27 Pulse 75; Resp 17; Pulse Ox 98% on 2 lpm NC; tm6 05:48 BP 114 / 55; Pulse 66; Resp 14; Temp 98.9; Pulse Ox 99% on 2 lpm NC; Pain 0/10; bm8 03:11 Body Mass Index 27.26 (86.18 kg, 177.8 cm) tm6 03:11 Pain Scale: Adult tm6 05:48 Pain Scale: Adult bm8 Kia Coma Score: 05:48 Eye Response: spontaneous(4). Motor Response: obeys commands(6). Verbal Response: bm8 oriented(5). Total: 15. 06:12 Eye Response: spontaneous(4). Motor Response: obeys commands(6). Verbal Response: sp4 oriented(5). Total: 15. NIH Stroke Scale Scores: 06:12 NIHSS Score: 0 sp4 ED Course: 03:08 Patient arrived in ED. tm6 03:11 Arm band placed on right wrist. tm6 03:14 Triage completed. tm6 03:15 Patient has correct armband on for positive identification. Placed in gown. Bed in low tm6 position. Call light in reach. Side rails up X2. Provided Education on: use of call aviles. Client placed on continuous cardiac and pulse oximetry monitoring. NIBP monitoring applied. library monitor on. Pulse ox on. NIBP on. Door closed. Noise minimized. Warm blanket given. Pillow given. 03:15 Maintain EMS IV. Dressing intact. Good blood return noted. Site clean \T\ dry. Gauge \T\ tm 6 site: 20g RAC. 03:16 Linus Johnson MD is Attending Physician. sp4 03:18 Inserted saline lock: 20 gauge in left forearm, using aseptic technique. Blood bm8 collected. 03:18 Initial lab(s) drawn, by me, sent to lab. First set of blood cultures drawn by me, EKG bm8 done, by ED staff, reviewed by Linus Johnson MD. 03:35 Second set of blood cultures drawn by me. bm8 03:52 Yusuf Dee, RN is Primary Nurse. bm8 05:10 Straight cath inserted, using sterile technique, 14 Fr. Specimen obtained. Returned bm8 pipe urine. Patient tolerated well. 05:48 No provider procedures requiring assistance completed. bm8 07:09 Report given to rasheed Gustafson and rasheed Braun. bm8 07:10 Patrick Guerrero MD is Hospitalizing Provider. sp4 11:50 Verbal reassurance given. yellow fall socks applied. ll1 Administered Medications: 04:36 Drug: NS 0.9% IV 1000 ml IV at 125 ml/hr continuous Route: IV; Rate: 125 ml/hr; Site: tm6 right forearm; 04:37 Drug: Ondansetron IVP 4 mg IVP once; over 2 minutes Route: IVP; Site: right forearm; tm6 04:48 Follow up: Response: No adverse reaction bm8 04:53 Drug: Piperacillin-Tazobactam IVPB 3.375 grams IVPB once over 60 mins; (mix in NS 100 bm8 mL) Route: IVPB; Infused Over: 60 mins; Site: left forearm; 06:35 Follow up: Response: No adverse reaction; IV Status: Completed infusion; IV Intake: bm8 100ml 05:08 Drug: vancoMYCIN IVPB 2 grams IVPB at calculated rate once Route: IVPB; Rate: bm8 calculated rate; Site: right forearm; 06:58 Not Given (Physician Discretion): trimethoprim-sulfamethoxazole(160 mg-800 mg (ds) 1 tm6 tablet PO once 06:58 Not Given (Physician Discretion): [id number] mg PO once tm6 06:59 Not Given (Physician Discretion): lidocaine(1 %) 40 ml 20 ml Infiltration once; to tm6 bedside Medication: 03:15 VIS not applicable for this client. tm6 Intake: 06:35 IV: 100ml; Total: 100ml. bm8 Outcome: 07:11 Decision to Hospitalize by Provider. sp4 14:25 Patient left the ED. aa5 NIH Stroke Scale - NIH Stroke Score Date: 01/03/2024 Time: 06:12 Total Score = 0 10. Dysarthria (speech clarity - read or repeat words) - 0(Normal) 11. Extinction and Inattention (visual/tactile/auditory/spatial/personal) - 0(No abnormality) 1a. Level of Consciousness (LOC) - 0(Alert) 1b. Level of Consciousness (LOC) (Month \T\ Age) - 0(Both) 1c. LOC Commands (Open \T\ Closes Eyes/Sen[employer]) - 0(Both) 2. Best Gaze (Lateral Gaze Paresis) - 0(Normal) 3. Visual Field Loss - 0(No visual loss) 4. Facial Palsy - 0(Normal) 5a. Left Arm: Motor (10-second hold) - 0(No drift) 5b. Right Arm: Motor (10-second hold) - 0(No drift) 6a. Left Leg: Motor (5-second hold - always test supine) - 0(No drift) 6b. Right Leg: Motor (5-second hold - always test supine) - 0(No drift) 7. Limb Ataxia (finger/nose \T\ heel/balbuena - test with eyes open) - 0(Absent) 8. Sensory Loss (pinprick arms/legs/face) - 0(Normal) 9. Best Language: Aphasia (description/naming/reading) - 0(No aphasia) Initials: sp4 Signatures: Ingrid Alexander, RN RN aa5 Janay Ngo RN RN Bhargavi He RN RN ll1 Linus Johnson MD MD sp4 Radha Morris RN RN tm6 Yusuf Dee RN RN bm8 Corrections: (The following items were deleted from the chart) 05:52 05:45 Pain: bm8 bm8
--- NOTE | 2024-01-03 07:11 | EDPHYS ---
Physician Documentation [facility] Name: Levy Uribe Age: 84 yrs Sex: Male : 1940 Arrival Date: 01/03/2024 Time: 03:04 Bed 4 Private MD: ED Physician Linus Johnson HPI: 01/02 03:16 This 84 yrs old Male presents to ER via EMS with complaints of General sp4 Weakness. 05:57 84-year-old male with history of congestive heart failure, myopathy, COPD, diabetes, sp4 decreased mobility, dyslipidemia, hyponatremia, coronary artery disease, prerenal azotemia, ventricular tachycardia. Patient also has history of malignant melanoma currently under management of Dr. Carrasco. Patient presents with generalized weakness and confusion.. 06:12 Patient's medications include carvedilol, ezetimibe, furosemide, amiodarone, baby sp4 aspirin, Centrum for male, vitamin C, atorvastatin, nitroglycerin.. Historical: - Allergies: 03:09 No Known Allergies; tm6 - PMHx: 03:09 Congestive heart failure; Hypercholesterolemia; Hypertensive disorder; Myocardial tm6 infarction; cancer; - PSHx: 03:10 pacemaker; tm6 - Immunization history:: Client reports having NOT received the Covid vaccine. - Infectious Disease History:: Denies. - Social history:: Smoking status: Patient denies any tobacco usage or history of. Patient/guardian denies using alcohol. - Family history:: not pertinent. ROS: 06:12 Constitutional: Negative for fever, chills, and weight loss, positive generalized sp4 weakness, fall at home, not able to ambulate, reported confusion 06:12 All other systems are negative, Exam: 06:12 Constitutional: This is a well developed, well nourished patient who is awake, frail sp4 elderly male, hard of hearing, presents with EMS, ill-appearing but nontoxic. Head/Face: Normocephalic, atraumatic. Eyes: Pupils equal round and reactive to light, extra-ocular motions intact. Lids and lashes normal. Conjunctiva and sclera are not injected. Cornea within normal limits. Periorbital areas with no swelling, redness, or edema. ENT: Nares patent. No nasal discharge, no septal abnormalities noted. Tympanic membranes are normal and external auditory canals are clear. Oropharynx with no redness, swelling, or masses, exudates, or evidence of obstruction, uvula midline. Mucous membranes moist. Neck: Trachea midline, no thyromegaly or masses palpated, and no cervical lymphadenopathy. Supple, full range of motion without nuchal rigidity, or vertebral point tenderness. Chest/axilla: Normal chest wall appearance and motion. Nontender with no deformity. No lesions are appreciated. Cardiovascular: Regular rate and rhythm with a normal S1 and S2. No gallops, murmurs, or rubs. Normal PMI, no JVD. No pulse deficits. Respiratory: Lungs have equal breath sounds bilaterally, clear to auscultation and percussion. No rales, rhonchi or wheezes noted. No increased work of breathing, no retractions or nasal flaring. Abdomen/GI: Soft, with normal bowel sounds. No distension or tympany. No guarding or rebound. No evidence of tenderness throughout. Back: No spinal tenderness. No costovertebral tenderness. Skin: Warm, dry with normal turgor. Normal color with no rashes, no lesions, and no evidence of cellulitis. MS/ Extremity: Pulses equal, no cyanosis. Neurovascular intact. Full, normal range of motion. Neuro: Awake and alert, GCS 15, oriented to person, place, Cranial nerves II-XII grossly intact. Motor strength 5/5 in all extremities. Sensory grossly intact. Generalized weakness limits exam. Patient not able to stand up and ambulate. 06:12 ECG was reviewed by the Attending Physician. EKG time 0 338, normal sinus rhythm first-degree AV block rate 75. Prolonged QT, Vital Signs: 03:11 BP 129 / 59; Pulse 79; Resp 19; Temp 98.9(O); Pulse Ox 98% on 2 lpm NC; Weight 86.18 kg tm6 (M); Height 5 ft. 10 in. (R); Pain 0/10; 04:27 Pulse 75; Resp 17; Pulse Ox 98% on 2 lpm NC; tm6 05:48 BP 114 / 55; Pulse 66; Resp 14; Temp 98.9; Pulse Ox 99% on 2 lpm NC; Pain 0/10; bm8 03:11 Body Mass Index 27.26 (86.18 kg, 177.8 cm) tm6 03:11 Pain Scale: Adult tm6 05:48 Pain Scale: Adult bm8 NIH Stroke Scale Scores: 06:12 NIHSS Score: 0 sp4 [place] Coma Score: 05:48 Eye Response: spontaneous(4). Motor Response: obeys commands(6). Verbal Response: bm8 oriented(5). Total: 15. 06:12 Eye Response: spontaneous(4). Motor Response: obeys commands(6). Verbal Response: sp4 oriented(5). Total: 15. MDM: 03:31 Patient medically screened. sp4 06:22 ED course: . sp4 06:51 ED course: EXAM: CT Head Without Intravenous Contrast CLINICAL HISTORY: The patient is sp4 84 years old and is Male; DIZZY TECHNIQUE: Axial computed tomography images of the head/brain without intravenous contrast. Sagittal and coronal reformatted images were created and reviewed. This CT exam was performed using one or more of the following dose reduction techniques: automated exposure control, adjustment of the mA and/or kV according to patient size, and/or use of iterative reconstruction technique. COMPARISON: No relevant prior studies available. FINDINGS: Brain: Old right cerebellar infarct. No hemorrhage. No significant white matter disease. Ventricles: Unremarkable. No ventriculomegaly. Bones/joints: Left occipital craniotomy with clips in the left posterior fossa. No acute fracture. Soft tissues: Unremarkable. Sinuses: Unremarkable as visualized. Mastoid air cells: Unremarkable as visualized. No mastoid effusion. IMPRESSION: No acute intracranial abnormality. . 07:08 ED course: EXAM DESCRIPTION: CTChest Abd Pelvis Wo Con - 01/03/2024 6:26 am CLINICAL sp4 HISTORY: DIZZY COMPARISON: Thorax W/ Con dated 12/06/2023; Thorax W/ Con dated 09/13/2023; Thorax W/ Con dated 06/01/2023; Thorax W/ Con dated 03/09/2023; Head Brain Wo Cont dated 01/03/2024; Bone Imaging Whole Body dated 12/06/2023 TECHNIQUE: CT of the chest, abdomen, and pelvis was performed. All CT scans are performed using dose optimization technique as appropriate and may include automated exposure control or mA/KV adjustment according to patient size. FINDINGS: Thorax: Chest Wall: No abnormal mass left upper chest wall pacemaker. Lungs: No acute abnormality. Pleura: No effusions or pneumothorax. [place]/Mediastinum: No lymphadenopathy. Aorta/PulmonaryArteries: Ascending thoracic aortic aneurysm measuring 4 cm. Heart: Multi-vessel coronary artery disease. Mild cardiomegaly. Abdomen/Pelvis: Liver: No acute abnormality or suspicious lesions. Biliary: Cholecystectomy Stomach: No significant focal abnormality. Duodenum: No significant focal abnormality. Pancreas: No significant abnormality. Spleen: No significant abnormality. Adrenal: No suspicious lesions. Kidney/ureter: No hydronephrosis. No renal calculi. Retroperitoneum: No retroperitoneal adenopathy. Vascular: Atherosclerosis. No aneurysm. Bowel: Diffuse small bowel fluid. Liquid stool contents in the ascending transverse colon.. Peritoneum: No ascites or free air. Bladder: Grossly unremarkable. Reproductive: Prostatomegaly. Bones: Right hip arthroplasty . Multilevel degenerative changes are present in the spine. Sclerosis along T10 is similar in likely reflecting metastatic disease. Other: n/a IMPRESSION: 1. Fluid-filled small bowel and proximal colon likely reflecting an enteritis. No bowel obstruction. 2. No acute findings in the chest.. 07:14 Differential Diagnosis altered mental status, sepsis, flu. Data reviewed: vital signs, sp4 nurses notes, EMS record, lab test result(s), EKG, radiologic studies, CT scan, plain films. Consideration of Admission/Observation Patient was admitted/placed on observation. Escalation of care including admission/observation considered. Management of patient was discussed with the following: Hospitalist: Admit team . 01/02 03:17 Order name: Blood Culture Adult (2) [facility] 01/02 03:17 Order name: CBC with Diff [facility] 01/02 03:17 Order name: CMP 4 01/02 03:17 Order name: Lactate w/ 2H reflex if indic. 4 01/02 03:17 Order name: Protime (+inr) [facility] 01/02 03:17 Order name: Ptt, Activated 4 01/02 03:17 Order name: Urinalysis w/ reflexes 4 01/02 03:17 Order name: Troponin High Sensitivity 4 01/02 03:17 Order name: BNP 4 01/02 03:18 Order name: CRP 4 01/02 03:18 Order name: TSH 4 01/02 03:18 Order name: T4 Free 4 01/02 04:26 Order name: Protime (+INR); Complete Time: 05:47 EDMS 01/02 04:26 Order name: PTT, Activated Partial Thromb; Complete Time: 05:47 EDMS 01/02 04:39 Order name: Lactate w/ 2H reflex if indic.; Complete Time: 05:47 EDMS 01/02 04:40 Order name: CBC with Automated Diff EDMS 01/02 05:04 Order name: Comprehensive Metabolic Panel; Complete Time: 05:47 EDMS 01/02 05:04 Order name: Troponin High Sensitivity; Complete Time: 05:47 EDMS 01/02 05:04 Order name: NT PRO-BNP; Complete Time: 05:47 EDMS 01/02 05:04 Order name: C-Reactive Protein; Complete Time: 05:47 EDMS 01/02 05:04 Order name: T4 Free; Complete Time: 05:47 EDMS 01/02 05:04 Order name: Thyroid Stimulating Hormone; Complete Time: 05:47 EDMS 01/02 05:46 Order name: Urinalysis w/ reflexes; Complete Time: 05:47 EDMS 01/02 08:00 Order name: Manual Differential EDMS 01/02 08:00 Order name: CBC Smear Scan EDMS 01/02 12:14 Order name: Blood Culture EDMS 01/02 03:18 Order name: CT Head Brain wo Cont sp4 01/02 03:18 Order name: CT Chest Abdomen Pelvis W/O Contrast sp4 01/02 07:00 Order name: CT; Complete Time: 07:06 EDMS 01/02 09:54 Order name: CT EDMS 01/02 03:17 Order name: EKG; Complete Time: 10:03 sp4 01/02 03:17 Order name: Accucheck; Complete Time: 04:28 sp4 01/02 03:17 Order name: Cardiac monitoring; Complete Time: 03:17 sp4 01/02 03:17 Order name: Cath; Complete Time: 05:18 sp4 01/02 03:17 Order name: EKG - Nurse/Tech; Complete Time: 03:52 sp4 01/02 03:17 Order name: IV Saline Lock - Large Bore; Complete Time: 03:31 sp4 01/02 03:17 Order name: Labs collected and sent; Complete Time: 03:31 sp4 01/02 03:17 Order name: O2 Per Protocol; Complete Time: 03:17 sp4 01/02 03:17 Order name: O2 Sat Monitoring; Complete Time: 03:17 sp4 01/02 03:17 Order name: Vital Signs; Complete Time: 03:17 sp4 01/02 06:20 Order name: Setup Suture Tray; Complete Time: 06:58 sp4 EC:12 Rate is 75 beats/min. Rhythm is regular, Normal Sinus Rhythm. QRS [place] is Normal. [place] sp4 interval is prolonged. QRS interval is normal. QT interval is prolonged. No Q waves. T waves are Normal. No ST changes noted. Clinical impression: No evidence of ischemia. Interpreted by me. Reviewed by me. Administered Medications: 04:36 Drug: NS 0.9% IV 1000 ml IV at 125 ml/hr continuous Route: IV; Rate: 125 ml/hr; Site: tm6 right forearm; 04:37 Drug: Ondansetron IVP 4 mg IVP once; over 2 minutes Route: IVP; Site: right forearm; tm6 04:48 Follow up: Response: No adverse reaction bm8 04:53 Drug: Piperacillin-Tazobactam IVPB 3.375 grams IVPB once over 60 mins; (mix in NS 100 bm8 mL) Route: IVPB; Infused Over: 60 mins; Site: left forearm; 06:35 Follow up: Response: No adverse reaction; IV Status: Completed infusion; IV Intake: bm8 100ml 05:08 Drug: vancoMYCIN IVPB 2 grams IVPB at calculated rate once Route: IVPB; Rate: bm8 calculated rate; Site: right forearm; 06:58 Not Given (Physician Discretion): trimethoprim-sulfamethoxazole(160 mg-800 mg (ds) 1 tm6 tablet PO once 06:58 Not Given (Physician Discretion): [id number] mg PO once tm6 06:59 Not Given (Physician Discretion): lidocaine(1 %) 40 ml 20 ml Infiltration once; to tm6 bedside Disposition Summary: 01/03/24 07:11 Hospitalization Ordered Notes: Hospitalization Status: Inpatient Admission sp4 Provider: Patrick Guerrero spGiovana Condition: Stable sp4 Problem: new sp4 Symptoms: have improved sp4 Bed/Room Type: Standard sp4 Location: Telemetry/MedSurg (Inpatient)(01/03/24 13:07) aa5 Room Assignment: [facility](01/03/24 13:07) aa5 Diagnosis - Muscle weakness (generalized) sp4 - Acute generalized weakness, acute encephalopathy, Acute hypoactive delirium sp4 Forms: - Medication Reconciliation Form sp4 - SBAR form sp4 - Leadership Thank You Letter sp4 NIH Stroke Scale - NIH Stroke Score Date: 01/03/2024 Time: 06:12 Total Score = 0 10. Dysarthria (speech clarity - read or repeat words) - 0(Normal) 11. Extinction and Inattention (visual/tactile/auditory/spatial/personal) - 0(No abnormality) 1a. Level of Consciousness (LOC) - 0(Alert) 1b. Level of Consciousness (LOC) (Month \T\ Age) - 0(Both) 1c. LOC Commands (Open \T\ Closes Eyes/Baggage Handling Supervisor) - 0(Both) 2. Best Gaze (Lateral Gaze Paresis) - 0(Normal) 3. Visual Field Loss - 0(No visual loss) 4. Facial Palsy - 0(Normal) 5a. Left Arm: Motor (10-second hold) - 0(No drift) 5b. Right Arm: Motor (10-second hold) - 0(No drift) 6a. Left Leg: Motor (5-second hold - always test supine) - 0(No drift) 6b. Right Leg: Motor (5-second hold - always test supine) - 0(No drift) 7. Limb Ataxia (finger/nose \T\ heel/balbuena - test with eyes open) - 0(Absent) 8. Sensory Loss (pinprick arms/legs/face) - 0(Normal) 9. Best Language: Aphasia (description/naming/reading) - 0(No aphasia) Initials: sp4 Signatures: Dispatcher [employer] EDBhaskar Puckett em1 Ingrid Alexander, RN RN [email or web address] Linus Johnson MD MD sp4 Radha Morris RN RN tm6 Yusuf Dee, RN RN bm8 Corrections: (The following items were deleted from the chart) 06:52 06:22 ED course: EXAM: CTAbdomen and Pelvis With Intravenous Contrast CLINICAL sp4 HISTORY: The patient is 27 years old and is Male; ABD PAIN TECHNIQUE: Axial computed tomography images of the abdomen and pelvis with intravenous contrast. Sagittal and coronal reformatted images were created and reviewed. This CT exam was performed using one or more of the following dose reduction techniques: automated exposure control, adjustment of the mA and/or kV according to patient size, and/or use of iterative reconstruction technique. COMPARISON: No relevant prior studies available. FINDINGS: Lung bases: Unremarkable. No mass. No consolidation. ABDOMEN: Liver: Unremarkable. No mass. Gallbladder and bile ducts: Unremarkable. No calcified stones. No ductal dilation. Pancreas: Unremarkable. No mass. No ductal dilation. Spleen: Unremarkable. No splenomegaly. Adrenals: Unremarkable. No mass. Kidneys and ureters: Unremarkable. No solid mass. No hydronephrosis. Stomach and bowel: Unremarkable. No obstruction. No mucosal thickening. PELVIS: Appendix: No findings to suggest acute appendicitis. Bladder: There may be diffuse bladder wall thickening, but the bladder is relatively nondistended limiting evaluation. Reproductive: Unremarkable as visualized. ABDOMEN and PELVIS: Intraperitoneal space: Unremarkable. No free air. No significant fluid collection. Bones/joints: No acute fracture. No dislocation. Soft tissues: There is a 1.2 x 2.0 x 2.0 cm thick walled fluid collection with adjacent stranding involving the umbilicus suggestive of an umbilical abscess. Vasculature: Unremarkable. No abdominal aortic aneurysm. Lymph nodes: Unremarkable. No enlarged lymph nodes. IMPRESSION: There is a 1.2 x 2.0 x 2.0 cm thick walled fluid collection with adjacent stranding involving the umbilicus suggestive of an umbilical abscess.. sp4 06:58 06:20 Dressing - Wound ordered. sp4 tm6 06:58 06:20 Sterile Gloves ordered. sp4 tm6 10:23 07:11 Telemetry/MedSurg (Inpatient) sp4 em1 10:23 07:11 sp4 em1 13:07 10:23 [facility] ER HOLD em1 aa5 13:07 10:23 ERHOLD- em1 aa5
[2024-01-03 07:59] LABS: Blood Morphology Comment NOT SEEN (NOT SEEN); Platelet Estimate ADEQ; White Blood Cell Scan OK (OK)
--- NOTE | 2024-01-03 09:45 | P.HP ---
Certification for Inpatient Patient admitted to: Inpatient With expected LOS: >2 Midnights Patient will require the following post-hospital care: Rehabilitation Practitioner: I am a practitioner with admitting privileges, knowledge of patient current condition, hospital course, and medical plan of care. Services: Services provided to patient in accordance with Admission requirements found in Title 42 Section 412.3 of the Code of Federal Regulations <Bailey Monet - Last Filed: 01/03/24 09:36> Patient History Date of Service: 01/03/24 Primary Care Provider: Dr. Rockwell Reason for admission: Generalized weakness, debility History of Present Illness: Mr. Uribe is an 84-year-old gentleman with a past medical history of coronary artery disease, congestive heart failure, dyslipidemia, acoustic neuroma, melanoma, and diabetes. He has a pacemaker/defibrillator. The defibrillator delivered a shock x 3 in June for ventricular tachycardia. At that time he underwent a left cardiac cath which showed 100% occlusion of the LAD graft that was thought to be chronic and otherwise moderate coronary artery disease. Medical management was recommended. Mr. Uribe went to inpatient rehab for strengthening after that admission. He is followed by Dr. Ramos and Dr. Carrasco for melanoma. He had radiation therapy and just recently stopped Keytruda after 1 year of therapy secondary to weakness and intermittent tremor. His most recent PET scan was reassuring. However, in the last week he seems to be increasingly weak, febrile, and is unable to ambulate. He was evaluated for sepsis in the emergency department and the workup is benign. He will be admitted for further evaluation and treatment with consultation to PT with potential for repeat inpatient rehab Home medications list reviewed: Yes - Past Medical/Surgical History Has patient received pneumonia vaccine in the past: Yes Diabetic: No -: CAD -: dyslipidemia -: Chronic systolic congestive heart failure -: [place] -: pacemaker/AICD -: DM -: multiple stents -: tonsillectomy -: Cholecystectomy -: Knee surgery -: Appendectomy -: facial nerve sx Psychosocial/ Personal History: Patient lives at home with his , has outpt PT three times weekly - Family History Mother -: Heart disease, Hypertension, Diabetes Father -: Heart disease, Hypertension, Diabetes, Cancer Brother -: Cancer Sister -: Cancer - Social History Smoking Status: Unknown if ever smoked Alcohol use: No CD- Drugs: No Caffeine use: Yes Place of Residence: Home <Bailey Monet - Last Filed: 01/03/24 09:36> Date of Service: 01/03/24 <YolandaWillownichelle Pa - Last Filed: 01/03/24 16:02> Allergies No Known Drug Allergies Allergy (Verified 02/16/22 12:20) Unknown Home Medications: Aspirin [Ecotrin 81 MG] 81 mg PO DAILY 09/29/14 Acetaminophen [Tylenol*] 650 mg PO Q6H PRN tab 02/16/22 Ezetimibe [Zetia*] 10 mg PO DAILY 02/16/22 Sacubitril/Valsartan [Entresto 24 mg-26 mg Tablet] 1 each PO BID 02/16/22 carvediloL [Carvedilol] 3.125 mg PO BID 02/16/22 Atorvastatin Calcium [Lipitor*] 20 mg PO DAILY 06/07/23 Amiodarone HCl [Cordarone*] 200 mg PO BID 06/14/23 Benzonatate [Tessalon Perle*] 100 mg PO Q6H PRN 06/14/23 Insulin Glargine,Hum.rec.anlog [Semglee] 15 unit SQ DAILY 06/14/23 Cranberry Fruit Extract 200 mg PO BID cap 06/18/23 Furosemide [Lasix*] 20 mg PO BIDL #60 tab 06/18/23 Glucerna Shake [Glucerna*] 237 ml PO BID can 06/18/23 Nystatin Powder [Mycostatin (Powder)*] 1 appl TOP BID #1 bottle 06/18/23 Potassium Oral Tab [Klor-Con 10 mEq Tab*] 10 meq PO BID #60 tab 06/18/23 Sodium Chloride Tab [Sodium Chloride*] 1 gm PO BID #60 tab 06/18/23 Review of Systems 10-point ROS is otherwise unremarkable General: As per HPI Neurological: As per HPI <Bailey Monet - Last Filed: 01/03/24 09:36> Physical Examination - Physical Exam General: Alert, Oriented x3, Other (generally weak) HEENT: Atraumatic, Normocephalic Neck: Supple Respiratory: Normal air movement Cardiovascular: No edema, Normal pulses, Regular rate/rhythm, Normal S1 S2 Capillary refill: <2 Seconds Gastrointestinal: Soft and benign Musculoskeletal: No clubbing Integumentary: No rashes Neurological: Normal speech, Abnormal strength Lymphatics: No axilla or inguinal lymphadenopathy External genitalia: Deferred Rectal: Deferred - Studies Laboratory Data (last 24 hrs) 01/03/24 01/03/24 01/03/24 03:18 03:18 03:18 WBC 3.60 L Hgb 13.5 L Hct 39.6 Plt Count 177 PT 14.4 H INR 1.32 APTT 29.9 Sodium 134 L Potassium 3.9 BUN 20 H Creatinine 0.73 Glucose 140 H Total Bilirubin 0.8 AST 34 ALT 49 Alkaline Phosphatase 51 <Bailey Monet - Last Filed: 01/03/24 09:36> - Studies Laboratory Data (last 24 hrs) 01/03/24 01/03/24 01/03/24 03:18 03:18 03:18 WBC 3.60 L Hgb 13.5 L Hct 39.6 Plt Count 177 PT 14.4 H INR 1.32 APTT 29.9 Sodium 134 L Potassium 3.9 BUN 20 H Creatinine 0.73 Glucose 140 H Total Bilirubin 0.8 AST 34 ALT 49 Alkaline Phosphatase 51 01/03/24 01/03/24 01/03/24 03:17 03:17 03:17 WBC Cancelled Hgb Cancelled Hct Cancelled Plt Count Cancelled PT Cancelled INR Cancelled APTT Cancelled Sodium Cancelled Potassium Cancelled BUN Cancelled Creatinine Cancelled Glucose Cancelled Total Bilirubin Cancelled AST Cancelled ALT Cancelled Alkaline Phosphatase Cancelled <Patrick Guerrero - Last Filed: 01/03/24 16:02> Assessment and Plan - Plan Plan: Weakness/debility consider other causes Monitor and trend Skin protective measures Consult PT Consult Neurology Consider inpatient rehab DM Semglee 16u q daily FSBS monitoring AC and HS SSI - mild protocol CAD/PACER/Defibrillator Continue home medications KOLE inhibitor/ARB Beta-darlene Strict Is & Os Daily weight - Advance Directives Does patient have a Living Will: No Does patient have a Durable POA for Healthcare: No <Bailey Monet - Last Filed: 01/03/24 09:36> - Plan Pt seen and examined. I agree with the note by the PSYCHOLOGY TECHNICIAN. Pt is an 84 yo male with past medical history of coronary artery disease, congestive heart failure, dyslipidemia, acoustic neuroma, melanoma, and diabetes who presents with weakness and debility. Of note, pt recently had left heart cath that showed 100% occlusion of the LAD graft that was thought to be chronic and otherwise moderate coronary artery disease. Cardiology recommended medical management and pt was di scharged to inpatient rehab for strengthening after that admission. During this admission, pt complained of feeling weak. Lab studies show wbc 3.6, Hgb 13.6, K 3.9, Cr 0.73, CRP 138, BNP 1211 and troponin 17.9. At bedside, pt is in NAD. A/P: Weakness: Will consult PT for deconditioning. Will likely go to inpatient rehab. Hx of CAD, s/p pacemaker and defibrilator. Will continue home med. DM : Continue accuchek, SSI and ADA diet. <Patrick Guerrero - Last Filed: 01/03/24 16:02>
[2024-01-03] MEDS ORDERED: ACETAMINOPHEN 500 MG TAB PO PRN (09:52)
--- NOTE | 2024-01-03 09:54 | RAD REPORT ---
EXAM DESCRIPTION: CT - Head Brain Wo Cont - 01/03/2024 6:56 am CLINICAL HISTORY: The patient is 84 years old and is Male; DIZZY TECHNIQUE: Axial computed tomography images of the head/brain without intravenous contrast. Sagitt al and coronal reformatted images were created and reviewed. This CT exam was performed using one o r more of the following dose reduction techniques: automated exposure control, adjustment of the mA and/or kV according to patient size, and/or use of iterative reconstruction technique. COMPARISON: No relevant prior studies available. FINDINGS: Brain: Old right cerebellar infarct. No hemorrhage. No significant white matter disease. Ventricles: Unremarkable. No ventriculomegaly. Bones/joints: Left occipital craniotomy with clips in the left posterior fossa. No acute fracture. Soft tissues: Unremarkable. Sinuses: Unremarkable as visualized. Mastoid air cells: Unremarkable as visualized. No mastoid effusion. IMPRESSION: No acute intracranial abnormality. Electronically signed by: Adolph Alvarez MD 01/03/2024 06:47 AM CDT RP 8 Due to temporary technical issues with the PACS/Fluency reporting system, reports are being signed by the in house radiologist without review as a courtesy to ensure prompt reporting. The interpreting r adiologist is fully responsible for the content of the report.
[2024-01-03] MEDS ORDERED: NYSTATIN PWDR 100000 UNIT/GM TOP PRN (09:58)
[2024-01-03] MEDS: INSULIN REGULAR (HUMAN) 100 UNIT/ML SQ SCH (11:30)
--- NOTE | 2024-01-03 14:13 | EKG ---
Test Date: 2024-01-03 Test Time: 03:38:25 Nursing Assistant: SARTHAK MEASUREMENT RESULTS: Intervals: Rate: 75 KS: 316 QRSD: 94 QT: 476 QTc: 531 [place]: P: 105 [place]: 316 QRS: -22 T: 75 INTERPRETIVE STATEMENTS: Sinus rhythm with 1st degree AV block Low voltage QRS Septal infarct, age undetermined Prolonged QT Abnormal ECG Compared to ECG 06/06/2023 16:15:10 Low QRS voltage now present Prolonged QT interval now present Myocardial infarct finding still present Electronically Signed On 01-03-24 14:12:43 CDT by Jose F Whalen
[2024-01-03 14:51] VITALS: O2SAT 99
[2024-01-03] MEDS: carvediloL 3.125 MG TAB PO SCH (17:14)
[2024-01-03] MEDS: GLUCERNA SHAKE 237 ML CAN PO SCH (21:00)
[2024-01-03] MEDS: AMIODARONE HCL 200 MG TAB PO SCH (21:22)
[2024-01-03] MEDS: SACUBITRIL/VALSARTAN 24/26 MG TAB PO SCH (21:23)
[2024-01-03] MEDS: EZETIMIBE 10 MG TAB PO SCH (21:23)
[2024-01-03] MEDS: ATORVASTATIN 20 MG TAB PO SCH (21:24)
[2024-01-04 06:52] LABS: Absolute Eosinophils 0.1 K/uL (0-0.5); Absolute Lymphocytes (CBC) 0.8 K/uL (0.7-4.9); Absolute Monocytes 1.1 K/uL (0.1-1.3); Absolute Neutrophil 3.8 K/uL (1.8-8.0); Basophils % 0.3 % (0-1.3); Hematocrit 37.8 % (39.6-49.0); Hemoglobin 13.2 g/dL (13.6-17.9); Lymphocytes % 13.6 % (15.3-44.8); MCHC 34.9 g/dL (32.0-36.0); MCV 91.8 fL (80-100); Monocytes % 18.7 % (3.3-12.3); Neutrophils % 66.4 % (41.7-73.7); Nucleated Red Blood Cells % 0.2 % (0-0); Platelets 172 thou/uL (152-406); RBC Red Blood Cell Count 4.12 M/uL (4.33-5.43); Red Cell Distribution Width 16.5 % (12.1-15.2)
[2024-01-04 07:08] LABS: PT Prothrombin Time 13.2 SECONDS (9.4-12.5); PTT, Activated Partial Thromb 28.5 SECONDS (24.3-36.9); Protime INR 1.21
[2024-01-04 07:10] LABS: Albumin 2.6 g/dL (3.4-5.0); Albumin/Globulin Ratio 0.8 (1.1-1.8); Anion Gap 5.9 mEq/L (5.0-15.0); Bilirubin Total 0.7 mg/dL (0.2-1.0); Globulin 3.1 g/dL (2.3-3.5); Magnesium 2.1 mg/dL (1.6-2.4); Phosphorus 2.3 mg/dL (2.5-4.9); Potassium 3.9 mEq/L (3.5-5.1); Protein, Total 5.7 g/dL (6.4-8.2)
--- NOTE | 2024-01-04 08:10 | P.PN ---
Subjective Date of Service: 01/04/24 Primary Care Provider: Dr. Rockwell Chief Complaint: Generalized weakness, debility Subjective: No new changes <Bailey Monet - Last Filed: 01/04/24 08:08> Date of Service: 01/04/24 <Patrick Guerrero - Last Filed: 01/04/24 10:34> Review of Systems 10-point ROS is otherwise unremarkable General: Weakness, Malaise, As per HPI Neurological: As per HPI <Bailey Monet - Last Filed: 01/04/24 08:08> Physical Examination - Vital Signs Temperature: 97.7 F Blood Pressure: 100/52 Pulse: 63 Respirations: 16 Pulse Ox (%): 94 - Physical Exam General: Other (sleeping, held coreg this am for soft pressure and HR 56) HEENT: Atraumatic, Normocephalic Neck: Supple Respiratory: Normal air movement Cardiovascular: No edema Capillary refill: <2 Seconds Gastrointestinal: Soft and benign Musculoskeletal: No clubbing Integumentary: No rashes Neurological: Abnormal strength Lymphatics: No axilla or inguinal lymphadenopathy External genitalia: Deferred Rectal: Deferred - Studies Laboratory Data (last 24 hrs) 01/03/24 01/03/24 01/03/24 03:18 03:18 03:18 WBC 3.60 L Hgb 13.5 L Hct 39.6 Plt Count 177 PT 14.4 H INR 1.32 APTT 29.9 Sodium 134 L Potassium 3.9 BUN 20 H Creatinine 0.73 Glucose 140 H Total Bilirubin 0.8 AST 34 ALT 49 Alkaline Phosphatase 51 01/03/24 01/03/24 01/03/24 03:17 03:17 03:17 WBC Cancelled Hgb Cancelled Hct Cancelled Plt Count Cancelled PT Cancelled INR Cancelled APTT Cancelled Sodium Cancelled Potassium Cancelled BUN Cancelled Creatinine Cancelled Glucose Cancelled Total Bilirubin Cancelled AST Cancelled ALT Cancelled Alkaline Phosphatase Cancelled <Bailey Monet - Last Filed: 01/04/24 08:08> - Studies Laboratory Data (last 24 hrs) 01/03/24 01/03/24 01/03/24 03:17 03:17 03:17 WBC Cancelled Hgb Cancelled Hct Cancelled Plt Count Cancelled PT Cancelled INR Cancelled APTT Cancelled Sodium Cancelled Potassium Cancelled BUN Cancelled Creatinine Cancelled Glucose Cancelled Total Bilirubin Cancelled AST Cancelled ALT Cancelled Alkaline Phosphatase Cancelled <Patrick Guerrero - Last Filed: 01/04/24 10:34> Assessment And Plan - Plan Plan: Weakness/debility consider other causes Monitor and trend Skin protective measures Consult PT Consult Neurology Consider inpatient rehab DM Semglee 16u q daily FSBS monitoring AC and HS SSI - mild protocol CAD/PACER/Defibrillator Continue home medications KOLE inhibitor/ARB Beta-darlene Strict Is & Os Daily weight 01/04/24 soft BP with HR 56 - held coreg this am <Bailey Monet - Last Filed: 01/04/24 08:08> - Plan Pt seen and examined. I agree with the note by the [facility] P[employer]. Pt is feeling better. 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 Waiting on PT eval. Pt does not want i npatient rehab placement. He wants to go home and continue PT at home. <Patrick Guerrero - Last Filed: 01/04/24 10:34>
[2024-01-04] MEDS: INSULIN GLARGINE 100 UNIT/ML SQ SCH (09:00)
[2024-01-04] MEDS: ENOXAPARIN 40 MG/0.4 ML SQ SCH (09:00)
[2024-01-04] MEDS: POTASS/SODIUM PHOSPHATE 1 PKT POWD.PACK PO SCH (10:00)
[2024-01-04] MEDS: FUROSEMIDE 20 MG/ 2ML VIAL IV SCH (10:01)
[2024-01-04] MEDS: ASPIRIN EC 81 MG TAB PO SCH (10:01)
[2024-01-04 11:13] VITALS: BMI 26.9
[2024-01-04 16:47] VITALS: BP 110/62; TEMP 98.2
--- NOTE | 2024-01-05 19:32 | P.DS ---
Admission Date: 01/03/24 Discharge Date: 01/05/24 Primary Care Provider: Dr. Rockwell Reason for Admission: Generalized weakness, debility Consultations: PT for IPR Brief History of Present Illness: Mr. Uribe is an 84-year-old gentleman with a past medical history of coronary artery disease, congestive heart failure, dyslipidemia, acoustic neuroma, melanoma, and diabetes. He has a pacemaker/defibrillator. The defibrillator delivered a shock x 3 in June for ventricular tachycardia. At that time he underwent a left cardiac cath which showed 100% occlusion of the LAD graft that was thought to be chronic and otherwise moderate coronary artery disease. Medical management was recommended. Mr. Uribe went to inpatient rehab for strengthening after that admission. He is followed by Dr. Ramos and Dr. Carrasco for melanoma. He had radiation therapy and just recently stopped Keytruda after 1 year of therapy secondary to weakness and intermittent tremor. His most recent PET scan was reassuring. However, in the last week he seems to be increasingly weak, febrile, and is unable to ambulate. He was evaluated for sepsis in the emergency department and the workup is benign. He will be admitted for further evaluation and treatment with consultation to PT with potential for repeat inpatient rehab Hospital Course: Mr. Uribe declined inpatient rehab. He would like to go home and continue rehab 3 times a week per his home health company. Labs and vital signs have been reassuring, he ambulated with standby assist per nursing personnel so patient will be discharged home. <Bailey Monet - Last Filed: 01/05/24 19:27> Admission Date: 01/03/24 Discharge Date: 01/05/24 Hospital Course: Pt seen and examined. I agree with the note by the LIFE GUARD. Pt is feeling better. He declined inpatient rehab He will continue home health at home with 24hr standby assist. Ok to discharge pt. <Patrick Guerrero - Last Filed: 01/05/24 21:57> Disposition: DC HOME/HOME HEALTH CARE Discharge Condition: GOOD Vital Signs/Physical Exam: Temp Pulse Resp BP Pulse Ox 98.2 F 60 16 110/62 96 01/04/24 16:00 01/04/24 16:41 01/04/24 16:00 01/04/24 16:41 01/04/24 16:00 General: Alert, In no apparent distress, Oriented x3 HEENT: Atraumatic, Normocephalic Neck: Supple Respiratory: Normal air movement Cardiovascular: Normal pulses Capillary refill: <2 Seconds Gastrointestinal: Soft and benign Musculoskeletal: No clubbing Integumentary: No rashes Neurological: Normal speech, Normal tone, Normal affect, Abnormal strength Lymphatics: No axilla or inguinal lymphadenopathy External genitalia: Deferred Rectal: Deferred Laboratory Data at Discharge: WBC 5.80 thou/uL (4.3-10.9) 01/04/24 06:00 Hgb 13.2 g/dL (13.6-17.9) L 01/04/24 06:00 Hct 37.8 % (39.6-49.0) L 01/04/24 06:00 Plt Count 172 thou/uL (152-406) 01/04/24 06:00 PT 13.2 SECONDS (9.4-12.5) H 01/04/24 06:00 INR 1.21 01/04/24 06:00 APTT 28.5 SECONDS (24.3-36.9) 01/04/24 06:00 Sodium 134 mEq/L (136-145) L 01/04/24 06:00 Potassium 3.9 mEq/L (3.5-5.1) 01/04/24 06:00 BUN 15 mg/dL (7-18) 01/04/24 06:00 Creatinine 0.59 mg/dL (0.70-1.30) L 01/04/24 06:00 Glucose 103 mg/dL (74-106) 01/04/24 06:00 Phosphorus 2.3 mg/dL (2.5-4.9) L 01/04/24 06:00 Magnesium 2.1 mg/dL (1.6-2.4) 01/04/24 06:00 Total Bilirubin 0.7 mg/dL (0.2-1.0) 01/04/24 06:00 AST 40 U/L (15-37) H 01/04/24 06:00 ALT 62 U/L (16-61) H 01/04/24 06:00 Alkaline Phosphatase 51 U/L (45-117) 01/04/24 06:00 Triglycerides 82 mg/dL (<150) 01/04/24 06:00 Cholesterol 75 mg/dL (<200) 01/04/24 06:00 HDL Cholesterol 43 mg/dL (40-60) 01/04/24 06:00 Cholesterol/HDL Ratio 1.74 01/04/24 06:00 <Bailey Monet - Last Filed: 01/05/24 19:27> Vital Signs/Physical Exam: Temp Pulse Resp BP Pulse Ox 98.2 F 60 16 110/62 96 01/04/24 16:00 01/04/24 16:41 01/04/24 16:00 01/04/24 16:41 01/04/24 16:00 Laboratory Data at Discharge: WBC 5.80 thou/uL (4.3-10.9) 01/04/24 06:00 Hgb 13.2 g/dL (13.6-17.9) L 01/04/24 06:00 Hct 37.8 % (39.6-49.0) L 01/04/24 06:00 Plt Count 172 thou/uL (152-406) 01/04/24 06:00 PT 13.2 SECONDS (9.4-12.5) H 01/04/24 06:00 INR 1.21 01/04/24 06:00 APTT 28.5 SECONDS (24.3-36.9) 01/04/24 06:00 Sodium 134 mEq/L (136-145) L 01/04/24 06:00 Potassium 3.9 mEq/L (3.5-5.1) 01/04/24 06:00 BUN 15 mg/dL (7-18) 01/04/24 06:00 Creatinine 0.59 mg/dL (0.70-1.30) L 01/04/24 06:00 Glucose 103 mg/dL (74-106) 01/04/24 06:00 Phosphorus 2.3 mg/dL (2.5-4.9) L 01/04/24 06:00 Magnesium 2.1 mg/dL (1.6-2.4) 01/04/24 06:00 Total Bilirubin 0.7 mg/dL (0.2-1.0) 01/04/24 06:00 AST 40 U/L (15-37) H 01/04/24 06:00 ALT 62 U/L (16-61) H 01/04/24 06:00 Alkaline Phosphatase 51 U/L (45-117) 01/04/24 06:00 Triglycerides 82 mg/dL (<150) 01/04/24 06:00 Cholesterol 75 mg/dL (<200) 01/04/24 06:00 HDL Cholesterol 43 mg/dL (40-60) 01/04/24 06:00 Cholesterol/HDL Ratio 1.74 01/04/24 06:00 <Patrick Guerrero - Last Filed: 01/05/24 21:57> Diet: AHA Activity: Ad kalia <Bailey Monet Cheo - Last Filed: 01/05/24 19:27> <Patrick Guerrero - Last Filed: 01/05/24 21:57> Home Medications: Aspirin [Ecotrin 81 MG] 81 mg PO DAILY 09/29/14 Acetaminophen [Tylenol*] 650 mg PO Q6H PRN tab 02/16/22 Ezetimibe [Zetia*] 10 mg PO DAILY 02/16/22 Sacubitril/Valsartan [Entresto 24 mg-26 mg Tablet] 1 each PO BID 02/16/22 carvediloL [Carvedilol] 3.125 mg PO BID 02/16/22 Atorvastatin Calcium [Lipitor*] 20 mg PO DAILY 06/07/23 Amiodarone HCl [Cordarone*] 200 mg PO BID 06/14/23 Benzonatate [Tessalon Perle*] 100 mg PO Q6H PRN 06/14/23 Insulin Glargine,Hum.rec.anlog [Semglee] 15 unit SQ DAILY 06/14/23 Cranberry Fruit Extract 200 mg PO BID cap 06/18/23 Furosemide [Lasix*] 20 mg PO BIDL #60 tab 06/18/23 Glucerna Shake [Glucerna*] 237 ml PO BID can 06/18/23 Nystatin Powder [Mycostatin (Powder)*] 1 appl TOP BID #1 bottle 06/18/23 Potassium Oral Tab [Klor-Con 10 mEq Tab*] 10 meq PO BID #60 tab 06/18/23 Sodium Chloride Tab [Sodium Chloride*] 1 gm PO BID #60 tab 06/18/23 Physician Discharge Instructions: Mr. Uribe declined inpatient rehab. He would like to go home and continue rehab 3 times a week per his home health company. Labs and vital signs have been reassuring, he ambulated with standby assist per nursing personnel so patient will be discharged home. Continue home health at home with stand by assist when out of bed. Take home meds and followup with PCP within 2 - 3 weeks. Okay to DC IV and DC home Follow-up with primary care provider in 1 to 2 weeks Please call the inpatient unit for any questions or concerns regarding hospital stay Return to the ER for worsening symptoms Followup: Beba OBRIEN,Irasema Brewster DO [Primary Care Provider] -
== END 2024-01-04 18:32 | disposition home health service (06) | DRG 948 ==
LOC: ER 03:04 → ERHOLD 08:20 → 2ND 13:14
PROVIDERS: ADMIT Hospitalist; ATTEND Hospitalist
DX: R53.81 Other malaise (principal); F05 Delirium due to known physiological condition; G93.40 Encephalopathy, unspecified; I50.22 Chronic systolic (congestive) heart failure; G51.0 Bell's palsy; E11.9 Type 2 diabetes mellitus without complications; E78.00 Pure hypercholesterolemia, unspecified; J44.9 Chronic obstructive pulmonary disease, unspecified; I25.10 Atherosclerotic heart disease of native coronary artery without angina pectoris; I25.2 Old myocardial infarction; Z79.4 Long term (current) use of insulin; Z79.82 Long term (current) use of aspirin; Z79.02 Long term (current) use of antithrombotics/antiplatelets; Z90.49 Acquired absence of other specified parts of digestive tract; Z28.310 Unvaccinated for COVID-19; Z79.899 Other long term (current) drug therapy; Z95.810 Presence of automatic (implantable) cardiac defibrillator
CPT/HCPCS: 36415; 51702; 70450; 71250; 74176; 80053; 80061; 81001; 82947; 83036; 83605; 83735; 83880; 84100; 84439; 84443; 84484; 85025; 85610; 85730; 86140; 87040; 93005; 96365; 96366; 96375; 97116; 97161; 97530; 99285; J1650; J1940; J2405; J2543; J7030; J7050